=== PATIENT | female | born 1955 | race Caucasian/White ===

== ENCOUNTER → 2018-03-27 08:40 | Outpatient (CLI) | payer BC, SELFPAY ==
[2018-03-27 10:06] LABS: Erythrocyte Sedimentation Rate 22 mm/hr (0-30)
[2018-03-27 10:12] LABS: Hematocrit 39.1 % (37-47); Hemoglobin 12.9 g/dl (12.0-15.0); Mean Corpuscular Hgb 31.8 pg (27.0-32.0); Mean Corpuscular Volume 96.3 fL (81-99); Mean Platelet Vol. 11.4 fl (6.2-12.0); Platelet Count 240 K/mm3 (150-450); RBC Distribution Width CV 12.4 % (11.6-14.6); RBC Distribution Width SD 42.8 fl (35.1-43.9); Red Blood Count 4.06 M/mm3 (4.2-5.4)
[2018-03-27 10:17] LABS: Vitamin B12 330 pg/mL (211-911); Vitamin D,25 Hydroxy 52.4 ng/mL (29.95-100.01)
[2018-03-27 10:19] LABS: Scan Indicated on CBC? Y/N NO
[2018-03-27 10:23] LABS: ALB/GLOB Ratio 0.9 RATIO (0.9-2.4); AST(SGOT) 16 U/L (15-37); Alanine Aminotransfer ALT/SGPT 23 U/L (13-56); Albumin, Serum 3.5 g/dL (3.2-5.0); Alkaline Phosphatase 45 U/L (45-117); Anion Gap 10 (5-15); BUN 16 mg/dL (7-18); BUN/Creat Ratio 17.1 RATIO (10-20); Calcium,Total 8.9 mg/dL (8.5-10.1); Chloride 101 mmol/L (98-107); Cholesterol 179 mg/dL (200); Creatinine, Serum 0.94 mg/dL (0.55-1.02); EST Glomerular Filtration Rate 64 mL/min (>60); Est Glom Filt Rate - Afr Amer 77 mL/min (>60); Globulin 4.1 g/dL (2.2-4.2); Glucose 101 mg/dL (74-106); High Density Lipoprotein 42 mg/dL; Iron 99 ug/dL (50-170); Magnesium 1.7 mg/dL (1.6-2.6); Potassium 4.3 mmol/L (3.5-5.1); Protein, Total 7.6 g/dL (6.4-8.2); Sodium Level 139 mmol/L (136-145); Thyroid Stim Hormone (TSH) 2.46 uIU/mL (0.358-3.74); Triglycerides 232 mg/dL; Very Low Density Lipoprotein 46 mg/dL (5-40)
[2018-03-29 11:34] LABS: ANTINUCLEAR ANTIBODIES DIRECT Negative (Negative)
== END ==
PROVIDERS: Family Provider Family Medicine; PCP Family Medicine; Visit Provider Family Medicine
DX: I10 Essential (primary) hypertension (principal); G62.9 Polyneuropathy, unspecified
CPT/HCPCS: 80053; 80061; 82306; 82607; 82746; 83540; 83735; 84443; 85027; 85652; 86038; 86140

== ENCOUNTER → 2018-06-23 07:17 | Outpatient (CLI) | payer MEDICARE, SELFPAY ==
--- NOTE | 2018-06-23 08:30 | RAD_ITS ---
STUDY: X-RAY - LUMBAR SPINE REASON FOR EXAM: Female, 63 years old. Lumbar disc degeneration TECHNIQUE: 5 view(s) of the lumbar spine were obtained. COMPARISON: None FINDINGS: Normal lumbar lordosis. There is mild levoscoliosis. There is a normal alignment of the vertebrae. Postop change status post bilateral laminectomy and fusion at L5-S1 No evidence for acute fracture or subluxation.. Mild multilevel disc space narrowing The soft tissue structures are unremarkable. RAD/L/S Spine Min 4 Views IMPRESSION: Minor scoliosis and degenerative changes Postop change at L5-S1 No acute fracture or other significant bony pathology. Electronically Signed: Cristi mSith MD at 21:59 EDT , Service support ,
== END ==
PROVIDERS: Family Provider Family Medicine; PCP Family Medicine; Referring Provider Family Medicine; Visit Provider Family Medicine
DX: M51.36 Other intervertebral disc degeneration, lumbar region (principal)
CPT/HCPCS: 72110

== ENCOUNTER → 2018-07-24 09:14 | Outpatient (CLI) | payer MEDICARE, SELFPAY ==
[2016-12-10 17:01] VITALS: BMI 35.8
[2018-07-24 10:40] LABS: Vitamin B12 810 pg/mL (211-911)
== END ==
PROVIDERS: Family Provider Family Medicine; PCP Family Medicine; Visit Provider Family Medicine
DX: E53.8 Deficiency of other specified B group vitamins (principal)
CPT/HCPCS: 36415; 82607; 86140

== ENCOUNTER → 2018-08-29 | Outpatient (CLI) | payer MEDICARE, SELFPAY ==
[2016-12-10 17:01] VITALS: BMI 35.8
== END | disposition home or self-care (01) ==
LOC: LABSPEC 12:27
PROVIDERS: Referring Provider Family Medicine; Visit Provider Family Medicine
DX: R32 Unspecified urinary incontinence (principal)
CPT/HCPCS: 87086; 87088

== ENCOUNTER → 2018-09-04 15:59 | Outpatient (CLI) | payer MEDICARE, SELFPAY ==
--- NOTE | 2018-09-04 16:24 | MRI_ITS ---
HISTORY:NEUROPATHY L LEG, OVERALL PAIN AND GENERALIZED WEAKNESS MR Spine Lumbar W/O Contrast Technique:Sagittal T1-T2 and STIR and axial T1 and T2-weighted images # of images including paperwork:127 Comparison:Ready aggressive to June 23, 2018 Findings: The conus ends at the L1-L2 disc space and appears within normal limits. There is a hemangioma seen within the L2 vertebral body as well as the T12 and T11 vertebral bodies Postsurgical changes are seen at the level of L5-S1 T12-L1: Disc height and hydration are preserved. There is no evidence of the disc contour abnormality or canal stenosis. No significant neural foraminal narrowing or nerve root impingement. L1-2: Disc height and hydration are preserved. There is no evidence of the disc contour abnormality or canal stenosis. No significant neural foraminal narrowing or nerve root impingement. L2-3: Disc height and hydration are preserved. There is no evidence of the disc contour abnormality or canal stenosis. No significant neural foraminal narrowing or nerve root impingement. L3-4:Minimal annular bulge asymmetric to the left. Mild left neural foraminal narrowing but no significant nerve root impingement. No canal stenosis. There is a right facet effusion L4-5:There is a mild annular bulge asymmetric to the left. Mild bilateral neural foraminal narrowing but no significant nerve impingement L5-S1:Interbody fusion device at the level of L5-S1 with fusion of the L5 and S1 vertebral bodies. There is also anterior fusion device with screws extending into the L5 and S1 vertebral bodies. There is mild left-sided/down neural foraminal narrowing. There is minimal effacement of the left L5 nerve root laterally as it exits the foramen MRI/Spine Lumbar (Routine) IMPRESSION: Postsurgical changes L5-S1. Interbody fusion at this level. Minimal effacement of the left L5 nerve root as it exits the foramen at 1835 Reported and signed by: Florence Blanco DO Electronically Signed: Florence Blanco DO at 18:34 EDT Tel , Service support ,
== END ==
PROVIDERS: Family Provider Family Medicine; PCP Family Medicine; Referring Provider Family Medicine; Visit Provider Family Medicine
DX: G62.9 Polyneuropathy, unspecified (principal)
CPT/HCPCS: 72148

== ENCOUNTER → 2018-09-05 08:12 | Outpatient (CLI) | payer MEDICARE, SELFPAY ==
[2018-09-05 10:29] LABS: Color, Urine Yellow (Yellow); Glucose, Dipstick Normal (Normal); Ketone-Dipstick Negative (Negative); Leukocyte Esterase-Dipstick Negative /ul (Negative); Nitrite-Dipstick Negative (Negative); Occult Blood-Urine Negative /ul (Negative); Protein-Dipstick Negative (Negative); Urine Bilirubin Dipstick Negative (Negative); Urine Clarity Clear (Clear); Urine Urobilinogen Normal (Normal)
== END ==
PROVIDERS: Family Provider Family Medicine; PCP Family Medicine; Visit Provider Family Medicine
DX: R32 Unspecified urinary incontinence (principal)
CPT/HCPCS: 81002; 87086; 87088

== ENCOUNTER → 2018-09-21 09:04 | Outpatient (CLI) | payer MEDICARE, SELFPAY ==
--- NOTE | 2018-09-21 09:14 | MRI_ITS ---
STUDY: MRI BRAIN WITHOUT CONTRAST REASON FOR EXAM: Female, 63 years old. Gait instability, visual loss, neuropathy TECHNIQUE: Standardized multiplanar fat and water weighted pulse sequences were obtained. COMPARISON: CT 12/13/2016 FINDINGS: There is mild cerebral atrophy with widening of the extra-axial spaces and ventricular dilatation. There are a limited number of small white matter hyperintensities, distributed throughout the deep white matter tracts of the cerebral hemispheres, consistent with mild chronic white matter ischemic changes. There is no evidence for recent intracranial ischemia or other cause of cytotoxic edema on diffusion weighted imaging (DWI). Normal T2* images of the brain without demonstrated susceptibility artifact. There is no demonstrated hemosiderin stain. Normal bilateral basal ganglia. Normal thalami. There is no extra-axial fluid accumulation. Normal flow voids within the major intracranial circulation suggesting patency by spin echo criteria. Normal sella turcica, pituitary gland, infundibular stalk, optic chiasm and hypothalamus. Normal tectal plate and pineal gland. Normal midbrain, ochoa and medulla. Normal cerebellum. Normal basal cisterns. Normal bilateral temporal bones. Normal bilateral internal auditory canals. No demonstrated orbital abnormality, within the constraints of a routine brain study. Normal visualized paranasal sinuses. Normal calvarium and skull base. Normal visualized soft tissue structures. Normal visualized upper cervical spine. MRI/Brain without Contrast IMPRESSION: Involutional changes of the brain, as described above. Electronically Signed: Mc Winslow MD at 9:56 EDT Tel , Service support ,
== END ==
PROVIDERS: Family Provider Family Medicine; PCP Family Medicine; Referring Provider Family Medicine; Visit Provider Family Medicine
DX: R26.81 Unsteadiness on feet (principal)
CPT/HCPCS: 70551

== ENCOUNTER → 2019-01-16 08:45 | Outpatient (CLI) | payer MEDICARE, SELFPAY ==
--- NOTE | 2019-01-16 08:47 | US_ITS ---
PROCEDURES: ULTRASOUND AORTA REASON FOR EXAM: Female, 63 years old. Screening for abdominal aortic aneurysm. TECHNIQUE: Ultrasound evaluation of the aorta was performed with real-time and static bailon-scale imaging. COMPARISON: None. FINDINGS: There is no elongation or tortuosity of the abdominal aorta. Aorta measures: Proximal 1.6 cm. Middle 1.3 cm. Distal 1.2 cm. Aorta measure transversely: Proximal 1.7 cm. Middle 1.5 cm. Distal 1.3 cm. Right iliac artery measures: 1.1 cm. Right iliac artery measure transversely: 1.3 cm. Left iliac artery measures: 1.0 cm. Left iliac artery measure transversely: 1.3 cm. There is no demonstrated aneurysm.. US/Aorta IMPRESSION: Normal abdominal aorta. Electronically Signed: Kayden Sprague, at 15:52 EST , Service support ,
--- NOTE | 2019-01-16 09:55 | ECHOCS_ITS ---
Reason For Study: MV Annular Calcification Procedure This was a 2D Doppler, Color Flow transthoracic echocardiogram. The study was technically difficult. Contrast injection was performed. Exam performed in department. Left Ventricle Normal LV size. Mild concentric left ventricular hypertrophy. Left ventricular systolic function is normal. The estimated ejection fraction is 60 %. Diastolic function is indeterminate. No regional wall motion abnormalities noted. Right Ventricle Normal RV size. Normal systolic function. Atria The left atrium is mildly enlarged. Normal right atrium. No doppler evidence for ASD. Mitral Valve There is moderate mitral annular calcification. Extension of the mitral annular calcification onto the base of the posterior mitral valve leaflet. Mild diffuse mitral valve thickening. Mild mitral valve stenosis. Trivial mitral valve insufficiency. Tricuspid Valve Normal tricuspid valve. Trivial tricuspid valve insufficiency. Aortic Valve Trisinus/trileaflet aortic valve. Moderate diffuse aortic valve calcification. Moderate aortic stenosis. Trivial aortic valve insufficiency. Pulmonic Valve The pulmonic valve is not well visualized. Trivial pulmonic valve insufficiency. Great Vessels Normal sized aortic root. Pericardium/Pleural No pericardial effusion. Medication 22 gauge I.V. with prn adaptor inserted into right arm. Diluted definity 2ml given slow IV push to enhance endocardial definition. MMode/2D Measurements & Calculations LVIDd: 3.6 cm IVSd: 1.3 cm LVOT diam: 2.0 cm LVIDs: 2.8 cm LVPWd: 1.5 cm FS: 22.3 % LVOT area: 3.2 cm2 Ao root diam: 3.3 cm LAV(MOD-bp): 59.3 ml LA A4 area: 22.5 cm2 ACS: 0.94 cm LAV(MOD-bp) Indexed: 29.7 ml/m2 LA dimension: 4.1 cm LAV(MOD-sp2): 48.4 ml LAV(MOD-sp4): 68.4 ml RA A4 area: 15.6 cm2 Time Measurements MV dec time: 0.39 sec Doppler Measurements & Calculations MV E max edgardo: 91.3 cm/sec Lat Peak E' Edgardo: 9.4 cm/sec Med Peak E' Edgardo: 4.2 cm/sec MV A max edgardo: 142.5 cm/sec E/E' lat: 9.7 E/E' med: 21.8 MV E/A: 0.64 MV V2 max: 157.9 cm/sec MV P1/2t max edgardo: 108.8 cm/sec Ao V2 max: 352.3 cm/sec MV max P.0 mmHg MV P1/2t: 136.7 msec Ao max P.7 mmHg MV V2 mean: 83.4 cm/sec MV dec slope: 233.2 cm/sec2 Ao V2 mean: 230.0 cm/sec MV mean P.3 mmHg Ao mean P.5 mmHg MV V2 VTI: 49.2 cm MVA(P1/2t): 1.6 cm2 Ao V2 VTI: 83.1 cm MVA(VTI): 1.5 cm2 LUMA(I,D): 0.91 cm2 LUMA(V,D): 0.97 cm2 LV V1 max: 107.4 cm/sec SV(LVOT): 75.4 ml PA V2 max: 101.1 cm/sec LV V1 max P.6 mmHg LV V1 mean P.3 mmHg LV V1 mean: 69.9 cm/sec LV V1 VTI: 23.8 cm Interpretation Summary The study was technically difficult. Contrast injection was performed. Left ventricular systolic function is normal. The estimated ejection fraction is 60 %. Mild concentric left ventricular hypertrophy. The left atrium is mildly enlarged. There is moderate mitral annular calcification. Extension of the mitral annular calcification onto the base of the posterior mitral valve leaflet. Mild diffuse mitral valve thickening. Mild mitral valve stenosis. Trivial mitral valve insufficiency. Trivial tricuspid valve insufficiency. Moderate aortic stenosis. Trivial aortic valve insufficiency. Trivial pulmonic valve insufficiency. Diastolic function is indeterminate. Ordering Physician: Manuel Freeman Referring Physician: Manuel Freeman Performed By: Van Oconnell RCS
== END ==
PROVIDERS: Family Provider Family Medicine; PCP Family Medicine; Referring Provider Family Medicine; Visit Provider Family Medicine
DX: Z13.6 Encounter for screening for cardiovascular disorders (principal); I05.9 Rheumatic mitral valve disease, unspecified; I35.1 Nonrheumatic aortic (valve) insufficiency
CPT/HCPCS: 76775; 93306; Q9957; A4216; C8929

== ENCOUNTER → 2019-01-18 08:09 | Outpatient (CLI) | payer MEDICARE, SELFPAY ==
[2019-01-18 10:48] LABS: Erythrocyte Sedimentation Rate 49 mm/hr (0-30)
[2019-01-18 10:50] LABS: Absolute Lymphocyte Count 1.49 X10^3/uL (0.83-4.51); Absolute Neutrophil Count 3.2 X10^3/uL (2.0-7.7); Basophil# 0.03 X10^3/uL; Basophil% 0.5 % (0-1); Eosinophil# 0.22 X10^3/uL; Eosinophils% 3.9 % (0-5); Hematocrit 40.1 % (37-47); Hemoglobin 12.9 g/dL (12.0-15.0); Lymphocyte # 1.49 X10^3/ul (4.0); Lymphocyte % 26.4 % (19-41); Mean Corp Hgb Conc 32.2 g/dL (32-36); Mean Corpuscular Hgb 31.3 pg (27.0-32.0); Mean Corpuscular Volume 97.3 fL (81-99); Mean Platelet Vol. 11.5 fl (6.2-12.0); Monocyte# 0.69 X10^3/uL; Monocyte% 12.2 % (0-10); NRBC Flagged by Analyzer 0 % (0-5); Neutrophil % 56.6 % (47-70); Platelet Count 244 K/mm3 (150-450); RBC Distribution Width CV 12.3 % (11.6-14.6); RBC Distribution Width SD 43.8 fl (35.1-43.9); Red Blood Count 4.12 M/mm3 (4.2-5.4); White Blood Count 5.7 K/mm3 (4.4-11.0)
[2019-01-18 11:19] LABS: ALB/GLOB Ratio 0.8 RATIO (0.9-2.4); AST(SGOT) 14 U/L (15-37); Alanine Aminotransfer ALT/SGPT 22 U/L (13-56); Albumin, Serum 3.2 g/dL (3.2-5.0); Alkaline Phosphatase 42 U/L (45-117); Anion Gap 10 (5-15); BUN 17 mg/dL (7-18); BUN/Creat Ratio 17.8 RATIO (10-20); Calcium,Total 8.9 mg/dL (8.5-10.1); Chloride 101 mmol/L (98-107); Creatinine, Serum 0.95 mg/dL (0.55-1.02); EST Glomerular Filtration Rate 62 mL/min (>60); Est Glom Filt Rate - Afr Amer 76 mL/min (>60); Ferritin 65 ng/mL (8-252); Globulin 4.1 g/dL (2.2-4.2); Glucose 93 mg/dL (74-106); Iron 79 ug/dL (50-170); Potassium 3.9 mmol/L (3.5-5.1); Protein, Total 7.3 g/dL (6.4-8.2); Sodium Level 138 mmol/L (136-145); Thyroid Stim Hormone (TSH) 2.22 uIU/mL (0.358-3.74)
[2019-01-18 12:55] LABS: Vitamin B12 1307 pg/mL (211-911); Vitamin D,25 Hydroxy 51.3 ng/mL (29.95-100.01)
== END ==
PROVIDERS: Family Provider Family Medicine; PCP Family Medicine; Referring Provider Family Medicine; Visit Provider Family Medicine
DX: R53.83 Other fatigue (principal); E53.8 Deficiency of other specified B group vitamins
CPT/HCPCS: 36415; 80053; 82306; 82607; 82728; 83540; 84443; 85025; 85652; 86140

== ENCOUNTER → 2019-01-23 10:12 | Outpatient (CLI) | payer MEDICARE, SELFPAY ==
[2016-12-10 17:01] VITALS: BMI 35.8
--- NOTE | 2019-01-23 10:15 | BI_ITS ---
MAMMOGRAPHY - BILATERAL SCREENING REASON FOR EXAM: Female, 63 years old. Routine annual screening examination. PERTINENT HISTORY: Non-contributory. TECHNIQUE: Digital bilateral breast aliyah (3D mammographic acquisition) in the CC and MLO projections. 2-D mediolateral oblique (MLO) and craniocaudad (CC) views of both breasts were obtained. CAD: Full Field Digital Mammography with Computer Added Detection was performed. COMPARISON: Comparison is made with prior examination dated October 21, 2014 and September 23, 2011. FINDINGS: Breast Composition: The breasts are almost entirely fatty. There are no dominant masses or suspicious calcifications. Stable benign-appearing bilateral axillary lymph nodes. No other significant abnormalities are identified. There has been no significant change since the prior study. BI/SCREEN MAMM (CAD) W/ALIYAH BILAT IMPRESSION: Stable bilateral screening mammogram. Yearly follow-up mammogram recommended. (A) ASSESSMENT CATEGORY: BIRADS Category 2: Benign. A letter regarding these results will be sent to the patient by the facility within 30 days. Approximately 10% of breast cancers are not detected by mammography. A normal mammogram should not delay biopsy of a clinically suspicious abnormality. [id number] Electronically Signed: Kayden Sprague, at 11:31 EST , Service support ,
--- NOTE | 2019-01-23 10:17 | BD_ITS ---
STUDY: DUAL ENERGY X-RAY ABSORPTIOMETRY / DXA REASON FOR EXAM: Female, 63 years old. The patient is postmenopausal. Loss of height. TECHNIQUE: Bone Mineral Density (BMD) measurements of lumbar spine and bilateral hips were obtained. COMPARISON: Comparison is made with prior examination dated September 23, 2011. FINDINGS: Lumbar Spine (L1-L4): g/cm2 (1.095) / T-score (-0.7) / Z-score (0.9) Findings are suggestive of normal bone density with a low fracture risk. Left Femur Total: g/cm2 (0.849) / T-score (-1.3) / Z-score (0.0) Left Femoral Neck: g/cm2 (0.837) / T-score (-1.4) / Z-score (0.0) Right Femur Total: g/cm2 (0.865) / T-score (-1.1) / Z-score (0.1) Right Femoral Neck: g/cm2 (0.868) / T-score (-1.2) / Z-score (0.3) The T-Scores on the most recent prior examination were: Lumbar Spine (L1-L4): There has been worsening of bone density since the previous examination. Left Femur Total: which represents a worsening of 11.7%. Right Femur Total: which represents a worsening of 6.5%. BD/Dexa Bone Density Study IMPRESSION: The patient is considered osteopenic as outlined below according to World [place] Organization (WHO) criteria with a low fracture risk. There has been worsening of bone density since the previous examination. Reference Information: The T-score is the number of standard deviations above or below the standard which is normal for young adults at their peak bone mineral density. The World Health Organization (WHO) interprets the T-scores as follows: Above -1 Normal bone density Between -1 and -2.5 Osteopenia Equal to / or below -2.5 Osteoporosis As a practical clinical guideline, osteopenia may be graded as follows: Mild -1 through -1.5 Moderate -1.6 through -2.0 Severe -2.1 through -2.4 The Z-score is the number of standard deviations above or below age-matched controls. A Z-score of less than -1.5 would be considered abnormal. References: 1. NIH Osteoporosis and Related Bone Diseases http://www.osteo.org 2. International Society for Clinical Densitometry http://www.iscd.org 3. National Osteoporosis Foundation http://www.nof.org Electronically Signed: Kayden Sprague, at 11:02 EST , Service support ,
== END ==
PROVIDERS: Family Provider Family Medicine; PCP Family Medicine; Referring Provider Family Medicine; Visit Provider Family Medicine
DX: Z12.31 Encounter for screening mammogram for malignant neoplasm of breast (principal); Z78.0 Asymptomatic menopausal state
CPT/HCPCS: 77063; 77067; 77080

== ENCOUNTER → 2019-02-15 07:34 | Outpatient (CLI) | payer BC, SELFPAY ==
[2019-02-14 16:05] VITALS: BMI 35.1
--- NOTE | 2019-02-15 07:37 | RAD_ITS ---
STUDY: X-RAY CHEST REASON FOR EXAM: Female, 63 years old. Dyspnea. TECHNIQUE: 2 views COMPARISON: Prior chest radiograph from May 24, 2016 FINDINGS: The lungs are clear and expanded. There is no demonstrated pleural abnormality. Normal size heart. Normal mediastinum and carli. Normal visualized pulmonary arteries. Mild elongation of the thoracic aorta. Mild degenerative changes of the thoracic spine. Cervical fusion hardware is included in the zeish-ke-uame. Normal visualized ribs, clavicles, and shoulders. There is no demonstrated abnormality of the visualized soft tissue structures of the upper abdomen. RAD/Chest PA and Lateral IMPRESSION: No acute cardiopulmonary findings or changes. Negative for new consolidation, focal atelectasis, pleural effusion or cardiomegaly. Electronically Signed: Fe Vo MD at 22:31 EST , Service support ,
[2019-02-15 10:27] LABS: Absolute Lymphocyte Count 1.96 X10^3/uL (0.83-4.51); Absolute Neutrophil Count 4.3 X10^3/uL (2.0-7.7); Basophil# 0.05 X10^3/uL; Basophil% 0.7 % (0-1); Eosinophil# 0.12 X10^3/uL; Eosinophils% 1.7 % (0-5); Hematocrit 38.9 % (37-47); Hemoglobin 12.9 g/dL (12.0-15.0); Lymphocyte # 1.96 X10^3/ul (4.0); Lymphocyte % 27.6 % (19-41); Mean Corp Hgb Conc 33.2 g/dL (32-36); Mean Corpuscular Hgb 31.5 pg (27.0-32.0); Mean Corpuscular Volume 94.9 fL (81-99); Mean Platelet Vol. 11.4 fl (6.2-12.0); Monocyte# 0.66 X10^3/uL; Monocyte% 9.3 % (0-10); NRBC Flagged by Analyzer 0 % (0-5); Neutrophil # 4.28 X10^3/uL (2.7-7.7); Neutrophil % 60.4 % (47-70); Platelet Count 274 K/mm3 (150-450); RBC Distribution Width CV 12.4 % (11.6-14.6); RBC Distribution Width SD 42.9 fl (35.1-43.9); White Blood Count 7.1 K/mm3 (4.4-11.0)
[2019-02-15 10:51] LABS: Anion Gap 9 (5-15); BUN 15 mg/dL (7-18); BUN/Creat Ratio 14.7 RATIO (10-20); Chloride 103 mmol/L (98-107); Creatinine, Serum 1.02 mg/dL (0.55-1.02); EST Glomerular Filtration Rate 58 mL/min (>60); Est Glom Filt Rate - Afr Amer 70 mL/min (>60); Glucose 95 mg/dL (74-106); Sodium Level 137 mmol/L (136-145)
== END ==
PROVIDERS: Family Provider Family Medicine; PCP Family Medicine; Referring Provider Internal Medicine Cardiovascular Disease; Visit Provider Internal Medicine Cardiovascular Disease
DX: I05.9 Rheumatic mitral valve disease, unspecified (principal); I10 Essential (primary) hypertension; I35.0 Nonrheumatic aortic (valve) stenosis
CPT/HCPCS: 36415; 71046; 80048; 85025

== ENCOUNTER → 2019-02-19 08:15 | Outpatient (CLI) | payer MEDICARE, SELFPAY ==
[2019-02-14 16:05] VITALS: BMI 35.1
[2019-02-16 09:54] VITALS: BMI 35.1
--- NOTE | 2019-02-19 08:29 | ECHOTEE_ITS ---
Reason For Study: Nonrheumatic Aortic Stenosis, MAC Medication MAMTA probe 6VT-D (SN [id number]) passed with minimal difficulty. No complications were noted. Cetacaine Topical [place] given X3 orally. Versed 2 mg given slow IVP. Fentanyl 25 mcg given slow IVP. Performed a rapid injection of agitated mix of 9 cc saline and 1cc air to assess for atrial septal defect. Left Ventricle Normal LV size. Left ventricular systolic function is normal. The estimated ejection fraction is 60 %. No regional wall motion abnormalities noted. Right Ventricle Normal RV size. Normal systolic function. Atria Bubble contrast study negative for right to left interatrial shunt. Normal left atrium. Normal right atrium. Mitral Valve Mild diffuse mitral valve thickening. There is mild mitral annular calcification. Tricuspid Valve Normal tricuspid valve. Aortic Valve Bicuspid aortic valve. Moderate restriction of the aortic valve. Pulmonic Valve Normal pulmonic valve. Vessels Normal aortic root. Normal arch. The pulmonary artery is normal size. Pericardium No pericardial effusion. Interpretation Summary Normal LV size. Left ventricular systolic function is normal. The estimated ejection fraction is 60 %. Bicuspid aortic valve. Moderate restriction of the aortic valve. Ordering Physician: Christophe Jaimson Referring Physician: Gilberto Freeman MD Performed By: Van Oconnell RCS
== END ==
PROVIDERS: Family Provider Family Medicine; PCP Family Medicine; Referring Provider Internal Medicine Cardiovascular Disease; Visit Provider Internal Medicine Cardiovascular Disease
DX: I35.0 Nonrheumatic aortic (valve) stenosis (principal); I05.9 Rheumatic mitral valve disease, unspecified; R06.02 Shortness of breath
CPT/HCPCS: 93312; 93320; 93325; A4216

== ENCOUNTER 2019-03-05 06:47 | Day surgery (SDC) | payer MEDICARE, SELFPAY ==
[2019-02-16 09:54] VITALS: BMI 35.1
[2019-03-02 08:36] VITALS: BMI 35.1
--- NOTE | 2019-03-05 09:32 | CL.D_ITS ---
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 Depending on clinical symptoms further recommendations will be made. DESCRIPTION OF PROCEDURE The patient arrived to the procedure lab. The risks and benefits of the procedure as well as a full d escription of our services here and current unavailability of surgical backup were fully explained to the patient and/or their significant other prior to the catheterization. The Timeout was completed, verifying the correct patient and procedure. The patient's procedural site was prepped and draped in the usual fashion. Local anesthetic was given subcutaneously to right groin region with Lidocaine 2%. Using a modified Seldinger technique, arterial access was obtained via the right femoral artery, a 5 Fr sheath was inserted. Venous access was obtained via the right femoral vein, a 7Fr sheath was inser mitchell. A 7Fr thermal dilution catheter was inserted and right heart pressures were recorded, it was the n advanced to PA position for cardiac outputs. Thermal dilution cardiac outputs were then recorded. L eft Ventriculography was performed in CHOWDHURY projection using a 5 Fr. Pigtail catheter. O2 saturations were then obtained. The Thermal dilution catheter was then removed. Left Coronary Artery selective angiography was performed in multiple views using a 5 Fr. JL4 catheter. Right Coronary Layne ry and Anamalous Circumflex selective angiography was then performed in multiple views using a 5 Fr. 3DRC (Aaron) catheter. Anamalous Circumflex selective angiography was performed in multiple views using a 5 Fr. JL 5 catheter.The arterial sheath was pulled and manual compression applied until hemos tasis is achieved.. The venous sheath was then pulled and manual compression applied until hemostasis achieved CORONARY ANGIOGRAPHY DOMINANCE: Right Dominant LEFT HEART ASSESSMENT Left Ventricular Ejection Fraction: by LV Gram 75 % Normal LV wall motion Cardiomyopathy: Hypertrophic RIGHT HEART ASSESSMENT Thermal CO: 5.61 Thermal CI: 2.76 Sury CO: 8.1 Sury CI: 3.99 PW: 16/18 11 PA: 34/14 22 RV: 30/0 4 RA: 3/1 0 PVR: 157 Aortic Valve Area: 0.87 Aortic Valve Index: 0.43 Aortic Valve Mean Gradient: 32.6 Mitral Valve Area: 1.96 Mitral Valve index: 0.97 Mitral Valve Mean Gradient: 10 LEFT MAIN: Angiographically normal LEFT ANTERIOR DESCENDING ARTERY: Angiographically normal CIRCUMFLEX ARTERY: 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 RIGHT CORONARY ARTERY: Angiographically normal VALVE FINDINGS: Aortic Valve Stenosis - moderate Mitral Valve Calcification Moderate Mitral Valve Stenosis - mild COMPLICATIONS No Complications PROCEDURE MEDICATIONS Versed 1 mg IV Versed 1 mg IV Fentanyl 25 mcg IV SUMMARY OF HEMODYNAMIC DATA Time AIR REST ECG 07:12:29 RA 3/1 (0) 08:19:53 RV 30/0, 4 08:20:07 PA 34/14 (22) PA 08:20:29 PW 16/18 (11) PV 08:20:44 LV 171/1, 8 08:32:00 PW 18/19 (13) 08:32:00 LV 173/1, 7 08:32:07 PW 17/18 (13) 08:32:07 LV 177/2, 23 08:32:47 PW 24/24 (17) 08:32:47 LV 170/4, 10 08:34:07 LV 171/5, 11 08:34:14 LVp 174/5, 11 08:34:18 AOp 137/68 (98) 08:34:23 AO 136/70 (99) SA 08:37:19 Valve Area (c P-P/ms Time AIR REST Mitral 1.96 10.0 mn/304 ms6.0 pk/304 ms 08:32:07 Aortic 0.87 32.6 mn/314 ms37.0 pk/314 ms 08:34:18 Type SV CO (l/m) CI (l/m/ HR Time AIR REST Thermal 74.80 5.61 2.76 75 07:12:29 Sury 108.00 8.10 3.99 75 07:12:29 Label % O2 Pres/Loc Time AIR REST AO 94 PV 08:30:47 PA 70 PA 08:42:27 RA 75 SV 08:42:46 Signed By Christophe Jamison MD On 03/05/2019 09:31:06 Christophe Jamison MD
[2019-03-05 11:10] LABS: Blood Gas Specimen Type VEN; VBG BASE EXCESS 0 mmol/L (-1.0-3.5); VBG Bicarbonate 25 mmol/L (22-26); VBG Oxygen Content 27 mmol/L (23-33); VBG PO2 39 mmHg (25-40); VBG SO2 70 % (50-70); VBG pCO2 46.4 mmHg (41-51); VBG pH 7.35 (7.32-7.42)
[2019-03-05 11:10] LABS: Base Excess 2 mmol/L (-2 to +2); Bicarbonate 27.3 mmol/L (22-26); Blood Gas Specimen Type ART; PO2 72 mmHG (75-100); SO2 94 % (95-99); Total Carbon Dioxide 29 mmol/L; pCO2 45.6 mmHg (35-45); pH 7.39 (7.35-7.45)
[2019-03-05 11:11] LABS: Blood Gas Specimen Type VEN; VBG BASE EXCESS 1 mmol/L (-1.0-3.5); VBG Bicarbonate 26 mmol/L (22-26); VBG Oxygen Content 27 mmol/L (23-33); VBG PO2 41 mmHg (25-40); VBG SO2 75 % (50-70); VBG pCO2 44.9 mmHg (41-51); VBG pH 7.37 (7.32-7.42)
== END 2019-03-05 13:25 | disposition home or self-care (01) ==
LOC: CLSP 06:48
PROVIDERS: Family Provider Family Medicine; PCP Family Medicine; Referring Provider Internal Medicine Cardiovascular Disease; Visit Provider Internal Medicine Cardiovascular Disease
DX: I35.0 Nonrheumatic aortic (valve) stenosis (principal); I34.0 Nonrheumatic mitral (valve) insufficiency; I10 Essential (primary) hypertension; K21.9 Gastro-esophageal reflux disease without esophagitis; D50.9 Iron deficiency anemia, unspecified; M19.90 Unspecified osteoarthritis, unspecified site; Z79.899 Other long term (current) drug therapy
CPT/HCPCS: 82803; 93460; 99152; 99153; J7040; C1751; C1769; C1894; Q9967

== ENCOUNTER → 2019-03-20 14:21 | Outpatient (CLI) | payer MEDICARE, SELFPAY ==
[2019-03-20 11:43] VITALS: BMI 34.7
[2019-03-20 15:54] LABS: BNP,B-Type NATRIURETIC PEPTIDE 30.2 pg/mL (0-100)
== END ==
PROVIDERS: Family Provider Family Medicine; PCP Family Medicine; Referring Provider Internal Medicine Cardiovascular Disease; Visit Provider Internal Medicine Cardiovascular Disease
DX: R06.00 Dyspnea, unspecified (principal)
CPT/HCPCS: 36415; 83880

== ENCOUNTER → 2019-08-27 12:27 | Outpatient (CLI) | payer MEDICARE, SELFPAY ==
[2019-08-24 10:45] VITALS: BMI 33.3
[2019-08-27 15:47] LABS: Absolute Lymphocyte Count 2.07 X10^3/uL (0.83-4.51); Absolute Neutrophil Count 6.4 X10^3/uL (2.0-7.7); Basophil# 0.06 X10^3/uL; Basophil% 0.6 % (0-1); Eosinophils% 4.1 % (0-5); Hematocrit 37.4 % (37-47); Hemoglobin 11.5 g/dL (12.0-15.0); Lymphocyte # 2.07 X10^3/ul (4.0); Lymphocyte % 21.4 % (19-41); Mean Corp Hgb Conc 30.7 g/dL (32-36); Mean Corpuscular Hgb 29.6 pg (27.0-32.0); Mean Corpuscular Volume 96.4 fL (81-99); Mean Platelet Vol. 10.6 fl (6.2-12.0); Monocyte# 0.73 X10^3/uL; Monocyte% 7.6 % (0-10); NRBC Flagged by Analyzer 0 % (0-5); Neutrophil # 6.37 X10^3/uL (2.7-7.7); Platelet Count 437 K/mm3 (150-450); RBC Distribution Width CV 12.8 % (11.6-14.6); RBC Distribution Width SD 44.7 fl (35.1-43.9); Red Blood Count 3.88 M/mm3 (4.2-5.4); White Blood Count 9.7 K/mm3 (4.4-11.0)
[2019-08-27 16:00] LABS: ALB/GLOB Ratio 0.7 RATIO (0.9-2.4); AST(SGOT) 13 U/L (15-37); Alanine Aminotransfer ALT/SGPT 15 U/L (13-56); Albumin, Serum 3.2 g/dL (3.2-5.0); Alkaline Phosphatase 62 U/L (45-117); Anion Gap 9 (5-15); BUN 14 mg/dL (7-18); BUN/Creat Ratio 13.9 RATIO (10-20); Calcium,Total 9.4 mg/dL (8.5-10.1); Chloride 99 mmol/L (98-107); Creatinine, Serum 1.01 mg/dL (0.55-1.02); EST Glomerular Filtration Rate 58 mL/min (>60); Est Glom Filt Rate - Afr Amer 70 mL/min (>60); Globulin 4.9 g/dL (2.2-4.2); Glucose 116 mg/dL (74-106); Potassium 3.7 mmol/L (3.5-5.1); Protein, Total 8.1 g/dL (6.4-8.2); Sodium Level 136 mmol/L (136-145); Thyroid Stim Hormone (TSH) 2.53 uIU/mL (0.358-3.74)
== END ==
PROVIDERS: PCP Family Medicine; Referring Provider Family Medicine; Visit Provider Family Medicine
DX: R11.0 Nausea (principal); R42 Dizziness and giddiness
CPT/HCPCS: 36415; 80053; 83735; 84443; 85025

== ENCOUNTER → 2019-08-30 07:51 | Outpatient (CLI) | payer MEDICARE, SELFPAY ==
[2019-08-24 10:45] VITALS: BMI 33.3
--- NOTE | 2019-08-30 07:56 | CR.ITP_ITS ---
Diagnosis - General Information Admitting Diagnosis: S/P HEART VALVE REPLACEMENT SURGERY ON 07/30/2019 AT [facility]. 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, I05.9, I10 Personal Learning Style:: Written Barriers to Learning: Vision Impairment Stage of change r/t lifestyle modifications:: Action Gave educational material for:: Treating Heart Disease, Emotions & Heart Disease, Stress Management & Relaxation, Sleep Disorders & Heart Disease, How The Heart Works, What it means to have Heart Disease, How Coronary Artery Disease is Diagnosed, Heart Procedures, What Heart Medications Do, Risk Factors & Modifications, Living an Active Life, Nutrition - Education/Goals Individual Counseling: Initial Assessment: Abnormal Cholesterol Levels, High Blood Pressure, Overweight/Obesity Cardiac Rehabilitation Goals: 1. Maintain the individual as the primary focus of care. 2. To improve the patient's quality of life. 3. Identification of cardiac risk factors and provide cardiac risk factor management. 4. Enhance the psychosocial status of the patient. 5. Reconditioning enough to allow the patient to resume customary activities. 6. Control symptoms of cardiac disease Scale for measuring improvement of personal goals: Enter appropriate number in Comments. 2 = Unchanged. 3 = Slightly Better. 4 = Moderate Improvement. 5 = Met my Goal - Diagnosis & Disease Process Outcomes/Goals: Pt IDs own risk factors & lifestyle modifications by Session 10, Verbalizes symptoms of angina & response by session 3., Pt independently manages Plan/Interventions: Assist Pt to ID & engage in lifestyle modification to reduce CVD risk, Instruct on individual risk factors, Review symptoms of angina & emergency actions, Review secondary diagnosis & identify educational needs. - Safety Referral to Physical Therapy: No [facility]erral to [facility] Case Management: No Fall Risk Assessed:: Yes Assistive Devices:: Cane - KNEES H/O TOTAL LEFT KNEE REPLACEMENT Exercise - Initial Assessment - Visit Date of Eval: 08/30/19 Session #:: 0 - INITIAL EVALUATION Mets: Pre-: >5 METS for 30 minutes by discharge - Physician Prescribed Exercise Modalities: Treadmill - DEPENDING ON LIMITATIONS W/KNEE , Airdyne, NuStep, SciFit Frequency: 3x/week for 12 weeks [36 sessions] Intensity: 60-80% of age predicted maximum heart rate reserve Current METSs:: 3.0 Target Heart Rate:: 100-130 Resting Blood Pressure: 106/58 EKG Type: SINUS RHYTHM W/PVCs - Outcomes & Goals Goals:: Verbalizes understanding of THR, RPE & goal METS by session 6, Documents in home exercise log/reports 30 min aerobic 5 day/wk by DC, Demonstrates accurate pulse taking by DC - Intervention & Plan Exercise Program Goals: Instruct on personal THR & RPE, Instruct on MET level & personal MET goal, Instruct on home exercise - Physical Activity Home Exercise Physical Activity - Home Exercise: Safe Exercise, Warm-up, Self-monitoring, Cool-Down, Home Exercise > 30 min Daily, Sitting Time <3 hours/daily - Outcomes & Goals Outcomes/Goals: Demonstrates correct Warm-up/exercise Cool-Down (S3) if = 2.5 METs, Verbalizes symptoms of exercise intolerance by Session 3 (S3), Demonstrate safe equipment use (S3) & follows exercise prescrition (6) - Intervention & Plan Plan/Intervention: Instruct warm-up & cool-down if exercising at > 2 METs, Instruct on symptoms of exercise intolerance & actions to take, Assess intial functional capacity & safety risk
--- NOTE | 2019-08-30 07:57 | CR.HP_ITS ---
CR - History & Physical - General Arrival date:: 08/30/19 Arrival time:: 08:00 Date of Referral:: 08/24/19 Date of CR Evaluation:: 08/30/19 Referring Physician: DR. CHRISTOPHE DURHAM Primary Diagnosis: HEART VALVE REPLACEMENT - History of Present Cardiac Event Onset Date: Enter Onset Date of cardiac illnesses in Comment field below Heart valve replacement or repair:: Yes - 07/30/2019 @ [facility] - Medications Home Medications: Ambulatory Orders Medication Instructions Recorded Estradiol [Estrace (G)] 1 mg PO DAILY 08/12/14 Senna/Docusate Sodium [Senokot-S] 2 tab PO BID PRN PRN #20 tab 09/24/16 Meloxicam [Mobic] 15 mg PO DAILY 11/23/16 amitriptyline 25 mg tablet 25 mg PO QHS 02/14/19 calcium carbonate 600 mg calcium 600 mg PO DAILY 02/14/19 (1,500 mg) tablet cholecalciferol (vitamin D3) 25 1,000 unit PO DAILY 02/14/19 mcg (1,000 unit) capsule gabapentin 800 mg tablet 800 mg PO BID #60 tab 02/14/19 amoxicillin 500 mg tablet 2,000 mg PO ONCE PRN tab 08/24/19 aspirin 81 mg tablet,delayed 81 mg PO DAILY 08/24/19 release diltiazem HCl 120 mg 120 mg PO DAILY #90 cap 08/24/19 capsule,extended release 24 hr furosemide 40 mg tablet 40 mg PO DAILY tab 08/24/19 lisinopril 10 mg tablet 10 mg PO DAILY tab 08/24/19 oxycodone 10 mg tablet,crush 10 mg PO Q6H PRN tab 08/24/19 resistant,extended release 12 hr - Allergies Allergies/Adverse Reactions: Allergies No Known Allergies Allergy (Verified 08/24/19 10:45) - Sleep Disorder Evaluation Hx of Sleep Apnea: No Do you snore loudly (louder than talking or can be heard through closed doors)?: No - HAD A TEST DONE IN 2017 NOTHING INDICATED. Do you often feel tired/ fatigued/ sleepy during daytime?: Yes - HX OF INSOMNIA Has anyone observed you stop breathing during sleep?: No History of Hypertension (for STOP score): Yes STOP Results: Positive Advanced Directives - Advanced Directives Power of Surveillance System Monitor: Yes Living Will: Yes Advance Directives Information Provided: No Advance Directives on File: Yes - SCANNED IN 2017. DNR Order?:: No - MOLST See MOLST form: No Past Medical History - Past Medical Illness Medical History: Past Medical History (Last Reviewed 08/24/19 @ 11:[address] 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 Christophe Durham MD) History of aortic valve replacement (Resolved) Onset Date: 07/30/19 Z95.2 AVR # 23 Inspiris History of hysterectomy Z90.710 History of right and left heart catheterization Onset Date: 03/05/19 Z98.890 Nonobstructive coronary anatomy. 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 2 right knee revision replacements, the most recent in 2016. Left knee replacement in 2005., tonsillectomy, - - bilateral tendon surgery, lower extremity. carpal tunnel surgery - 2006. deQuervain's release. L5-S1 fusion - 2008. Anterior cervical fusion C5-C6 - 2008. - Family History Summary Family History: Family History (Last Reviewed 08/24/19 @ 11:[address] Christophe Durham MD) Father Hypertension age 45 from [facility] Mother Cancer, Onset Age: 56 ovarian cancer Social History - Smoking History Smoking Status: Never smoker Hx Tobacco Use: No Hx Smoking Exposure: No - Alcohol Use Alcohol Usage: No - Substance Abuse Hx Substance Use: No - Occupation Occupation (List type of work in comments):: Retired - Hobbies, Recreation, Social Activities Hobbies: Other - FRIENDS and DAY TRIP ACTIVITIES Recreational Activities: I am able to engage in most, but not all activities Social Environment - Status Marital Status: - Current Living Arrangements Living Environment:: Alone - Children How many children do you have?: 2 Do any of your children live nearby?: Yes - ONE IN [place] - Safety Do you feel safe in your surroundings?: Yes - Assistance Do you need any assistance at home?: NO Review of Systems - Review of Systems Hints: Right click = Denies (Slash). Left click = Reports ([place]) Review of Present Symptoms: Reports: Shortness of Breath with Exertion - HOPEFULLY TRYING TO FIGURE THAT OUT TODAY. HOPEFULLY GET ON THE CORERCT MEDICATIONS., Wound Healing, Dizziness/Lightheadedness, Heart Arrhythmia/Irregularities - INCREASED APICAL RATE H/O PVCs, Appetite - Normal, Appetite - Special Diet, Sleep - Normal. Denies: Shortness of Breath at Rest, Operative Discomfort, Angina, Fatigue, Sexual Changes - Pain Is Patient Pain Free?: No Pain Location: lower extremity - KNEES, Pain Level: 5/10 - ALL OVER PAIN Risk Factor Assessment - Chief Complaint Chief Complaint: PATIENT IS A 64 YR OLD FEMALE OF DR. DURHAM'S WHO PRESENTST O CARDIAC REHAB TODAY FOLLOWING A RECENT HEART VALVE REPLACEMENT AT THE [facility] ON 07/30/2019. PATIENT DOES NOT FEEL SHE IS AN APPROPIATE CONDIDATE FOR CARDIAC REHAB BASED ON HER PHYSICAL BODY LIMITATIONS. SHE IS MORE INTERESTED IN PARTICIPATING IN AN AQUATIC EXERCISE PROGRAM. LEOPOLDO GARCIA WAS CALLED IN DR. DURHAM'S OFFICE AND THE MATTER WAS DISCUSSED. [facility] WILL CONSULT WITH [facility] ABOUT HOW TO PROCEED GETTING THE PATIENT IN THE AQUATIC PROGRAM AT [facility]. THE PATIENT WAS VERY APPRECIATIVE, AND WAS ALSO ADVISED SHE HAS 12 MONTHS FROM HER SURGERY DATE TO COMPLETE CARDIAC REHAB IF SHE COOSES TO PARTICIPATE AT A LATER DATE. - Vital Signs Temperature: 98 F Respiratory Rate: 18 Pulse Ox: 97 Blood Pressure: 106/58 - Pulse Pulse Rate: 86 Pulse Rhythm: Regular - Hypertension Blood Pressure Sitting - Left Arm: 106/58 - Blood Cholesterol/Lipids Total Cholesterol (mg/dL) Goal = less than 200 mg/dL: 179 HDL Cholesterol (mg/dL) Goal = less than 40 mg/dL: 42 LDL Cholesterol (mg/dL) Goal = less than 70 mg/dL: 91 Triglycerides (mg/dL) Goal = less than 150 mg/dL: 232 - Diabetes Nutrition Referral for Diabetes: No - Obesity Height: 5 ft 5 in Weight:: 209 lb Weight in Pounds: 209.0 lbs Weight Source: Stated by Patient Body Mass Index (BMI): 34.7 Nutritional Referral for Obesity: Yes - Risk Stratification Risk Guidelines: Lowest Risk: Risk Factor for Smoking, Risk Factor for Diabetes, Risk Factor for Hypertension - CONTROLLED, Risk Factor for Sedentary Lifestyle, Risk Factor for Depression, Moderate Risk: Risk Factor for Dyslipidemia, Highest Risk: Risk Factor for Obesity - For Smoking Smoking Risk Guidelines: Smoking Low Risk: None or quit greater than 6 months ago. Smoking Moderate Risk: Smoker or quit 6 months or less ago. Smoking High Risk: Smoker - For Dyslipidemia Dyslipidemia Risk Guidelines: Low Risk: Moderate Risk: High Risk: 15-25% fat 25.1-29% fat >/= 30% fat. <7% sat fat 7-9% sat fat >9% sat fat. <150 mg chol 150-299 mg chol >/= 300 mg chol. LDL <100 LDL 100-129 LDL >/= 130. Chol/HDL ratio <5.0 Chol/HDL ratio 5.0-6.0 Chol/HDL ratio >6.0. Triglycerides <100 Triglycerides 100- 149 Triglycerides >/= 150 - For Diabetes Mellitus Diabetes Risk Guidelines: Diabetes Low Risk: HgA1c <6.5% and/or FBG <120. Diabetes Moderate Risk: HgA1c 6.6-7.9% and/or FBG 120-180. Diabetes High Risk: HgA1c >/= 8% and/or FBG >180 - For Obesity/Overweight Obesity/Overweight Risk Guidelines: Obesity Low Risk: BMI <25.0. Obesity Moderate Risk: BMI 25-29.9. Obesity High Risk: BMI >/= 30.0 - For Hypertension Hypertension Risk Guidelines: Hypertension Low Risk: Systolic <120 and Diastolic <80. Hypertension Moderate Risk: Systolic 120-139 and Diastolic 80-89. Hypertension High Risk: Systolic >/= 140 and Diastolic >/= 90 - For Sedentary Lifestyle Sedentary Lifestyle Risk Guidelines: Sedentary Lifestyle Low Risk: >/= 1,500 kcal/week. Sedentary Lifestyle Moderate Risk: 700-1,499 kcal/week. Sedentary Lifestyle High Risk: < 700 kcal/week - For Depression Depression Risk Guidelines: Depression Low Risk: Not clinically depressed. Depression Moderate Risk: Mildly depressed. Depression High Risk: Clinically depressed - Family History Family History: Family History (Last Reviewed 08/24/19 @ 11:[address] Christophe Durham MD) Father Hypertension Mother Cancer, Onset Age: 56 Motivation - Motivation to Participate On a scale of 1 to 10, how prepared are you to commit to attending program?: 7 What do you see as barriers to successfully being able to complete the program?: ENTIRE BODY PAIN; LIMIT Left shoulder, No treadmill d/t knees, lower back
[2019-08-30 08:20] VITALS: BP 106/58; PULSE 86; RESP 18; TEMP 36.6; O2SAT 97; BMI 34.7
== END ==
PROVIDERS: PCP Family Medicine; Referring Provider Internal Medicine Cardiovascular Disease; Visit Provider Internal Medicine Cardiovascular Disease
DX: Z95.2 Presence of prosthetic heart valve (principal)

== ENCOUNTER → 2019-09-17 11:12 | Outpatient (CLI) | payer MEDICARE, SELFPAY ==
[2019-08-30 08:20] VITALS: BMI 34.7
== END ==
PROVIDERS: PCP Family Medicine; Referring Provider Internal Medicine Cardiovascular Disease; Visit Provider Internal Medicine Cardiovascular Disease
DX: R00.2 Palpitations (principal); I05.9 Rheumatic mitral valve disease, unspecified; I10 Essential (primary) hypertension; Q23.1 Congenital insufficiency of aortic valve; Z95.2 Presence of prosthetic heart valve
CPT/HCPCS: 93225; 93226

== ENCOUNTER → 2019-10-08 08:14 | Outpatient (CLI) | payer MEDICARE, SELFPAY ==
[2019-08-30 08:20] VITALS: BMI 34.7
--- NOTE | 2019-10-08 08:15 | RAD_ITS ---
STUDY: X-RAY - ESOPHAGUS (BARIUM SWALLOW) WITH FLUOROSCOPY REASON FOR EXAM: Female, 64 years old. DIFFICULTY SWALLOWING SINCE HEART SURGERY IN JULY 2019, NEEDS TO DRINK FLUID TO GET FOOD TO PASS, HX GERD TECHNIQUE: Nineteen view(s) of the esophagus were obtained following swallowing of barium. FLUOROSCOPY TIME (if supplied): (0:41) minutes/seconds COMPARISON: None. FINDINGS: There is no demonstrated esophageal foreign body. There is no demonstrated stricture or mucosal abnormality. Normal gastroesophageal junction, without a demonstrated hiatal hernia. The patient ingested a 12 mm tablet of barium without difficulty. There is atherosclerotic calcification of the aortic arch with tortuosity of the descending aorta. Normal visualized pulmonary parenchyma. Normal visualized osseous structures of the thorax. RAD/Esophagus Dual Contrast IMPRESSION: Normal plain film x-ray examination (barium swallow) of the esophagus. Electronically Signed: Kayden Sprague, at 14:41 EDT , Service support ,
== END ==
LOC: RAD 08:14
PROVIDERS: PCP Family Medicine; Referring Provider Family Medicine; Visit Provider Family Medicine
DX: K21.9 Gastro-esophageal reflux disease without esophagitis (principal)
CPT/HCPCS: 74221

== ENCOUNTER → 2019-10-11 09:18 | Outpatient (CLI) | payer MEDICARE, SELFPAY ==
[2019-08-30 08:20] VITALS: BMI 34.7
--- NOTE | 2019-10-11 09:20 | RAD_ITS ---
STUDY: X-RAY CHEST REASON FOR EXAM: Female, 64 years old. SOB RECENT AORTIC VALVE REPLACEMENT THIS PAST JULY. TECHNIQUE: PA and lateral views of the chest. COMPARISON: Comparison is made with prior study dated 02/15/2019. FINDINGS: The lungs are clear and expanded. There is no demonstrated pleural abnormality. Sternal cerclage wires are present from a prior sternotomy. Prior aortic valve replacement. Normal mediastinum and carli. Normal visualized pulmonary arteries. There is atherosclerotic tortuosity of the aortic arch and descending thoracic aorta. There is demineralization of the osseous structures. Fusion of the lower cervical spine. There is no demonstrated abnormality of the visualized soft tissue structures of the upper abdomen. RAD/Chest PA and Lateral IMPRESSION: Status post midline sternotomy and aortic valve replacement. No acute abnormality is seen. Electronically Signed: Kayden Sprague, at 15:38 EDT , Service support ,
== END ==
LOC: MTRAD 09:18
PROVIDERS: PCP Family Medicine; Referring Provider Family Medicine; Visit Provider Family Medicine
DX: R06.02 Shortness of breath (principal)
CPT/HCPCS: 71046

== ENCOUNTER → 2019-11-22 09:00 | Outpatient (CLI) | payer MEDICARE, SELFPAY ==
[2019-08-30 08:20] VITALS: BMI 34.7
[2019-11-22 10:06] LABS: Erythrocyte Sedimentation Rate 98 mm/hr (0-30)
[2019-11-22 10:08] LABS: Absolute Lymphocyte Count 2.25 X10^3/uL (0.83-4.51); Absolute Neutrophil Count 5.9 X10^3/uL (2.0-7.7); Basophil# 0.03 X10^3/uL; Basophil% 0.3 % (0-1); Eosinophil# 0.19 X10^3/uL; Eosinophils% 2.1 % (0-5); Hematocrit 39.7 % (37-47); Hemoglobin 12.7 g/dL (12.0-15.0); Lymphocyte # 2.25 X10^3/ul (4.0); Lymphocyte % 24.8 % (19-41); Mean Corpuscular Hgb 28.2 pg (27.0-32.0); Mean Corpuscular Volume 88.2 fL (81-99); Mean Platelet Vol. 10.7 fl (6.2-12.0); Monocyte# 0.65 X10^3/uL; Monocyte% 7.2 % (0-10); NRBC Flagged by Analyzer 0 % (0-5); Neutrophil # 5.91 X10^3/uL (2.7-7.7); Neutrophil % 65.2 % (47-70); Platelet Count 349 K/mm3 (150-450); RBC Distribution Width CV 15.2 % (11.6-14.6); RBC Distribution Width SD 48.6 fl (35.1-43.9); White Blood Count 9.1 K/mm3 (4.4-11.0)
== END ==
PROVIDERS: PCP Family Medicine; Referring Provider Specialist; Visit Provider Specialist
DX: Z96.652 Presence of left artificial knee joint (principal)
CPT/HCPCS: 36415; 85025; 85652; 86140

== ENCOUNTER → 2019-11-27 06:44 | Outpatient (CLI) | payer MEDICARE, SELFPAY ==
[2019-08-30 08:20] VITALS: BMI 34.7
--- NOTE | 2019-11-27 14:37 | PFTCOMP ---
COMPLETE PULMONARY FUNCTION TEST INTERPRETATION Brief HPI: Patient is a 64 year old female, currently under the care of Dr. Freeman, who presents to [facility] for complete pulmonary function tests secondary to diagnosis of wheezing. Respiratory therapist reports good effort and reproducible results. Interpretation: Forced expiration spirometry shows no large airways obstructive ventilatory defect with an FEV1 of 74% predicted. There is no significant bronchodilator response by strict ATS criteria. Spirograms are of good quality and plateau slowly, indicating slowly emptying areas of the lungs. The respiratory flow volume loop shows decreased expiratory flow rates at high lung volumes consistent with small airways obstruction. Lung volumes by body plethysmography show a normal total lung capacity at 5.21 L, 103% predicted. FRC and RV are elevated out of proportion. Lung volume measurements are consistent with air-trapping. Diffusion capacity by carbon monoxide is decreased at 63% predicted. The airway resistance is normal. No previous pulmonary function tests were available for review. Impression: Isolated reduction in diffusion capacity with some stigmata of small airways disease.
== END ==
PROVIDERS: PCP Family Medicine; Referring Provider Family Medicine; Visit Provider Family Medicine
DX: R06.02 Shortness of breath (principal)
CPT/HCPCS: 94060; 94726; 94729

== ENCOUNTER 2019-11-28 09:43 | Day surgery (SDC) | payer MEDICARE, SELFPAY ==
[2019-08-30 08:20] VITALS: BMI 34.7
[2019-11-28] VITALS (8 sets, daily range): BP systolic 130–160; BP diastolic 70–101; PULSE 56–77; RESP 16; TEMP 36.1–36.7; O2SAT 95–100; BMI 33.3
[2019-11-28] MEDS: Lactated Ringers 1,000 ML 100 ML IV (10:31)
[2019-11-28] MEDS: Cefazolin 2 GM in 0.9% Normal Saline 100 ML IV (12:21)
[2019-11-28] MEDS: Ketorolac 30 MG/ML Syringe IV (13:00)
--- NOTE | 2019-11-28 13:01 | PCM.OPRPT ---
Report of Operation Date of Procedure: 11/28/19 Pre-Operative Diagnosis: Painful hardware left knee Post-Operative Diagnosis: Painful hardware left knee Surgery/Procedure Performed:: Removal of FiberWire sutures left knee Description of Surgical Findings:: All palpable FiberWire sutures were removed. There were no palpable wires from the tibial tubercle fixation. dry transfer man: Donte Grissom Type of Anesthesia:: General Anesthesiologist: Wes Johnson Estimated Blood Loss (mL): 2 Fluids Replaced: 100 mL crystalloid Description of Procedure: In the preoperative area patient's left leg was marked. Patient was brought back to the operating room where they were transferred the table in the supine position. Anesthesia assumed control C-spine airway and remained controlled throughout the remainder the procedure. Anesthetic was administered. Bump was placed under the left hip. All bony prominences identified well-padded. Left lower extremity was prepped in a sterile fashion after tourniquet had been placed in the upper thigh. Surgeon scrubbed and reentered the room. At this time the previous incision was marked out. Timeout was called and when agreed upon the side, site, surgery performed, patient identity and by skin. At this time the Esmarch bandage was used to exsanguinate the extremity tourniquet was placed up to 250 mmHg. Incision was taken through skin. Fully dissected subcutaneous layers which was very thin. We were able to identify the sources of painful lumps these were all FiberWire sutures from the extensive FiberWire repair of the extensor mechanism reconstruction. We carefully dissected out all knots that we could. They were sharply dissected and removed. After we removed several of these FiberWire knots we again took the knee through range of motion and palpated for any further knots. A couple more were found. These were removed further medially. Once this was completed we again took the knee through range of motion with the knee flexed we cannot palpate anymore prominent knots. At this time wound is closing out normal saline. 3-0 Vicryl suture was used to close the skin followed by 2-0 nylon interrupted mattress sutures. Silver dressing was placed. Patient was awakened by anesthesia and transferred back to recovery. Postop plan for this patient weightbearing as tolerated, range of motion as tolerated. Remove dressing in 7 days. Follow-up in the office in 2 weeks for wound check. - Complications No intraoperative complications - Admit VTE Documentation VTE Present on Admission: No VTE Mechan Device Prophylaxis: SCD's, Thigh High ELSA Hose VTE Pharm Prophylaxis ordered?: No Reason prophylaxis not ordered:: Treatment Not Indicated
[2019-11-28] MEDS: Bupivacaine Mpf 0.5% 30 ML VIAL (13:06)
== END 2019-11-28 15:24 | disposition home or self-care (01) ==
LOC: SDC 09:44 → AC 09:44
PROVIDERS: Anesthesiology; PCP Family Medicine; Referring Provider Specialist; Visit Provider Specialist
PROC: (CPT 27310; principal; 2019-11-28 11:45)
DX: T84.54XD Infection and 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, subsequent encounter (principal); Y83.1 Surgical operation with implant of artificial internal device as the cause of abnormal reaction of the patient, or of later complication, without mention of misadventure at the time of the procedure; I42.2 Other hypertrophic cardiomyopathy; Q23.1 Congenital insufficiency of aortic valve; Z96.652 Presence of left artificial knee joint
CPT/HCPCS: 27310; 87635; J2405; U0003

== ENCOUNTER → 2020-01-07 09:28 | Outpatient (CLI) | payer MEDICARE, SELFPAY ==
[2019-12-24 13:46] VITALS: BMI 33.3
--- NOTE | 2020-01-07 09:51 | EKG12_ITS ---
Test Reason : PRE OP Blood Pressure : / mmHG Vent. Rate : 084 BPM Atrial Rate : 084 BPM P-R Int : 150 ms QRS Dur : 076 ms QT Int : 366 ms P-R-T Axes : 044 -33 030 degrees QTc Int : 432 ms Normal sinus rhythm Left axis deviation Abnormal ECG Confirmed by HERMINIO CONNELLY, SUNSHINE ([id number]), senior editor LAZARUS VILLARREAL ([id number]) on 01/08/2020 10:19:00 AM Referred By: Krzysztof Clifford Confirmed By:SUNSHINE DURHAM MD
[2020-01-07 12:30] LABS: Hematocrit 39.9 % (37-47); Hemoglobin 12.4 g/dL (12.0-15.0); Mean Corp Hgb Conc 31.1 g/dL (32-36); Mean Corpuscular Hgb 28.6 pg (27.0-32.0); Mean Corpuscular Volume 91.9 fL (81-99); Mean Platelet Vol. 11.4 fl (6.2-12.0); Platelet Count 359 K/mm3 (150-450); RBC Distribution Width CV 16.7 % (11.6-14.6); RBC Distribution Width SD 56.5 fl (35.1-43.9); Red Blood Count 4.34 M/mm3 (4.2-5.4); White Blood Count 8.4 K/mm3 (4.4-11.0)
[2020-01-07 13:08] LABS: Anion Gap 7 (5-15); BUN 14 mg/dL (7-18); BUN/Creat Ratio 13.1 RATIO (10-20); Calcium,Total 9.5 mg/dL (8.5-10.1); Chloride 103 mmol/L (98-107); Creatinine, Serum 1.07 mg/dL (0.55-1.02); EST Glomerular Filtration Rate 54 mL/min (>60); Est Glom Filt Rate - Afr Amer 66 mL/min (>60); Glucose 117 mg/dL (74-106); Sodium Level 139 mmol/L (136-145)
== END ==
LOC: PSN 09:30
PROVIDERS: PCP Family Medicine; Referring Provider Physician Assistant; Visit Provider Physician Assistant
DX: Z01.818 Encounter for other preprocedural examination (principal); Z11.59 Encounter for screening for other viral diseases; Z01.810 Encounter for preprocedural cardiovascular examination
CPT/HCPCS: 36415; 80048; 85027; 87635; 93005; C9803; U0003

== ENCOUNTER 2020-01-09 05:24 | Day surgery (SDC) | payer MEDICARE, SELFPAY ==
[2019-12-24 13:46] VITALS: BMI 33.3
[2020-01-09] VITALS (7 sets, daily range): BP systolic 104–155; BP diastolic 61–79; PULSE 60–68; RESP 16–18; TEMP 35.8–36.4; O2SAT 95–100; BMI 34.2
--- NOTE | 2020-01-09 06:00 | PCM.HP.BLA ---
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 Is patient in pain?: No Allergies hydrochlorothiazide Adverse Reaction (Verified 12/24/19 13:44) dizziness metoprolol Adverse Reaction (Verified 12/24/19 13:44) dizziness Medications Estradiol [Estrace (G)] 1 mg PO DAILY 08/12/14 [History Confirmed 12/24/19] Meloxicam [Mobic] 15 mg PO DAILY 11/23/16 [History Confirmed 12/24/19] amitriptyline 25 mg tablet 25 mg PO QHS 02/14/19 [History Confirmed 12/24/19] calcium carbonate 600 mg calcium (1,500 mg) tablet 600 mg PO DAILY 02/14/19 [History Confirmed 12/24/19] cholecalciferol (vitamin D3) 25 mcg (1,000 unit) capsule 1,000 unit PO DAILY 02/14/19 [History Confirmed 12/24/19] gabapentin 800 mg tablet 800 mg PO BID #60 tab 02/14/19 [History Confirmed 12/24/19] amoxicillin 500 mg tablet 2,000 mg PO ONCE PRN tab 08/24/19 [History Confirmed 12/24/19] aspirin 81 mg tablet,delayed release 81 mg PO DAILY 08/24/19 [History Confirmed 12/24/19] furosemide 40 mg tablet 40 mg PO DAILY tab 08/24/19 [History Confirmed 12/24/19] atenolol 25 mg tablet 25 mg PO DAILY #30 tab 09/24/19 [Rx Confirmed 12/24/19] Senna/Docusate Sodium [Senokot-S] 2 tab PO BID 11/23/19 [History Confirmed 12/24/19] Hydrocodone Bitart/Apap 5-325 [[place] 5/325] 1 - 2 tab PO Q6H PRN PRN #60 tab 11/28/19 [Rx Confirmed 12/24/19] fluticasone propionate 50 mcg/actuation nasal spray,suspension 2 spray INTRANASAL DAILY PRN ml 12/06/19 [History Confirmed 12/24/19] PFSH Medical History Infection and 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, initial encounter (Resolved) Osteoarthritis (Chronic) GERD (gastroesophageal reflux disease) (Chronic) DVT (deep venous thrombosis) (Resolved) Iron deficiency anemia (Chronic) Insomnia (Chronic) Anomalous origin of coronary artery (Chronic) PND (paroxysmal nocturnal dyspnea) (Resolved) Benign paroxysmal positional vertigo (Chronic) Bicuspid aortic valve (Chronic) Nonrheumatic aortic (valve) stenosis (Chronic) Non-rheumatic mitral valve stenosis (Chronic) Mitral valve annular calcification (Chronic) Essential (primary) hypertension (Chronic) Hypertrophic cardiomyopathy (Ruled-out) Surgical History History of total left knee replacement (Resolved) History of hysterectomy (Resolved) History of right and left heart catheterization (Resolved 03/05/19) History of aortic valve replacement (Resolved 07/30/19) Family History (Updated 12/24/19 @ 13:39 by Valerie Lewis) Father Hypertension age 45 from [place] Myocardial infarction Mother Cancer, Onset Age: 56 ovarian cancer Ovarian cancer Social History (Updated 12/24/19 @ 14:[address] Derrell Woo MD) Smoking Status: Never smoker second hand exposure: No alcohol intake: current alcohol intake frequency: a few times a month substance use type: does not use caffeine: Yes what type of physical activity do you participate in: bicycling frequency: 1-2 times per week HPI HPI HPI: ARGENIS EAGLE, is a 64 F who presents to the office today for surgical consultation regarding solid food dysphagia. The patient is referred by Dr. Gilberto Muñiz and a written complement surgical consult recommendations will be returned to him. For over a year the patient has had problems with swallowing solid foods. This problem is increasingly difficult. She has never had an upper endoscopy. February 2019 she did have a MAMTA for bicuspid valve and then July 30, 2019 she had an aortic valve replacement done through a minimally invasive approach. She is only on aspirin therapy. No chest pain. She states that her swallowing problem preceded her surgery. Her problem progressively gets more difficult. She finds that she constantly has to drink liquids to help. She will occasionally take Tums but she is not on any acid reducing medication. October 08, [address] [facility] she had a barium swallow. There was no foreign body. No stricture or mucosal abnormality. The GE junction was normal without hiatal hernia. A 12 mm tablet passed without difficulty. It was felt to be a normal study. To make the patient's life more interesting she has had revisionary left knee surgery apparently 1 of multiple procedures. She has upcoming plans for right shoulder surgery. She does not have any fibromyalgia or rheumatoid arthritis. She did have a colonoscopy by Dr. Екатерина Fragoso on November 04, 2014. That was not remarkable other than a slightly tortuous colon. HPI HPI HPI: ARGENIS EAGLE, is a 64 F who presents to the office today for ROS General General: No weight change, appetite, fatigue, colon cancer, breast cancer or weakness HEENT HEENT: Yes difficulty swallowing; no eye injury, eye surgery, swollen glands or hoarseness Endo Endocrine: No thyroid disease, diabetes mellitus, thyroid cancer, Hair loss, heat intolerance or cold intolerance Skin Skin: No rash or changing moles Musc Musculoskeletal: Yes back problems and arthritis; no rheumatoid arthritis, gout or joint pain Cardio Cardiovascular: Yes heart disease; no murmur, pacemaker, atrial fibrillation, high blood pressure, heart attack, heart stent, palpitations, shortness of breat with exertion or chest pain Psych Psychiatric: No depression, anxiety or hearing voices Resp Respiratory: No shortness of breath, No sleep apnea, No cough, No COPD, No asthma, No emphysema, No wheezing Gastro Gastrointestinal: No abdominal pain, No nausea or vomiting, No diarrhea, No constipation, No blood in stool, No acid reflux, No hemorrhoids, No ulcers, No gallbladder problem, No black,tarry stools Shar Hematologic: No blood thinners, No blood disorders, No bleeding, No anemia, No blood clots Neuro Neurologic: No system reviewed and no additional complaints, except as docu, No as per HPI, No abnormal walking, No abnormal hearing, No abnormal movements, No abnormal speech, No behavioral changes, No burning sensations, No confusion, No seizure-like activity, No unsteadiness, No dizziness, No localized weakness, No frequent falls, No headache(s), No lack of coordination, No loss of vision, No memory loss, No numbness, No other visual disturbances, No radiating pain, No restless legs, No sensory deficit, No fainting, No tingling, No tremor(s), No weakness, No other Exam Const General: cooperative, comfortable, no acute distress Nutritional Appearance: obese Orientation: alert, awake, oriented x3 HENMT Head: normal to inspection Eyes General: appearance normal, both eyes and all related structures Resp Effort & Inspection: normal respiratory effort Auscultation: clear to auscultation bilaterally Cardio Rate: regular rate Rhythm: regular rhythm Heart Sounds: no murmurs Other: 2/6 systolic ejection murmur GI Inspection: normal to inspection Palpation: soft, no hepatosplenomegaly Neuro Cognition: normal cognition Extrem Other: Healing vertical left knee incision with moderate nonpitting swelling Assessment & Plan Problems 1. Dysphasia R47.02 Plan Esophageal dysphasia to solids. The patient states she is able to swallow liquids. Etiology not clear. I recommended the patient a esophagogastroduodenoscopy with possible biopsy or esophageal dilatation if indicated. We will prophylax her valve with ampicillin. She is aware of the technique, benefit, risk of alternatives. She is aware that if dilatation seems appropriate that I will pursue at the same setting. She is aware that if no clinical findings are identified then I would recommend a esophageal manometry procedure. She has had an opportunity to ask and have questions answered. We will schedule and proceed at her discretion. I appreciate the opportunity of assisting with her surgical care. Copy: Dr. Gilberto Woo M.D., F.A.C.S. I have re-examined the patient. There are no clinical changes since date of exam. Procedure Criteria Procedure Type: Elective COVID Risk Discussion: The surgeon/proceduralist and patient have discussed in detail the risk of exposure to and/or potential harm posed by the COVID-19 virus with having a surgery/procedure at this time versus the risk of delaying the surgery/procedure. It is not possible to know either the risk of delaying the surgery or procedure or chance of getting an infection with perfect accuracy, but a joint decision was made between the patient and the surgeon/proceduralist to proceed at this time with the scheduled surgery/procedure as indicated on the consent form.
[2020-01-09] MEDS: Lactated Ringers 1,000 ML 100 ML IV (06:02)
--- NOTE | 2020-01-09 06:30 | EGD_PTH ---
PATIENT: ARGENIS EAGLE LOC: EN U#:[id number] AGE/SX: 64/F ROOM: RE01/09/[address]: Dr. Derrell Woo MD : 1955 BED: DIS: 01/09/2020 SPEC #: [id number] RECD: 01/09/20 10:29 STATUS: ANGIE RODRIGO #: [id number] ALEKSANDR: 01/09/20 06:[address]: Derrell Woo DEPT: SURGICAL PATHOLOGY RECD BY: Natasha Newell ENTERED: 01/09/20 11:48 SP TYPE: EGD BIOPSY OTHR DR: Dr. Gilberto Freeman MD Tissues: A - Duodenum, NOS B - Gastric mucous membrane C - Esophagus, NOS D - Esophagus, NOS Procedures: Special Stain Group II Special Stain Group I Surgery Specimen Level IV GMS Stain (control) Alcian Blue/PAS (control) HEADER OPERATION: EGD (MAC) PRE-OP DIAGNOSIS: Dysphasia TISSUE SUBMITTED: A - Duodenum biopsy, B - Antrum biopsy for H. pylori and path, C - Distal esophagus biopsies, D - Mid esophagus biopsies MICROSCOPIC DIAGNOSIS A. Duodenum, biopsy: Fragments of duodenal mucosa, no pathologic diagnosis. B. Antrum, biopsy: Mild gastritis. See microscopic description and comment. C. Distal esophagus, biopsy: Fragments of gastroesophageal mucosa with focal ulceration, acute and chronic inflammation and reactive epithelial changes Negative for intestinal metaplasia (goblet cell metaplasia). See comment. Special stain for fungi is negative for organisms; matched control is appropriate. D. Mid esophagus, biopsy: Fragments of squamous epithelium, no pathologic diagnosis. SJ:stephan 01/10/20 COMMENT B. The results of immunohistochemistry for Helicobacter pylori will be reported separately ([id number]). C. Alcian blue/PAS stain with matched control is used in the evaluation of the specimen. MICROSCOPIC DESCRIPTION Slides are reviewed. B. The specimen shows fragments of gastric mucosa with chronic inflammatory cell infiltrates in the lamina propria consisting of lymphocytes and plasma cells, consistent with mild chronic gastritis. GROSS DESCRIPTION A - Received in fixative is one container labeled with the patient's name and designated duodenum biopsy. The specimen consists of multiple irregular fragments of light polanco soft tissue that in aggregate measure 0.4 x 0.3 x 0.1 cm. The specimen is totally submitted in one cassette. B - Received in fixative is one container labeled with the patient's name and designated antrum biopsy. The specimen consists of two irregular fragments of light polanco soft tissue that in aggregate measure 0.5 x 0.2 x 0.1 cm. The specimen is totally submitted in one cassette. C - Received in fixative is one container labeled with the patient's name and designated distal esophagus biopsy. The specimen consists of multiple irregular fragments of light polanco soft tissue that in aggregate measure 1.5 x 0.3 x 0.1 cm. The specimen is totally submitted in one cassette. D - Received in fixative is one container labeled with the patient's name and designated mid esophagus biopsy. The specimen consists of multiple irregular fragments of light polanco soft tissue that in aggregate measure 0.6 x 0.6 x 0.1 cm. The specimen is totally submitted in one cassette. / FLORIAN:stephan 01/09/20 TC:2 CPT: 58428 x4, 79306, 30720
--- NOTE | 2020-01-09 06:30 | IMM_PTH ---
PATIENT: ARGENIS EAGLE LOC: EN U#:[id number] AGE/SX: 64/F ROOM: RE01/09/[address]: Dr. Derrell Woo MD : 1955 BED: DIS: 01/09/2020 SPEC #: [id number] RECD: 01/09/20 13:23 STATUS: ANGIE REBita #: [id number] ALEKSANDR: 01/09/20 06:[address]: Derrell Woo DEPT: IMMUNOHISTOCHEMISTRY RECD BY: Haydee Herman ENTERED: 01/09/20 13:24 SP TYPE: IMMUNO OTHR DR: Dr. Gilberto Freeman MD Tissues: B - Stomach, NOS Procedures: H Pylori (initial) PHYSICIAN & INSTITUTION [place] [id number] SPECIMEN INFORMATION: Tissue Source: B - Antrum biopsy Clinical Info: Dysphasia Specimen Number: [id number] CPT code: 02559 METHODOLOGY: Deparaffinized sections of prefer/formalin-fixed tissue or PAP/DQ stained slides are incubated with monoclonal/polyclonal antibodies/oligonucleotide probes. Localization is made via biotin free immunoperoxidase method. Appropriate controls are performed and reacted as expected. Results on target cell population are indicated in the following table: RESULTS: ANTIBODY / CLONE RESULT Block B H Pylori (polyclonal) negative These tests were developed and their performance characteristics determined by [facility]. They may not have been cleared or approved by the U.S. Food and Drug Administration. The FDA has determined that such clearance or approval is not necessary. INTERPRETATION: B. Antrum biopsy: Negative for Helicobacter pylori organisms. SJ:stephan 01/11/20
--- NOTE | 2020-01-09 06:55 | OP.EGD_ITS ---
Patient Name: Aleyda Dalton Procedure Date: 01/09/2020 6:13 AM Date of : 1955 Age: 64 Procedure: Upper GI endoscopy Indications: Dysphagia Providers: Derrell Woo MD Referring MD: Manuel Freeman Medicines: See the Anesthesia note for documentation of the administered medications Complications: No immediate complications. Procedure: Pre-Anesthesia Assessment: - Prior to the procedure, a History and Physical was performed, and patient medications and allergies were reviewed. The patient's tolerance of previous anesthesia was also reviewed. The risks and benefits of the procedure and the sedation options and risks were discussed with the patient. All questions were answered, and informed consent was obtained. Prior Anticoagulants: The patient has taken aspirin, last dose was 2 days prior to procedure. ASA Grade Assessment: II - A patient with mild systemic disease. After reviewing the risks and benefits, the patient was deemed in satisfactory condition to undergo the procedure. After obtaining informed consent, the endoscope was passed under direct vision. Throughout the procedure, the patient's blood pressure, pulse, and oxygen saturations were monitored continuously. The gastroscope was introduced through the mouth, and advanced to the second part of duodenum. The upper GI endoscopy was accomplished without difficulty. The patient tolerated the procedure well. Scope In: 6:42:04 AM Scope Out: 6:49:17 AM Total Procedure Duration Time 0 hours 7 minutes 13 seconds Findings: A medium-sized hiatal hernia was present. LA Grade B (one or more mucosal breaks greater than 5 mm, not extending between the tops of two mucosal folds) esophagitis with no bleeding was found 35 cm from the incisors. Biopsies were taken with a cold forceps for histology. The mid esophagus was normal. Biopsies were taken with a cold forceps for histology. Diffuse moderate inflammation was found in the gastric antrum. Biopsies were taken with a cold forceps for histology. Diffuse mildly erythematous mucosa without active bleeding and with no stigmata of bleeding was found in the duodenal bulb. Biopsies were taken with a cold forceps for histology. Impression: - Medium-sized hiatal hernia. - LA Grade B reflux esophagitis. Biopsied. - Normal mid esophagus. Biopsied. - Chronic gastritis. Biopsied. - Erythematous duodenopathy. Biopsied. Recommendation: - Discharge patient to home. - Resume previous diet. - Continue present medications. - Use Prilosec (omeprazole) 40 mg PO daily. Discuss with your doctor your use of aspirin and mobic and these are likely source of upper gastrointestinal inflammation Procedure Code(s): --- Professional --- 52386, Esophagogastroduodenoscopy, flexible, transoral; with biopsy, single or multiple Diagnosis Code(s): --- Professional --- K44.9, Diaphragmatic hernia without obstruction or gangrene K21.0, Gastro-esophageal reflux disease with esophagitis K29.50, Unspecified chronic gastritis without bleeding K31.89, Other diseases of stomach and duodenum R13.10, Dysphagia, unspecified CPT copyright 2017 [employer]. All rights reserved. The codes documented in this report are preliminary and upon sales and business development manager review may be revised to meet current compliance requirements. Derrell Woo MD 01/09/2020 6:54:51 AM This report has been signed electronically. Number of Addenda: 0 Note Initiated On: 01/09/2020 6:13 AM
--- NOTE | 2020-01-09 06:55 | OP.CCLET_ITS ---
01/09/2020 Manuel Freeman [address] [place] [address] Re : Upper GI endoscopy procedure for Aleyda Dalton Dear Dr. Freeman This procedure was performed on Thursday, January 09, 2020. My impressions and recommendations are as follows: Impressions : - Medium-sized hiatal hernia. - LA Grade B reflux esophagitis. Biopsied. - Normal mid esophagus. Biopsied. - Chronic gastritis. Biopsied. - Erythematous duodenopathy. Biopsied. Recommendations : - Discharge patient to home. - Resume previous diet. - Continue present medications. - Use Prilosec (omeprazole) 40 mg PO daily. Discuss with your doctor your use of aspirin and mobic and these are likely source of upper gastrointestinal inflammation My findings are described in the full procedure note, which is enclosed. If I can be of further assistance, please feel free to contact me at Doctor phone number(s): Work: . Sincerely, Derrell Woo MD 01/09/2020 6:54:51 AM This report has been signed electronically.
== END 2020-01-09 07:50 | disposition home or self-care (01) ==
LOC: EN 05:25 → AC 05:25
PROVIDERS: Anesthesiology; PCP Family Medicine; Referring Provider Family Medicine; Visit Provider Surgery
PROC: 0DJ08ZZ Inspection of Upper Intestinal Tract, Via Natural or Artificial Opening Endoscopic (ICD-10-PCS; CPT 43235; principal; 2020-01-09 06:25)
DX: K29.50 Unspecified chronic gastritis without bleeding (principal); R13.10 Dysphagia, unspecified; K44.9 Diaphragmatic hernia without obstruction or gangrene; K21.00 Gastro-esophageal reflux disease with esophagitis, without bleeding; K31.89 Other diseases of stomach and duodenum; Z79.1 Long term (current) use of non-steroidal anti-inflammatories (NSAID); Z79.82 Long term (current) use of aspirin; Z95.2 Presence of prosthetic heart valve; D50.9 Iron deficiency anemia, unspecified; I10 Essential (primary) hypertension; I05.0 Rheumatic mitral stenosis; H81.10 Benign paroxysmal vertigo, unspecified ear; Q24.5 Malformation of coronary vessels
CPT/HCPCS: 43239; 87635; 88305; 88312; 88313; 88342; C9803; J7120; J0290; J2405; U0003

== ENCOUNTER → 2020-01-11 15:29 | Outpatient (CLI) | payer MEDICARE, SELFPAY ==
[2020-01-09 05:46] VITALS: BMI 34.2
[2020-01-11 15:32] LABS: Bacteria 0 SEEN /hpf (None Seen); Mucous, Urine 0 SEEN /hpf (<or=2+); Red Blood Cells-Urine 0 SEEN /hpf (0-5); Squamous Epithelial Cells - UA 0 SEEN /hpf (5-10); White Blood Cells 0 SEEN /hpf (0-5)
[2020-01-11 17:47] LABS: Color, Urine Yellow (Yellow); Glucose, Dipstick Normal (Normal); Ketone-Dipstick Negative (Negative); Leukocyte Esterase-Dipstick Negative /ul (Negative); Nitrite-Dipstick Negative (Negative); Occult Blood-Urine Negative /ul (Negative); Protein-Dipstick Negative (Negative); Specific Gravity, Urine 1.015 (1.002-1.030); Urine Bilirubin Dipstick Negative (Negative); Urine Clarity Clear (Clear); Urine Urobilinogen Normal (Normal); Urine pH 6.5 (5.0 - 8.0)
== END ==
PROVIDERS: PCP Family Medicine; Referring Provider Family Medicine; Visit Provider Family Medicine
DX: R32 Unspecified urinary incontinence (principal)
CPT/HCPCS: 81001; 87086; 87088

== ENCOUNTER → 2020-03-03 09:25 | Outpatient (CLI) | payer MEDICARE, SELFPAY ==
[2020-01-09 05:46] VITALS: BMI 34.2
--- NOTE | 2020-03-03 09:29 | RAD_ITS ---
STUDY: X-RAY - LUMBAR SPINE REASON FOR EXAM: Female, 64 years old. Pain and bilateral leg weakness. TECHNIQUE: 5 view(s) of the lumbar spine were obtained. COMPARISON: June 23, 2018. MRI lumbar spine September 04, 2018. FINDINGS: Normal lumbar lordosis. There is no substantial scoliosis. There is a normal alignment of the vertebrae. Normal vertebral bodies and endplates. Lumbar fusion L5-S1 with disc space narrowing. The soft tissue structures are unremarkable. Atherosclerotic calcification of the distal abdominal aorta without aneurysmal dilatation from the images provided. RAD/L/S Spine Min 4 Views IMPRESSION: Stable lumbar spine. L5-S1 fusion. Electronically Signed: Riley Presley MD at 23:52 EST , Service support ,
[2020-03-03 12:37] LABS: Erythrocyte Sedimentation Rate 28 mm/hr (0-30)
[2020-03-03 12:38] LABS: Absolute Lymphocyte Count 1.77 X10^3/uL (0.83-4.51); Absolute Neutrophil Count 5.4 X10^3/uL (2.0-7.7); Basophil# 0.03 X10^3/uL; Basophil% 0.4 % (0-1); Eosinophils% 2.5 % (0-5); Hematocrit 37.6 % (37-47); Hemoglobin 11.7 g/dL (12.0-15.0); Lymphocyte # 1.77 X10^3/ul (4.0); Lymphocyte % 22.3 % (19-41); Mean Corp Hgb Conc 31.1 g/dL (32-36); Mean Corpuscular Hgb 28.4 pg (27.0-32.0); Mean Corpuscular Volume 91.3 fL (81-99); Mean Platelet Vol. 10.9 fl (6.2-12.0); Monocyte# 0.48 X10^3/uL; Monocyte% 6.1 % (0-10); NRBC Flagged by Analyzer 0 % (0-5); Neutrophil # 5.42 X10^3/uL (2.7-7.7); Neutrophil % 68.4 % (47-70); Platelet Count 328 K/mm3 (150-450); RBC Distribution Width CV 13.2 % (11.6-14.6); RBC Distribution Width SD 43.6 fl (35.1-43.9); Red Blood Count 4.12 M/mm3 (4.2-5.4); White Blood Count 7.9 K/mm3 (4.4-11.0)
[2020-03-03 13:00] LABS: Anion Gap 5 (5-15); BUN 15 mg/dL (7-18); BUN/Creat Ratio 15.2 RATIO (10-20); Chloride 102 mmol/L (98-107); Creatinine, Serum 0.99 mg/dL (0.55-1.02); EST Glomerular Filtration Rate 60 mL/min (>60); Est Glom Filt Rate - Afr Amer 72 mL/min (>60); Glucose 95 mg/dL (74-106); Potassium 4.2 mmol/L (3.5-5.1); Sodium Level 138 mmol/L (136-145); Thyroid Stim Hormone (TSH) 2.28 uIU/mL (0.358-3.74)
[2020-03-03 13:41] LABS: Vitamin B12 > 2000 pg/mL (211-911)
== END ==
LOC: MTLAB 09:27
PROVIDERS: PCP Family Medicine; Referring Provider Family Medicine; Visit Provider Family Medicine
DX: R53.83 Other fatigue (principal); R29.898 Other symptoms and signs involving the musculoskeletal system
CPT/HCPCS: 36415; 72110; 80048; 82607; 84443; 85025; 85652

== ENCOUNTER → 2020-04-07 08:46 | Outpatient (CLI) | payer MEDICARE, SELFPAY ==
[2020-01-09 05:46] VITALS: BMI 34.2
[2020-04-07 09:57] LABS: Erythrocyte Sedimentation Rate 41 mm/hr (0-30)
[2020-04-07 09:59] LABS: Absolute Lymphocyte Count 1.81 X10^3/uL (0.83-4.51); Absolute Neutrophil Count 4.1 X10^3/uL (2.0-7.7); Basophil# 0.04 X10^3/uL; Basophil% 0.6 % (0-1); Eosinophil# 0.25 X10^3/uL; Eosinophils% 3.6 % (0-5); Hematocrit 36.7 % (37-47); Hemoglobin 11.7 g/dL (12.0-15.0); Lymphocyte # 1.81 X10^3/ul (4.0); Lymphocyte % 26.3 % (19-41); Mean Corp Hgb Conc 31.9 g/dL (32-36); Mean Corpuscular Hgb 29.3 pg (27.0-32.0); Mean Corpuscular Volume 91.8 fL (81-99); Mean Platelet Vol. 11.3 fl (6.2-12.0); Monocyte# 0.64 X10^3/uL; Monocyte% 9.3 % (0-10); NRBC Flagged by Analyzer 0 % (0-5); Neutrophil # 4.12 X10^3/uL (2.7-7.7); Neutrophil % 59.8 % (47-70); Platelet Count 327 K/mm3 (150-450); RBC Distribution Width CV 13.6 % (11.6-14.6); RBC Distribution Width SD 46.3 fl (35.1-43.9); White Blood Count 6.9 K/mm3 (4.4-11.0)
[2020-04-07 10:11] LABS: Vitamin B12 > 2000 pg/mL (211-911); Vitamin D,25 Hydroxy 32.2 ng/mL
[2020-04-07 10:16] LABS: Anion Gap 6 (5-15); BUN 21 mg/dL (7-18); BUN/Creat Ratio 17.8 RATIO (10-20); Calcium,Total 8.9 mg/dL (8.5-10.1); Chloride 102 mmol/L (98-107); Creatinine, Serum 1.18 mg/dL (0.55-1.02); EST Glomerular Filtration Rate 49 mL/min (>60); Est Glom Filt Rate - Afr Amer 59 mL/min (>60); Ferritin 14 ng/mL (8-252); Glucose 102 mg/dL (74-106); Iron 51 ug/dL (50-170); Potassium 4.3 mmol/L (3.5-5.1); Sodium Level 138 mmol/L (136-145); Thyroid Stim Hormone (TSH) 3.67 uIU/mL (0.358-3.74)
== END ==
PROVIDERS: PCP Family Medicine; Referring Provider Family Medicine; Visit Provider Family Medicine
DX: D64.9 Anemia, unspecified (principal); R53.83 Other fatigue; R29.898 Other symptoms and signs involving the musculoskeletal system
CPT/HCPCS: 36415; 80048; 82306; 82607; 82728; 83540; 84443; 85025; 85652

== ENCOUNTER → 2020-05-07 08:40 | Outpatient (CLI) | payer MEDICARE, SELFPAY ==
[2020-01-09 05:46] VITALS: BMI 34.2
--- NOTE | 2020-05-07 14:01 | NEURO ---
NCS and/or EMG Patient Report Ordering Doctor: Solitario Gary DATE OF SERVICE: 05/07/20 Aleyda Dalton is a 65-year-old female presents for electrodiagnostic testing of the lower limbs. She reports fatigue and difficulty walking. She has had bilateral knee replacements and also reports a history of neuropathy and lumbar fusion. Electrodiagnostic findings: Left peroneal motor nerve demonstrates normal distal latency, amplitude and conduction velocity. Right peroneal motor responses within normal limits. Tibial responses are normal. Normal peroneal tibial F waves. H reflex borderline prolonged. Absent left sural response. Prolonged right sural latency is noted. Normal superficial peroneal responses. Plantar responses are normal bilaterally. On needle EMG, all muscles tested in the lower limbs as well as the lumbar paraspinal showed no evidence of acute denervation. There are polyphasic motor units in the left gastrocnemius with a decreased recruitment pattern. Electrodiagnostic impression: This is an abnormal study in the lower limbs. 1. 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 2. Electrodiagnostic findings are suggestive of chronic denervation in the left S1 dermatome, suggestive of previous injury. 3. No electrodiagnostic evidence is noted for peripheral polyneuropathy. 4. No electrodiagnostic evidence is noted for acute lumbosacral radiculopathy. If there are any further questions, please do not hesitate to contact me.
== END ==
PROVIDERS: PCP Family Medicine; Referring Provider Orthopaedic Surgery; Visit Provider Orthopaedic Surgery
DX: M79.604 Pain in right leg (principal); M79.605 Pain in left leg
CPT/HCPCS: 95886; 95912

== ENCOUNTER → 2020-05-16 12:08 | Outpatient (CLI) | payer MEDICARE, SELFPAY ==
[2020-01-09 05:46] VITALS: BMI 34.2
[2020-05-16 15:16] LABS: CPK Total, Creatine Kinase 30 U/L (26-192)
[2020-05-17 09:53] LABS: Creatinine, Serum 1.17 mg/dL (0.55-1.02); EST Glomerular Filtration Rate 49 mL/min (>60); Est Glom Filt Rate - Afr Amer 59 mL/min (>60)
== END ==
PROVIDERS: PCP Family Medicine; Referring Provider Orthopaedic Surgery; Visit Provider Orthopaedic Surgery
DX: M19.012 Primary osteoarthritis, left shoulder (principal); N28.1 Cyst of kidney, acquired
CPT/HCPCS: 36415; 82550; 82565

== ENCOUNTER → 2020-08-04 07:38 | Outpatient (CLI) | payer MEDICARE, SELFPAY ==
[2020-07-01 14:14] VITALS: BMI 33.9
--- NOTE | 2020-08-04 07:40 | ECHOCS_ITS ---
Reason For Study: Dyspnea/SOB Procedure This was a 2D Doppler, Color Flow transthoracic echocardiogram. Contrast injection was performed. Exam performed in department. Left Ventricle Normal LV size. Mild concentric left ventricular hypertrophy. Left ventricular systolic function is normal. The estimated ejection fraction is 65 %. Stage 1 diastolic dysfunction. No regional wall motion abnormalities noted. Right Ventricle Normal RV size. Normal systolic function. Atria Normal left atrium. Normal right atrium. Mitral Valve There is mild to moderate mitral annular calcification. Tricuspid Valve Normal tricuspid valve. Mild (1+) tricuspid valve insufficiency. Pulmonary artery systolic pressure is 28 mmHg. Aortic Valve Peak aortic valve gradient 23 mmHg. Mean aortic valve gradient 13 mmHg. Mild aortic stenosis. Stable appearing bioprosthetic aortic valve apparatus. Great Vessels Normal aortic root. Pericardium/Pleural No pericardial effusion. Medication Diluted definity 2ml given slow IV push to enhance endocardial definition. MMode/2D Measurements & Calculations LVIDd: 3.8 cm IVSd: 1.3 cm LVOT diam: 2.0 cm LVIDs: 2.2 cm LVPWd: 1.3 cm LVOT area: 3.0 cm2 RVDd: 3.7 cm FS: 42.3 % Ao root diam: 3.6 cm LAV(MOD-bp): 52.4 ml LVAd ap4: 28.0 cm2 LAV(MOD-bp) Indexed: 26.5 ml/m2 LVLd ap4: 7.9 cm LAV(MOD-sp2): 47.4 ml EDV(MOD-sp4): 80.8 ml LAV(MOD-sp4): 57.7 ml EDV(sp4-el): 84.1 ml LVAs ap4: 14.7 cm2 LVLs ap4: 6.6 cm ESV(MOD-sp4): 28.2 ml ESV(sp4-el): 27.6 ml EF(MOD-sp4): 65.1 % EF(sp4-el): 67.1 % SV(MOD-sp4): 52.6 ml SV(sp4-el): 56.4 ml LA A4 area: 20.2 cm2 LA dimension(2D): 4.9 cm RA A4 area: 12.9 cm2 Time Measurements MV dec time: 0.40 sec Doppler Measurements & Calculations MV E max edgardo: 120.3 cm/sec Lat Peak E' Edgardo: 7.0 cm/sec Med Peak E' Edgardo: 4.8 cm/sec MV A max edgardo: 131.3 cm/sec E/E' lat: 17.1 E/E' med: 25.2 MV E/A: 0.92 MV V2 max: 137.5 cm/sec MV P1/2t max edgardo: 125.1 cm/sec Ao V2 max: 240.1 cm/sec MV max P.6 mmHg MV P1/2t: 118.0 msec Ao max P.1 mmHg MV V2 mean: 78.7 cm/sec Ao V2 mean: 168.7 cm/sec MV mean P.8 mmHg MV dec slope: 310.6 cm/sec2 Ao mean P.7 mmHg MV V2 VTI: 53.5 cm MVA(P1/2t): 1.9 cm2 Ao V2 VTI: 54.1 cm MVA(VTI): 2.0 cm2 LUMA(I,D): 2.0 cm2 LUMA(V,D): 1.9 cm2 LV V1 max: 147.2 cm/sec SV(LVOT): 106.2 ml PA V2 max: 84.7 cm/sec LV V1 max P.7 mmHg LV V1 mean P.1 mmHg LV V1 mean: 106.8 cm/sec LV V1 VTI: 35.2 cm PI end-d edgardo: 57.8 cm/sec TR max edgardo: 245.0 cm/sec TR max P.0 mmHg ECHO/Echo Complete W/ Contrast Interpretation Summary Normal LV size. Mild concentric left ventricular hypertrophy. Left ventricular systolic function is normal. The estimated ejection fraction is 65 %. Stage 1 diastolic dysfunction. Stable appearing bioprosthetic aortic valve apparatus. Mild aortic stenosis. Ordering Physician: Satnam Camp Referring Physician: Gilberto Freeman Performed By: Janett Camp, LYNDON, RVT
== END ==
PROVIDERS: PCP Family Medicine; Referring Provider Nurse Practitioner Family; Visit Provider Nurse Practitioner Family
DX: R06.00 Dyspnea, unspecified (principal); Z95.2 Presence of prosthetic heart valve; Q24.5 Malformation of coronary vessels
CPT/HCPCS: 93306; Q9957; A4216; C8929; J3490

== ENCOUNTER 2020-09-17 07:58 | Emergency (ER) | payer MEDICARE, SELFPAY ==
[2020-07-01 14:14] VITALS: BMI 33.9
[2020-09-17 07:59] VITALS: BP 146/67; PULSE 69; RESP 15; TEMP 36.6; O2SAT 99; BMI 34.2
--- NOTE | 2020-09-17 08:17 | EDS_ITS ---
HPI HPI - Fall History of Present Illness Chief Complaint: Fall Informant: patient Occured/Mechanism Occurred: Today Mechanism/Context: Yes same level fall and Yes slip Pain/Injury Location: Left lower leg Pain Location: lower extremity Quality of Pain: Sharp Current Severity: Severe Maximum Severity: Severe Worsened by: Movement Relieved by: Rest Associated Symptoms Associated Symptoms: Negative for Parasthesias, Weakness and Loss of consciousness Narrative Narrative: Patient presents after a fall that occurred this morning. Patient slipped in the tub and fell. Patient has pain in her left lower leg and ankle area. Patient states pain is worse with movement. Patient describes the pain as sharp. Patient denies any head injury or loss of consciousness. Patient denies any paresthesias or weakness. Patient denies any other injuries. [facility] Medical History (Updated 09/17/20 @ 11:[address] Naresh Engel, ) Anomalous origin of coronary artery Benign paroxysmal positional vertigo Bicuspid aortic valve DVT (deep venous thrombosis) Dysphasia Essential (primary) hypertension GERD (gastroesophageal reflux disease) Hypertrophic cardiomyopathy Infection and 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, initial encounter Insomnia Iron deficiency anemia Mitral valve annular calcification Non-rheumatic mitral valve stenosis Nonrheumatic aortic (valve) stenosis Osteoarthritis PND (paroxysmal nocturnal dyspnea) Home Medications estradiol 1 mg PO DAILY 08/12/14 [History Last Taken 04/20/16] meloxicam 15 mg PO DAILY 11/23/16 [History Last Taken Unknown] amitriptyline 25 mg tablet 25 mg PO QHS 02/14/19 [History Last Taken Unknown] calcium carbonate 600 mg calcium (1,500 mg) tablet 600 mg PO DAILY 02/14/19 [History Last Taken Unknown] cholecalciferol (vitamin D3) 25 mcg (1,000 unit) capsule 1,000 unit PO DAILY 02/14/19 [History Last Taken Unknown] gabapentin 800 mg tablet 800 mg PO BID #60 tab 02/14/19 [History Last Taken 01/09/20] aspirin 81 mg tablet,delayed release 81 mg PO DAILY 08/24/19 [History Last Taken 01/04/20] sennosides-docusate sodium 2 tab PO BID 11/23/19 [History Last Taken Unknown] fluticasone propionate 50 mcg/actuation nasal spray,suspension 2 spray INTRANASAL DAILY PRN ml 12/06/19 [History Last Taken Unknown] omeprazole 0 mg PO DAILY #90 capsule.dr 01/09/20 [Rx Last Taken Unknown] diltiazem HCl 120 mg capsule,24 hr,extended release 120 mg PO DAILY 07/01/20 [History Last Taken Unknown] furosemide 40 mg tablet See Rx Instructions .ROUTE .COMPLEX #90 tab 08/06/20 [Rx Last Taken Unknown] atenolol 25 mg tablet See Rx Instructions .ROUTE .COMPLEX #90 tab 08/29/20 [Rx Last Taken Unknown] Allergy/AdvReac Type Severity Reaction Status Date / Time hydrochlorothiazide AdvReac dizziness Verified 09/17/20 07:59 metoprolol AdvReac dizziness Verified 09/17/20 07:59 Family History (Updated 12/24/19 @ 13:39 by Valerie Lewis) Father Hypertension age 45 from [place] Myocardial infarction Mother Cancer, Onset Age: 56 ovarian cancer Ovarian cancer Surgical History History of aortic valve replacement (07/30/19) History of hysterectomy History of right and left heart catheterization (03/05/19) History of total left knee replacement Social History Smoking Status: Never smoker second hand exposure: No alcohol intake: current alcohol intake frequency: a few times a month substance use type: does not use caffeine: Yes what type of physical activity do you participate in: bicycling frequency: 1-2 times per week ROS ROS ED Constitutional Constitutional ED: Denies chills or fever(s) Eyes Eyes: Denies blurry vision or change in vision ENT ENT ED: Denies rhinorrhea or sore throat Cardiovascular Cardiovascular: Denies chest pain or palpitations Respiratory/Chest Respiratory/Chest: Denies cough or dyspnea Gastrointestinal Gastrointestinal: Denies nausea or vomiting Genitourinary Genitourinary ED: Denies dysuria or hematuria Musculoskeletal Musculoskeletal: Reports back pain and neck pain Integumentary Denies abscess or rash Neurologic Neurologic: Denies headache(s) or weakness Allergic/Immunologic Allergic/Immunologic ED: Denies mouth swelling or urticaria EXAM Physical Exam Const Vital Signs: 09/17/20 07:59 Temperature 98 F Temperature Source Oral Pulse Rate 69 Respiratory Rate 15 Respiratory Effort Normal Non-Labored Respiratory Depth Normal Respiratory Pattern Normal Blood Pressure 146/67 H Blood Pressure Mean 93 Pulse Ox 99 Oxygen Delivery Method Room Air Positive well nourished, well developed and obese General Appearance ED: well developed Nutritional Appearance: obese HEENT Reports normocephalic atraumatic Extremity Extremity Narrative: There is tenderness, edema, and ecchymosis over the left ankle and proximal leg. There is no bony crepitance or step-off. Range of motion was limited in all motions of the left knee and left ankle secondary to pain. Pedal pulses are equal bilaterally. Sensation was intact to light touch in all digits. Capillary refill was less than 2 seconds in all digits. Neuro oriented x3, CN's II-XII intact bilaterally, no focal motor deficits and no sensory deficits noted Sensorium / Orientation: alert Psych mental status grossly normal MDM MDM MDM Narrative Medical decision making narrative: X-rays of the left tib-fib were obtained. There are 5 views. On my interpretation, there are nondisplaced fractures of the proximal fibula and distal fibula. There is also a periprosthetic fracture of the proximal tibia that is nondisplaced but the distal fragment is angulated minimally anteriorly. Radiologist also interpreted the x-rays and agrees. X- rays of the left ankle were obtained. There are 2 views. On my interpretation, there is a nondisplaced fracture of the distal fibula. There is some soft tissue swelling. There is no dislocation. There is no widening of the medial ankle mortise. Radiologist also interpreted the x-ray and agrees. Case was discussed with Dr. Cooper. He states the patient was scheduled to get a second opinion on her left knee by Dr. Banerjee in the [place] area. He recommended that we contact him for possible transfer. Case was discussed with Dr. Kevyn rosa. He will accept the patient to be transferred. Patient was placed in a well-padded custom made posterior and sugar tong splint. Patient tolerated procedure well. Neurovascular exam was intact after the procedure. Patient understands and is agreeable with the plan. All questions were answered. Radiography Diagnostic Testing: Radiology Impression Ankle X-Ray 09/17/20 08:20 IMPRESSION: Nondisplaced oblique fracture of the distal fibular metaphysis. Soft tissue swelling. Electronically Signed: Kayden Sprague MD at 9:12 EDT , Service support , Tibia/Fibula X-Ray 09/17/20 08:20 IMPRESSION: Nondisplaced transverse fracture of the proximal tibial diaphysis just distal to the tibial component of the prosthetic knee joint. Nondisplaced oblique fracture of the distal fibular metaphysis. Soft tissue swelling. Electronically Signed: Kayden Sprague MD at 9:14 EDT , Service support , Procedures Lower Extremity Splints Lower Extremity Splint: Orthoglass and Long leg (Posterior splint and sugar tong splint) Splint Fabrication: Fabricated Location: Left Discharge Plan Triage Chief Complaint: Fall ED Provider: Naresh Engel Dx/Rx/DC Orders Clinical Impression: Periprosthetic fracture around internal prosthetic left knee joint, Fracture of distal end of left fibula, Closed fracture of proximal end of left fibula Instructions: ED Fracture, Lower Extremity Prescriptions: No Action gabapentin 800 mg tablet 800 mg PO BID Qty: 60 RF: 0 cholecalciferol (vitamin D3) 1,000 unit capsule 1,000 unit PO DAILY RF: 0 calcium carbonate [Calcium 600] 600 mg calcium (1,500 mg) tablet 600 mg PO DAILY RF: 0 amitriptyline 25 mg tablet 25 mg PO QHS RF: 0 aspirin [Adult Low Dose Aspirin] 81 mg tablet,delayed release (DR/EC) 81 mg PO DAILY RF: 0 fluticasone propionate 50 mcg/actuation spray,suspension 2 spray INTRANASAL DAILY PRN (Reason: allergy symptoms) RF: 0 diltiazem HCl 120 mg capsule,extended release 24 hr 120 mg PO DAILY RF: 0 estradiol 1 MG tablet 1 mg PO DAILY RF: 0 meloxicam 15 MG tablet 15 mg PO DAILY RF: 0 sennosides-docusate sodium 1 TABLET tablet 2 tab PO BID RF: 0 omeprazole 40 MG capsule,delayed release(DR/EC) 0 mg PO DAILY Qty: 90 RF: 0 furosemide 40 mg tablet See Rx Instructions .ROUTE .COMPLEX Qty: 90 RF: 3 atenolol 25 mg tablet See Rx Instructions .ROUTE .COMPLEX Qty: 90 RF: 3 Primary Care Provider: Manuel Freeman Referrals: Manuel Freeman MD [Primary Care Provider] - Disposition Disposition: Acute Care Hospital Discharge Location: Other Acute Care Hospital
--- NOTE | 2020-09-17 08:20 | RAD_ITS ---
STUDY: X-RAY - LEFT TIBIA AND FIBULA REASON FOR EXAM: Female, 65 years old. Injury/Pain TECHNIQUE: 2 view(s) of the tibia and fibula were obtained. COMPARISON: None. FINDINGS: There is evidence of a nondisplaced transverse fracture through the proximal diaphysis of the tibia just distal to the tibial component of the prosthetic knee joint. Nondisplaced oblique fracture of the distal fibular metastasis. There is non-specific soft tissue swelling. RAD/Tibia & Fibula 2 Views IMPRESSION: Nondisplaced transverse fracture of the proximal tibial diaphysis just distal to the tibial component of the prosthetic knee joint. Nondisplaced oblique fracture of the distal fibular metaphysis. Soft tissue swelling. Electronically Signed: Kayden Sprague MD at 9:14 EDT , Service support ,
--- NOTE | 2020-09-17 08:20 | RAD_ITS ---
STUDY: X-RAY - LEFT ANKLE REASON FOR EXAM: Female, 65 years old. Injury/Pain TECHNIQUE: 2 view(s) of the ankle. COMPARISON: None. FINDINGS: Nondisplaced oblique fracture of the distal fibular metaphysis. Normal medial and lateral malleoli. Normal tibiotalar articulation and ankle mortise. Plantar spur. Soft tissue swelling. RAD/Ankle min 3 Views IMPRESSION: Nondisplaced oblique fracture of the distal fibular metaphysis. Soft tissue swelling. Electronically Signed: Kayden Sprague MD at 9:12 EDT , Service support ,
[2020-09-17] MEDS: Morphine 4 MG/ML Syringe IV ×2 (08:23→10:39)
--- NOTE | 2020-09-17 09:41 | NURSING ---
[address] MADY CONWAY, [facility] [phone] SENT TO OFFICE [phone] NOT THERE IN [place] 0929 HE'S IN SURGERY. THE OFFICE WILL GIVE MESSAGE TO HIM
--- NOTE | 2020-09-17 09:43 | NURSING ---
DR CONWAY CALLED BACK
--- NOTE | 2020-09-17 10:41 | NURSING ---
[place] [id number] [phone]
--- NOTE | 2020-09-17 10:46 | ED.RN ---
REPORT GIVEN TO LEOPOLDO AYON.
--- NOTE | 2020-09-17 11:14 | NURSING ---
CALLED [facility], ETA IS 30 MIN
[2020-09-17 12:00] VITALS: BP 142/74; PULSE 87; RESP 18; O2SAT 95
== END 2020-09-17 12:07 | disposition short-term general hospital (02) ==
PROVIDERS: Emergency Provider Emergency Medicine; PCP Family Medicine
DX: S82.002A Unspecified fracture of left patella, initial encounter for closed fracture (principal); S82.402A Unspecified fracture of shaft of left fibula, initial encounter for closed fracture; W19.XXXA Unspecified fall, initial encounter
CPT/HCPCS: 29505; 73590; 73610; 96374; 96376; 99285; A4216

== ENCOUNTER → 2020-12-29 12:35 | Outpatient (CLI) | payer MEDICARE, SELFPAY ==
--- NOTE | 2020-12-29 12:40 | RAD_ITS ---
STUDY: X-RAY - LEFT TIBIA AND FIBULA REASON FOR EXAM: Female, 65 years old. PERIPROSTH FRACTURE TECHNIQUE: 4 view(s) of the tibia and fibula were obtained. COMPARISON: None. FINDINGS: Knee prosthetic components are present in addition to cerclage wires in the proximal one third aspect of the tibial shaft. A small acute to subacute appearing horizontal fracture is present in the anterior cortex of the proximal one third tibial shaft at the level of the most distal cerclage wire with minimal displacement as well as angulation of the proximal fragment. A healed fracture deformity of the fibular neck is also present. The remaining aspects of the bony structures are unremarkable. RAD/Tibia & Fibula 2 Views IMPRESSION: 1. A small acute to subacute appearing horizontal fracture is present in the anterior cortex of the proximal one third tibial shaft at the level of the most distal cerclage wire with minimal displacement as well as angulation of the proximal fragment. Electronically Signed: Chris Meza MD at 16:19 EDT , Service support ,
== END ==
PROVIDERS: PCP Family Medicine
DX: M97.12XA Periprosthetic fracture around internal prosthetic left knee joint, initial encounter (principal)
CPT/HCPCS: 73590

== ENCOUNTER → 2021-02-13 13:18 | Outpatient (CLI) | payer MEDICARE, SELFPAY ==
[2021-02-13 15:08] LABS: Erythrocyte Sedimentation Rate 87 mm/hr (0-30)
[2021-02-13 15:09] LABS: Hematocrit 33.7 % (37-47); Hemoglobin 10.7 g/dL (12.0-15.0); Mean Corp Hgb Conc 31.8 g/dL (32-36); Mean Corpuscular Hgb 28.8 pg (27.0-32.0); Mean Corpuscular Volume 90.6 fL (81-99); Mean Platelet Vol. 11.7 fl (6.2-12.0); Platelet Count 288 K/mm3 (150-450); RBC Distribution Width CV 14.3 % (11.6-14.6); RBC Distribution Width SD 47.3 fl (35.1-43.9); Red Blood Count 3.72 M/mm3 (4.2-5.4); White Blood Count 6.2 K/mm3 (4.4-11.0)
[2021-02-13 15:25] LABS: Vitamin B12 624 pg/mL (211-911); Vitamin D,25 Hydroxy 45.3 ng/mL
[2021-02-13 15:30] LABS: Anion Gap 6 (5-15); BUN 14 mg/dL (7-18); BUN/Creat Ratio 13.5 RATIO (10-20); Chloride 105 mmol/L (98-107); Cholesterol 206 mg/dL (200); Creatinine, Serum 1.04 mg/dL (0.55-1.02); EST Glomerular Filtration Rate 56 mL/min (>60); Est Glom Filt Rate - Afr Amer 68 mL/min (>60); Ferritin 25 ng/mL (8-252); Glucose 132 mg/dL (74-106); High Density Lipoprotein 41 mg/dL; Iron 29 ug/dL (50-170); Magnesium 1.9 mg/dL (1.6-2.6); Potassium 4.1 mmol/L (3.5-5.1); Sodium Level 138 mmol/L (136-145); Thyroid Stim Hormone (TSH) 2.05 uIU/mL (0.358-3.74); Triglycerides 160 mg/dL; Very Low Density Lipoprotein 32 mg/dL (5-40)
== END ==
LOC: MTLAB 13:20
PROVIDERS: PCP Family Medicine; Referring Provider Family Medicine; Visit Provider Family Medicine
DX: G62.9 Polyneuropathy, unspecified (principal); I10 Essential (primary) hypertension; D64.9 Anemia, unspecified
CPT/HCPCS: 36415; 80048; 80061; 82306; 82607; 82728; 83540; 83735; 84443; 85027; 85652

== ENCOUNTER 2021-04-24 10:52 | Outpatient (CLI) | payer MEDICARE, SELFPAY | END 2021-04-24 23:59 | disposition home or self-care (01) | LOC: MFPLAB 10:55 | PROVIDERS: PCP Family Medicine; Referring Provider Family Medicine; Visit Provider Family Medicine | DX: N39.0 Urinary tract infection, site not specified (principal) | CPT/HCPCS: 87086; 87088 ==

== ENCOUNTER 2021-07-12 06:56 | Emergency (ER) | payer MEDICARE, SELFPAY ==
[2021-07-12 06:57] VITALS: BP 165/74; PULSE 74; RESP 16; TEMP 36.6; O2SAT 99; BMI 39.3
--- NOTE | 2021-07-12 07:28 | EDS_ITS ---
HPI History of Present Illness Chief Complaint: Burn Informant: patient Onset/Context/Timing Onset: Days Narrative Narrative: Patient presents secondary to sunburn to the top of her feet with large blisters. She returned home from a vacation to [place] last evening. She started to notice the blisters last night. [facility] Medical History (Updated 07/12/21 @ 07:[address] Anastasia Escobar MD) Anomalous origin of coronary artery Benign paroxysmal positional vertigo Bicuspid aortic valve DVT (deep venous thrombosis) Dysphasia Essential (primary) hypertension GERD (gastroesophageal reflux disease) Hypertrophic cardiomyopathy Infection and 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, initial encounter Insomnia Iron deficiency anemia Mitral valve annular calcification Non-rheumatic mitral valve stenosis Nonrheumatic aortic (valve) stenosis Osteoarthritis PND (paroxysmal nocturnal dyspnea) Home Medications estradiol 1 mg PO DAILY 08/12/14 [History Last Taken 04/20/16] meloxicam 15 mg PO DAILY 11/23/16 [History Last Taken Unknown] amitriptyline 25 mg tablet 25 mg PO QHS 02/14/19 [History Last Taken Unknown] calcium carbonate 600 mg calcium (1,500 mg) tablet 600 mg PO DAILY 02/14/19 [History Last Taken Unknown] cholecalciferol (vitamin D3) 25 mcg (1,000 unit) capsule 1,000 unit PO DAILY 02/14/19 [History Last Taken Unknown] gabapentin 800 mg tablet 800 mg PO BID #60 tab 02/14/19 [History Last Taken 01/09/20] aspirin 81 mg tablet,delayed release 81 mg PO DAILY 08/24/19 [History Last Taken 01/04/20] sennosides-docusate sodium 2 tab PO BID 11/23/19 [History Last Taken Unknown] fluticasone propionate 50 mcg/actuation nasal spray,suspension 2 spray INTRANA NANDA DAILY PRN ml 12/06/19 [History Last Taken Unknown] omeprazole 0 mg PO DAILY #90 capsule. 01/09/20 [Rx Last Taken Unknown] diltiazem HCl 120 mg capsule,24 hr,extended release 120 mg PO DAILY 07/01/20 [History Last Taken Unknown] furosemide 40 mg tablet See Rx Instructions .ROUTE .COMPLEX #90 tab 08/06/20 [Rx Last Taken Unknown] atenolol 25 mg tablet See Rx Instructions .ROUTE .COMPLEX #90 tab 06/09/21 [Rx Last Taken Unknown] Allergy/AdvReac Type Severity Reaction Status Date / Time hydrochlorothiazide AdvReac dizziness Verified 07/12/21 06:59 metoprolol AdvReac dizziness Verified 07/12/21 06:59 Family History Father Hypertension age 45 from [place] Myocardial infarction Mother Cancer, Onset Age: 56 ovarian cancer Ovarian cancer Surgical History History of aortic valve replacement (07/30/19) History of hysterectomy History of right and left heart catheterization (03/05/19) History of total left knee replacement Social History Smoking Status: Never smoker second hand exposure: No alcohol intake: current alcohol intake frequency: a few times a month substance use type: does not use caffeine: Yes what type of physical activity do you participate in: bicycling frequency: 1-2 times per week ROS ROS ED Constitutional Constitutional ED: Denies chills or fever(s) Eyes Eyes: Denies change in vision ENT ENT ED: Denies sore throat Cardiovascular Cardiovascular: Denies chest pain Respiratory/Chest Respiratory/Chest: Denies cough or dyspnea Gastrointestinal Gastrointestinal: Denies abdominal pain, nausea or vomiting Musculoskeletal Musculoskeletal: Denies back pain Integumentary Reports other Details: Sunburn with blisters bilateral feet ; Denies rash Neurologic Neurologic: Denies headache(s) or weakness Allergic/Immunologic Allergic/Immunologic ED: Denies urticaria EXAM Physical Exam Const Vital Signs: 07/12/21 06:57 Temperature 97.8 F Temperature Source Temporal Pulse Rate 74 Respiratory Rate 16 Blood Pressure 165/74 H Blood Pressure Mean 104 Pulse Ox 99 Oxygen Delivery Method Room Air Positive well nourished and well developed General Appearance ED: well developed HEENT Reports moist mucous membranes Eyes PERRL and EOMs intact bilaterally Neck supple Chest Wall inspection of chest normal and palpation of chest normal Resp normal respiratory effort and clear to auscultation bilaterally Cardio regular rate and regular rhythm GI non-tender Palpation: soft Extremity Extremity Narrative: Mild erythema to the bilateral lower extremities. Large blisters noted over the tops of both feet. No sign of secondary infection. Neuro oriented x3 Sensorium / Orientation: alert Psych mental status grossly normal [facility] Treatment and Re-Evaluation Narrative: The blistered area to the bilateral feet are cleansed with Shur-Clens and saline. Because of the size and tenseness of the blisters I did choose to use a small gauge needle and drained the fluid so that the skin would collapse down onto the wound therefore protecting the skin. This was performed without difficulty. Nonstick dressing is placed. Patient will use anti-inflammatories and elevate her feet. I recommended Solarcaine spray topically if needed to help with pain. Wound care instructions discussed. Discharge Plan Triage Chief Complaint: Burn ED Provider: Anastasia Escobar Dx/Rx/DC Orders Clinical Impression: Sunburn Instructions: ED Sunburn, ED Wound Care Prescriptions: No Action gabapentin 800 mg tablet 800 mg PO BID Qty: 60 RF: 0 cholecalciferol (vitamin D3) 1,000 unit capsule 1,000 unit PO DAILY RF: 0 calcium carbonate [Calcium 600] 600 mg calcium (1,500 mg) tablet 600 mg PO DAILY RF: 0 amitriptyline 25 mg tablet 25 mg PO QHS RF: 0 aspirin [Adult Low Dose Aspirin] 81 mg tablet,delayed release (DR/EC) 81 mg PO DAILY RF: 0 fluticasone propionate 50 mcg/actuation spray,suspension 2 spray INTRANASAL DAILY PRN (Reason: allergy symptoms) RF: 0 diltiazem HCl 120 mg capsule,extended release 24 hr 120 mg PO DAILY RF: 0 estradiol 1 MG tablet 1 mg PO DAILY RF: 0 meloxicam 15 MG tablet 15 mg PO DAILY RF: 0 sennosides-docusate sodium 1 TABLET tablet 2 tab PO BID RF: 0 omeprazole 40 MG capsule,delayed release(DR/EC) 0 mg PO DAILY Qty: 90 RF: 0 furosemide 40 mg tablet See Rx Instructions .ROUTE .COMPLEX Qty: 90 RF: 3 atenolol 25 mg tablet See Rx Instructions .ROUTE .COMPLEX Qty: 90 RF: 3 Primary Care Provider: Manuel Freeman Referrals: Manuel Freeman MD [Primary Care Provider] - As Needed Disposition Disposition: Home, Self Care
== END 2021-07-12 07:50 | disposition home or self-care (01) ==
PROVIDERS: Emergency Provider Emergency Medicine; PCP Family Medicine; Visit Provider Emergency Medicine
DX: L55.9 Sunburn, unspecified (principal); I42.2 Other hypertrophic cardiomyopathy; I10 Essential (primary) hypertension; Z95.2 Presence of prosthetic heart valve; Z86.718 Personal history of other venous thrombosis and embolism; D50.9 Iron deficiency anemia, unspecified; Q23.1 Congenital insufficiency of aortic valve
CPT/HCPCS: 99282

== ENCOUNTER → 2021-07-22 | Outpatient (CLI) | payer MEDICARE, SELFPAY ==
[2021-07-22 12:34] LABS: Hematocrit 35.2 % (37-47); Hemoglobin 11.2 g/dL (12.0-15.0); Mean Corp Hgb Conc 31.8 g/dL (32-36); Mean Corpuscular Hgb 29.4 pg (27.0-32.0); Mean Corpuscular Volume 92.4 fL (81-99); Mean Platelet Vol. 11.4 fl (6.2-12.0); Platelet Count 358 K/mm3 (150-450); RBC Distribution Width CV 14.8 % (11.6-14.6); RBC Distribution Width SD 50.4 fl (35.1-43.9); Red Blood Count 3.81 M/mm3 (4.2-5.4); White Blood Count 7.5 K/mm3 (4.4-11.0)
[2021-07-22 12:52] LABS: ALB/GLOB Ratio 0.7 RATIO (0.9-2.4); AST(SGOT) 13 U/L (15-37); Alanine Aminotransfer ALT/SGPT 18 U/L (13-56); Albumin, Serum 3.1 g/dL (3.2-5.0); Alkaline Phosphatase 55 U/L (45-117); Anion Gap 6 (5-15); BUN 15 mg/dL (7-18); BUN/Creat Ratio 14.6 RATIO (10-20); Calcium,Total 8.7 mg/dL (8.5-10.1); Chloride 104 mmol/L (98-107); Creatinine, Serum 1.03 mg/dL (0.55-1.02); EST Glomerular Filtration Rate 57 mL/min (>60); Est Glom Filt Rate - Afr Amer 69 mL/min (>60); Globulin 4.3 g/dL (2.2-4.2); Glucose 117 mg/dL (74-106); Potassium 4.2 mmol/L (3.5-5.1); Protein, Total 7.4 g/dL (6.4-8.2); Sodium Level 137 mmol/L (136-145); Thyroid Stim Hormone (TSH) 2.11 uIU/mL (0.358-3.74)
== END | disposition home or self-care (01) ==
LOC: MFPLAB 10:11
PROVIDERS: PCP Family Medicine; Visit Provider Family Medicine
DX: F32.A Depression, unspecified (principal); D64.9 Anemia, unspecified; I10 Essential (primary) hypertension; Z95.2 Presence of prosthetic heart valve
CPT/HCPCS: 36415; 80053; 83880; 84443; 85027

== ENCOUNTER → 2021-08-28 | Outpatient (CLI) | payer MEDICARE, SELFPAY ==
--- NOTE | 2021-08-28 10:45 | RAD_ITS ---
STUDY: X-RAY - UNILATERAL RIBS ( RIGHT ) REASON FOR EXAM: Female, 66 years old. RIB PAIN TECHNIQUE: 5 view(s) of the ribs. COMPARISON: None. FINDINGS: Normal visualized ribs without a demonstrated fracture. The visualized lung is clear and expanded. RAD/Ribs Uni Min 3V w/PA Chest IMPRESSION: Normal x-ray examination of the ribs. Electronically Signed: Mahendra Haji MD at 13:30 EDT ,
== END | disposition home or self-care (01) ==
LOC: MTRAD 10:33
PROVIDERS: PCP Family Medicine; Referring Provider Family Medicine; Visit Provider Family Medicine
DX: R07.81 Pleurodynia (principal)
CPT/HCPCS: 71101

== ENCOUNTER → 2021-09-09 | Outpatient (CLI) | payer MEDICARE, SELFPAY ==
--- NOTE | 2021-09-09 15:51 | RAD_ITS ---
STUDY: X-RAY - LUMBOSACRAL SPINE REASON FOR EXAM: Female, 66 years old. LUMBAR DISC DEGENERATION TECHNIQUE: 7 view(s) of the lumbosacral spine were obtained. COMPARISON: 03/03/2020 FINDINGS: Normal lumbar lordosis. Mild levoscoliosis centered at L2. Status post anterior cervical discectomy and fusion at L5/S1 with anatomic alignment. No subluxation on the flexion extension views suggest instability. Normal vertebral bodies and endplates. Normal disc space heights. Normal bilateral sacral ala, sacroiliac joints, and visualized sacrum. Normal visualized soft tissue structures. RAD/L/S Spine w Bend Min 6 Vw IMPRESSION: 1. Status post anterior cervical discectomy and fusion at L5/S1 with anatomic alignment. No instability. 2. Mild levoscoliosis. Electronically Signed: Mc Winslow MD at 8:54 EDT ,
[2021-09-09 17:49] LABS: Absolute Lymphocyte Count 1.22 X10^3/uL (0.83-4.51); Absolute Neutrophil Count 6.7 X10^3/uL (2.0-7.7); Basophil# 0.03 X10^3/uL; Basophil% 0.3 % (0-1); Eosinophil# 0.07 X10^3/uL; Eosinophils% 0.8 % (0-5); Hematocrit 33.8 % (37-47); Hemoglobin 10.5 g/dL (12.0-15.0); Lymphocyte # 1.22 X10^3/ul (0.83-4.51); Lymphocyte % 14.2 % (19-41); Mean Corp Hgb Conc 31.1 g/dL (32-36); Mean Corpuscular Volume 93.4 fL (81-99); Mean Platelet Vol. 11.4 fl (6.2-12.0); Monocyte# 0.54 X10^3/uL; Monocyte% 6.3 % (0-10); NRBC Flagged by Analyzer 0 % (0-5); Neutrophil # 6.72 X10^3/uL (2.7-7.7); Neutrophil % 78.1 % (47-70); Platelet Count 260 K/mm3 (150-450); RBC Distribution Width SD 47.8 fl (35.1-43.9); Red Blood Count 3.62 M/mm3 (4.2-5.4); White Blood Count 8.6 K/mm3 (4.4-11.0)
[2021-09-09 18:01] LABS: Erythrocyte Sedimentation Rate 52 mm/hr (0-30)
[2021-09-09 18:26] LABS: Vitamin B12 665 pg/mL (211-911); Vitamin D,25 Hydroxy 55.4 ng/mL
[2021-09-09 18:46] LABS: ALB/GLOB Ratio 0.7 RATIO (0.9-2.4); AST(SGOT) 14 U/L (15-37); Alanine Aminotransfer ALT/SGPT 13 U/L (13-56); Albumin, Serum 2.9 g/dL (3.2-5.0); Alkaline Phosphatase 68 U/L (45-117); Anion Gap 9 (5-15); BUN 10 mg/dL (7-18); BUN/Creat Ratio 9.8 RATIO (10-20); Calcium,Total 8.6 mg/dL (8.5-10.1); Chloride 100 mmol/L (98-107); Creatinine, Serum 1.02 mg/dL (0.55-1.02); EST Glomerular Filtration Rate 57 mL/min (>60); Est Glom Filt Rate - Afr Amer 69 mL/min (>60); Globulin 4.4 g/dL (2.2-4.2); Glucose 138 mg/dL (74-106); Iron 19 ug/dL (50-170); Potassium 3.8 mmol/L (3.5-5.1); Protein, Total 7.3 g/dL (6.4-8.2); Sodium Level 134 mmol/L (136-145); Thyroid Stim Hormone (TSH) 1.41 uIU/mL (0.358-3.74)
== END | disposition home or self-care (01) ==
LOC: MTLAB 15:36
PROVIDERS: PCP Family Medicine; Referring Provider Family Medicine; Visit Provider Family Medicine
DX: M51.36 Other intervertebral disc degeneration, lumbar region (principal); R53.83 Other fatigue; E53.8 Deficiency of other specified B group vitamins
CPT/HCPCS: 36415; 72114; 80053; 82306; 82607; 83540; 84443; 85025; 85652; 86140

== ENCOUNTER → 2021-09-16 | Outpatient (CLI) | payer MEDICARE, SELFPAY ==
--- NOTE | 2021-09-16 08:56 | RAD_ITS ---
STUDY: X-RAY - LEFT KNEE REASON FOR EXAM: Female, 66 years old. pain. Hardware concern TECHNIQUE: 3 view(s) of the knee. COMPARISON: Comparison is made with prior study dated 12/08/2016. FINDINGS: The patient is status post left total knee replacement of the constrained type with a long segment and the femur and tibia. Questionable subtle cortical break along the distal femur. Soft tissue swelling. RAD/Knee 3 Views IMPRESSION: Status post total knee replacement. Question subtle fracture along the distal portion of the femur. Clinical correlation is recommended. Electronically Signed: Kayden Sprague MD at 15:23 EDT ,
[2021-09-16 10:25] LABS: Absolute Neutrophil Count 6.5 X10^3/uL (2.0-7.7); Basophil# 0.03 X10^3/uL; Basophil% 0.3 % (0-1); Eosinophil# 0.29 X10^3/uL; Eosinophils% 3.1 % (0-5); Erythrocyte Sedimentation Rate 83 mm/hr (0-30); Hematocrit 34.1 % (37-47); Hemoglobin 10.9 g/dL (12.0-15.0); Lymphocyte % 19.5 % (19-41); Mean Corpuscular Hgb 28.8 pg (27.0-32.0); Mean Corpuscular Volume 90.2 fL (81-99); Mean Platelet Vol. 11.1 fl (6.2-12.0); Monocyte# 0.59 X10^3/uL; Monocyte% 6.4 % (0-10); NRBC Flagged by Analyzer 0 % (0-5); Neutrophil # 6.45 X10^3/uL (2.7-7.7); Platelet Count 329 K/mm3 (150-450); RBC Distribution Width CV 13.9 % (11.6-14.6); RBC Distribution Width SD 45.3 fl (35.1-43.9); Red Blood Count 3.78 M/mm3 (4.2-5.4); White Blood Count 9.2 K/mm3 (4.4-11.0)
[2021-09-16 10:44] LABS: Rheumatoid Factor < 10.0 IU/mL (<15); Uric Acid 7.9 mg/dL (2.6-6.0)
[2021-09-17 15:01] LABS: ANTINUCLEAR ANTIBODIES DIRECT Negative (Negative)
== END | disposition home or self-care (01) ==
LOC: MTLAB 07:07
PROVIDERS: PCP Family Medicine; Referring Provider Family Medicine; Visit Provider Family Medicine
DX: M25.562 Pain in left knee (principal); R79.82 Elevated C-reactive protein (CRP)
CPT/HCPCS: 36415; 73562; 84550; 85025; 85652; 86038; 86140; 86141; 86431

== ENCOUNTER → 2021-09-18 | Outpatient (CLI) | payer MEDICARE, SELFPAY ==
--- NOTE | 2021-09-18 13:00 | MRI_ITS ---
STUDY: MR Knee W/O Contrast 09/18/2021 2:16 PM REASON FOR EXAM: Female, 66 years old. LEFT distal femur fracture TECHNIQUE: Standardized fat and water weighted pulse sequences were obtained in all 3 orthogonal planes. COMPARISON: xr Sep 16 2021 9:01am and xr Dec 29 2020 12:21pm FINDINGS: Status post total knee replacement. Femoral stem and tibial stem component causes significant artifact. Cannot evaluate due to artifact: medial meniscus, medial femorotibial compartment. and medial femoral condyle and tibial plateau. Cannot evaluate due to artifact: medial collateral ligamentous complex (MCL). Cannot evaluate due to artifact: lateral meniscus, lateral femorotibial compartment, and lateral femoral condyle and tibial plateau. Cannot evaluate due to artifact: anterior cruciate ligament (ACL) and posterior cruciate ligament (PCL). Cannot evaluate due to artifact: medial and lateral patellar retinaculum. Cannot evaluate due to artifact: quadriceps tendon. Cannot evaluate due to artifact: patellar tendon. Cannot evaluate due to artifact: Hoffa''s fat pad. There is a small volume joint effusion. MRI/Lower Ext Joint Only (Routine) IMPRESSION: There is a small volume joint effusion. No visible femoral fracture Electronically Signed: David Cárdenas MD at 14:39 EDT Reading Location ID and State: [facility] / [place] , Service support ,
== END | disposition home or self-care (01) ==
LOC: MRI 12:10
PROVIDERS: PCP Family Medicine; Referring Provider Family Medicine; Visit Provider Family Medicine
DX: S72.402A Unspecified fracture of lower end of left femur, initial encounter for closed fracture (principal); Z96.659 Presence of unspecified artificial knee joint; M25.469 Effusion, unspecified knee
CPT/HCPCS: 73721

== ENCOUNTER → 2021-10-02 | Outpatient (CLI) | payer MEDICARE, SELFPAY ==
[2021-10-02 10:09] LABS: Erythrocyte Sedimentation Rate 56 mm/hr (0-30)
== END | disposition home or self-care (01) ==
LOC: MFPLAB 09:29
PROVIDERS: PCP Family Medicine; Referring Provider Family Medicine; Visit Provider Family Medicine
DX: R29.898 Other symptoms and signs involving the musculoskeletal system (principal)
CPT/HCPCS: 36415; 85652; 86140

== ENCOUNTER → 2021-10-10 | Outpatient (CLI) | payer MEDICARE, SELFPAY ==
--- NOTE | 2021-10-10 08:02 | MRI_ITS ---
STUDY: MRI LUMBAR SPINE WITHOUT CONTRAST REASON FOR EXAM: Female, 66 years old. Low back pain and right leg numbness. TECHNIQUE: Standardized fat and water weighted pulse sequences were obtained in the sagittal and axial planes. COMPARISON: 09/04/2018 MRI lumbar spine. FINDINGS: Alignment anatomic. No fracture. No acute or concerning osseous signal changes. Benign vertebral body hemangiomas most prominent L2 vertebral body similar to previous. [place] terminates at the level of the L1 inferior endplate with normal contour and signal. Normal arborization of the cauda equina. The thecal sac terminates at the mid S2 level. Disc space height and signal are relatively preserved for a patient of this age except for at L5-S1 where the patient is status post anterior fusion and discectomy. Disc spacer in place. This is similar to prior. At L1-2 and L2-3, hilar facet degeneration causes only mild narrowing similar to prior. At L3-4, moderate bilateral facet degeneration with degenerative buckling the ligamentum flavum and small facet joint effusions causes only mild narrowing with no evidence of nerve root impingement, similar to prior. At L4-5, small diffuse disc bulge and moderate bilateral facet degeneration are similar to previous. As before, disc abuts but does not appreciably displace the traversing left L5 nerve root in the subarticular zone. Otherwise no nerve root impingement. At L5-S1, the patient is status post discectomy. The spinal canal and foramina are patent with no significant narrowing. Paraspinal soft tissues unremarkable. MRI/Spine Lumbar (Routine) IMPRESSION: No acute finding, no significant change. No etiology for right-sided radiculopathy identified. Anterior fusion and discectomy L5-S1 with no apparent complication. Electronically Signed: Pedro Foss MD at 5:15 EDT Reading Location ID and State: [facility] / [place] Tel , Service support ,
== END | disposition home or self-care (01) ==
PROVIDERS: PCP Family Medicine; Visit Provider Family Medicine
DX: M54.40 Lumbago with sciatica, unspecified side (principal)
CPT/HCPCS: 72148

== ENCOUNTER → 2021-12-02 | Outpatient (CLI) | payer MEDICARE, SELFPAY ==
--- NOTE | 2021-12-02 08:37 | BI_ITS ---
MAMMOGRAPHY - BILATERAL SCREENING 3-D TOMOSYNTHESIS REASON FOR EXAM: Female, 66 years old. SCREENING PERTINENT HISTORY: No significant family history. TECHNIQUE: 2-D mammograms and 3-D Tomosynthesis of the breast (s) were performed. CAD was performed. COMPARISON: 01/23/2019 FINDINGS: The breast composition is composed of scattered fibroglandular density. Scattered benign calcifications are seen. No dense spiculated masses or suspicious microcalcifications are identified. No architectural distortion is identified. There is no skin thickening or retraction. There has been no significant change since the prior study. BI/SCRN MAMM (CAD)W/ALIYAH BILAT IMPRESSION: No mammographic signs of malignancy. Routine yearly mammograms recommended. ASSESSMENT CATEGORY: BIRADS Category 1: Negative. A letter regarding these results will be sent to the patient by the facility within 30 days. FOLLOW UP RECOMMENDATION: Yearly follow up mammogram recommended. (A) Approximately 10% of breast cancers are not detected by mammography. A normal mammogram should not delay biopsy of a clinically suspicious abnormality. Electronically Signed: Mc Winslow MD at 9:18 EDT ,
== END | disposition home or self-care (01) ==
LOC: OPBI 08:35
PROVIDERS: PCP Family Medicine; Visit Provider Family Medicine
DX: Z12.31 Encounter for screening mammogram for malignant neoplasm of breast (principal)
CPT/HCPCS: 77063; 77067

== ENCOUNTER → 2021-12-15 | Outpatient (CLI) | payer MEDICARE, SELFPAY ==
[2021-12-15 10:17] LABS: Erythrocyte Sedimentation Rate 48 mm/hr (0-30)
[2021-12-15 10:24] LABS: Absolute Lymphocyte Count 1.61 X10^3/uL (0.83-4.51); Absolute Neutrophil Count 4.5 X10^3/uL (2.0-7.7); Basophil# 0.03 X10^3/uL; Basophil% 0.4 % (0-1); Eosinophil# 0.26 X10^3/uL; Eosinophils% 3.7 % (0-5); Hematocrit 34.5 % (37-47); Hemoglobin 10.9 g/dL (12.0-15.0); Lymphocyte # 1.61 X10^3/ul (0.83-4.51); Lymphocyte % 22.8 % (19-41); Mean Corp Hgb Conc 31.6 g/dL (32-36); Mean Corpuscular Hgb 28.9 pg (27.0-32.0); Mean Corpuscular Volume 91.5 fL (81-99); Mean Platelet Vol. 11.2 fl (6.2-12.0); Monocyte% 8.5 % (0-10); NRBC Flagged by Analyzer 0 % (0-5); Neutrophil # 4.52 X10^3/uL (2.7-7.7); Neutrophil % 64.2 % (47-70); Platelet Count 288 K/mm3 (150-450); RBC Distribution Width SD 50.3 fl (35.1-43.9); Red Blood Count 3.77 M/mm3 (4.2-5.4); White Blood Count 7.1 K/mm3 (4.4-11.0)
[2021-12-15 11:13] LABS: ALB/GLOB Ratio 0.7 RATIO (0.9-2.4); AST(SGOT) 13 U/L (15-37); Alanine Aminotransfer ALT/SGPT 18 U/L (13-56); Albumin, Serum 2.9 g/dL (3.2-5.0); Alkaline Phosphatase 49 U/L (45-117); Anion Gap 6 (5-15); BUN 15 mg/dL (7-18); BUN/Creat Ratio 13.6 RATIO (10-20); Calcium,Total 8.6 mg/dL (8.5-10.1); Chloride 104 mmol/L (98-107); EST Glomerular Filtration Rate 52 mL/min (>60); Est Glom Filt Rate - Afr Amer 63 mL/min (>60); Globulin 4.2 g/dL (2.2-4.2); Glucose 102 mg/dL (74-106); Potassium 4.3 mmol/L (3.5-5.1); Protein, Total 7.1 g/dL (6.4-8.2); Sodium Level 138 mmol/L (136-145); Uric Acid 8.6 mg/dL (2.6-6.0)
== END | disposition home or self-care (01) ==
LOC: MFPLAB 09:18
PROVIDERS: PCP Family Medicine; Visit Provider Family Medicine
DX: R29.898 Other symptoms and signs involving the musculoskeletal system (principal)
CPT/HCPCS: 36415; 80053; 84550; 85025; 85652; 86140

== ENCOUNTER → 2022-05-21 | Outpatient (CLI) | payer MEDICARE, SELFPAY ==
--- NOTE | 2022-05-21 15:15 | MRI_ITS ---
EXAM: MR CERVICAL SPINE WITHOUT AND WITH INTRAVENOUS CONTRAST CLINICAL INDICATION: CERVICAL DISC DISORDER TECHNIQUE: Multiplanar and multisequence MR images of the cervical spine without and with intravenous contrast were performed. Magnetic field strength 1.5 T. This report was created using [employer] report Stamped technology. CONTRAST: 19 cc of Clariscan IV. COMPARISON: None. FINDINGS: VERTEBRAE: Unremarkable. Normal vertebral bodies and posterior elements. Normal alignment. Normal craniocervical junction and cervicothoracic junction. No spondylolisthesis. There is preservation of the normal cervical lordosis. SPINAL CORD: Unremarkable in signal and morphology. SOFT TISSUES: Unremarkable. No prevertebral soft tissue swelling. LYMPH NODES: Unremarkable. There is no cervical adenopathy. DISCS/SPINAL CANAL/NEURAL FORAMINA: C2-C3: Unremarkable. Normal disc height and morphology. Normal spinal canal. Normal neuroforamina. C3-C4: Moderate disc space narrowing and slight generalized disc bulge. No spinal canal or foraminal stenosis. C4-C5: Moderate disc space narrowing. No spinal canal or foraminal stenosis. C5-C6: Anterior cervical plate and screw fixation C5-C6 and C6-C7. Fused disc space. Normal spinal canal. Normal neuroforamina. C6-C7: Fused disc space. C7-T1: Unremarkable. Normal disc height and morphology. Normal spinal canal. Normal neuroforamina. MRI/Spine Cervical W/WO Contrast IMPRESSION: 1. Anterior cervical plate and screw fixation C5-C6 and C6 and C7. No acute abnormality. No spinal stenosis. 2. Moderate spondylosis C3-C4. 3. Moderate spondylosis C4-C5. Electronically Signed: Solitario More MD at 12:35 [facility] ,
[2022-05-21 15:55] LABS: CREATININE FINGERSTICK 1.2 mg/dL (0.55-1.02)
== END | disposition home or self-care (01) ==
LOC: MRI 15:06
PROVIDERS: PCP Family Medicine; Visit Provider Orthopaedic Surgery Orthopaedic Surgery of the Spine
DX: M54.15 Radiculopathy, thoracolumbar region (principal); M50.020 Cervical disc disorder with myelopathy, mid-cervical region, unspecified level
CPT/HCPCS: 72156; A9575

== ENCOUNTER → 2022-05-24 | Outpatient (CLI) | payer MEDICARE, SELFPAY ==
[2022-05-24 15:23] LABS: Erythrocyte Sedimentation Rate 49 mm/hr (0-30)
[2022-05-24 15:24] LABS: Absolute Lymphocyte Count 1.89 X10^3/uL (0.83-4.51); Absolute Neutrophil Count 5.8 X10^3/uL (2.0-7.7); Basophil# 0.05 X10^3/uL; Basophil% 0.6 % (0-1); Eosinophil# 0.33 X10^3/uL; Eosinophils% 3.7 % (0-5); Hematocrit 35.5 % (37-47); Hemoglobin 11.3 g/dL (12.0-15.0); Lymphocyte # 1.89 X10^3/ul (0.83-4.51); Lymphocyte % 21.5 % (19-41); Mean Corp Hgb Conc 31.8 g/dL (32-36); Mean Corpuscular Hgb 29.8 pg (27.0-32.0); Mean Corpuscular Volume 93.7 fL (81-99); Mean Platelet Vol. 11.6 fl (6.2-12.0); Monocyte# 0.74 X10^3/uL; Monocyte% 8.4 % (0-10); NRBC Flagged by Analyzer 0 % (0-5); Neutrophil # 5.78 X10^3/uL (2.7-7.7); Neutrophil % 65.6 % (47-70); Platelet Count 287 K/mm3 (150-450); RBC Distribution Width CV 14.9 % (11.6-14.6); RBC Distribution Width SD 50.6 fl (35.1-43.9); Red Blood Count 3.79 M/mm3 (4.2-5.4); White Blood Count 8.8 K/mm3 (4.4-11.0)
[2022-05-24 15:35] LABS: Vitamin B12 493 pg/mL (211-911); Vitamin D,25 Hydroxy 47.6 ng/mL
[2022-05-24 15:45] LABS: ALB/GLOB Ratio 0.7 RATIO (0.9-2.4); AST(SGOT) 21 U/L (15-37); Alanine Aminotransfer ALT/SGPT 18 U/L (13-56); Albumin, Serum 3.2 g/dL (3.2-5.0); Alkaline Phosphatase 45 U/L (45-117); Anion Gap 7 (5-15); BUN 18 mg/dL (7-18); BUN/Creat Ratio 15.9 RATIO (10-20); Chloride 102 mmol/L (98-107); Creatinine, Serum 1.13 mg/dL (0.55-1.02); EST Glomerular Filtration Rate 51 mL/min (>60); Est Glom Filt Rate - Afr Amer 61 mL/min (>60); Ferritin 13 ng/mL (8-252); Globulin 4.3 g/dL (2.2-4.2); Glucose 101 mg/dL (74-106); Hemoglobin A1c 6.4 % (3.8-5.6); Iron 48 ug/dL (50-170); Potassium 4.4 mmol/L (3.5-5.1); Protein, Total 7.5 g/dL (6.4-8.2); Sodium Level 137 mmol/L (136-145); Thyroid Stim Hormone (TSH) 3.89 uIU/mL (0.358-3.74)
[2022-05-26 21:26] LABS: ANTINUCLEAR ANTIBODIES DIRECT Negative (Negative)
== END | disposition home or self-care (01) ==
LOC: MFPLAB 12:19
PROVIDERS: PCP Family Medicine; Visit Provider Family Medicine
DX: G62.9 Polyneuropathy, unspecified (principal); R79.89 Other specified abnormal findings of blood chemistry; I10 Essential (primary) hypertension; M10.9 Gout, unspecified; E53.8 Deficiency of other specified B group vitamins
CPT/HCPCS: 36415; 80053; 82306; 82607; 82728; 83036; 83540; 84439; 84443; 84550; 85025; 85652; 86038

== ENCOUNTER 2022-08-05 12:11 | Emergency (ER) | payer MEDICARE, SELFPAY ==
[2022-08-05 12:12] VITALS: BP 153/86; PULSE 66; RESP 18; TEMP 36.2; O2SAT 100
--- NOTE | 2022-08-05 12:42 | EKG12_ITS ---
Test Reason : Blood Pressure : / mmHG Vent. Rate : 066 BPM Atrial Rate : 066 BPM P-R Int : 162 ms QRS Dur : 082 ms QT Int : 432 ms P-R-T Axes : 039 -06 015 degrees QTc Int : 452 ms Normal sinus rhythm Normal ECG Confirmed by SUNSHINE DURHAM MD ([id number]), newspaper editor managing LAZARUS VILLARREAL ([id number]) on 08/06/2022 1:25:42 PM Referred By: DIRK Confirmed By:SUNSHINE DURHAM MD
--- NOTE | 2022-08-05 12:43 | EDS_ITS ---
HPI History of Present Illness Chief Complaint: Chest Pain Informant: patient Narrative Narrative: Patient has been having intermittent chest pain for weeks. Episodes last a minute or so at a time, 3 minutes when she is having a longer episode which has been more lately. Maybe once per day. Feels like squeezing substernal nonradiating, makes her feel little short of breath but no near syncope or palpitations or other acute symptoms with it. Overall she has been having leg edema chronically but significantly worse over the past several weeks, she was prescribed Lasix starting about 2 weeks ago, initially was making her urinate a lot but now not as much when she takes it. She has been having dyspnea with exertion for couple weeks as well, it is worse in the past week with the dyspnea at rest for the past couple days along with orthopnea as well. She has a history of a mitral valve repair/replacement, she thinks a porcine valve, she is on baby aspirin daily no anticoagulants, she had a remote DVT after knee surgery in the left leg, but that was a long time ago she states. No recent travel, hospitalization, or surgery. Denies any other cardiac history. [facility] Medical History Anomalous origin of coronary artery Benign paroxysmal positional vertigo Bicuspid aortic valve Closed fracture of proximal end of left fibula DVT (deep venous thrombosis) Dysphasia Essential (primary) hypertension Fracture of distal end of left fibula GERD (gastroesophageal reflux disease) Infection and 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, initial encounter Insomnia Iron deficiency anemia Mitral valve annular calcification Non-rheumatic mitral valve stenosis Nonrheumatic aortic (valve) stenosis Obesity Osteoarthritis Periprosthetic fracture around internal prosthetic left knee joint Home Medications estradiol 1 mg tablet 1 mg PO DAILY 08/12/14 [History Last Taken 04/20/16] meloxicam 15 mg tablet 15 mg PO DAILY 11/23/16 [History Last Taken Unknown] amitriptyline 25 mg tablet 25 mg PO QHS 02/14/19 [History Last Taken Unknown] calcium carbonate 600 mg calcium (1,500 mg) tablet (Calcium) 600 mg PO DAILY 02/14/19 [History Last Taken Unknown] cholecalciferol (vitamin D3) 25 mcg (1,000 unit) capsule 1,000 unit PO DAILY 02/14/19 [History Last Taken Unknown] gabapentin 800 mg tablet 800 mg PO BID #60 tabs 02/14/19 [History Last Taken 01/09/20] aspirin 81 mg tablet,delayed release (Adult Low Dose Aspirin) 81 mg PO DAILY 08/24/19 [History Last Taken 01/04/20] sennosides 8.6 mg-docusate sodium 50 mg tablet 2 tab PO BID 11/23/19 [History Last Taken Unknown] fluticasone propionate 50 mcg/actuation nasal spray,suspension 2 spray intranasal DAILY PRN allergy symptoms 12/06/19 [History Last Taken Unknown] omeprazole 40 mg capsule,delayed release 0 mg PO DAILY ##90 01/09/20 [Rx Last Taken Unknown] furosemide 40 mg tablet See Rx Instructions .Route .COMPLEX #90 tabs 08/06/20 [Rx Last Taken Unknown] atenolol 25 mg tablet 25 mg PO DAILY #90 tabs 09/01/21 [Rx Last Taken Unknown] diltiazem HCl 120 mg capsule,24 hr,extended release 120 mg PO DAILY #90 caps 09/01/21 [Rx Last Taken Unknown] duloxetine 30 mg capsule,delayed release 30 mg PO DAILY 09/01/21 [History Last Taken Unknown] oxybutynin chloride 5 mg tablet 5 mg PO DAILY 09/01/21 [History Last Taken Unknown] Allergy/AdvReac Type Severity Reaction Status Date / Time hydrochlorothiazide AdvReac dizziness Verified 09/01/21 10:51 metoprolol AdvReac dizziness Verified 09/01/21 10:51 Family History Father Hypertension age 45 from [place] Myocardial infarction Mother Cancer, Onset Age: 56 ovarian cancer Ovarian cancer Surgical History History of aortic valve replacement (07/30/19) History of hysterectomy History of right and left heart catheterization (03/05/19) History of total left knee replacement Social History Smoking Status: Never smoker second hand exposure: No alcohol intake: current alcohol intake frequency: a few times a month substance use type: does not use caffeine: Yes what type of physical activity do you participate in: bicycling frequency: 1-2 times per week ROS ROS ED Constitutional Constitutional ED: Denies chills or fever(s) Eyes Eyes: Denies change in vision or diplopia ENT ENT ED: Denies rhinorrhea or sore throat Cardiovascular Cardiovascular: Reports chest pain, leg edema, orthopnea and weight gain; Denies palpitations or syncope Respiratory/Chest Respiratory/Chest: Reports dyspnea, dyspnea on exertion and orthopnea; Denies cough Gastrointestinal Gastrointestinal: Denies abdominal pain, diarrhea, nausea or vomiting Genitourinary Genitourinary ED: Denies dysuria or hematuria Musculoskeletal Musculoskeletal: Denies back pain or neck pain Integumentary Denies abscess or rash Neurologic Neurologic: Denies headache(s), paresthesias or weakness Psychiatric Psychiatric: Denies anxiety or suicidal thoughts EXAM Physical Exam Const Vital Signs: 08/05/22 12:12 08/05/22 12:42 08/05/22 12:14 Temperature 97.1 F L Temperature Source Temporal Pulse Rate 66 Respiratory Rate 18 Respiratory Effort Normal Non-Labored Blood Pressure 153/86 H Blood Pressure Mean 108 Pulse Ox 100 Oxygen Delivery Method Room Air Room Air Positive well nourished, well developed and obese General Appearance ED: well developed and NAD Nutritional Appearance: obese HEENT Reports moist mucous membranes normocephalic and atraumatic Eyes PERRL and EOMs intact bilaterally Neck full ROM, no lymphadenopathy, supple and no JVD Neck Narrative: JVD evaluation limited due to obesity Resp normal respiratory effort and clear to auscultation bilaterally Cardio regular rate and regular rhythm Rate: Negative for tachycardic Heart Sounds: murmur systolic II/ soft left sternal border and LVOT Peripheral Pulses: pulses 2+ throughout GI non-tender and non-distended Auscultation: normoactive bowel sounds Palpation: soft Back/Spine no CVA tenderness General Back: other FROM Extremity normal to inspection General Extremety ED: Yes edema; Negative for pulses abnormal or tenderness General Extremity: edema bilateral lower extremity Details: moderate (Symmetric without signs of cellulitis, foreign body,); Negative for pulses abnormal Neuro oriented x3, CN's II-XII intact bilaterally and no sensory deficits noted Sensorium / Orientation: awake and alert Motor Exam: strength 5/5 throughout Skin no rashes or lesions noted and no wounds Heart Score History: Moderately Suspicious Age: >/= 65 years Risk Factors: 1 or 2 Risk Factors Score: 4 MDM MDM MDM Narrative Medical decision making narrative: Patient's intermittent discomfort sounds less likely to be cardiac, her EKG is normal, initial troponin is 5 and the 2-hour repeat is 4 for a delta that actually went negative, ruling out acute coronary syndrome at this time. With regards to her edema and dyspnea, her BNP was just slightly elevated, and her chest x-ray 2 views on my interpretation unremarkable except for maybe borderline cardiomegaly, radiology agrees that it is unremarkable, so I think this is much less likely to be acute decompensated congestive heart failure, although she does have a history of stage I diastolic failure. I consider PE work-up but I do not think that is what this patient has. She has symmetric bilateral lower extremity edema, no calf pain or palpable cords, no tachycardia and her pulse ox is 100% on room air. With her orthopnea no effusions I suspect this may also be related to fluid overload. She is on Lasix 40 mg daily, I would recommend doubling her Lasix and to twice daily for at least the next 5 days or so, returning if worse and following up with her doctor if she starts to have improvement with her dyspnea from this, and I will give her a dose of 40 mg here prior to discharge, she is comfortable with that overall plan we discussed reasons to return. History & Record Review Additional record(s) reviewed:: Prior outpatient record (Prior echo 2020 EF 65%, stage I diastolic dysfunction) and Prior labs Lab Data Attestation: I reviewed the patient's lab results. Labs: Laboratory Results - last 24 hr 08/05/22 08/05/22 08/05/22 13:06 13:06 13:06 WBC 7.8 RBC 3.66 L Hgb 11.1 L Hct 35.0 L MCV 95.6 MCH 30.3 MCHC 31.7 L RDW Std Deviation 51.4 H RDW Coeff of Robe 14.7 H Plt Count 268 MPV 10.6 Immature Gran % (Auto) 0.400 Neut % (Auto) 63.8 Lymph % (Auto) 22.6 Orange % (Auto) 9.7 Eos % (Auto) 3.0 Baso % (Auto) 0.5 Absolute Neuts (auto) 5.0 Absolute Lymphs (auto) 1.75 Nucleated RBC % 0 Sodium 138 Potassium 4.9 Chloride 105 Carbon Dioxide 29.0 Anion Gap 4 L BUN 14 Creatinine 1.05 H Est GFR (MDRD) Af Amer 67 Est GFR (MDRD) Non-Af 55 L BUN/Creatinine Ratio 13.3 Glucose 97 Calcium 8.9 Troponin I High Sens 5 B-Natriuretic Peptide 135.5 H Radiography Chest X-Ray - ED: 2 View, Read by ED Physician, No Acute Disease and No Infiltrates Diagnostic Testing: Clinical Impression(s) from Imaging Studies Chest X-Ray 08/05/22 15:30 IMPRESSION: No acute cardiopulmonary process identified. Electronically Signed: Romana Hernandez MD at 14:10 EDT Reading Location ID and State: [facility] / [place] Tel , Service support , Rhythm Strip Rhythm Strip: Sinus Rhythm Rate: 65 Ectopy: None EKG Initial EKG: Attestation: I personally reviewed and interpreted this EKG as follows: Interpretation: Sinus Rhythm and No Acute Injury Pattern Comments: normal EKG Prior EKG tracings: available for review Prior: Unchanged Discharge Plan Triage Chief Complaint: Chest Pain Other Complaint: Edema Shortness of Breath ED Provider: Zach George Dx/Rx/DC Orders Clinical Impression: Intermittent chest pain, Dyspnea, Diastolic CHF, acute on chronic Instructions: ED Peripheral Edema, Bilateral Prescriptions: No Action gabapentin 800 mg tablet 800 mg PO BID Qty: 60 Label Comments: TAKE 1 TABLET BY MOUTH TWICE A DAY cholecalciferol (vitamin D3) 1,000 unit capsule 1,000 unit PO DAILY calcium carbonate [Calcium 600] 600 mg calcium (1,500 mg) tablet 600 mg PO DAILY amitriptyline 25 mg tablet 25 mg PO QHS aspirin [Adult Low Dose Aspirin] 81 mg tablet,delayed release (DR/EC) 81 mg PO DAILY fluticasone propionate 50 mcg/actuation spray,suspension 2 spray INTRANASAL DAILY PRN (Reason: allergy symptoms) duloxetine 30 mg capsule,delayed release(DR/EC) 30 mg PO DAILY Label Comments: TAKE 1 CAPSULE BY MOUTH EVERY DAY oxybutynin chloride 5 mg tablet 5 mg PO DAILY atenolol 25 mg tablet 25 mg PO DAILY Qty: 90 3RF diltiazem HCl 120 mg capsule,extended release 24 hr 120 mg PO DAILY Qty: 90 3RF estradiol 1 MG tablet 1 mg PO DAILY Label Comments: hormone replacement meloxicam 15 MG tablet 15 mg PO DAILY Label Comments: inflammation sennosides-docusate sodium 1 TABLET tablet 2 tab PO BID Label Comments: constipation omeprazole 40 MG capsule,delayed release(DR/EC) 0 mg PO DAILY Qty: 90 0RF furosemide 40 mg tablet See Rx Instructions .ROUTE .COMPLEX Qty: 90 3RF Dose Instruction: TAKE 1 TABLET BY MOUTH EVERY DAY Rx Instructions: TAKE 1 TABLET BY MOUTH EVERY DAY Primary Care Provider: Manuel Freeman Referrals: Manuel Freeman MD [Primary Care Provider] - 3-5 Days Activity Restrictions/Additional Instructions: Double your Lasix, taking one 40 mg tablet in the morning and one 40 mg tablet in the afternoon. Disposition Disposition: Home, Self Care
[2022-08-05] MEDS: Aspirin 81 MG TAB.CHEW 324 MG PO (13:06)
[2022-08-05 13:12] VITALS: RESP 18
[2022-08-05 13:28] LABS: Absolute Lymphocyte Count 1.75 X10^3/uL (0.83-4.51); Basophil# 0.04 X10^3/uL; Basophil% 0.5 % (0-1); Eosinophil# 0.23 X10^3/uL; Hemoglobin 11.1 g/dL (12.0-15.0); Lymphocyte # 1.75 X10^3/ul (0.83-4.51); Lymphocyte % 22.6 % (19-41); Mean Corp Hgb Conc 31.7 g/dL (32-36); Mean Corpuscular Hgb 30.3 pg (27.0-32.0); Mean Corpuscular Volume 95.6 fL (81-99); Mean Platelet Vol. 10.6 fl (6.2-12.0); Monocyte# 0.75 X10^3/uL; Monocyte% 9.7 % (0-10); NRBC Flagged by Analyzer 0 % (0-5); Neutrophil # 4.95 X10^3/uL (2.7-7.7); Neutrophil % 63.8 % (47-70); Platelet Count 268 K/mm3 (150-450); RBC Distribution Width CV 14.7 % (11.6-14.6); RBC Distribution Width SD 51.4 fl (35.1-43.9); Red Blood Count 3.66 M/mm3 (4.2-5.4); White Blood Count 7.8 K/mm3 (4.4-11.0)
[2022-08-05 13:43] LABS: Anion Gap 4 (5-15); BUN 14 mg/dL (7-18); BUN/Creat Ratio 13.3 RATIO (10-20); Calcium,Total 8.9 mg/dL (8.5-10.1); Chloride 105 mmol/L (98-107); Creatinine, Serum 1.05 mg/dL (0.55-1.02); EST Glomerular Filtration Rate 55 mL/min (>60); Est Glom Filt Rate - Afr Amer 67 mL/min (>60); Glucose 97 mg/dL (74-106); Potassium 4.9 mmol/L (3.5-5.1); Sodium Level 138 mmol/L (136-145); Troponin-I HS (w/2H Reflex) 5 pg/mL (3.0-54.0)
[2022-08-05 13:49] LABS: BNP,B-Type NATRIURETIC PEPTIDE 135.5 pg/mL (0-100)
[2022-08-05 14:12] VITALS: RESP 18
[2022-08-05 15:12] VITALS: BP 133/84; PULSE 65; RESP 18; O2SAT 94
[2022-08-05 15:12] LABS: Reflex Troponin-HS? (from REC) Y
--- NOTE | 2022-08-05 15:30 | RAD_ITS ---
HISTORY: chest pain, sob/orthopnea. TECHNIQUE: XR Chest 2 Views. COMPARISON: 08/28/2021. FINDINGS: CARDIOMEDIASTINAL BORDERS: Cardiac silhouette within normal limits in size with valve prosthesis again seen. Mediastinal contour unremarkable with midline sternotomy. LUNGS: Radiographically clear. PLEURA: No pleural effusion or pneumothorax seen. OSSEOUS STRUCTURES: Cervical spinal fusion hardware. RAD/Chest PA and Lateral IMPRESSION: No acute cardiopulmonary process identified. Electronically Signed: Romana Hernandez MD at 14:10 EDT ,
[2022-08-05 15:52] LABS: Troponin-I HS 4 pg/mL (3.0-54.0)
[2022-08-05 16:12] VITALS: RESP 18
[2022-08-05] MEDS: Furosemide 40 MG Tablet PO (16:35)
== END 2022-08-05 16:39 | disposition home or self-care (01) ==
PROVIDERS: Emergency Provider Emergency Medicine; PCP Family Medicine; Visit Provider Emergency Medicine
DX: I11.0 Hypertensive heart disease with heart failure (principal); I50.33 Acute on chronic diastolic (congestive) heart failure; R07.9 Chest pain, unspecified; R06.09 Other forms of dyspnea; R47.02 Dysphasia; K21.9 Gastro-esophageal reflux disease without esophagitis; G47.00 Insomnia, unspecified; E66.9 Obesity, unspecified; M19.90 Unspecified osteoarthritis, unspecified site; Z79.899 Other long term (current) drug therapy; Z86.718 Personal history of other venous thrombosis and embolism; Z79.82 Long term (current) use of aspirin; Z95.3 Presence of xenogenic heart valve
CPT/HCPCS: 71046; 80048; 83880; 84484; 85025; 93005; 99284

== ENCOUNTER → 2022-08-20 | Outpatient (CLI) | payer MEDICARE, SELFPAY ==
[2022-08-20 18:22] LABS: Anion Gap 8 (5-15); BUN 16 mg/dL (7-18); BUN/Creat Ratio 15.2 RATIO (10-20); Calcium,Total 8.6 mg/dL (8.5-10.1); Chloride 100 mmol/L (98-107); Creatinine, Serum 1.05 mg/dL (0.55-1.02); EST Glomerular Filtration Rate 55 mL/min (>60); Est Glom Filt Rate - Afr Amer 67 mL/min (>60); Glucose 110 mg/dL (74-106); Potassium 3.6 mmol/L (3.5-5.1); Sodium Level 136 mmol/L (136-145)
== END | disposition home or self-care (01) ==
PROVIDERS: PCP Family Medicine; Visit Provider Family Medicine
DX: R60.9 Edema, unspecified (principal)
CPT/HCPCS: 36415; 80048

== ENCOUNTER → 2022-09-07 | Outpatient (CLI) | payer MEDICARE, SELFPAY ==
--- NOTE | 2022-09-07 13:52 | ECHOCS_ITS ---
Reason For Study: EDEMA Procedure This was a 2D Doppler, Color Flow transthoracic echocardiogram. The study was technically difficult. Contrast injection was performed. Exam performed in department. Left Ventricle Normal LV size. Left ventricular systolic function is normal. The estimated ejection fraction is 65 %. Stage 1 diastolic dysfunction. No regional wall motion abnormalities noted. Right Ventricle Normal RV size. Normal systolic function. Atria The left atrium is mildly enlarged. Normal right atrium. Mitral Valve There is mild mitral annular calcification. Aortic Valve Peak aortic valve gradient 30 mmHg. Mean aortic valve gradient 19 mmHg. Bioprosthetic aortic valve. Pulmonic Valve The pulmonic valve is not well visualized. Great Vessels Normal aortic root. Pericardium/Pleural No pericardial effusion. Medication 24 gauge I.V. with prn adaptor inserted into left arm. Diluted definity 2ml given slow IV push to enhance endocardial definition. MMode/2D Measurements & Calculations LVIDd: 3.8 cm IVSd: 1.1 cm LVOT diam: 2.0 cm LVIDs: 2.5 cm LVPWd: 1.1 cm LVOT area: 3.2 cm2 FS: 34.0 % Ao root diam: 3.6 cm LAV(MOD-bp): 74.0 ml LVAd ap4: 33.5 cm2 LAV(MOD-bp) Indexed: 35.9 ml/m2 LVLd ap4: 8.1 cm LAV(MOD-sp2): 62.6 ml EDV(MOD-sp4): 113.1 ml LAV(MOD-sp4): 76.5 ml EDV(sp4-el): 116.5 ml LVAs ap4: 20.1 cm2 LVLs ap4: 6.8 cm ESV(MOD-sp4): 49.5 ml ESV(sp4-el): 50.1 ml EF(MOD-sp4): 56.2 % EF(sp4-el): 57.0 % SV(MOD-sp4): 63.6 ml SV(sp4-el): 66.5 ml LA A4 area: 24.6 cm2 LA dimension(2D): 4.3 cm RA A4 area: 16.7 cm2 Time Measurements MV dec time: 0.35 sec Doppler Measurements & Calculations MV E max edgardo: 122.3 cm/sec Lat Peak E' Edgardo: 8.1 cm/sec Med Peak E' Edgardo: 5.4 cm/sec MV A max edgardo: 150.6 cm/sec E/E' lat: 15.1 E/E' med: 22.6 MV E/A: 0.81 MV V2 max: 159.9 cm/sec Ao V2 max: 273.7 cm/sec MV max P.2 mmHg MV dec slope: 363.2 cm/sec2 Ao max P.1 mmHg MV V2 mean: 95.1 cm/sec Ao V2 mean: 204.9 cm/sec MV mean P.1 mmHg Ao mean P.6 mmHg MV V2 VTI: 46.4 cm Ao V2 VTI: 62.2 cm AV (velocity ratio): 0.51 MVA(VTI): 2.2 cm2 LUMA(I,D): 1.6 cm2 LUMA(V,D): 1.5 cm2 LV V1 max: 127.7 cm/sec MR max edgardo: 575.4 cm/sec SV(LVOT): 101.4 ml LV V1 max P.5 mmHg MR max P.4 mmHg LV V1 mean P.5 mmHg LV V1 mean: 101.3 cm/sec LV V1 VTI: 31.4 cm PA V2 max: 97.2 cm/sec PA V2 mean: 71.7 cm/sec ECHO/Echo Complete W/ Contrast Interpretation Summary Normal LV size. Left ventricular systolic function is normal. The estimated ejection fraction is 65 %. Stage 1 diastolic dysfunction. Mean aortic valve gradient 19 mmHg. Bioprosthetic aortic valve. Contrast injection was performed. Ordering Physician: Satnam Camp Referring Physician: Hoang Hilario Performed By: Marcy Hemphill RCS
== END | disposition home or self-care (01) ==
LOC: CVS 13:49
PROVIDERS: PCP Family Medicine; Referring Provider Family Medicine; Visit Provider Family Medicine
DX: R60.9 Edema, unspecified (principal); I35.0 Nonrheumatic aortic (valve) stenosis
CPT/HCPCS: 93306; Q9957; A4216; C8929

== ENCOUNTER → 2022-09-08 | Outpatient (CLI) | payer MEDICARE, SELFPAY ==
--- NOTE | 2022-09-08 12:34 | US_ITS ---
STUDY: RENAL ULTRASOUND - COMPLETE REASON FOR EXAM: Female, 67 years old. UTI TECHNIQUE: Ultrasound evaluation of the kidneys was performed with real-time and static zarate-scale imaging. COMPARISON: None. FINDINGS: RIGHT KIDNEY: Normal location of the right kidney, which is normal in size. The right kidney measures 10.4 cm x 5.8 cm x 5.1 cm. There is a normal cortex of the right kidney. The renal cortex measures 1.2 cm. There is no right renal mass or cyst. There are no right renal calculi. There is no right hydronephrosis. DISTAL RIGHT URETER: There is non-visualization of the distal right ureter. There is no demonstrated right ureterovesical junction calculus. There is a visualized right ureteral jet. LEFT KIDNEY: Normal location of the left kidney, which is normal in size. The left kidney measures 10.8 cm x 5.7 cm x 4.3 cm. There is a normal cortex of the left kidney. The renal cortex measures 1.1 cm. There is no left renal mass or cyst. There are no left renal calculi. There is no left hydronephrosis. DISTAL LEFT URETER: There is non-visualization of the distal left ureter. There is no demonstrated left ureterovesical junction calculus. There is a visualized left ureteral jet. BLADDER: The distended urinary bladder has a volume of 142 ml. There is a normal wall thickness of the distended urinary bladder. There is a 1.6 cm x 1.6 x 1.5 cm soft tissue density at the base of the bladder. Correlation with cystoscopy is recommended. There are no demonstrated bladder calculi. US/Kidney and Bladder IMPRESSION: 1.6 cm x 1.6 cm x 1.5 cm soft tissue density at the base of the bladder. A neoplastic process should be ruled out. Electronically Signed: Kayden Sprague MD at 15:36 EDT ,
== END | disposition home or self-care (01) ==
LOC: US 12:32
PROVIDERS: PCP Family Medicine; Referring Provider Urology; Visit Provider Urology
DX: N39.0 Urinary tract infection, site not specified (principal)
CPT/HCPCS: 76770

== ENCOUNTER → 2022-09-30 | Outpatient (CLI) | payer MEDICARE, SELFPAY ==
--- NOTE | 2022-09-30 13:31 | RAD_ITS ---
EXAM: XR LUMBOSACRAL SPINE, 2 OR 3 VIEWS CLINICAL INDICATION: OTHER INTERVERTEBRAL DISC DISPLACEMENT, LUMBAR REGION -- OTHER INTERVERTEBRAL DISC DISPLACEMENT, LUMBROSACRAL REGION TECHNIQUE: Frontal and lateral views of the lumbar spine and sacrum. COMPARISON: 09/09/2021 FINDINGS: VERTEBRAE: Unremarkable. Preserved vertebral body height. No fracture. No spondylolisthesis. Preservation of the normal lumbar lordosis. No significant facet arthropathy. DISC SPACES: There are screws from an anterior fusion at L5-S1 which are in stable position. GASTROINTESTINAL TRACT: Unremarkable as visualized. Included bowel gas pattern is non-obstructive. RAD/Lumbar Spine 2 or 3 Views IMPRESSION: Fusion of L5-S1. There are no acute abnormalities. There has been no change from the reference exam. Electronically Signed: Lev Clemente MD at 22:21 EDT ,
== END | disposition home or self-care (01) ==
LOC: RAD 13:28
PROVIDERS: PCP Family Medicine; Referring Provider Anesthesiology Pain Medicine; Visit Provider Anesthesiology Pain Medicine
DX: M51.26 Other intervertebral disc displacement, lumbar region (principal); M51.27 Other intervertebral disc displacement, lumbosacral region
CPT/HCPCS: 72100

== ENCOUNTER 2022-10-18 12:46 | Outpatient (CLI) | payer MEDICARE, SELFPAY ==
--- NOTE | 2022-10-18 13:00 | RAD_ITS ---
EXAM: XR ABDOMEN, 2 VIEWS CLINICAL INDICATION: distention, weight gain distention, weight gain TECHNIQUE: Frontal view of the abdomen/pelvis with upright view of the abdomen. COMPARISON: X-ray L-spine 09/30/2022. FINDINGS: LOWER THORAX: The heart is mildly enlarged. There is an aortic valve prosthesis. INTRAPERITONEAL SPACE: No free air. GASTROINTESTINAL TRACT: Unremarkable. Non-obstructive. No bowel or stomach distention. ORGANS: Unremarkable as visualized. No organomegaly. No abnormal calcifications. BONES/JOINTS: There is mild levoscoliosis of the lumbar spine. There are metallic fixation screws at the L5-S1 level related to previous anterior spinal fusion. SOFT TISSUES: No acute pathology. RAD/Abd Inc Decub and/or Erect IMPRESSION: Nonspecific bowel gas pattern. Electronically Signed: Grover Saba MD at 5:01 EDT Reading Location ID and State: [facility] / [place] , Service support ,
[2022-10-18 15:15] LABS: Hematocrit 37.3 % (37-47); Hemoglobin 11.5 g/dL (12.0-15.0); Mean Corp Hgb Conc 30.8 g/dL (32-36); Mean Corpuscular Hgb 29.6 pg (27.0-32.0); Mean Corpuscular Volume 96.1 fL (81-99); Mean Platelet Vol. 11.7 fl (6.2-12.0); Platelet Count 262 K/mm3 (150-450); RBC Distribution Width CV 14.2 % (11.6-14.6); RBC Distribution Width SD 49.8 fl (35.1-43.9); Red Blood Count 3.88 M/mm3 (4.2-5.4); White Blood Count 11.4 K/mm3 (4.4-11.0)
[2022-10-18 16:09] LABS: AST(SGOT) 21 U/L (15-37); Alanine Aminotransfer ALT/SGPT 21 U/L (13-56); Albumin, Serum 3.1 g/dL (3.2-5.0); Alkaline Phosphatase 53 U/L (45-117); Anion Gap 6 (5-15); BUN 21 mg/dL (7-18); BUN/Creat Ratio 17.1 RATIO (10-20); Bilirubin, Direct 0.06 mg/dL (0.00-0.30); Calcium,Total 9.1 mg/dL (8.5-10.1); Chloride 100 mmol/L (98-107); Creatinine, Serum 1.23 mg/dL (0.55-1.02); EST Glomerular Filtration Rate 46 mL/min (>60); Est Glom Filt Rate - Afr Amer 56 mL/min (>60); Globulin 4.6 g/dL (2.2-4.2); Glucose 93 mg/dL (74-106); Potassium 4.6 mmol/L (3.5-5.1); Prealbumin 19.6 mg/dL (20.0-40.0); Protein, Total 7.7 g/dL (6.4-8.2); Sodium Level 135 mmol/L (136-145); T4 Free Direct 1.18 ng/dL (0.76-1.46); Thyroid Stim Hormone (TSH) 2.57 uIU/mL (0.358-3.74); Uric Acid 6.7 mg/dL (2.6-6.0)
[2022-10-18 18:10] LABS: BNP,B-Type NATRIURETIC PEPTIDE 68.3 pg/mL (0-100)
== END 2022-10-18 23:59 | disposition home or self-care (01) ==
PROVIDERS: PCP Family Medicine; Referring Provider Family Medicine; Visit Provider Family Medicine
DX: E79.0 Hyperuricemia without signs of inflammatory arthritis and tophaceous disease (principal); I11.0 Hypertensive heart disease with heart failure; N18.9 Chronic kidney disease, unspecified; R60.9 Edema, unspecified; R14.0 Abdominal distension (gaseous)
CPT/HCPCS: 36415; 74019; 80048; 80076; 83880; 84134; 84439; 84443; 84550; 85027; 86140

== ENCOUNTER → 2022-11-01 | Outpatient (CLI) | payer MEDICARE, SELFPAY ==
[2022-11-01 12:20] LABS: Absolute Lymphocyte Count 1.78 X10^3/uL (0.83-4.51); Absolute Neutrophil Count 5.3 X10^3/uL (2.0-7.7); Basophil# 0.05 X10^3/uL; Basophil% 0.6 % (0-1); Eosinophil# 0.32 X10^3/uL; Eosinophils% 3.9 % (0-5); Hematocrit 37.1 % (37-47); Hemoglobin 11.7 g/dL (12.0-15.0); Lymphocyte # 1.78 X10^3/ul (0.83-4.51); Lymphocyte % 21.5 % (19-41); Mean Corp Hgb Conc 31.5 g/dL (32-36); Mean Corpuscular Hgb 30.2 pg (27.0-32.0); Mean Corpuscular Volume 95.6 fL (81-99); Mean Platelet Vol. 10.8 fl (6.2-12.0); Monocyte# 0.82 X10^3/uL; Monocyte% 9.9 % (0-10); NRBC Flagged by Analyzer 0 % (0-5); Neutrophil # 5.26 X10^3/uL (2.7-7.7); Neutrophil % 63.6 % (47-70); Platelet Count 280 K/mm3 (150-450); RBC Distribution Width CV 14.2 % (11.6-14.6); RBC Distribution Width SD 49.4 fl (35.1-43.9); Red Blood Count 3.88 M/mm3 (4.2-5.4); White Blood Count 8.3 K/mm3 (4.4-11.0)
[2022-11-01 12:49] LABS: Amphetamine Urine VISTA NEGATIVE (<1000 ng/mL); Barbiturate Urine VISTA NEGATIVE (< 200 ng/mL); Benzodiazepine Urine VISTA NEGATIVE (< 200 ng/mL); Cocaine Urine VISTA NEGATIVE (< 300 ng/mL); Ecstacy Urine VISTA NEGATIVE (< 500 ng/mL); Methadone Urine VISTA NEGATIVE (< 300 ng/mL); PCP Urine VISTA NEGATIVE (< 25 ng/mL); THC Urine VISTA NEGATIVE (< 50 ng/mL); Vista UDS pH Range 5
[2022-11-01 14:01] LABS: Anion Gap 9 (5-15); BUN 18 mg/dL (7-18); BUN/Creat Ratio 15.4 RATIO (10-20); Calcium,Total 9.1 mg/dL (8.5-10.1); Chloride 99 mmol/L (98-107); Creatinine, Serum 1.17 mg/dL (0.55-1.02); EST Glomerular Filtration Rate 49 mL/min (>60); Est Glom Filt Rate - Afr Amer 59 mL/min (>60); Glucose 102 mg/dL (74-106); Potassium 3.8 mmol/L (3.5-5.1); Sodium Level 135 mmol/L (136-145)
== END | disposition home or self-care (01) ==
PROVIDERS: PCP Family Medicine; Referring Provider Anesthesiology Pain Medicine; Visit Provider Anesthesiology Pain Medicine
DX: F11.20 Opioid dependence, uncomplicated (principal)
CPT/HCPCS: 80048; 80307; 85025

== ENCOUNTER → 2022-12-06 | Outpatient (CLI) | payer MEDICARE, SELFPAY ==
[2022-12-06 10:36] LABS: Erythrocyte Sedimentation Rate 41 mm/hr (0-30)
[2022-12-06 10:55] LABS: Vitamin B12 873 pg/mL (211-911)
[2022-12-06 11:49] LABS: CPK Total, Creatine Kinase 41 U/L (26-192); Magnesium 2.2 mg/dL (1.6-2.6); Rheumatoid Factor < 10.0 IU/mL (<15)
[2022-12-09 03:07] LABS: Free Kappa Light Chains 53.2 mg/L (3.3-19.4); Free Lambda Light Chains 35.2 mg/L (5.7-26.3); Myoglobin, Serum 47 ng/mL (25-58); Vitamin B1, Thiamine 427.5 nmol/L (66.5-200.0)
[2022-12-09 12:09] LABS: ANTINUCLEAR ANTIBODIES DIRECT Negative (Negative); Vitamin D 1,25-Dihydroxy 39.6 pg/mL (24.8-81.5)
== END | disposition home or self-care (01) ==
PROVIDERS: PCP Family Medicine; Referring Provider Psychiatry & Neurology Neurology; Visit Provider Psychiatry & Neurology Neurology
DX: G62.9 Polyneuropathy, unspecified (principal); M79.10 Myalgia, unspecified site; M25.50 Pain in unspecified joint
CPT/HCPCS: 36415; 82085; 82550; 82607; 82652; 82746; 83735; 83874; 83883; 84425; 85652; 86038; 86140; 86225; 86235; 86431

== ENCOUNTER 2022-12-13 13:50 | Inpatient (IN) | payer MEDICARE, SELFPAY ==
[2022-12-13] VITALS (7 sets, daily range): BP systolic 110–174; BP diastolic 64–127; PULSE 60–118; RESP 14–20; TEMP 36.2–36.7; O2SAT 92–99; BMI 37.3; BMI 36.6
--- NOTE | 2022-12-13 13:58 | EKG12_ITS ---
Test Reason : Blood Pressure : / mmHG Vent. Rate : 063 BPM Atrial Rate : 063 BPM P-R Int : 158 ms QRS Dur : 080 ms QT Int : 442 ms P-R-T Axes : 052 -24 015 degrees QTc Int : 452 ms Normal sinus rhythm Inferior infarct , age undetermined Abnormal ECG Confirmed by HERMINIO CONNELLY, SUNSHINE ([id number]), greeting card editor CORAL PAIGE ([id number]) on 12/17/2022 2:33:45 PM Referred By: Confirmed By:SUNSHINE DURHAM MD
[2022-12-13 14:30] LABS: Absolute Lymphocyte Count 2.05 X10^3/uL (0.83-4.51); Absolute Neutrophil Count 7.2 X10^3/uL (2.0-7.7); Basophil# 0.05 X10^3/uL; Basophil% 0.5 % (0-1); Eosinophil# 0.27 X10^3/uL; Eosinophils% 2.6 % (0-5); Hematocrit 37.6 % (37-47); Lymphocyte # 2.05 X10^3/ul (0.83-4.51); Lymphocyte % 19.7 % (19-41); Mean Corp Hgb Conc 31.9 g/dL (32-36); Mean Corpuscular Hgb 30.5 pg (27.0-32.0); Mean Corpuscular Volume 95.7 fL (81-99); Mean Platelet Vol. 10.5 fl (6.2-12.0); Monocyte# 0.85 X10^3/uL; Monocyte% 8.1 % (0-10); NRBC Flagged by Analyzer 0 % (0-5); Neutrophil # 7.19 X10^3/uL (2.7-7.7); Neutrophil % 68.9 % (47-70); Platelet Count 304 K/mm3 (150-450); RBC Distribution Width CV 14.4 % (11.6-14.6); RBC Distribution Width SD 50.4 fl (35.1-43.9); Red Blood Count 3.93 M/mm3 (4.2-5.4); White Blood Count 10.4 K/mm3 (4.4-11.0)
[2022-12-13 14:38] LABS: International Normalized Ratio 1.1; Prothrombin Time (Protime)PT. 14.3 SECONDS (11.7-14.9)
[2022-12-13 14:39] LABS: Partial Thromboplast Time 27.6 Seconds (24.1-36.2)
--- NOTE | 2022-12-13 14:40 | RAD_ITS ---
STUDY: X-RAY CHEST REASON FOR EXAM: Female, 67 years old. Stroke . Confusion TECHNIQUE: Single AP portable view of the chest. COMPARISON: Comparison is made with prior study dated August 05, 2022. FINDINGS: The lungs are clear and expanded. There is no demonstrated pleural abnormality. Sternal cerclage wires and vascular clips are present from a prior sternotomy and coronary artery bypass graft procedure (CABG). Normal mediastinum and carli. Normal visualized pulmonary arteries. Normal visualized aortic arch and descending thoracic aorta. Normal visualized thoracic spine. Normal visualized ribs, clavicles, and shoulders. There is no demonstrated abnormality of the visualized soft tissue structures of the upper abdomen. RAD/Chest 1 View (Portable) IMPRESSION: No acute abnormality is seen. Electronically Signed: Kayden Sprague MD at 15:06 EDT ,
[2022-12-13 14:46] LABS: Anion Gap 8 (5-15); BUN 21 mg/dL (7-18); BUN/Creat Ratio 10.8 RATIO (10-20); Calcium,Total 9.3 mg/dL (8.5-10.1); Chloride 102 mmol/L (98-107); Creatinine, Serum 1.94 mg/dL (0.55-1.02); EST Glomerular Filtration Rate 27 mL/min (>60); Est Glom Filt Rate - Afr Amer 33 mL/min (>60); Glucose 75 mg/dL (74-106); Potassium 3.8 mmol/L (3.5-5.1); Sodium Level 138 mmol/L (136-145)
--- NOTE | 2022-12-13 16:06 | CT_ITS ---
INDICATION: Confusion, multiple falls EXAMINATION: CT BRAIN - CT Head or Brain W/O Contrast Injection TECHNIQUE: Multiple axial images were obtained of the head without intravenous contrast. A radiation dose optimization technique was used for this scan. IV Contrast dosage and agent: None. COMPARISON: 12/13/2016 FINDINGS: BRAIN PARENCHYMA: No intra- or extra-axial hemorrhage. No evidence of acute infarct. No intracranial mass or mass effect. Posterior fossa structures are unremarkable. CSF SPACES: Stable. No hydrocephalus. Basal cisterns are patent. CALVARIUM, SKULL BASE, PARANASAL SINUSES AND MASTOID AIR CELLS: Clear. No discrete lytic or blastic abnormalities. ORBITS: Both globes, extraocular muscles, optic nerves and retrobulbar fat appear unremarkable. CT/Brain/Head without Contrast IMPRESSION: No acute intracranial findings. Electronically Signed: Riley Garza MD at 17:26 EDT ,
--- NOTE | 2022-12-13 16:08 | EX.ED.DYSGE1 ---
HPI History of Present Illness Chief Complaint: Confusion Detail of Chief Complaint: Frequent falls. Unable to walk. Informant: patient and family Onset/Context/Timing Onset: Weeks Context: Gradual Onset Timing: Intermittent Current Severity: Moderate Maximum Severity: Moderate Narrative Narrative: 67-year-old female history of vertigo, DVT, neuropathy and prior valve replaced. She is not on any blood thinners. Per her and her daughter in the last several weeks she has fallen at least 5-6 times. No significant head injury. She has been confused over the last week. She has been seen in another facility had work-up there that other than showing a UTI there was not other significant findings according to the family. She is currently on Bactrim for the UTI. Prior similar symptoms: Yes Recent Illness/Hospitalization: No PFSH [facility] Medical History Anomalous origin of coronary artery Benign paroxysmal positional vertigo Bicuspid aortic valve Closed fracture of proximal end of left fibula DVT (deep venous thrombosis) Dysphasia Essential (primary) hypertension Fracture of distal end of left fibula GERD (gastroesophageal reflux disease) Infection and 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, initial encounter Insomnia Iron deficiency anemia Mitral valve annular calcification Non-rheumatic mitral valve stenosis Nonrheumatic aortic (valve) stenosis Obesity Osteoarthritis Periprosthetic fracture around internal prosthetic left knee joint Home Medications estradiol 1 mg tablet 1 mg PO DAILY 08/12/14 [History Last Taken 04/20/16] meloxicam 15 mg tablet 15 mg PO DAILY 11/23/16 [History Last Taken Unknown] amitriptyline 25 mg tablet 25 mg PO QHS 02/14/19 [History Last Taken Unknown] calcium carbonate 600 mg calcium (1,500 mg) tablet (Calcium) 600 mg PO DAILY 02/14/19 [History Last Taken Unknown] cholecalciferol (vitamin D3) 25 mcg (1,000 unit) capsule 1,000 unit PO DAILY 02/14/19 [History Last Taken Unknown] gabapentin 800 mg tablet 800 mg PO BID #60 tabs 02/14/19 [History Last Taken 01/09/20] aspirin 81 mg tablet,delayed release (Adult Low Dose Aspirin) 81 mg PO DAILY 08/24/19 [History Last Taken 01/04/20] sennosides 8.6 mg-docusate sodium 50 mg tablet 2 tab PO BID 11/23/19 [History Last Taken Unknown] fluticasone propionate 50 mcg/actuation nasal spray,suspension 2 spray intranasal DAILY PRN allergy symptoms 12/06/19 [History Last Taken Unknown] oxybutynin chloride 5 mg tablet 5 mg PO DAILY 09/01/21 [History Last Taken Unknown] omeprazole 40 mg capsule,delayed release 40 mg PO DAILY 08/25/22 [History Last Taken Unknown] furosemide 40 mg tablet 40 mg PO DAILY #90 tabs 09/23/22 [Rx Last Taken Unknown] spironolactone 25 mg tablet 25 mg PO DAILY #90 tabs 09/23/22 [Rx Last Taken Unknown] atenolol 25 mg tablet 25 mg PO DAILY #90 tabs 11/16/22 [Rx Last Taken Unknown] baclofen 10 mg tablet 10 mg PO TID PRN muscle spasm/muscle pain #90 tabs 12/02/22 [Rx Last Taken Unknown] duloxetine 60 mg capsule,delayed release 60 mg PO QHS #30 caps 12/02/22 [Rx Last Taken Unknown] Allergy/AdvReac Type Severity Reaction Status Date / Time hydrochlorothiazide AdvReac Severe dizziness Verified 12/13/22 13:51 metoprolol AdvReac Severe dizziness Verified 12/13/22 13:51 Family History Father Hypertension age 45 from [place] Myocardial infarction Mother Cancer, Onset Age: 56 ovarian cancer Ovarian cancer Surgical History History of aortic valve replacement (07/30/19) History of hysterectomy History of right and left heart catheterization (03/05/19) History of total left knee replacement Social History Smoking Status: Never smoker second hand exposure: No alcohol intake: current alcohol intake frequency: a few times a month substance use type: does not use caffeine: Yes what type of physical activity do you participate in: bicycling frequency: 1-2 times per week ROS ROS ED ROS Narrative Generalized weakness. Review of Systems ROS Unobtainable: Denies due to encephalopathy Constitutional Constitutional ED: Denies chills or fever(s) Eyes Eyes: Denies blurry vision ENT ENT ED: Denies ear pain, rhinorrhea or sore throat Cardiovascular Cardiovascular: Denies chest pain Respiratory/Chest Respiratory/Chest: Denies cough Gastrointestinal Gastrointestinal: Denies abdominal pain, constipation, diarrhea, melena, nausea or vomiting Genitourinary Genitourinary ED: Denies dysuria or hematuria Musculoskeletal Musculoskeletal: Denies arthralgias Integumentary Denies abscess Neurologic Neurologic: Denies headache(s) Psychiatric Psychiatric: Denies anxiety Endocrine Endocrinology: Denies cold intolerance Hematologic/Lymphatic Hematologic/Lymphatic: Reports none; Denies systems reviewed and no addt'l complaints, except as documented Allergic/Immunologic Allergic/Immunologic ED: Denies mouth swelling, tongue swelling or urticaria EXAM Physical Exam Narrative Exam Narrative: 67-year-old female no acute distress. Vital signs stable afebrile. Pulse ox 90% room air no signs hypoxia. HEENT exam unremarkable atraumatic. Moist membranes. Nontender. Neck nontender. Lungs clear to auscultation bilaterally. Heart regular rhythm no murmur. Abdomen soft nontender normal bowel sounds no peritoneal signs. Sternum and ribs nontender. Back nontender. Moving all 4 extremities. Multiple bruises along the left forearm and hand. Tenderness along the left hand. Mild swelling. No deformity. Right upper extremity and lower extremities are unremarkable except there is a contusion and abrasion along the left knee. She has had knee surgery on both knees. Neurologically she is awake and alert. No focal motor deficits. Answering questions and following commands. Const Vital Signs: 12/13/22 13:52 12/13/22 16:00 12/13/22 16:06 Temperature 97.1 F L Temperature Source Temporal Pulse Rate 67 75 Respiratory Rate 14 16 Blood Pressure 174/127 H 111/64 Blood Pressure Mean 142 79 Pulse Ox 97 92 94 Oxygen Delivery Method Room Air Room Air Positive well nourished and well developed; Negative for cachectic, contractures or unkempt General Appearance ED: well developed and NAD; Negative for unkempt, cachectic, contractures, cyanotic, diaphoretic or pallor Nutritional Appearance: Negative for cachectic HEENT Reports moist mucous membranes; Denies dry mucous membranes Negative for trauma or tenderness Mouth ED: No dry mucous membranes Mouth: No dry mucous membranes Eyes PERRL and EOMs intact bilaterally General Eye ED: Negative for pale conjunctiva or scleral icterus Neck no lymphadenopathy, supple and no JVD General: Negative for tenderness Lymph Lymphatic: Negative for other Chest Wall inspection of chest normal and palpation of chest normal Chest: Negative for other Resp normal respiratory effort and clear to auscultation bilaterally Effort and Inspection: Negative for retractions Auscultation: Negative for rales, rhonchi or wheezes Cardio regular rate, regular rhythm, S1 normal heart sound, S2 normal heart sound and no murmurs GI normal to inspection, nondistended, normoactive bowel sounds, non-tender, non-distended and no masses Inspection: Negative for abdominal distention Auscultation: normoactive bowel sounds Palpation: soft; Negative for tender, guarding or mass Bladder / Kidney Exam: No other Back/Spine no CVA tenderness General Back: Negative for CVA tenderness Cervical Spine: Negative for cervical spine tenderness Thoracic Spine / Upper Back: Negative for thoracic spinal tenderness or paraspinal muscle tenderness Lumbar Spine / Lower Back: Negative for lumbar spinal tenderness Extremity normal to inspection Extremity Narrative: Tenderness dorsum left hand. Swelling. Bruising along left forearm and hand. Abrasion left knee. Prior knee replacement surgeries. General Extremety ED: Yes edema and tenderness General Extremity: edema Neuro CN's II-XII intact bilaterally Sensorium / Orientation: alert; Negative for orientation impaired, lethargic or stuporous Motor Exam: strength 5/5 throughout Psych mental status grossly normal Appearance: Negative for unkempt Attitude: No agitated Mood & Affect: Negative for depressed, anxious or tearful Skin no rashes or lesions noted and no wounds General Skin Exam: Negative for jaundice or pallor Lesions: No lesion noted Rashes: No rashes noted Trauma: abrasion MDM MDM MDM Narrative Medical decision making narrative: 67-year-old female reported UTI with frequent falls and generalized weakness. She has had work-ups at other facilities [facility] that I am able to see others are not. I am going to CAT scan her brain. X-ray her left hand. Get screening labs. She will need to be admitted due to inability to ambulate. Repeat exam patient is doing well at 5:02 PM. MRI spoke to the hospitalist who was admitted to general medical floor. History & Record Review Additional record(s) reviewed:: Prior inpatient record, Prior outpatient record, Prior ED visit and Prior labs Lab Data Attestation: I reviewed the patient's lab results. Lab results narrative: CBC shows a white count of 10.4. H&H 12 and 37. Platelets 304. PT/INR 14 and 1. PTT of 27. Electrolytes show a gap of 8 BUN and creatinine 21 and 1.94 which is significant elevation of her creatinine which previously around 1.2. Glucose is 75. Urinalysis is normal. No nitrates. No white or red cells. No bacteria. She is currently on antibiotic for UTI. Labs: Laboratory Results - last 24 hr 12/13/22 12/13/22 14:15 16:20 WBC 10.4 RBC 3.93 L Hgb 12.0 Hct 37.6 MCV 95.7 MCH 30.5 MCHC 31.9 L RDW Std Deviation 50.4 H RDW Coeff of Robe 14.4 Plt Count 304 MPV 10.5 Immature Gran % (Auto) 0.200 Neut % (Auto) 68.9 Lymph % (Auto) 19.7 [place] % (Auto) 8.1 Eos % (Auto) 2.6 Baso % (Auto) 0.5 Absolute Neuts (auto) 7.2 Absolute Lymphs (auto) 2.05 Nucleated RBC % 0 PT 14.3 INR 1.1 APTT 27.6 Sodium 138 Potassium 3.8 Chloride 102 Carbon Dioxide 28.0 Anion Gap 8 BUN 21 H Creatinine 1.94 H Est GFR (MDRD) Af Amer 33 L Est GFR (MDRD) Non-Af 27 L BUN/Creatinine Ratio 10.8 Glucose 75 Calcium 9.3 Urine Color Yellow Urine Clarity Sl. Cloudy Urine pH 6.5 Ur Specific [place] 1.010 Urine Protein Negative Urine Glucose (UA) Normal Urine Ketones Negative Urine Occult Blood Negative Urine Nitrite Negative Urine Bilirubin Negative Urine Urobilinogen Normal Ur Leukocyte Esterase 25 H Urine RBC 0-5 SEEN Urine WBC 0-5 SEEN Ur Squamous Epith Cells 0-5 SEEN Amorphous Sediment 1+ URATE Urine Bacteria 0 SEEN Urine Mucus 0 SEEN Radiography Chest X-Ray - ED: 1 View, Read by ED Physician, Read by Radiologist, Heart, Lungs, Mediastinum, Bony Structures, No Acute Disease and Chronic Changes Diagnostic Testing: Clinical Impression(s) from Imaging Studies Chest X-Ray 12/13/22 14:40 IMPRESSION: No acute abnormality is seen. Electronically Signed: Kayden Sprague MD at 15:06 EDT , Chest x-ray, portable, single view, interpreted both by myself and the radiologist shows no acute abnormality. Prior sternotomy. Normal cardiac silhouette. No pneumonia. Left hand x-ray, 3 views, interpreted by myself shows no acute abnormality. No fracture or dislocation. Rhythm Strip Rhythm Strip: Sinus Rhythm Rate: 63 Ectopy: None EKG Initial EKG: Attestation: I personally reviewed and interpreted this EKG as follows: Interpretation: Sinus Rhythm and No Acute Injury Pattern Comments: Normal sinus rhythm rate of 63 no acute signs of IN or ischemia. No dysrhythmia. Discharge Plan Dx/Rx/DC Orders Clinical Impression: Frequent falls, Acute confusion, Unable to ambulate, Acute kidney injury Disposition Disposition: Acute Care [facility]
--- NOTE | 2022-12-13 16:20 | PCM.HP.STD ---
HPI - General General Date of Admission: 12/13/22 Date of Service: 12/13/22 Chief Complaint: Weakness, confusion HPI Narrative ARGENIS EAGLE, is a 67 F with history of chronic debility, bilateral knee replacements, chronic pain with peripheral neuropathy, hypertension and GERD who presented to [facility] ED on 12/13/2022 with frequent falls and worsening weakness. Patient seen at bedside in the ED, patient's friend and wheat and oats flake miller present. Patient has history of bilateral knee replacements and has had fairly poor mobility for the last few years, but over the last few weeks she has had noticeably worsened balance with multiple falls and has appeared more confused than normal. Patient admits that she feels generally off in comparison to her normal. Has been taking her home medications as prescribed. Has been eating and drinking a little bit less over the past few weeks. Patient's wheat and oats flake miller notes that at this point she is primarily bedbound, as she has severe unsteadiness on her feet anytime she gets up to move around. Prior to this, she was using a walker full-time to ambulate. Patient otherwise denies any fevers or chills. She was placed on Bactrim for UTI here recently but her symptoms did not improve. She denies any dysuria or abdominal pain at this time. Denies any chest pain or shortness of breath. No other acute concerns. Vitals in the ED notable for mild hypertension, otherwise unremarkable. Labs notable for WBC count 10, hemoglobin 12.0, platelets 304, sodium 138, potassium 3.8, BUN 21, creatinine 1.94. UA showed 25 leukocyte esterase, negative nitrites, no white blood cells, no bacteria. Chest x-ray was nonacute. CT brain was nonacute. [facility] Medical History (Updated 12/13/22 @ 18:10 by Corazon Jackson) Anomalous origin of coronary artery Benign paroxysmal positional vertigo Bicuspid aortic valve Closed fracture of proximal end of left fibula CPAP (continuous positive airway pressure) dependence Depression DVT (deep venous thrombosis) Dysphasia Essential (primary) hypertension Fracture of distal end of left fibula GERD (gastroesophageal reflux disease) Hypertension Infection and 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, initial encounter Insomnia Iron deficiency anemia Mitral valve annular calcification Non-rheumatic mitral valve stenosis Nonrheumatic aortic (valve) stenosis Obesity Osteoarthritis Periprosthetic fracture around internal prosthetic left knee joint Sleep apnea Home Medications estradiol 1 mg tablet 1 mg PO DAILY estrogen 08/12/14 [History Last Taken 04/20/16] meloxicam 15 mg tablet 15 mg PO DAILY pain 11/23/16 [History Last Taken Unknown] amitriptyline 25 mg tablet 25 mg PO QHS pain 02/14/19 [History Last Taken 12/12/22] calcium carbonate 600 mg calcium (1,500 mg) tablet (Calcium) 600 mg PO DAILY vitamin 02/14/19 [History Last Taken Unknown] cholecalciferol (vitamin D3) 25 mcg (1,000 unit) capsule 1,000 unit PO DAILY vitamin 02/14/19 [History Last Taken Unknown] gabapentin 800 mg tablet 800 mg PO BID pain #60 tabs 02/14/19 [History Last Taken 01/09/20] aspirin 81 mg tablet,delayed release (Adult Low Dose Aspirin) 81 mg PO DAILY heart 08/24/19 [History Last Taken 12/13/22] sennosides 8.6 mg-docusate sodium 50 mg tablet 2 tab PO BID constipatpion 11/23/19 [History Last Taken Unknown] fluticasone propionate 50 mcg/actuation nasal spray,suspension 2 spray intranasal DAILY PRN allergy symptoms 12/06/19 [History Last Taken 12/12/22] oxybutynin chloride 5 mg tablet 5 mg PO Q12H bladder 09/01/21 [History Last Taken Unknown] omeprazole 40 mg capsule,delayed release 40 mg PO DAILY gerd 08/25/22 [History Last Taken Unknown] atenolol 25 mg tablet 25 mg PO DAILY #90 tabs 11/16/22 [Rx Last Taken 12/13/22] baclofen 10 mg tablet 10 mg PO TID PRN muscle spasm/muscle pain #90 tabs 12/02/22 [Rx Last Taken Unknown] duloxetine 60 mg capsule,delayed release 60 mg PO QHS #30 caps 12/02/22 [Rx Last Taken 12/12/22] allopurinol 100 mg tablet 100 mg PO DAILY pain 12/13/22 [History Last Taken Unknown] furosemide 40 mg tablet 40 mg PO DAILY PRN swelling 12/13/22 [History Last Taken Unknown] Allergy/AdvReac Type Severity Reaction Status Date / Time hydrochlorothiazide AdvReac Severe dizziness Verified 12/13/22 13:51 metoprolol AdvReac Severe dizziness Verified 12/13/22 13:51 Family History Father Hypertension age 45 from [place] Myocardial infarction Mother Cancer, Onset Age: 56 ovarian cancer Ovarian cancer Surgical History History of aortic valve replacement (07/30/19) History of hysterectomy History of right and left heart catheterization (03/05/19) History of total left knee replacement Social History Smoking Status: Never smoker second hand exposure: No alcohol intake: current alcohol intake frequency: a few times a month substance use type: does not use caffeine: Yes what type of physical activity do you participate in: bicycling frequency: 1-2 times per week ROS Constitutional Constitutional: Reports fatigue and weakness; Denies change in weight, chills or fever(s) Eyes Eyes: Denies change in vision Cardiovascular Cardiovascular: Reports lightheadedness; Denies chest pain, dyspnea on exertion, orthopnea, palpitations or syncope Respiratory/Chest Respiratory/Chest: Denies cough or dyspnea Gastrointestinal Gastrointestinal: Denies abdominal pain Genitourinary Genitourinary: Denies burning urination, difficulty urinating, dysuria, urinary frequency, urinary hesitancy, urinary incontinence or urinary urgency Musculoskeletal Musculoskeletal: Denies back pain Neurologic Neurologic: Reports confusion and dizziness; Denies focal weakness, headache(s), numbness, syncope or tremor(s) Vital Signs Vital Signs Vital Signs: 12/13/22 13:52 12/13/22 16:00 12/13/22 16:06 Temperature 97.1 F L Temperature Source Temporal Pulse Rate 67 75 Respiratory Rate 14 16 Blood Pressure 174/127 H 111/64 Blood Pressure Mean 142 79 Pulse Ox 97 92 94 Oxygen Delivery Method Room Air Room Air Weight Weight: 101.8 kg Body Mass Index (BMI) 37.3 Physical Exam Const alert Constitutional Narrative: Elderly female, obese, laying comfortably in bed, no acute distress. Alert but appears fatigued, and her responses to questions are appropriate but fairly slow. General Appearance: cooperative and comfortable HEENT normocephalic, head/scalp atraumatic, hearing grossly normal bilaterally, nasal mucous membranes and turbinates normal and moist oral mucous membranes Eyes PERRL, EOMs intact bilaterally and conjunctivae normal Neck full ROM, no lymphadenopathy and supple Lymph Lymphatic: no lymphadenopathy noted Chest inspection of chest normal Resp normal respiratory effort, normal air movement, no use of accessory muscles and clear to auscultation bilaterally Cardio regular rate, regular rhythm, no murmurs and peripheral pulses 2+ throughout GI normal to inspection, nondistended, normoactive bowel sounds, soft to palpation, non-tender and non-distended Back/Spine normal ROM Extremity normal to inspection Extremity Narrative: Bilateral scars from knee replacements noted, small scabs noted specifically on left knee. Several scabs noted specifically on left forearm as well. Skin no rashes or lesions noted Psych mental status grossly normal Results Lab / Micro Data 12/13/22 14:15 12/13/22 14:15 Labs: Laboratory Results - last 24 hr 12/13/22 14:15: WBC 10.4, RBC 3.93 L, Hgb 12.0, Hct 37.6, MCV 95.7, MCH 30.5, MCHC 31.9 L, RDW Std Deviation 50.4 H, RDW Coeff of Robe 14.4, Plt Count 304, MPV 10.5, Immature Gran % (Auto) 0.200, Neut % (Auto) 68.9, Lymph % (Auto) 19.7, Delta % (Auto) 8.1, Eos % (Auto) 2.6, Baso % (Auto) 0.5, Absolute Neuts (auto) 7.2, Absolute Lymphs (auto) 2.05, Nucleated RBC % 0, PT 14.3, INR 1.1, APTT 27.6, Sodium 138, Potassium 3.8, Chloride 102, Carbon Dioxide 28.0, Anion Gap 8, BUN 21 H, Creatinine 1.94 H, Est GFR (MDRD) Af Amer 33 L, Est GFR (MDRD) Non-Af 27 L, BUN/Creatinine Ratio 10.8, Glucose 75, Calcium 9.3 Rhythm Strip Rhythm Strip: Sinus Rhythm Rate: 63 Ectopy: None Radiology Impression Chest X-Ray 12/13/22 14:40 IMPRESSION: No acute abnormality is seen. Electronically Signed: Kayden Sprague MD at 15:06 EDT , Assessment & Plan Assessment/Plan (1) Frequent falls: PLAN: Plan Patient is a 67-year-old female with history of chronic debility, bilateral knee replacements, chronic pain with peripheral neuropathy, hypertension and GERD who presented to [facility] ED on 12/13/2022 with frequent falls and worsening weakness. 1. Generalized weakness with falls in setting of chronic debility; worsening confusion with concern for polypharmacy Have concern that patient may be overmedicated at baseline causing a degree of sedation, especially in the context of her acute kidney injury as noted below. Extensive home medication list including amitriptyline 25 mg daily, baclofen 10 mg 3 times daily as needed, duloxetine 60 mg, gabapentin 800 mg twice daily, oxybutynin [address] brain without contrast in ED was nonacute. Lab work-up aside from SABAS has largely been benign. Patient notably is asking to have her medication doses decreased if possible. Patient lives with her friend, who is largely her wheat and oats flake miller at this point. ? Admit under inpatient [facility]. We will dose reduce patient's gabapentin to 400 mg BID given her SABAS. We will continue other home medications for now as it is, but would consider trying to titrate off of amitriptyline and possibly baclofen as able. PT/OT/case management consulted. Fall precautions in place. 2. SABAS Suspect prerenal etiology in setting of poor p.o. intake recently. Patient reports adequate urine output recently, low concern for obstructive etiology. Creatinine 1.94 on admit, baseline around 1-1.2. ? Continue LR 100 ml/hr overnight for maintenance IV fluids. Urine sodium and urine creatinine ordered to calculate FeNa. Follow-up a.m. BMP, monitor urine output. Hold home Lasix and spironolactone for now, restart as needed. 3. Chronic pain with peripheral neuropathy ? Decreased home dose of gabapentin, continued other home medications as above but with hopes of titrating down possibly amitriptyline or baclofen due to concern for polypharmacy. Chronic medical conditions: ? Hypertension: Holding home Lasix and spironolactone for now as above, restart as needed. ? GERD: Continue home PPI. DVT prophylaxis: Heparin subcu CODE STATUS: Full code, verified Expected disposition: Home with home health care versus SNF, 3 to 4 days Total clinical time spent by myself addressing the patient's medical issues, reviewing all the data, and collaborating with patient's care team: 55 minutes. Charges/Coding Visit Charges Inpatient E&M: 26776 Init Hosp L2
[2022-12-13 16:23] LABS: Bacteria 0 SEEN /hpf (None Seen); Mucous, Urine 0 SEEN /hpf (<or=2+)
--- NOTE | 2022-12-13 16:34 | NURSING ---
MED SURG MOSTELLER FALL, UNABLE TO WALK, UTI
[2022-12-13 16:38] LABS: Color, Urine Yellow (Yellow); Glucose, Dipstick Normal (Normal); Ketone-Dipstick Negative (Negative); Leukocyte Esterase-Dipstick 25 /ul (Negative); Nitrite-Dipstick Negative (Negative); Occult Blood-Urine Negative /ul (Negative); Protein-Dipstick Negative (Negative); Urine Bilirubin Dipstick Negative (Negative); Urine Clarity Sl. Cloudy (Clear); Urine Urobilinogen Normal (Normal); Urine pH 6.5 (5.0 - 8.0)
--- NOTE | 2022-12-13 16:40 | RAD_ITS ---
INDICATION: Trauma, falls, hand pain EXAMINATION/TECHNIQUE: X-RAY - LEFT XR Hand Min 3 Views 3 VIEWS COMPARISON: None. FINDINGS: SOFT TISSUES: No soft tissue swelling or gas. No radiopaque soft tissue foreign body. Metallic rings obscure small portions of the third and fourth proximal phalanges. BONES/JOINTS: No acute fracture. Joint spaces anatomically aligned. No sclerotic or destructive changes observed. RAD/Hand Min 3 Views IMPRESSION: No acute bony injury. Electronically Signed: Riley Garza MD at 17:53 EDT ,
[2022-12-13 16:49] LABS: Amorphous Sediment 1+ URATE; Red Blood Cells-Urine 0-5 SEEN /hpf (0-5); Squamous Epithelial Cells - UA 0-5 SEEN /hpf (5-10); White Blood Cells 0-5 SEEN /hpf (0-5)
[2022-12-13] MEDS: 0.9% Normal Saline (1000mL) 1,000 ML 50 ML IV (18:23)
[2022-12-13] MEDS: Lactated Ringers 1,000 ML 100 ML IV (21:34)
[2022-12-13] MEDS: Amitriptyline 25 MG Tablet PO (21:35)
[2022-12-13] MEDS: DULoxetine Hcl 60 MG Capsule PO (21:35)
[2022-12-13] MEDS: Gabapentin 400 MG Capsule PO (21:36)
[2022-12-13] MEDS: Heparin Injection (Vial) 5,000 UNIT/ML VIAL 5000 UNIT SC (21:36)
[2022-12-13] MEDS: Senna/Docusate Sodium 1 Tablet 2 TABLET PO (21:37)
[2022-12-13 22:07] LABS: Urine Sodium 74 mmol/L (Not Establ.)
[2022-12-14] VITALS (10 sets, daily range): BP systolic 118–135; BP diastolic 59–66; PULSE 59–73; RESP 14–18; TEMP 36.6–37; O2SAT 90–99
[2022-12-14 07:03] LABS: Hematocrit 34.3 % (37-47); Hemoglobin 10.7 g/dL (12.0-15.0); Mean Corp Hgb Conc 31.2 g/dL (32-36); Mean Corpuscular Hgb 29.6 pg (27.0-32.0); Mean Corpuscular Volume 94.8 fL (81-99); Mean Platelet Vol. 11.3 fl (6.2-12.0); Platelet Count 250 K/mm3 (150-450); RBC Distribution Width CV 14.3 % (11.6-14.6); RBC Distribution Width SD 49.1 fl (35.1-43.9); Red Blood Count 3.62 M/mm3 (4.2-5.4); White Blood Count 8.1 K/mm3 (4.4-11.0)
[2022-12-14 07:27] LABS: Anion Gap 5 (5-15); BUN 19 mg/dL (7-18); BUN/Creat Ratio 11.7 RATIO (10-20); Calcium,Total 9.1 mg/dL (8.5-10.1); Chloride 105 mmol/L (98-107); Creatinine, Serum 1.63 mg/dL (0.55-1.02); EST Glomerular Filtration Rate 33 mL/min (>60); Est Glom Filt Rate - Afr Amer 40 mL/min (>60); Estimated Creatinine Clearance 29.31 ml/min; Glucose 120 mg/dL (74-106); Sodium Level 139 mmol/L (136-145)
[2022-12-14] MEDS: Senna/Docusate Sodium 1 Tablet 2 TABLET PO (08:24)
[2022-12-14] MEDS: Atenolol 25 MG Tablet PO (08:25)
[2022-12-14] MEDS: Pantoprazole Sodium 40 MG Tablet PO (08:25)
[2022-12-14] MEDS: Oxybutynin 5 MG Tablet PO (08:25)
[2022-12-14] MEDS: Meloxicam 15 MG Tablet PO (08:25)
[2022-12-14] MEDS: Heparin Injection (Vial) 5,000 UNIT/ML VIAL 5000 UNIT SC ×2 (08:25→21:30)
[2022-12-14] MEDS: Aspirin E.C. 81 MG Tablet PO (08:25)
[2022-12-14] MEDS: Estradiol 1 MG Tablet PO (08:26)
[2022-12-14] MEDS: Gabapentin 400 MG Capsule PO ×2 (08:28→21:32)
[2022-12-14] MEDS: Ensure Plus High Protein 120 ML LIQUID PO ×2 (08:28→11:22)
--- NOTE | 2022-12-14 13:32 | PN_ITS ---
Subjective Subjective Patient seen and examined. She still feels quite tired and weak. She denies any dizziness, lightheadedness,nausea, vomiting or any other symptoms. Review of systems is otherwise negative. Objective Data Objective Data Vital Signs: Vital Signs Temp Pulse Resp BP Pulse Ox O2 Del Method 98.2 F 70 16 128/66 H 94 Room Air 12/14/22 11:25 12/14/22 11:25 12/14/22 11:25 12/14/22 11:25 12/14/22 11:25 12/14/22 11:25 Oxygen Delivery Method Room Air Weight: 220 lb Body Mass Index (BMI) 36.6 Intake & Output: Intake and Output for Last 24 Hours 12/12/22 12/13/22 12/14/22 23:59 23:59 23:59 Intake Total 365.83 / 365.83 1190.00 / 1190.00 Output Total 800 / 800 Balance 365.83 / -34.17 390.00 / 390.00 Lab / Micro Data 12/14/22 05:45 12/14/22 05:45 Labs: Laboratory Results - last 24 hr 12/13/22 14:15: WBC 10.4, RBC 3.93 L, Hgb 12.0, Hct 37.6, MCV 95.7, MCH 30.5, MCHC 31.9 L, RDW Std Deviation 50.4 H, RDW Coeff of Robe 14.4, Plt Count 304, MPV 10.5, Immature Gran % (Auto) 0.200, Neut % (Auto) 68.9, Lymph % (Auto) 19.7, [place] % (Auto) 8.1, Eos % (Auto) 2.6, Baso % (Auto) 0.5, Absolute Neuts (auto) 7.2, Absolute Lymphs (auto) 2.05, Nucleated RBC % 0, PT 14.3, INR 1.1, APTT 27.6, Sodium 138, Potassium 3.8, Chloride 102, Carbon Dioxide 28.0, Anion Gap 8, BUN 21 H, Creatinine 1.94 H, Est GFR (MDRD) Af Amer 33 L, Est GFR (MDRD) Non-Af 27 L, BUN/Creatinine Ratio 10.8, Glucose 75, Calcium 9.3 12/13/22 16:20: Urine Color Yellow, Urine Clarity Sl. Cloudy, Urine pH 6.5, Ur Specific [place] 1.010, Urine Protein Negative, Urine Glucose (UA) Normal, Urine Ketones Negative, Urine Occult Blood Negative, Urine Nitrite Negative, Urine Bilirubin Negative, Urine Urobilinogen Normal, Ur Leukocyte Esterase 25 H, Urine RBC 0-5 SEEN, Urine WBC 0-5 SEEN, Ur Squamous Epith Cells 0-5 SEEN, Amorphous Sediment 1+ URATE, Urine Bacteria 0 SEEN, Urine Mucus 0 SEEN, Ur Random Sodium 74, Urine Creatinine 71.90 12/14/22 05:45: WBC 8.1, RBC 3.62 L, Hgb 10.7 L, Hct 34.3 L, MCV 94.8, MCH 29.6, MCHC 31.2 L, RDW Std Deviation 49.1 H, RDW Coeff of Robe 14.3, Plt Count 250, MPV 11.3, Sodium 139, Potassium 4.0, Chloride 105, Carbon Dioxide 29.0, Anion Gap 5, BUN 19 H, Creatinine 1.63 H, Estim Creat Clear Calc 29.31, Est GFR (MDRD) Af Amer 40 L, Est GFR (MDRD) Non-Af 33 L, BUN/Creatinine Ratio 11.7, Glucose 120 H, Calcium 9.1 Radiography Diagnostic Testing: Radiology Impression Chest X-Ray 12/13/22 14:40 IMPRESSION: No acute abnormality is seen. Electronically Signed: Kayden Sprague MD at 15:06 EDT , Brain CT 12/13/22 16:06 IMPRESSION: No acute intracranial findings. Electronically Signed: Riley Garza MD at 17:26 EDT , Hand X-Ray 12/13/22 16:40 IMPRESSION: No acute bony injury. Electronically Signed: Riley Garza MD at 17:53 EDT , Rhythm Strip Rhythm Strip: Sinus Rhythm Rate: 63 Ectopy: None Physical Exam Const alert and no apparent distress General Appearance: cooperative Orientation / Consciousness: lethargic HEENT normocephalic and head/scalp atraumatic Mouth: dry mucous membranes Eyes PERRL and EOMs intact bilaterally Neck no lymphadenopathy and supple Lymph Lymphatic: no lymphadenopathy noted Resp normal respiratory effort, normal air movement and clear to auscultation bilaterally Cardio regular rate, regular rhythm, S1 normal heart sound, S2 normal heart sound and no murmurs GI normal to inspection, nondistended, normoactive bowel sounds, soft to palpation, non-tender and non-distended Extremity normal capillary refill, no clubbing, cyanosis or edema and no calf tenderness Skin General Skin Exam: no breakdown Neuro CN's II-XII intact bilaterally, no focal motor deficits, no sensory deficits noted and deep tendon reflexes 2+ bilaterally Motor Exam: strength 5/5 throughout and general weakness Psych thought process normal and cooperative Appearance: appropriate Assessment & Plan Assessment/Plan (1) Acute confusion: (2) Frequent falls: PLAN: Plan #Debility and weakness due to mechanical falls * thought to be due to polypharmacy * home meds are amitryptiline, baclofen, duloxetine, gabapentin and oxybutinin. * CT of the brain showed no acute intracranial pathology * gabapentin dose reduced to 400mg bid on admission * PT/OT on board. Fall precautions. * #SABAS on CKD 3B * Cr was 1.94 on admission. Cr today is down to 1.63. * Bseline Cr is ~ 1.1 * being gently hydrated with iVF. * will monitor * #Chronic pain with peripheral neuropathy * gabapentin dose reduced. also on baclofen and amitryptiline. * #Hypertension; lasix and spironolactone on hold due to SABAS. Will continue holding and will monitor. #GERD: on PPI DVT prophylaxis: heparin sq Disposition: will benefit from placement. Charges/Coding Visit Charges Inpatient E&M: 31994 Subs Hosp L2
--- NOTE | 2022-12-14 14:50 | CASEMGMT ---
LEOPOLDO MEDRANO Assessment: Face to Face with pt for initial transition planning/care coordination assessment. LEOPOLDO MEDRANO introduced self and role at [facility], pt voices understanding and consents to assessment. Pt is A&O x4 and answers all questions appropriately at this time. Pt sitting up in chair in no distress, takes time to answer questions. Care providers, pharmacy, and demographics verified/updated. Admitting Dx: falls, generalized weakness PCP:Pete Specialists:Russ uro; Rafaela neuro Preferred Pharmacy: [facility] Insurance: [facility] Prescription Benefit: yes LNOK: Brian Dalton, son; Sherrell Padilla, friend Living Arrangements: Pt lives in a mobile home with a ramp to enter with a friend and sig other. Pt reports she has been w/c bound for the last month. Pt is able to bathe and dress herself in her walk in shower. Pt friend and sig other provide trfs, meals, do laundry and get groceries. Transportation: Pt sig other or friend transports her to medical appts. DME:BSC, walk in shower, shower chair, FWW, rollator, CPAP, manual w/c, lift chair HHC/SNF: Pt has had a [facility] in [place] in the past, unsure of the name. Pt has been to [facility] and [facility]. Pt is interested in getting further therapy prior to returning home. Pt friend and sig other both work during the day although sig other is retired. Pt states no further concerns/needs. CM to follow. Advised pt to ask CM if any further question/concerns/needs arise, voices understanding. Pt Goal: SNF Plan: SNF, updated SW
--- NOTE | 2022-12-14 15:51 | CASEMGMT ---
Social Work SW informed by RN MARCELA Fisher patient is agreeable to SNF and previously went to [facility] and [facility]. SW met with patient and introduced self and role as [facility] SW. Patient seated in hospital chair and agreeable to speak with SW. SW engaged patient in conversation regarding discharge plan and recommendation for SNF. Patient agreeable. SW inquired about patient's preference for a SNF list for [facility] vs [facility]. Patient declined SNF list, explaining she is interested in [facility] or [place] again as she had good care at those facilities previously. SW reviewed referral process, patient voiced understanding. Referral sent via [facility]. Plan: referral pending at [facility] [place]
[2022-12-14] MEDS: DULoxetine Hcl 60 MG Capsule PO (21:28)
[2022-12-14] MEDS: Amitriptyline 25 MG Tablet PO (21:28)
[2022-12-14] MEDS: 0.9% Saline Lock 10 ML Syringe IV (21:32)
[2022-12-15] MEDS: MELATONIN 10 MG TABLET PO (00:34)
[2022-12-15 04:17] VITALS: BP 111/65; PULSE 58; RESP 16; TEMP 36.5; O2SAT 96
[2022-12-15 07:14] VITALS: O2SAT 95
[2022-12-15 08:46] VITALS: BP 129/66; PULSE 65; RESP 18; TEMP 36.7; O2SAT 98
[2022-12-15 09:06] LABS: Anion Gap 3 (5-15); BUN 18 mg/dL (7-18); BUN/Creat Ratio 11.7 RATIO (10-20); Calcium,Total 9.2 mg/dL (8.5-10.1); Chloride 106 mmol/L (98-107); Creatinine, Serum 1.54 mg/dL (0.55-1.02); EST Glomerular Filtration Rate 35 mL/min (>60); Est Glom Filt Rate - Afr Amer 43 mL/min (>60); Estimated Creatinine Clearance 31.02 ml/min; Glucose 123 mg/dL (74-106); Potassium 4.6 mmol/L (3.5-5.1); Sodium Level 138 mmol/L (136-145)
[2022-12-15] MEDS: Aspirin E.C. 81 MG Tablet PO (10:44)
[2022-12-15] MEDS: Meloxicam 15 MG Tablet PO (10:44)
[2022-12-15] MEDS: Heparin Injection (Vial) 5,000 UNIT/ML VIAL 5000 UNIT SC (10:44)
[2022-12-15] MEDS: Oxybutynin 5 MG Tablet PO (10:44)
[2022-12-15] MEDS: Estradiol 1 MG Tablet PO (10:44)
[2022-12-15] MEDS: Gabapentin 400 MG Capsule PO ×2 (10:44→20:38)
[2022-12-15] MEDS: Pantoprazole Sodium 40 MG Tablet PO (10:45)
[2022-12-15] MEDS: Senna/Docusate Sodium 1 Tablet 2 TABLET PO ×2 (10:49→20:35)
[2022-12-15] MEDS: Atenolol 25 MG Tablet PO (10:50)
--- NOTE | 2022-12-15 12:03 | PN_ITS ---
Subjective Subjective Patient seen and examined. She had no active complaints and felt much better today. Review of systems is otherwise negative. She has remained hemodynamically stable. Objective Data Objective Data Vital Signs: Vital Signs Temp Pulse Resp BP Pulse Ox O2 Del Method 98.1 F 65 18 129/66 H 98 Room Air 12/15/22 08:46 12/15/22 08:46 12/15/22 08:46 12/15/22 08:46 12/15/22 08:46 12/15/22 08:46 Oxygen Delivery Method Room Air Weight: 220 lb Body Mass Index (BMI) 36.6 Intake & Output: Intake and Output for Last 24 Hours 12/13/22 12/14/22 12/15/22 23:59 23:59 23:59 Intake Total 365.83 / 365.83 1190.00 / 1690.00 800 / 800 Output Total 800 / 800 Balance 365.83 / -34.17 390.00 / 890.00 800 / 800 Lab / Micro Data 12/14/22 05:45 12/15/22 08:28 Labs: Laboratory Results - last 24 hr 12/15/22 08:28: Sodium 138, Potassium 4.6, Chloride 106, Carbon Dioxide 29.0, Anion Gap 3 L, BUN 18, Creatinine 1.54 H, Estim Creat Clear Calc 31.02, Est GFR (MDRD) Af Amer 43 L, Est GFR (MDRD) Non-Af 35 L, BUN/Creatinine Ratio 11.7, Glucose 123 H, Calcium 9.2 Rhythm Strip Rhythm Strip: Sinus Rhythm Rate: 63 Ectopy: None Physical Exam Const alert, oriented x3 and no apparent distress General Appearance: cooperative and comfortable HEENT normocephalic, head/scalp atraumatic, hearing grossly normal bilaterally, nasal mucous membranes and turbinates normal and moist oral mucous membranes Eyes PERRL, EOMs intact bilaterally and conjunctivae normal Neck full ROM, no lymphadenopathy and supple Lymph Lymphatic: no lymphadenopathy noted Chest inspection of chest normal Resp normal respiratory effort, normal air movement, no use of accessory muscles and clear to auscultation bilaterally Cardio regular rate, regular rhythm, S1 normal heart sound, S2 normal heart sound, no murmurs and peripheral pulses 2+ throughout GI normal to inspection, nondistended, normoactive bowel sounds, soft to palpation, non-tender and non-distended Back/Spine normal ROM Extremity normal to inspection, normal capillary refill, no clubbing, cyanosis or edema and no calf tenderness Skin no rashes or lesions noted General Skin Exam: no breakdown Neuro CN's II-XII intact bilaterally, no focal motor deficits, no sensory deficits noted and deep tendon reflexes 2+ bilaterally Motor Exam: strength 5/5 throughout and general weakness Psych mental status grossly normal, thought process normal and cooperative Appearance: appropriate Assessment & Plan Assessment/Plan (1) Acute confusion: (2) Frequent falls: PLAN: Plan #Debility and weakness due to mechanical falls * thought to be due to polypharmacy * home meds are amitryptiline, baclofen, duloxetine, gabapentin and oxybutinin. * CT of the brain showed no acute intracranial pathology * gabapentin dose reduced to 400mg bid on admission * PT/OT on board. Fall precautions. * now much more alert and oriented. * #SABAS on CKD 3B * Cr was 1.94 on admission. Cr today is 1.54 * Bseline Cr is ~ 1.1 * being gently hydrated with iVF. * will monitor * encourage oral hydration * #Chronic pain with peripheral neuropathy * gabapentin dose reduced. also on baclofen and amitryptiline. * #Hypertension; lasix and spironolactone on hold due to SABAS. Will continue holding and will monitor. #GERD: on PPI DVT prophylaxis: heparin sq Disposition: * will benefit from placement. She tells me today she wants to go home but per the social workers, patient has stated that she wants to go to a rehab facility. * Case management to help facilitate discharge. Charges/Coding Visit Charges Inpatient E&M: 05435 Subs Hosp L2
--- NOTE | 2022-12-15 15:16 | CASEMGMT ---
Social Work SW met with pt to discuss discharge plan as TCU is able to accept pt. Pt states she is moving much better today and feels like she can discharge home and will not need to go to TCU. Pt is agreeable to home health services. RNCM updated. SW notified Dunia in TCU requesting referral be cancelled. Plan: home with home health services ROSALINDA Ramey
--- NOTE | 2022-12-15 15:50 | CASEMGMT ---
Addendum entered by Natalia Chapman 12/15/22 16:07: Pt is aware that should she be dc'd before [employer] confirmed, RN MARCELA will call her at home to make aware of who accepted. Original Note: RN MARCELA into pt room, patient was provided a list of [facility] providers including quality and resource use data and consistent with the patient?s preferred geographic region, medical needs, and insurance network were provided from the [employer] Guide. Pt was on the phone with her sig other who had [facility]. She states that she would like that agency first followed by [facility] and [facility]. TC to [facility], spoke with Azucena, she requested info to be faxed. Faxed at this time.
[2022-12-15 20:24] VITALS: BP 114/68; PULSE 74; RESP 16; TEMP 36.6; O2SAT 96
[2022-12-15] MEDS: Amitriptyline 25 MG Tablet PO (20:36)
[2022-12-15] MEDS: DULoxetine Hcl 60 MG Capsule PO (20:36)
[2022-12-16] MEDS: MELATONIN 10 MG TABLET PO (01:20)
[2022-12-16 05:00] VITALS: BP 123/68; PULSE 68; RESP 18; TEMP 36.6; O2SAT 95
[2022-12-16] MEDS: Pantoprazole Sodium 40 MG Tablet PO (07:54)
[2022-12-16] MEDS: Meloxicam 15 MG Tablet PO (07:54)
[2022-12-16] MEDS: Aspirin E.C. 81 MG Tablet PO (07:55)
[2022-12-16] MEDS: Atenolol 25 MG Tablet PO (07:55)
[2022-12-16] MEDS: Senna/Docusate Sodium 1 Tablet 2 TABLET PO (07:55)
[2022-12-16] MEDS: Estradiol 1 MG Tablet PO (07:55)
[2022-12-16] MEDS: Oxybutynin 5 MG Tablet PO (07:55)
--- NOTE | 2022-12-16 07:58 | DS.PCM_ITS ---
Providers Date of Admission: 12/13/22 Date of Discharge: 12/16/22 Primary Care Physician: Dr. Manuel Freeman MD Reason For Visit: FALLS, GENERALIZED WEAKNESS Diagnosis Discharge Diagnosis (1) Acute confusion: Status: Acute Code(s): R41.0 - Disorientation, unspecified (2) Frequent falls: Status: Acute Code(s): R29.6 - Repeated falls Plan #Debility and weakness due to mechanical falls * thought to be due to polypharmacy * home meds are amitryptiline, baclofen, duloxetine, gabapentin and oxybutinin. * CT of the brain showed no acute intracranial pathology * gabapentin dose reduced to 400mg bid on admission * PT/OT on board. Fall precautions. * now much more alert and oriented. * #SABAS on CKD 3B * Cr was 1.94 on admission. Cr today is 1.54 * Bseline Cr is ~ 1.1 * being gently hydrated with iVF. * will monitor * encourage oral hydration * #Chronic pain with peripheral neuropathy * gabapentin dose reduced. also on baclofen and amitryptiline. * #Hypertension; lasix and spironolactone on hold due to SABAS. Will continue holding and will monitor. #GERD: on PPI DVT prophylaxis: heparin sq Disposition: * will benefit from placement. She tells me today she wants to go home but per the social workers, patient has stated that she wants to go to a rehab facility. * Case management to help facilitate discharge. Medications at Discharge Home Medications estradiol 1 mg tablet 1 mg PO DAILY estrogen 08/12/14 meloxicam 15 mg tablet 15 mg PO DAILY pain 11/23/16 amitriptyline 25 mg tablet 25 mg PO QHS pain 02/14/19 calcium carbonate 600 mg calcium (1,500 mg) tablet (Calcium) 600 mg PO DAILY vitamin 02/14/19 cholecalciferol (vitamin D3) 25 mcg (1,000 unit) capsule 1,000 unit PO DAILY vitamin 02/14/19 aspirin 81 mg tablet,delayed release (Adult Low Dose Aspirin) 81 mg PO DAILY heart 08/24/19 sennosides 8.6 mg-docusate sodium 50 mg tablet 2 tab PO BID constipatpion 11/23/19 fluticasone propionate 50 mcg/actuation nasal spray,suspension 2 spray intranasal DAILY PRN allergy symptoms 12/06/19 oxybutynin chloride 5 mg tablet 5 mg PO Q12H bladder 09/01/21 omeprazole 40 mg capsule,delayed release 40 mg PO DAILY gerd 08/25/22 atenolol 25 mg tablet 25 mg PO DAILY #90 tabs 11/16/22 baclofen 10 mg tablet 10 mg PO TID PRN muscle spasm/muscle pain #90 tabs 12/02/22 duloxetine 60 mg capsule,delayed release 60 mg PO QHS #30 caps 12/02/22 allopurinol 100 mg tablet 100 mg PO DAILY pain 12/13/22 furosemide 40 mg tablet 40 mg PO DAILY PRN swelling 12/13/22 gabapentin 400 mg capsule 400 mg PO BID #60 caps 12/16/22 Hospital Course Operations None Procedures None Summary of Care Provided Minutes Spent on Discharge: 45 Hospital Course: Patient is a 67-year-old female with a past medical history as outlined was admitted through the ED on 12/13/2022 with complaint of frequent falls and worsening weakness. She had a history of bilateral knee replacements and had had poor mobility. She had however been getting worse recently and had had multiple falls at night. Confused than usual. She had not been eating and drinking well. Labs were essentially unremarkable and CT of the brain showed no acute intracranial pathology. Chest x-ray showed no acute cardiopulmonary pat hology to. Urinalysis showed no clear evidence of UTI. Patient was noted to be on gabapentin and multiple other sedative meds which could be the cause of her symptoms. Her gabapentin dose was decreased from 800 mg 3 times daily to 400 mg 3 times daily. Patient's altered mental status improved and she felt much better. She worked with physical therapy and did well. Was determined that patient could go home with home therapy. She was therefore discharged home on 12/16/2022. As mentioned gabapentin was decreased to 400 mg 3 times daily. She is follow-up with her primary care doctor within 1 to 2 weeks. Patient seen and examined prior to discharge. She felt much better and had no complaints. She had an uneventful night and review of systems otherwise negative. Labs and vitals reviewed. Medication reviewed and reconciled. Physical Exam Const alert, oriented x3 and no apparent distress General Appearance: cooperative, comfortable and well kempt Orientation / Consciousness: lethargic HEENT normocephalic, head/scalp atraumatic, hearing grossly normal bilaterally, nasal mucous membranes and turbinates normal and moist oral mucous membranes Eyes PERRL, EOMs intact bilaterally and conjunctivae normal Neck full ROM, no lymphadenopathy and supple Lymph Lymphatic: no lymphadenopathy noted Chest inspection of chest normal Resp normal respiratory effort, normal air movement, no use of accessory muscles and clear to auscultation bilaterally Cardio regular rate, regular rhythm, S1 normal heart sound, S2 normal heart sound, no murmurs and peripheral pulses 2+ throughout GI normal to inspection, nondistended, normoactive bowel sounds, soft to palpation, non-tender and non-distended Back/Spine normal ROM and normal to inspection Extremity normal to inspection, full ROM, normal capillary refill, no clubbing, cyanosis or edema and no calf tenderness Skin no rashes or lesions noted General Skin Exam: no breakdown Neuro oriented x3, CN's II-XII intact bilaterally, moves all extremities, no focal motor deficits, no sensory deficits noted and deep tendon reflexes 2+ bilaterally Sensorium / Orientation: awake and alert Motor Exam: strength 5/5 throughout and general weakness Psych mental status grossly normal, thought process normal and cooperative Appearance: appropriate Weight / BMI Weight Weight: 220 lb Body Mass Index (BMI) 36.6 ABG / Lab / Microbiology Data 12/14/22 05:45 12/15/22 08:28 Laboratory: Laboratory Results - last 24 hr 12/15/22 08:28: Sodium 138, Potassium 4.6, Chloride 106, Carbon Dioxide 29.0, Anion Gap 3 L, BUN 18, Creatinine 1.54 H, Estim Creat Clear Calc 31.02, Est GFR (MDRD) Af Amer 43 L, Est GFR (MDRD) Non-Af 35 L, BUN/Creatinine Ratio 11.7, Glucose 123 H, Calcium 9.2 D/C Instructions Discharge Diet: Low fat / Low cholesterol Weight Bearing Status: Weight bearing as tolerated Call your doctor if you observe: Fever of 101 or Higher, Shortness of breath, Dizziness, Swelling in the ankles and Chest pain Meaningful Use Info Meaningful Use Diagnoses (Choose all that apply): None applicable Discharge Plan Admission Admit Date/Time: 12/13/22 16:39 Primary Reason for Your Visit: debility, weakness, confusion Attending Provider: Kalee Hartman Primary Care Provider: Manuel Freeman Consulting Providers: Derrick Loera Discharge Orders/Prescriptions Prescriptions: New gabapentin 400 mg Capsule 400 mg PO BID Qty: 60 1RF Continued cholecalciferol (vitamin D3) 1,000 unit capsule 1,000 unit PO DAILY calcium carbonate [Calcium 600] 600 mg calcium (1,500 mg) tablet 600 mg PO DAILY amitriptyline 25 mg tablet 25 mg PO QHS aspirin [Adult Low Dose Aspirin] 81 mg tablet,delayed release (DR/EC) 81 mg PO DAILY fluticasone propionate 50 mcg/actuation spray,suspension 2 spray INTRANASAL DAILY PRN (Reason: allergy symptoms) oxybutynin chloride 5 mg tablet 5 mg PO Q12H duloxetine 60 mg capsule,delayed release(DR/EC) 60 mg PO QHS Qty: 30 5RF baclofen 10 mg tablet 10 mg PO TID PRN (Reason: muscle spasm/muscle pain) Qty: 90 5RF omeprazole 40 mg capsule,delayed release(DR/EC) 40 mg PO DAILY estradiol 1 MG tablet 1 mg PO DAILY Patient Comments: hormone replacement meloxicam 15 MG tablet 15 mg PO DAILY Patient Comments: inflammation sennosides-docusate sodium 1 TABLET tablet 2 tab PO BID Patient Comments: constipation allopurinol 100 mg tablet 100 mg PO DAILY Patient Comments: TAKE 1 TABLET BY MOUTH ONCE DAILY furosemide 40 mg tablet 40 mg PO DAILY PRN (Reason: swelling) atenolol 25 mg tablet 25 mg PO DAILY Qty: 90 3RF Discontinued gabapentin 800 mg tablet 800 mg PO BID Qty: 60 Patient Comments: TAKE 1 TABLET BY MOUTH TWICE A DAY Referrals / Follow Up: Manuel Freeman MD [Primary Care Provider] - Within 2 Weeks Disposition Disposition (needs filled in before D/C Order can be placed): Home Health Service Charges/Coding Visit Charges Inpatient E&M: 31033 Disch Hosp >30min
[2022-12-16 08:00] VITALS: BP 119/73; PULSE 66; RESP 18; TEMP 36.9; O2SAT 94
[2022-12-16] MEDS: Gabapentin 400 MG Capsule PO (09:52)
[2022-12-16 10:13] VITALS: O2SAT 95
--- NOTE | 2022-12-16 10:14 | PHA.DC_ITS ---
Pharmacy [facility] has performed discharge medication reconciliation and counseling for this patient. The patient was counseled on the following discharge medications and changes in medications for homegoing were reviewed. 1. GABAPENTIN --> DOSE CHANGE The Reason for Use, instructions for use, and potential side effects were revie wed for all new medications. The patient's questions regarding all of their medications were answered. The patient was able to verbally demonstrate an understanding of their discharge medications. The patient's discharge medication list was reviewed for discrepancies and discrepancies were resolved. Medications at Discharge Home Medications estradiol 1 mg tablet 1 mg PO DAILY estrogen 08/12/14 meloxicam 15 mg tablet 15 mg PO DAILY pain 11/23/16 amitriptyline 25 mg tablet 25 mg PO QHS pain 02/14/19 calcium carbonate 600 mg calcium (1,500 mg) tablet (Calcium) 600 mg PO DAILY vitamin 02/14/19 cholecalciferol (vitamin D3) 25 mcg (1,000 unit) capsule 1,000 unit PO DAILY vitamin 02/14/19 aspirin 81 mg tablet,delayed release (Adult Low Dose Aspirin) 81 mg PO DAILY heart 08/24/19 sennosides 8.6 mg-docusate sodium 50 mg tablet 2 tab PO BID constipatpion 11/23/19 fluticasone propionate 50 mcg/actuation nasal spray,suspension 2 spray intranasal DAILY PRN allergy symptoms 12/06/19 oxybutynin chloride 5 mg tablet 5 mg PO Q12H bladder 09/01/21 omeprazole 40 mg capsule,delayed release 40 mg PO DAILY gerd 08/25/22 atenolol 25 mg tablet 25 mg PO DAILY #90 tabs 11/16/22 baclofen 10 mg tablet 10 mg PO TID PRN muscle spasm/muscle pain #90 tabs 12/02/22 duloxetine 60 mg capsule,delayed release 60 mg PO QHS #30 caps 12/02/22 allopurinol 100 mg tablet 100 mg PO DAILY pain 12/13/22 furosemide 40 mg tablet 40 mg PO DAILY PRN swelling 12/13/22 gabapentin 400 mg capsule 400 mg PO BID #60 caps 12/16/22
[2022-12-16] MEDS: Acetaminophen 325 MG Tablet 650 MG PO (10:25)
--- NOTE | 2022-12-16 14:48 | CASEMGMT ---
Pt ready for dc. RN CM into pt room, pt aware that [facility] has not been secured for therapy but that RN CM and/or dc assistant farm operations manager will continue to work on this and call her at home to make aware. Pt verbalizes understanding and is appreciative. Pt denies any further needs.
[2022-12-16 15:00] VITALS: BP 109/65; PULSE 62; RESP 18; TEMP 36.9; O2SAT 100
--- NOTE | 2022-12-16 16:31 | CASEMGMT ---
Discharge Planning This race and sports book writer attempted several times throughout the day to fax HH referral to [facility]. Each attempt failed. Additionally, 2 phone messages were left. Awaiting response. LEOPOLDO CM updated. Damari Kiser, Discharge Planning Asst.
--- NOTE | 2022-12-17 09:39 | CASEMGMT ---
Discharge Planning Call received from [facility]. Referral emailed as requested. RN MARCELA updated Damari Kiser, Discharge Planning Asst.
--- NOTE | 2022-12-17 14:52 | CASEMGMT ---
Discharge Planning Patient has been accepted by [facility]. SOC Tuesday. RN CM updated. Damari Kiser, Discharge Planning Asst.
--- NOTE | 2022-12-17 15:34 | CASEMGMT ---
Received notification that pt was accepted by [facility]. TC to pt to make her aware, left vm with this information.
== END 2022-12-16 15:07 | disposition home health service (06) | DRG 684 ==
LOC: ED 16:17 → MS3 16:49
PROVIDERS: Admitting Provider Hospitalist; Emergency Provider Emergency Medicine; PCP Family Medicine; Visit Provider Student in an Organized Health Care Education/Training Program
DX: N17.9 Acute kidney failure, unspecified (principal); G62.9 Polyneuropathy, unspecified; N18.32 Chronic kidney disease, stage 3b; I12.9 Hypertensive chronic kidney disease with stage 1 through stage 4 chronic kidney disease, or unspecified chronic kidney disease; K21.9 Gastro-esophageal reflux disease without esophagitis; Z95.2 Presence of prosthetic heart valve; R41.0 Disorientation, unspecified; R53.81 Other malaise; Z86.718 Personal history of other venous thrombosis and embolism; R29.6 Repeated falls; G89.29 Other chronic pain
CPT/HCPCS: 36415; 70450; 71045; 73130; 80048; 81001; 82570; 84300; 85025; 85027; 85610; 85730; 93005; 97116; 97162; 97166; 97530; 97535; 97802; 99285; J7030; J7120; P9612; A4216

== ENCOUNTER → 2022-12-23 | Outpatient (CLI) | payer MEDICARE, SELFPAY ==
[2022-12-23 17:48] LABS: Anion Gap 4 (5-15); BUN 24 mg/dL (7-18); BUN/Creat Ratio 16.2 RATIO (10-20); Calcium,Total 9.6 mg/dL (8.5-10.1); Chloride 102 mmol/L (98-107); Creatinine, Serum 1.48 mg/dL (0.55-1.02); EST Glomerular Filtration Rate 37 mL/min (>60); Est Glom Filt Rate - Afr Amer 45 mL/min (>60); Glucose 131 mg/dL (74-106); Potassium 4.4 mmol/L (3.5-5.1); Sodium Level 138 mmol/L (136-145)
== END | disposition home or self-care (01) ==
LOC: MTLAB 16:47
PROVIDERS: PCP Family Medicine; Referring Provider Family Medicine; Visit Provider Family Medicine
DX: N18.9 Chronic kidney disease, unspecified (principal)
CPT/HCPCS: 36415; 80048

== ENCOUNTER → 2023-01-10 | Outpatient (CLI) | payer MEDICARE, SELFPAY ==
--- NOTE | 2023-01-10 10:54 | RAD_ITS ---
STUDY: X-RAY - LEFT WRIST REASON FOR EXAM: Female, 67 years old. pain TECHNIQUE: 3 view(s) of the wrist were obtained. COMPARISON: None. FINDINGS: Normal visualized distal radius and ulna. Normal radiocarpal articulation. Normal distal radioulnar articulation. Normal carpal bones. Normal carpal articulations. Normal carpometacarpal articulation of the thumb. Normal second through fifth carpometacarpal articulations. Normal visualized metacarpal bones. The soft tissue structures are unremarkable. RAD/Wrist min 3 Views IMPRESSION: Normal x-ray examination of the wrist. Electronically Signed: Mc Winslow MD at 17:37 EDT ,
--- NOTE | 2023-01-10 11:00 | RAD_ITS ---
STUDY: X-RAY - ABDOMEN/PELVIS REASON FOR EXAM: Female, 67 years old. PAIN TECHNIQUE: AP supine and upright views of the abdomen and pelvis. COMPARISON: None. FINDINGS: Normal visualized lung bases. There is an unremarkable bowel gas pattern. There is no demonstrated free abdominal air. The visualized liver, spleen and kidneys are grossly normal in size and morphology. Normal soft tissue structures. Status post discectomy and fusion at L5/S1. Mild levoscoliosis lumbar spine. RAD/Abd Inc Decub and/or Erect IMPRESSION: Normal x-ray examination of the abdomen and pelvis. Electronically Signed: Mc Winslow MD at 17:39 EDT ,
== END | disposition home or self-care (01) ==
LOC: MTRAD 10:53
PROVIDERS: PCP Family Medicine; Referring Provider Family Medicine; Visit Provider Family Medicine
DX: R10.9 Unspecified abdominal pain (principal); M25.532 Pain in left wrist
CPT/HCPCS: 73110; 74019

== ENCOUNTER 2023-04-08 10:00 | Observation (INO) | payer MEDICARE, SELFPAY ==
[2023-04-08] VITALS (8 sets, daily range): BP systolic 126–160; BP diastolic 67–87; PULSE 63–78; RESP 12–18; TEMP 36.3–37.1; O2SAT 94–99; BMI 36.8
--- NOTE | 2023-04-08 10:32 | EDS_ITS ---
HPI History of Present Illness Chief Complaint: Cold Sx Informant: patient Narrative Narrative: 68-year-old female presenting to the emergency room with viral-like illness. Patient states that she has neuropathy and fibromyalgia. She states that this has been severe pain over the past 4 days. On Tuesday she developed headache nonproductive cough. She denies fever. No sore throat. She does note rhinorrhea. She states that she has required at least 2 people to help get her around because of mobility issues that are made worse by what ever illness is set in. She notes generalized body ache worsening pain in legs. She states she has a Mooo valve . This she means that she had a bovine aortic valve replacement. This occurred 2019. She is not on blood thinners. [facility] Medical History Anomalous origin of coronary artery Benign paroxysmal positional vertigo Bicuspid aortic valve Closed fracture of proximal end of left fibula CPAP (continuous positive airway pressure) dependence Depression DVT (deep venous thrombosis) Dysphasia Essential (primary) hypertension Fracture of distal end of left fibula Frequent falls GERD (gastroesophageal reflux disease) Hypertension Infection and 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, initial encounter Insomnia Iron deficiency anemia Mitral valve annular calcification Non-rheumatic mitral valve stenosis Nonrheumatic aortic (valve) stenosis Obesity Osteoarthritis Periprosthetic fracture around internal prosthetic left knee joint Sleep apnea Home Medications estradiol 1 mg tablet 1 mg PO DAILY estrogen 08/12/14 [History Last Taken 04/20/16] meloxicam 15 mg tablet 15 mg PO DAILY pain 11/23/16 [History Last Taken Unknown] amitriptyline 25 mg tablet 25 mg PO QHS pain 02/14/19 [History Last Taken 12/12/22] calcium carbonate 600 mg calcium (1,500 mg) tablet (Calcium) 600 mg PO DAILY vitamin 02/14/19 [History Last Taken Unknown] cholecalciferol (vitamin D3) 25 mcg (1,000 unit) capsule 1,000 unit PO DAILY vitamin 02/14/19 [History Last Taken Unknown] aspirin 81 mg tablet,delayed release (Adult Low Dose Aspirin) 81 mg PO DAILY heart 08/24/19 [History Last Taken 12/13/22] sennosides 8.6 mg-docusate sodium 50 mg tablet 2 tab PO BID constipatpion 11/23/19 [History Last Taken Unknown] fluticasone propionate 50 mcg/actuation nasal spray,suspension 2 spray intranasal DAILY PRN allergy symptoms 12/06/19 [History Last Taken 12/12/22] oxybutynin chloride 5 mg tablet 5 mg PO Q12H bladder 09/01/21 [History Last Taken Unknown] omeprazole 40 mg capsule,delayed release 40 mg PO DAILY gerd 08/25/22 [History Last Taken Unknown] atenolol 25 mg tablet 25 mg PO DAILY #90 tabs 11/16/22 [Rx Last Taken 12/13/22] baclofen 10 mg tablet 10 mg PO TID PRN muscle spasm/muscle pain #90 tabs 12/02/22 [Rx Last Taken Unknown] duloxetine 60 mg capsule,delayed release 60 mg PO QHS #30 caps 12/02/22 [Rx Last Taken 12/12/22] allopurinol 100 mg tablet 100 mg PO DAILY pain 12/13/22 [History Last Taken Unknown] furosemide 40 mg tablet 40 mg PO DAILY PRN swelling 12/13/22 [History Last Taken Unknown] gabapentin 400 mg capsule 400 mg PO BID #60 caps 12/16/22 [Rx Last Taken Unknown] fesoterodine 4 mg tablet,extended release 24 hr 4 mg PO DAILY 04/08/23 [History Last Taken Unknown] spironolactone 25 mg tablet 25 mg PO DAILY 04/08/23 [History Last Taken Unknown] vibegron 75 mg tablet (Gemtesa) 75 mg PO DAILY 04/08/23 [History Last Taken Unknown] Allergy/AdvReac Type Severity Reaction Status Date / Time hydrochlorothiazide AdvReac Severe dizziness Verified 04/08/23 10:01 metoprolol AdvReac Severe dizziness Verified 04/08/23 10:01 Family History Father Hypertension age 45 from [place] Myocardial infarction Mother Cancer, Onset Age: 56 ovarian cancer Ovarian cancer Surgical History History of aortic valve replacement (07/30/19) History of hysterectomy History of right and left heart catheterization (03/05/19) History of total left knee replacement Social History Smoking Status: Never smoker second hand exposure: No alcohol intake: current alcohol intake frequency: a few times a month substance use type: does not use caffeine: Yes what type of physical activity do you participate in: bicycling frequency: 1-2 times per week ROS ROS ED ROS Narrative General weakness. Increase generalized pain x 4 days. Constitutional Constitutional ED: Denies chills, fever(s) or weight loss Eyes Eyes: Denies change in vision or diplopia ENT ENT ED: Reports rhinorrhea; Denies ear pain or sore throat Cardiovascular Cardiovascular: Denies chest pain, orthopnea, palpitations or racing heartbeat Respiratory/Chest Respiratory/Chest: Reports cough; Denies dyspnea or orthopnea Gastrointestinal Gastrointestinal: Denies abdominal pain, diarrhea, nausea or vomiting Genitourinary Genitourinary ED: Denies dysuria, hematuria or urinary frequency Musculoskeletal Musculoskeletal: Reports arthralgias, back pain, myalgias and neck pain Integumentary Denies abscess or rash Neurologic Neurologic: Denies headache(s), paresthesias or weakness Psychiatric Psychiatric: Denies anxiety, depression, suicidal ideation or suicidal thoughts Endocrine Endocrinology: Denies polydipsia, polyphagia or polyuria Allergic/Immunologic Allergic/Immunologic ED: Denies mouth swelling, tongue swelling or urticaria EXAM Physical Exam Const Vital Signs: 04/08/23 10:01 04/08/23 10:35 04/08/23 10:39 Temperature 97.4 F L 97.4 F L Temperature Source Temporal Oral Pulse Rate 76 70 Respiratory Rate 16 12 Respiratory Effort Normal Non-Labored Respiratory Pattern Normal Blood Pressure 127/70 H 126/71 H Blood Pressure Mean 89 89 Pulse Ox 94 95 Oxygen Delivery Method Room Air Room Air 04/08/23 11:05 Temperature 97.4 F L Temperature Source Temporal Pulse Rate 78 Respiratory Rate 18 Respiratory Effort Respiratory Pattern Blood Pressure 126/77 H Blood Pressure Mean 93 Pulse Ox 94 Oxygen Delivery Method Room Air Positive well nourished, well developed and obese General Appearance ED: well developed Nutritional Appearance: obese HEENT Reports normocephalic, head/scalp atraumatic and moist mucous membranes HEENT Narrative: Oral pharyngeal exam is normal. Eyes PERRL and EOMs intact bilaterally Neck no lymphadenopathy, supple and no JVD Neck Narrative: No meningeal signs Resp normal respiratory effort and clear to auscultation bilaterally Resp Narrative: Moist cough Cardio regular rate, regular rhythm and no murmurs GI normal to inspection, nondistended, normoactive bowel sounds and non-tender Palpation: soft Back/Spine no CVA tenderness and normal ROM Extremity normal to inspection General Extremety ED: Negative for edema General Extremity: Negative for edema Neuro oriented x3 and CN's II-XII intact bilaterally Sensorium / Orientation: alert Motor Exam: strength 5/5 throughout Psych mental status grossly normal Mood & Affect: Negative for depressed or tearful Skin no rashes or lesions noted and no wounds MDM MDM MDM Narrative Medical decision making narrative: Basic blood work shows a hemoglobin 11.9 stable for the patient. Creatinine 1.6 glucose 152. Anion gap of 4 CO2 of 29. My independent interpretation of the chest x-ray is an area of atelectatic change in the left lingula. Based on no dyspnea fever elevated white count I think it is less likely to be bacterial infiltrates. She is COVID-19 positive. Patient does not feel that she can maintain her ADLs at home and family who is with her states that is taking at least 2 people to get her up to the bathroom. I spoke with case management to see if the patient could get to a rehab facility. I do not believe at this point there is anything in the hospital that we would specifically be doing to treat the COVID-19 infection. History & Record Review Discussion w/independent historian: Patient and Family Additional record(s) reviewed:: Prior ED visit and Prior labs Lab Data Attestation: I reviewed the patient's lab results. Labs: Laboratory Results - last 24 hr 04/08/23 10:35 WBC 5.1 RBC 3.99 L Hgb 11.9 L Hct 36.5 L MCV 91.5 MCH 29.8 MCHC 32.6 RDW Std Deviation 50.2 H RDW Coeff of Robe 14.8 H Plt Count 243 MPV 10.4 Immature Gran % (Auto) 0.200 Neut % (Auto) 54.1 Lymph % (Auto) 27.7 Roane % (Auto) 11.7 H Eos % (Auto) 5.9 H Baso % (Auto) 0.4 Absolute Neuts (auto) 2.7 Absolute Lymphs (auto) 1.40 Nucleated RBC % 0 Sodium 136 Potassium 3.8 Chloride 103 Carbon Dioxide 29.0 Anion Gap 4 L BUN 16 Creatinine 1.16 H Est GFR (MDRD) Af Amer 59 L Est GFR (MDRD) Non-Af 49 L BUN/Creatinine Ratio 13.8 Glucose 152 H Calcium 9.3 Radiography Diagnostic Testing: Clinical Impression(s) from Imaging Studies Chest X-Ray 04/08/23 10:50 IMPRESSION: Findings suggestive of atelectasis and/or infiltrate in the lingular segment of the left upper lobe abutting the left cardiac border. Electronically Signed: Kayden Sprague MD at 11:15 EST , Management Discussion w/another healthcare provider: Hospitalist Discharge Plan Dx/Rx/DC Orders Clinical Impression: COVID-19, Polyneuropathy, Fibromyalgia, Adult failure to thrive Disposition Disposition: Acute Care [facility]
[2023-04-08] MEDS: 0.9% Normal Saline (1000mL) 1,000 ML 250 ML IV (10:41)
[2023-04-08 10:50] LABS: Absolute Neutrophil Count 2.7 X10^3/uL (2.0-7.7); Basophil# 0.02 X10^3/uL; Basophil% 0.4 % (0-1); Eosinophils% 5.9 % (0-5); Hematocrit 36.5 % (37-47); Hemoglobin 11.9 g/dL (12.0-15.0); Lymphocyte % 27.7 % (19-41); Mean Corp Hgb Conc 32.6 g/dL (32-36); Mean Corpuscular Hgb 29.8 pg (27.0-32.0); Mean Corpuscular Volume 91.5 fL (81-99); Mean Platelet Vol. 10.4 fl (6.2-12.0); Monocyte# 0.59 X10^3/uL; Monocyte% 11.7 % (0-10); NRBC Flagged by Analyzer 0 % (0-5); Neutrophil # 2.73 X10^3/uL (2.7-7.7); Neutrophil % 54.1 % (47-70); Platelet Count 243 K/mm3 (150-450); RBC Distribution Width CV 14.8 % (11.6-14.6); RBC Distribution Width SD 50.2 fl (35.1-43.9); Red Blood Count 3.99 M/mm3 (4.2-5.4); White Blood Count 5.1 K/mm3 (4.4-11.0)
--- NOTE | 2023-04-08 10:50 | RAD_ITS ---
STUDY: X-RAY CHEST REASON FOR EXAM: Female, 68 years old. Cough TECHNIQUE: Single AP portable view of the chest. COMPARISON: Comparison is made with prior study dated December 13, 2022. FINDINGS: EKG electrodes are seen. Findings suggestive of atelectasis and/or infiltrate in the lingular segment of the left upper lobe abutting the left cardiac border. This is new as compared to prior study. There is no demonstrated pleural abnormality. Sternal cerclage wires are present from a prior sternotomy. The patient is status post aortic valve replacement. Normal mediastinum and carli. Normal visualized pulmonary arteries. Normal visualized aortic arch and descending thoracic aorta. Normal visualized thoracic spine. Normal visualized ribs, clavicles, and shoulders. There is no demonstrated abnormality of the visualized soft tissue structures of the upper abdomen. RAD/Chest 1 View (Portable) IMPRESSION: Findings suggestive of atelectasis and/or infiltrate in the lingular segment of the left upper lobe abutting the left cardiac border. Electronically Signed: Kayden Sprague MD at 11:15 EST ,
[2023-04-08 10:56] LABS: Anion Gap 4 (5-15); BUN 16 mg/dL (7-18); BUN/Creat Ratio 13.8 RATIO (10-20); Calcium,Total 9.3 mg/dL (8.5-10.1); Chloride 103 mmol/L (98-107); Creatinine, Serum 1.16 mg/dL (0.55-1.02); EST Glomerular Filtration Rate 49 mL/min (>60); Est Glom Filt Rate - Afr Amer 59 mL/min (>60); Glucose 152 mg/dL (74-106); Potassium 3.8 mmol/L (3.5-5.1); Sodium Level 136 mmol/L (136-145)
--- OUTSIDE RECORDS SUMMARY | 2023-04-08 11:20 | XMS RPT_ITS | CCD ---
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 Start: 01-05-2021 Cement Bone Biom et R 1x40 Us - Sn/A - [id number])N/A, [id number] FDA Start: 01-05-2021 Restrictor Cmnt Fem [place] 18.5mm Canl Less Thn 15mm - Sn/A - [id number] Start: 01-05-2021 Restrictor Fem B uck Cmnt 25mm - Sn/A - [id number] Start: 01-05-2021 Knee Star Cntrng Endo Mod/Tot - Sn/A - [id number] Start: 01-05-2021 Knee Sys Endo To tl Fln Lt [facility] [id number] - [id number] Start: 01-05-2021 Knee Sys Endo To tl Fln Lt [facility] [id number] - [id number] Start: 01-05-2021 Rotational Knee Joint Prosthesis With Anti-Luxation Device [id number] Start: 01-05-2021 Valve Fuller In spiris Resilia 23mm Pericardial Aortic Bioprosthesis - [id number] Start: 07-30-2019 Clinical Notes 08-03-2019 to 12-11-2022 Anastasia Jarvis RN - 12/11/2022 11:24 AM Regulo Jarvis RN - 12/11/2022 11:24 AM Regulo Jarvis RN - 12/11/2022 11:16 AM Regulo Jarvis RN - 12/11/2022 7:24 AM EDTAttachments Note Date & Type Note Facility 12-11-2022 Emergency department Note Discharge instructions reviewed with patient who verbalizes clear understanding. They deny any further concern or question. Patient pharmacy verified with patient. Patient left unit pushed in wheelchair by medic who took patient out to private vehicle and in the care of her roommate. Patient declined any further need for care and stated she wanted to go home. [facility] 12-11-2022 Emergency department Note Discharge instructions reviewed with patient who verbalizes clear understanding. They deny any further concern or question. Patient pharmacy verified with patient. Patient left unit pushed in wheelchair by medic who took patient out to private vehicle and in the care of her roommate. Patient declined any further need for care and stated she wanted to go home. Patient given nonskid socks to wear and offered a hospital gown which patient declined. Dr Dalton at bedside for exam and care planning Emergency Department Report [facility] EMERGENCY DEPARTMENT Service Date:.12/11/22 PCP: Pancho Freeman Chief Complaint: Chief Complaint Patient presents with Fall Pt arrives [facility] states fell at home, unsure of activity at the time. PT has fallen 3x in past week. Denies pain, unsure if LOC, pt is not on blood thinners. MANISHA Aleyda Dalton is a 67 y.o. female presents to the ED today due to multiple falls. Patient fell again today she is been seen for several falls in the past few weeks. History is provided by the friend she lives with and also the patient. She is been seeing a neurologist she is had deteriorating weakness over the last months. Now she is basically confined to a wheelchair. She fell off her wheelchair she has some mild pain and swelling in her left hand. Denies any other injury. Review of Systems: Review of Systems Constitutional: Negative for fever. Past Medical History: Past Medical History: Diagnosis Date Abnormal cardiac valve Depression Essential hypertension, benign Migraine Past Surgical History: Past Surgical History: Procedure Laterality Date KNEE REPLACEMENT Bilateral Allergies: No Known Allergies Medications: Patient's Medications New Prescriptions No medications on file Previous Medications ALLOPURINOL 100 MG TABLET Take 1 tablet by mouth daily. ASPIRIN (ASPIRIN 81) 81 MG CHEW TAB CHEWABLE TABLET Chew 1 tablet daily. ATENOLOL 25 MG TABLET Take 1 tablet by mouth daily. FUROSEMIDE 20 MG TABLET Take 2 tablets by mouth. NAPROXEN (NAPROSYN) 500 MG TABLET Take 1 tablet by mouth 2 times daily with meals for 10 days. TRAMADOL 50 MG TABLET Take 1 tablet by mouth 3 times daily. Modified Medications No medications on file Discontinued Medications No medications on file Family History: History reviewed. No pertinent family history. Social History: Social History Socioeconomic History Marital status: Spouse name: Not on file Number of children: Not on file Years of education: Not on file Highest education level: Not on file Occupational History Not on file Tobacco Use Smoking status: Never Smokeless tobacco: Never Vaping Use Vaping Use: Never used Substance and Sexual Activity Alcohol use: Yes Alcohol/week: 3.0 standard drinks of alcohol Types: 3 Cans of beer per week Comment: rarely Drug use: Never Sexual activity: Not on file Other Topics Concern Not on file Social History Narrative Not on file Social Determinants of Health Financial Resource Strain: Not on file Food Insecurity: Not on file Transportation Needs: Not on file Physical Activity: Not on file Stress: Not on file Social Connections: Not on file Intimate Partner Violence: Not on file Housing Stability: Not on file Physical Exam: Physical Exam Vitals and nursing note reviewed. Constitutional: Appearance: Normal appearance. Cardiovascular: Rate and Rhythm: Normal rate and regular rhythm. Pulses: Normal pulses. Heart sounds: Normal heart sounds. Pulmonary: Effort: Pulmonary effort is normal. Breath sounds: Normal breath sounds. Musculoskeletal: Comments: Bruising and pain to the left hand on the dorsal surface and wrist Skin: Capillary Refill: Capillary refill takes less than 2 seconds. Neurological: Mental Status: She is alert and oriented to person, place, and time. Cranial Nerves: Dysarthria present. Sensory: Sensation is intact. Motor: Motor function is intact. Comments: Mild slurred speech Psychiatric: Mood and Affect: Mood normal. Behavior: Behavior normal. Vital Signs During ED Visit Patient Vitals for the past 24 hrs: BP Temp Temp src Pulse Resp SpO2 Height 12/11/22 0707 -- -- -- -- -- -- 1.651 m (5' 5 ) 12/11/22 0700 180/84 97.8 F (36.6 C) Oral 67 16 98 % -- Orders/Results: No orders of the defined types were placed in this encounter. Results for orders placed or performed during the hospital encounter of 11/18/22 URINE CULTURE Result Value Ref Range SPECIMEN DESCRIPTION URINE CLEAN CATCH UA Dipstick LEUKOCYTE POSITIVE RESULT-CULT ENTEROCOCCUS FAECALIS GROUP D Report Status 11/21/2022 ORGANISM IDENTIFIED ENTEROCOCCUS FAECALIS GROUP D Susceptibility Enterococcus Faecalis Group D - CASSIE (UG/ML/INTERP)* Ampicillin Sensitive Nitrofurantoin Sensitive PENICILLIN G Sensitive Tetracycline Resistant Vancomycin Sensitive Levofloxacin Sensitive Gentamicin High Level Susceptible Streptomycin High Level Susceptible * ENTEROCOCCUS FAECALIS GROUP D CBC, EDIF, PLATELET Result Value Ref Range WBC (WHITE BLOOD COUNT) 10.3 3.6 - 11.0 10*3/uL RBC 3.86 (L) 4.0 - 5.4 10*6/uL HEMOGLOBIN (HGB) 11.6 (L) 12.0 - 16.0 G/DL HEMATOCRIT (HCT) 35.5 (L) 36.0 - 48.0 % MEAN CELL VOLUME 92.0 80.0 - 100.0 FL Mean Cell HGB 30.0 26.0 - 35.0 PG MEAN CELL HGB CONCENTRATION 32.7 27.0 - 37.0 G/DL RBC DISTRIBUTION 15.3 (H) 11.5 - 14.5 % PLATELET COUNT 278 130 - 400 10*3/uL MEAN PLATELET VOLUME 8.4 7.4 - 11.0 FL DIFFERENTIAL TYPE AUTO DIFF % NEUTROPHILS 67.7 37.0 - 75.0 % LYMPHOCYTE 19.8 (L) 20.0 - 55.0 % MONOCYTE % 9.1 0.0 - 10.0 % EOSINOPHIL % 2.5 0.0 - 11.0 % BASOPHIL % 0.9 0.0 - 2.0 % Absolute Neutrophil Count 7.0 (H) 1.4 - 6.5 10*3/uL LYMPHOCYTES, ABSOLUTE 2.0 1.2 - 3.4 10*3/uL MONOCYTES, ABSOLUTE 0.9 (H) 0.0 - 0.7 10*3/uL ABSOLUTE EOSINOPHIL COUNT 0.3 0.0 - 0.7 10*3/uL ABSOLUTE BASOPHIL COUNT 0.1 0.0 - 0.2 10*3/uL COMPREHENSIVE METABOLIC PANEL Result Value Ref Range Glucose 121 (H) 70 - 100 MG/DL BUN 16 7 - 20 MG/DL CREATININE SERUM 1.19 0.70 - 1.20 MG/DL SODIUM 135 (L) 137 - 145 MMOL/L POTASSIUM 4.8 3.5 - 5.1 MMOL/L CHLORIDE 96 (L) 98 - 107 MMOL/L CALCIUM 9.1 8.4 - 10.2 MG/DL PROTEIN, TOTAL 7.6 6.3 - 8.2 GM/DL Albumin 4.0 3.5 - 5.0 G/dl BILIRUBIN, TOTAL 0.4 0.2 - 1.3 MG/DL AST 33 14 - 36 IU/L ALKALINE PHOSPHATASE 67 38 - 126 IU/L CARBON DIOXIDE (CO2) 31 (H) 22 - 30 MMOL/L A/G Ratio 1.1 RATIO ALT 23 <35 IU/L ESTIMATED GFR, NON AMER 48 ml/min/1.73sq.m ESTIMATED GFR, 58 ml/min/1.73sq.m GFR COMMENT Average GFR for 60-69 years old = 85. LIPASE Result Value Ref Range LIPASE 28 23 - 300 U/L URINALYSIS, MACRO Result Value Ref Range COLOR, URINE YELLOW YELLOW APPEARANCE, URINE CLEAR CLEAR Specific [place], Urine 1.010 1.010 - 1.025 PH URINE 6.0 5.0 - 7.0 Urine Protein NEGATIVE NEGATIVE mg/dl GLUCOSE, URINE NEGATIVE NEGATIVE mg/dl KETONES, URINE NEGATIVE NEGATIVE mg/dl BILIRUBIN, URINE NEGATIVE NEGATIVE BLOOD, URINE DIPSTICK NEGATIVE NEGATIVE NITRITES, URINE NEGATIVE NEGATIVE UROBILINOGEN, URINE 0.2 0.2 - 1.0 E.U./dL LEUKOCYTE ESTERASE, URINE TRACE (A) NEGATIVE URINE MICROSCOPIC Result Value Ref Range WBC, URINE 1 TO 5 NEGATIVE /HPF RBC, URINE NEGATIVE NEGATIVE /HPF Epithelial Cells UA 1 TO 5 /HPF Mucus NEGATIVE NEGATIVE BACTERIA, URINE TRACE (A) NEGATIVE CRYSTALS, URINE NONE NONE CASTS, URINE NONE NONE /LPF COMMENT, URINE REFLEX CULTURE PER ESTABLISHED CRITERIA. Radiographic Imaging No orders to display Procedures: Procedures Moderate Sedation Procedure: No ED Summary/MDM Medical Decision Making Amount and/or Complexity of Data Reviewed Labs: ordered. Radiology: ordered. ECG/medicine tests: ordered and independent interpretation performed. Details: EKG sinus rhythm inferior Q-waves rate 68 NC interval 152 QRS 78 QTC 421 Risk Prescription drug management. Clinical Impression: No diagnosis found. No follow-ups on file. New Prescriptions No medications on file Discontinued Medications No medications on file An After Visit Summary was printed and given to the patient with above information. . . Raúl Dalton MD 12/11/22 6391 Bed: E002 Expected date: Expected time: Means of arrival: Comments: [facility] [place] 7 min. documented in this encounter [facility] 12-11-2022 Emergency department Note Patient given nonskid socks to wear and offered a hospital gown which patient declined. [facility] 12-11-[address] Dalton at bedside for exam and care planning [facility] 12-11-2022 Physician Emergency department Note Emergency Department Report [facility] EM[facility]Y DEPART[facility] Service Date:.12/11/22 PCP: Pancho Freeman Chief Complaint: Chief Complaint Patient presents with Fall Pt arrives [facility] states fell at home, unsure of activity at the time. PT has fallen 3x in past week. Denies pain, unsure if LOC, pt is not on blood thinners. HPI Aleyda Dalton is a 67 y.o. female presents to the ED today due to multiple falls. Patient fell again today she is been seen for several falls in the past few weeks. History is provided by the friend she lives with and also the patient. She is been seeing a neurologist she is had deteriorating weakness over the last months. Now she is basically confined to a wheelchair. She fell off her wheelchair she has some mild pain and swelling in her left hand. Denies any other injury. Review of Systems: Review of Systems Constitutional: Negative for fever. Past Medical History: Past Medical History: Diagnosis Date Abnormal cardiac valve Depression Essential hypertension, benign Migraine Past Surgical History: Past Surgical History: Procedure Laterality Date KNEE REPLACEMENT Bilateral Allergies: No Known Allergies Medications: Patient's Medications New Prescriptions No medications on file Previous Medications ALLOPURINOL 100 MG TABLET Take 1 tablet by mouth daily. ASPIRIN (ASPIRIN 81) 81 MG CHEW TAB CHEWABLE TABLET Chew 1 tablet daily. ATENOLOL 25 MG TABLET Take 1 tablet by mouth daily. FUROSEMIDE 20 MG TABLET Take 2 tablets by mouth. NAPROXEN (NAPROSYN) 500 MG TABLET Take 1 tablet by mouth 2 times daily with meals for 10 days. TRAMADOL 50 MG TABLET Take 1 tablet by mouth 3 times daily. Modified Medications No medications on file Discontinued Medications No medications on file Family History: History reviewed. No pertinent family history. Social History: Social History Socioeconomic History Marital status: Spouse name: Not on file Number of children: Not on file Years of education: Not on file Highest education level: Not on file Occupational History Not on file Tobacco Use Smoking status: Never Smokeless tobacco: Never Vaping Use Vaping Use: Never used Substance and Sexual Activity Alcohol use: Yes Alcohol/week: 3.0 standard drinks of alcohol Types: 3 Cans of beer per week Comment: rarely Drug use: Never Sexual activity: Not on file Other Topics Concern Not on file Social History Narrative Not on file Social Determinants of Health Financial Resource Strain: Not on file Food Insecurity: Not on file Transportation Needs: Not on file Physical Activity: Not on file Stress: Not on file Social Connections: Not on file Intimate Partner Violence: Not on file Housing Stability: Not on file Physical Exam: Physical Exam Vitals and nursing note reviewed. Constitutional: Appearance: Normal appearance. Cardiovascular: Rate and Rhythm: Normal rate and regular rhythm. Pulses: Normal pulses. Heart sounds: Normal heart sounds. Pulmonary: Effort: Pulmonary effort is normal. Breath sounds: Normal breath sounds. Musculoskeletal: Comments: Bruising and pain to the left hand on the dorsal surface and wrist Skin: Capillary Refill: Capillary refill takes less than 2 seconds. Neurological: Mental Status: She is alert and oriented to person, place, and time. Cranial Nerves: Dysarthria present. Sensory: Sensation is intact. Motor: Motor function is intact. Comments: Mild slurred speech Psychiatric: Mood and Affect: Mood normal. Behavior: Behavior normal. Vital Signs During ED Visit Patient Vitals for the past 24 hrs: BP Temp Temp src Pulse Resp SpO2 Height 12/11/22 0707 -- -- -- -- -- -- 1.651 m (5' 5 ) 12/11/22 0700 180/84 97.8 F (36.6 C) Oral 67 16 98 % -- Orders/Results: No orders of the defined types were placed in this encounter. Results for orders placed or performed during the hospital encounter of 11/18/22 URINE CULTURE Result Value Ref Range SPECIMEN DESCRIPTION URINE CLEAN CATCH UA Dipstick LEUKOCYTE POSITIVE RESULT-CULT ENTEROCOCCUS FAECALIS GROUP D Report Status 11/21/2022 ORGANISM IDENTIFIED ENTEROCOCCUS FAECALIS GROUP D Susceptibility Enterococcus Faecalis Group D - CASSIE (UG/ML/INTERP)* Ampicillin Sensitive Nitrofurantoin Sensitive PENICILLIN G Sensitive Tetracycline Resistant Vancomycin Sensitive Levofloxacin Sensitive Gentamicin High Level Susceptible Streptomycin High Level Susceptible * ENTEROCOCCUS FAECALIS GROUP D CBC, EDIF, PLATELET Result Value Ref Range WBC (WHITE BLOOD COUNT) 10.3 3.6 - 11.0 10*3/uL RBC 3.86 (L) 4.0 - 5.4 10*6/uL HEMOGLOBIN (HGB) 11.6 (L) 12.0 - 16.0 G/DL HEMATOCRIT (HCT) 35.5 (L) 36.0 - 48.0 % MEAN CELL VOLUME 92.0 80.0 - 100.0 FL Mean Cell HGB 30.0 26.0 - 35.0 PG MEAN CELL HGB CONCENTRATION 32.7 27.0 - 37.0 G/DL RBC DISTRIBUTION 15.3 (H) 11.5 - 14.5 % PLATELET COUNT 278 130 - 400 10*3/uL MEAN PLATELET VOLUME 8.4 7.4 - 11.0 FL DIFFERENTIAL TYPE AUTO DIFF % NEUTROPHILS 67.7 37.0 - 75.0 % LYMPHOCYTE 19.8 (L) 20.0 - 55.0 % MONOCYTE % 9.1 0.0 - 10.0 % EOSINOPHIL % 2.5 0.0 - 11.0 % BASOPHIL % 0.9 0.0 - 2.0 % Absolute Neutrophil Count 7.0 (H) 1.4 - 6.5 10*3/uL LYMPHOCYTES, ABSOLUTE 2.0 1.2 - 3.4 10*3/uL MONOCYTES, ABSOLUTE 0.9 (H) 0.0 - 0.7 10*3/uL ABSOLUTE EOSINOPHIL COUNT 0.3 0.0 - 0.7 10*3/uL ABSOLUTE BASOPHIL COUNT 0.1 0.0 - 0.2 10*3/uL COMPREHENSIVE METABOLIC PANEL Result Value Ref Range Glucose 121 (H) 70 - 100 MG/DL BUN 16 7 - 20 MG/DL CREATININE SERUM 1.19 0.70 - 1.20 MG/DL SODIUM 135 (L) 137 - 145 MMOL/L POTASSIUM 4.8 3.5 - 5.1 MMOL/L CHLORIDE 96 (L) 98 - 107 MMOL/L CALCIUM 9.1 8.4 - 10.2 MG/DL PROTEIN, TOTAL 7.6 6.3 - 8.2 GM/DL Albumin 4.0 3.5 - 5.0 G/dl BILIRUBIN, TOTAL 0.4 0.2 - 1.3 MG/DL AST 33 14 - 36 IU/L ALKALINE PHOSPHATASE 67 38 - 126 IU/L CARBON DIOXIDE (CO2) 31 (H) 22 - 30 MMOL/L A/G Ratio 1.1 RATIO ALT 23 <35 IU/L ESTIMATED GFR, NON AMER 48 ml/min/1.73sq.m ESTIMATED GFR, 58 ml/min/1.73sq.m GFR COMMENT Average GFR for 60-69 years old = 85. LIPASE Result Value Ref Range LIPASE 28 23 - 300 U/L URINALYSIS, MACRO Result Value Ref Range COLOR, URINE YELLOW YELLOW APPEARANCE, URINE CLEAR CLEAR Specific [place], Urine 1.010 1.010 - 1.025 PH URINE 6.0 5.0 - 7.0 Urine Protein NEGATIVE NEGATIVE mg/dl GLUCOSE, URINE NEGATIVE NEGATIVE mg/dl KETONES, URINE NEGATIVE NEGATIVE mg/dl BILIRUBIN, URINE NEGATIVE NEGATIVE BLOOD, URINE DIPSTICK NEGATIVE NEGATIVE NITRITES, URINE NEGATIVE NEGATIVE UROBILINOGEN, URINE 0.2 0.2 - 1.0 E.U./dL LEUKOCYTE ESTERASE, URINE TRACE (A) NEGATIVE URINE MICROSCOPIC Result Value Ref Range WBC, URINE 1 TO 5 NEGATIVE /HPF RBC, URINE NEGATIVE NEGATIVE /HPF Epithelial Cells UA 1 TO 5 /HPF Mucus NEGATIVE NEGATIVE BACTERIA, URINE TRACE (A) NEGATIVE CRYSTALS, URINE NONE NONE CASTS, URINE NONE NONE /LPF COMMENT, URINE REFLEX CULTURE PER ESTABLISHED CRITERIA. Radiographic Imaging No orders to display Procedures: Procedures Moderate Sedation Procedure: No ED Summary/MDM Medical Decision Making Amount and/or Complexity of Data Reviewed Labs: ordered. Radiology: ordered. ECG/medicine tests: ordered and independent interpretation performed. Details: EKG sinus rhythm inferior Q-waves rate 68 NC interval 152 QRS 78 QTC 421 Risk Prescription drug management. Clinical Impression: No diagnosis found. No follow-ups on file. New Prescriptions No medications on file Discontinued Medications No medications on file An After Visit Summary was printed and given to the patient with above information. . . Raúl Dalton MD 12/11/22 0453 [facility] 12-11-2022 Emergency department Note Bed: E002 Expected date: Expected time: Means of arrival: Comments: EMS [place] 7 min. [facility] 11-18-2022 Emergency department Note Bed: EFT24 Expected date: Expected time: Means of arrival: Comments: EMS [facility] 11-18-2022 Emergency department Note Bed: EFT24 Expected date: Expected time: Means of arrival: Comments: EMS documented in this encounter [facility] 11-08-2022 Hospital Discharge instructions JEOVANNY Ordoñez - 11/08/2022 4:33 PM EDT You were seen and evaluated today for fatigue and frequent falls. As we discussed, you are stable for discharge home with follow-up with primary care. There are no immediate, life-threatening causes for your symptoms at this time. Symptoms can change and new problems may arise after your evaluation. Please do not hesitate to return for further care. Call primary care to discuss referrals for home health and physical therapy. Monitor for any worsening or more concerning symptoms. Take usual prescribed medications as prescribed. Alternate Tylenol and ibuprofen as needed for pain or fevers. Call primary care to schedule a follow-up appointment reevaluation. Return to the emergency room if you develop any of the following conditions: altered mental status, confusion, dizziness, passing out, severe sustained headache, inability to swallow, changes in vision, changes in hearing, difficulty or pain with swallowing, shortness of breath, high pitched wheezing, fevers above 102, elevated heart rate, chest pain, persistent vomiting, and inability to control urine or stool. The following attachments cannot be sent through Care Everywhere.Fatigue ([place])Fall Prevention at Home ([facility]) ([place])documented in this encounter [facility] 11-08-2022 Physician Emergency department Note EKG: Sinus rhythm at 64 beats per minute. [place] is leftward. NC interval is 144 milliseconds. QRS duration is 86 milliseconds. There is decreased QRS voltage cross tracing. Nonspecific ST T-wave changes present. Q-waves are present in leads 3 and AVF. Poor R-wave progression anteriorly. No acute ST elevation is seen in contiguous leads. It is similar to previous tracing done May 03, 2019. (05/03/2019 EKG done at [facility]) Eric Claros MD 11/08/22 1458 [facility] Work Phone: 11-08-2022 Emergency department Note EKG: Sinus rhythm at 64 beats per minute. [place] is leftward. NC interval is 144 milliseconds. QRS duration is 86 milliseconds. There is decreased QRS voltage cross tracing. Nonspecific ST T-wave changes present. Q-waves are present in leads 3 and AVF. Poor R-wave progression anteriorly. No acute ST elevation is seen in contiguous leads. It is similar to previous tracing done May 03, 2019. (05/03/2019 EKG done at [facility]) Eric Claros MD 11/08/22 1458 Bed: E012 Expected date: Expected time: Means of arrival: Comments: ems documented in this encounter [facility] 11-08-2022 Emergency department Note Bed: E012 Expected date: Expected time: Means of arrival: Comments: ems [facility] 12-11-2021 Miscellaneous Notes This was completed. Patient will come in on to pick them up. Sofia Montano Pss The patient is requesting a print out of her most recent labs from 10/28/21. 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 Please contact the patient once they are ready. documented in this encounter [facility] 11-18-2021 Note HNO ID: [id number] Author: RT Vicki(Ernesto) Service: ? Author Type: Technologist Type: Progress Notes Filed: 11/18/2021 1:24 PM Note Text: Radiology Service Progress Note DATE OF SERVICE: November 18, 2021 TIME: 1:24 PM PATIENT IDENTITY VERIFICATION COMPLETED USING TWO (2) STANDARD IDENTIFIERS: Name and Date of confirmed by patient verbally. FALL SCREENING: Has the patient had 2 falls in the last year or 1 fall with injury or currently using an Ambulatory Assistive Device (Walker, Cane, Wheelchair, Crutches, etc.)? No PATIENT GENDER DATA: Female. status: : No status: NO. PATIENT RELEVANT IMPLANT DATA REVIEWED: Yes ALLERGIES: Reviewed and unchanged CONTRAST ALLERGY: NO. EXAM: MRI - CONTRAST TYPE: GROUP II PERIPHERAL IV DATA: Ambulatory: A peripheral IV was started in the Right antecubital site with a Angio cath: 22 gauge. RADIOLOGY DEPARTMENT: MR; Exam(s) Completed: Head: Multiple Sclerosis Spine: Cervical spine SIGNATURE: RT Vicki(R) PATIENT NAME: Aleyda Dalton DATE: November 18, 2021 TIME: 1:24 PM [facility] 11-18-2021 History of Present illness Narrative Radiology Service Progress Note DATE OF SERVICE: November 18, 2021 TIME: 1:24 PM PATIENT IDENTITY VERIFICATION COMPLETED USING TWO (2) STANDARD IDENTIFIERS: Name and Date of confirmed by patient verbally. FALL SCREENING: Has the patient had 2 falls in the last year or 1 fall with injury or currently using an Ambulatory Assistive Device (Walker, Cane, Wheelchair, Crutches, etc.)? No PATIENT GENDER DATA: Female. status: : No status: NO. PATIENT RELEVANT IMPLANT DATA REVIEWED: Yes ALLERGIES: Reviewed and unchanged CONTRAST ALLERGY: NO. EXAM: MRI - CONTRAST TYPE: GROUP II PERIPHERAL IV DATA: Ambulatory: A peripheral IV was started in the Right antecubital site with a Angio cath: 22 gauge. RADIOLOGY DEPARTMENT: MR; Exam(s) Completed: Head: Multiple Sclerosis Spine: Cervical spine SIGNATURE: JOSÉ Cohen) PATIENT NAME: Aleyda Dalton DATE: November 18, 2021 TIME: 1:24 PM documented in this encounter [facility] 11-10-2021 Note HNO ID: [id number] Author: Nelson Padilla MD Service: ? Author Type: Physician Type: Progress Notes Filed: 11/10/2021 1:11 PM Note Text: Assessment and Plan 1. Multiple sclerosis (HCC) -presumptive diagnosis -OCT with nerve fiber layer thinning 2. Ocular migraine -flashes both eyes / auras 3. Posterior vitreous detachment of both eyes -stable floaters 4. Lamellar macular hole of both eyes -early changes on OCT 5. Combined form of age-related cataract, both eyes -with posterior polar component both eyes? Plan: -no active optic neuritis on exam today -changes on OCT can be old multiple sclerosis vs anatomical variant vs other optic neuropathies -Retina precautions reviewed. Return to clinic as soon as possible if increased floaters, flashes, or shadows. -will observe for now with return to clinic in 6 months with dilated fundus exam and OCT macula and nerve. If change, to consider visual field and possible referral to neuro-ophthalmology I have confirmed and edited as necessary the relevant ophthalmic history, ROS, and the neuro exam findings as obtained by others. I have seen and examined Aleyda Dalton. I have discussed the case and the management of this patient's care with the Resident/Fellow, if applicable. I also have reviewed and agree with the assessment and plan as stated above and agree with all of its relevant components. Nelson Padilla MD November 10, 2021 1:04 PM [facility] 11-10-2021 History of Present illness Narrative Assessment and Plan 1. Multiple sclerosis (HCC) -presumptive diagnosis -OCT with nerve fiber layer thinning 2. Ocular migraine -flashes both eyes / auras 3. Posterior vitreous detachment of both eyes -stable floaters 4. Lamellar macular hole of both eyes -early changes on OCT 5. Combined form of age-related cataract, both eyes -with posterior polar component both eyes? Plan: -no active optic neuritis on exam today -changes on OCT can be old multiple sclerosis vs anatomical variant vs other optic neuropathies -Retina precautions reviewed. Return to clinic as soon as possible if increased floaters, flashes, or shadows. -will observe for now with return to clinic in 6 months with dilated fundus exam and OCT macula and nerve. If change, to consider visual field and possible referral to neuro-ophthalmology I have confirmed and edited as necessary the relevant ophthalmic history, ROS, and the neuro exam findings as obtained by others. I have seen and examined Aleyda Dalton. I have discussed the case and the management of this patient's care with the Resident/Fellow, if applicable. I also have reviewed and agree with the assessment and plan as stated above and agree with all of its relevant components. Nelson Padilla MD November 10, 2021 1:04 PM documented in this encounter [facility] 11-10-2021 Instructions Nelson Padilla MD - 11/10/2021 12:56 PM EDT Images from the original note were not included. documented in this encounter [facility] 11-02-2021 Note HNO ID: [id number] Author: Gilmer Estrada MD Service: ? Author Type: Physician Type: Progress Notes Filed: 11/02/2021 5:03 PM Note Text: NEUROLOGY STAFF ADDENDUM Patient seen with the fellow. I agree with the fellow's history, examination, and the plan as noted above was formulated with my direct input. Gilmer Estrada MD Staff, Department of Neurology [facility] 11-02-2021 History of Present illness Narrative NEUROLOGY STAFF ADDENDUM Patient seen with the fellow. I agree with the fellow's history, examination, and the plan as noted above was formulated with my direct input. Gilmer Estrada MD Staff, Department of Neurology [facility] Multiple Sclerosis Images from the original note were not included. [facility] MULTIPLE SCLEROSIS NEW PATIENT EVALUATION/CONSULTATION Referral source: SELF Also followed by: Patient Care Team: Pancho Freeman MD as PCP - General (Family Practice) Rodney Cooper MD (Orthopedics) Christophe Jamison as Teaching Assistant (Cardiology) Osei Conway Jr. (Orthopedics) PRINCIPAL NEUROLOGIC DIAGNOSIS: Multiple neurological symptoms possibly compatible with myelopathy DISEASE SUMMARY Date of onset: ~2020 Date of diagnosis of MS: N/A Disease course at onset: Progressive without relapses Current disease course: Progressive without relapses Previous disease therapies: None Current disease therapy: None Most recent MRI brain: None Most recent MRI cervical spine: None CSF: None JCV serology result and date: None HISTORY OF ILLNESS: An opinion on this 66 year old ambidextrous female was requested by the patient for a second opinion on a diagnosis of MS. The patient was accompanied by two of her close friends. Previous records (physician notes, laboratory reports, and radiology reports) were reviewed and summarized. My recommendations will be communicated back to the patient's physician(s) via electronic medical record. Follow-up is expected to be with me or the referring physician based on results of planned workup. Patient is referred here at the request of her orthopedic surgeon (Dr. Conway) to evaluate for MS given her various neurological symptoms. She has had multiple prior orthopedic surgeries including anterior cervical discectomy and fusion at L5/S1 as well as several knee surgeries. Current Symptoms: For the past year she has been having intermittent falls due to knees buckling. She reports no loss of consciousness associated with these spells but they have possibly increased in frequency since the beginning of the year occurring approximately once a year. She was previously receiving physical therapy but has been unable to do so since 3-4 weeks ago she fell and injured her left knee and is currently not-weight bearing. She has required using a cane/walker over the past 6 months but over the past 3-4 weeks after the knee trauma she has been using a wheelchair. She also reports chronic urinary urgency and requiring use of oxybutynin for the past year but over the past 3-4 months she has had worsening of symptoms with 3-4 episodes of urinary incontinence. For the past 4-5 months she has had intermittent painless blurry vision in both eyes lasting about 3 minutes associated with a headache lasting an hour occurring 2-3 times a week. Her headaches are bilateral, without nausea or vomiting, but associated with photophobia and phonophobia. She reports she has a history of migraine headaches with vision auras although these episodes seem slightly different as headaches are more intense than her usual migraines and vision symptoms are different than her usual aura. She still experiences her typical migraine headaches approximately once a month. About 2 weeks ago she had an episode of painless complete loss of vision (altitudinal from the top) in bilateral eyes lasting about a minute. This has not recurred since then and has never happened in the past. Although she has had recent evaluation by torch straightener and heater in [place] (concern for cataracts) she has not had evaluation since this episode. She reports episodes of left arm and left leg paresthesia and pain intermittently for the past 6 months lasting minutes to hours. She also reports diffuse weakness and memory concerns for the past 6 months. Neuro-Qol Functions (higher = better functioning) Neuro-Qol Symptoms (higher = worse symptoms) *NeuroQoL is a multi-domain patient-reported quality of life questionnaire. *PHQ-9 is a questionnaire for depressive symptoms, with scores 0-4 indicating none, 5-9 mild, 10-14 moderate, 15-19 moderately severe, and 20-27 severe symptoms. *PROMIS-10 is a patient-reported quality of life measure, typically reported as physical and mental domains. Here scores are expressed as percentiles, where the lowest possible score is one, the highest possible score is 99, and 50 is average. 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 gabapentin (NEURONTIN) 800 mg tablet Take 1,200 mg by mouth twice daily. melatonin 5 mg tablet Take 10 mg by mouth once daily. iv contrast (will be provided with radiology test) MRI Brain Inject, intravenously, once for 1 dose.No IV access, insert saline lock prior to beginning of sedation, infusion, injection of imaging exam.Discontinue saline lock post exam. If Pt. has a central line or IVAD, may access for administration according to line specific nursing protocol.Once exam is complete flush line and de-access according to line specific nursing protocol in the MR contrast administration guidelines link iv contrast (will be provided with radiology test) MRI CSP Inject, intravenously, once for 1 dose. No IV access, insert saline lock prior to the beginning of sedation, infusion, injection of imaging exam. Discontinue saline lock post exam. If Pt. has a central line or IVAD, may access for administration according to line specific nursing protocol. Once exam is complete flush line and de-access according to line specific nursing protocol in the MR contrast administration guidelines link. oxybutynin XL (DITROPAN XL) 5 mg 24 hr tablet Take 5 mg by mouth once daily. estradiol (ESTRACE) 1 mg tablet Take 1 mg by mouth once daily. atenolol (TENORMIN) 25 mg tablet Take 1 tablet by mouth once daily. acetaminophen (TYLENOL) 325 mg tablet Take 1-2 tablets by mouth every 4 hours as needed for Pain or Fever. aspirin 81 mg chewable tablet Take 1 tablet by mouth once daily. magnesium hydroxide (MOM) 400 mg/5 mL suspension Take 30 mL by mouth once daily as needed for Constipation or GI Upset. Omeprazole Magnesium (PRILOSEC OTC) 20 mg tablet Take one tablet daily for 14 days therapeutic multivitamin (THERA VITAMIN) tablet Take 1 tablet by mouth daily with breakfast. furosemide (LASIX) 40 mg tablet Take one tablet daily for 7 days then as directed (Patient not taking: Reported on 10/28/2021) oxyCODONE IR (ROXICODONE) 10 mg tab Take 10 mg by mouth every 6 hours as needed (shoulder pain). (Patient not taking: Reported on 10/28/2021) meloxicam (MOBIC) 15 mg tablet Take 15 mg by mouth once daily. Cholecalciferol, Vitamin D3, 25 mcg (1,000 unit) cap Take 2,000 Units by mouth once daily. amitriptyline (ELAVIL) 25 mg tablet Take 25 mg by mouth once daily. SENNA-DOCUSATE SODIUM ORAL Take 1 tablet by mouth twice daily. No current facility-administered medications for this visit. ALLERGIES No Known Allergies Social History Tobacco Use Smoking status: Never Smokeless tobacco: Never Marital Status: FAMILY HISTORY Problem Relation Age of Onset Cancer Mother ovarian Heart Attack Father 47 Multiple Sclerosis No Family History REVIEW OF SYSTEMS: Comprehensive review of systems otherwise was negative, including constitutional, head and neck, cardiovascular, pulmonary, gastrointestinal, urologic, rheumatic, and dermatologic PHYSICAL EXAM: BP 131/79 Pulse 67 Ht 165.1 cm (5' 5 ) Wt 90.7 kg (200 lb) BMI 33.28 kg/m Hair, skin, nails, and joints were normal. Surgical scars from prior knee procedures. Wearing left knee brace. Neck was supple without Lhermitte's phenomenon. Breathing comfortably on room air. There was pitting edema to ankles bilaterally. The patient was alert and normal language, attention and concentration, recent and remote memory, praxis, and intellectual function. Affect was Normal. The patient did not appear depressed. Visual acuity to near card was as follows: OD= 20/20 (with PH correction) OS= 20/40 (with PH correction). Visual [place] were full to confrontation. Pupils were 3 mm and briskly reactive OU without a relative afferent pupillary defect. Funduscopic examination was normal without disc edema, erythema, or atrophy. Ocular ductions were full without nystagmus or ataxia. Facial sensation was normal. Muscles of mastication and facial expression were normal. Hearing was intact to finger rub bilaterally (reports louder on the right). Palatal movements were normal. Sternocleidomastoid and trapezius power were normal. Tongue movements were normal. There was no dysarthria. Motor Examination (limited by effort): Right Upper Extremity: Left Upper Extremity: Deltoid 5/5 Deltoid 5/5 Biceps 5/5 Biceps 5/5 Triceps 5/5 Triceps 5/5 Wrist extensors 5/5 Wrist extensors 5/5 Wrist flexors 5/5 Wrist flexors 5/5 Finger extension 5/5 Finger extension 5/5 Finger flexion 5/5 Finger flexion 5/5 Tone (Celine scale) 1 Tone (Celine scale) 1+ Right Lower Extremity: Left Lower Extremity: Hip flexors 4/5 Hip flexors 4-/5 Hip extensors 4+/5 Hip extensors 4/5 Knee flexors 4+/5 Knee flexors 4/5 Knee extensors 4/5 Knee extensors 4/5 Dorsiflexors 4+/5 Dorsiflexors 4/5 Plantarflexors 4+/5 Plantarflexors 4/5 Toe extensors 4+/5 Toe extensors 4/5 Toe flexors 4+/5 Toe flexors 4/5 Tone (Celine scale) 1 Tone (Celine scale) 1+ Reflexes: brachioradialis ++ (brisk) brachioradialis ++ (brisk) biceps ++ (brisk) biceps ++ (brisk) triceps ++ (brisk) triceps ++ (brisk) patellar +++ patellar Unable to assess Achilles tr Achilles tr Lynch's sign Present Lynch's sign Present clonus absent clonus absent plantar response down plantar response up Coordination testing in the arms and legs was performed including [id number], rapid-alternating, and fine movements. Rapid movements were smooth with normal tianna. There was no dysmetria or ataxia. There were not signs of cerebellar dysfunction. Sensory examination: Sensory exam including light touch, vibration, proprioception except reduced sensation to light touch in left leg, left body, and left arm (80% of normal). Patient unable to weight-bear due to recent knee trauma. REVIEW OF OUTSIDE RECORDS: MRI lumbar spine w/o 10/10/2021: No acute finding, no significant change. No etiology for right-sided radiculopathy identified. Anterior fusion and discectomy L5-S1 with no apparent complication. Serum: 09/2021 CRP 73.3 (normal <3.0), ESR 56, TEN negative, RF negative REVIEW OF IMAGING STUDIES: I personally reviewed the following images: N/A ASSESSMENT: 66 year old ambidextrous female with relevant past medical history of hypertension and bicuspid aortic valve c/b aortic stenosis s/p AVR 07/2019, right leg deep venous thrombosis, hypertrophic cardiomyopathy, and several orthopedic surgeries (knees as well as cervical and lumbar spine) who presents for evaluation several neurological symptoms occurring progressively over the past year including falls, knees buckling, intermittent vision symptoms, left sided sensory changes, urinary issues, diffuse weakness, and memory concerns. Her neurological examination is concerning for myelopathy (left > right). She has had limited evaluation including MRI lumbar spine which was non-contributory and blood tests checked by her PCP which was notable for elevated [facility] (? for joint infection given knee aspiration). Overall, given the history and exam, the constellation of symptoms are less likely to be due to a demyelinating process such as MS but raise possibility of myelopathy which needs to be further evaluated. Her vision symptoms seem to be atypical for optic neuritis and need to be further evaluated by torch straightener and heater for other etiologies (consider vascular or other inflammatory etiologies). PLAN: - MRI brain and cervical spine w/wo contrast. - Will check screen serum with TSH, HARSH, AMARA, ANCA, copper, B12, vitamin D, homocysteine, lyme, and MMA. - OCT evaluation today. - Asked patient to schedule ophthalmology visit in the meantime (offered visit at [facility] but patient prefers to follow up with local torch straightener and heater in [place]). Asked to send us the results of evaluation when available. - Asked patient to follow up with her PCP regarding other constitutional symptoms and elevated inflammatory markers as full records are not available for further testing. - Will discuss results and implications after the MRI results. Seen with Dr. Estrada. Carter Vásquez MD Neuroimmunology Fellow [facility] documented in this encounter [facility] 10-28-2021 Note HNO ID: [id number] Author: Erica Torres MA Service: ? Author Type: House Fellow Type: Progress Notes Filed: 11/08/2021 7:33 PM Note Text: Cirrus OCT OU was at best attempt Performed by Erica Torres MA on October 28, 2021 8:57 AM [facility] 10-28-2021 Note HNO ID: [id number] Author: Carter Vásquez MD Service: ? Author Type: Fellow Type: Progress Notes Filed: 11/02/2021 5:03 PM Note Text: [facility] MULTIPLE SCLEROSIS NEW PATIENT EVALUATION/CONSULTATION Referral source: SELF Also followed by: Patient Care Team: Pancho Freeman MD as PCP - General (Family Practice) Rodney Cooper MD (Orthopedics) Christophe Jamison as Teaching Assistant (Cardiology) Osei Conway Jr. (Orthopedics) PRINCIPAL NEUROLOGIC DIAGNOSIS: Multiple neurological symptoms possibly compatible with myelopathy DISEASE SUMMARY Date of onset: ~2020 Date of diagnosis of MS: N/A Disease course at onset: Progressive without relapses Current disease course: Progressive without relapses Previous disease therapies: None Current disease therapy: None Most recent MRI brain: None Most recent MRI cervical spine: None CSF: None JCV serology result and date: None HISTORY OF ILLNESS: An opinion on this 66 year old ambidextrous female was requested by the patient for a second opinion on a diagnosis of MS. The patient was accompanied by two of her close friends. Previous records (physician notes, laboratory reports, and radiology reports) were reviewed and summarized. My recommendations will be communicated back to the patient's physician(s) via electronic medical record. Follow-up is expected to be with me or the referring physician based on results of planned workup. Patient is referred here at the request of her orthopedic surgeon (Dr. Conway) to evaluate for MS given her various neurological symptoms. She has had multiple prior orthopedic surgeries including anterior cervical discectomy and fusion at L5/S1 as well as several knee surgeries. Current Symptoms: For the past year she has been having intermittent falls due to knees buckling. She reports no loss of consciousness associated with these spells but they have possibly increased in frequency since the beginning of the year occurring approximately once a year. She was previously receiving physical therapy but has been unable to do so since 3-4 weeks ago she fell and injured her left knee and is currently not-weight bearing. She has required using a cane/walker over the past 6 months but over the past 3-4 weeks after the knee trauma she has been using a wheelchair. She also reports chronic urinary urgency and requiring use of oxybutynin for the past year but over the past 3-4 months she has had worsening of symptoms with 3-4 episodes of urinary incontinence. For the past 4-5 months she has had intermittent painless blurry vision in both eyes lasting about 3 minutes associated with a headache lasting an hour occurring 2-3 times a week. Her headaches are bilateral, without nausea or vomiting, but associated with photophobia and phonophobia. She reports she has a history of migraine headaches with vision auras although these episodes seem slightly different as headaches are more intense than her usual migraines and vision symptoms are different than her usual aura. She still experiences her typical migraine headaches approximately once a month. About 2 weeks ago she had an episode of painless complete loss of vision (altitudinal from the top) in bilateral eyes lasting about a minute. This has not recurred since then and has never happened in the past. Although she has had recent evaluation by torch straightener and heater in [place] (concern for cataracts) she has not had evaluation since this episode. She reports episodes of left arm and left leg paresthesia and pain intermittently for the past 6 months lasting minutes to hours. She also reports diffuse weakness and memory concerns for the past 6 months. Neuro-Qol Functions (higher = better functioning) Neuro-Qol Symptoms (higher = worse symptoms) *NeuroQoL is a multi-domain patient-reported quality of life questionnaire. *PHQ-9 is a questionnaire for depressive symptoms, with scores 0-4 indicating none, 5-9 mild, 10-14 moderate, 15-19 moderately severe, and 20-27 severe symptoms. *PROMIS-10 is a patient-reported quality of life measure, typically reported as physical and mental domains. Here scores are expressed as percentiles, where the lowest possible score is one, the highest possible score is 99, and 50 is average. 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 [facility] 10-28-2021 History of Present illness Narrative Cirrus OCT OU was at best attempt Performed by Erica Torres MA on October 28, 2021 8:57 AM documented in this encounter [facility] 10-28-2021 Instructions Carter Vásquez MD - 10/28/2021 7:59 AM EDT We would like to evaluate your symptoms further with some blood tests and an eye scan today (OCT). You can have these done today. We are also ordering MRI scans of your brain and cervical spine (upper neck) which you can schedule today. In the meantime, please continue to follow up with your torch straightener and heater, your primary care physician, and computer system validation specialist. We will discuss your MRI results with you when available. In the meantime, please let us know if you have any other questions or concerns. documented in this encounter [facility] 01-06-2021 History of Present illness Narrative Problem: Sensory: Goal: Demonstrates/reports adequate pain control Outcome: Adequate for Discharge Problem: Coping: Goal: Verbalizations of alleviation of anxiety will increase Outcome: Adequate for Discharge Problem: Cognitive: Goal: Knowledge of disease or condition will improve Outcome: Adequate for Discharge Problem: Physical Regulation: Goal: Postoperative complications will be avoided or minimized Outcome: Adequate for Discharge Goal: Ability to maintain clinical measurements within normal limits will improve Outcome: Adequate for Discharge Problem: Skin Integrity: Goal: Patient will remain free of injury and skin integrity maintained Outcome: Adequate for Discharge Problem: Cognitive: Goal: Knowledge of Transition Instructions will improve Outcome: Adequate for Discharge Goals: Identify possible barriers to meeting goals/advancing plan of care: no barriers Stability of the patient: Moderately Stable - Low risk of patient condition declining or worsening End of Shift Summary: all goals met. Patient met all goals. Discharge instructions given to pt and family. All questions answered and they verbalized understanding. Copies of scripts in chart. Discharge folder completed, will place at [facility]. Patient to d/c home with OPPT. Surgical team has provided d/c instructions and RX for d/c. Patient has transportation home. No further CM needs. 01/06/21 1115 Referral Data Referral Reason Discharge Planning Patient Information Patient arrived from? Home Support System Immediate family Referral To Financial Resources Other (Comment) (no needs identified) Community Resources Other (Comment) (no needs identified) Services Requested DME potential needs No In to see patient and introduce myself and role as a CM. Patient whiteboard updated. S/P left total knee revision patient of Dr. Conway. Home assessment completed, home address and PCP verified. DME reviewed, patient denies need. Patient lives alone in a single level apartment, and plans on d/c home with OPPT. Discharge folder provided by surgeon with instructions and prescriptions of OPPT, keflex, celebrex, aspirin, tylenol, tramadol, oxycodone. All questions/concerns addressed. CM has sent a message to surgery team for an order to discontinue surgical drain for d/c. DME provider updated that patient has declined pumps for discharge due to cost. Dr. Burton notified- okay to discharge patient on 81 mg aspirin BID. Physical Therapy Orthopedic Evaluation PT Discharge Recommendations: Outpatient PT Goals Met To Safely D/C to Home: yes DME Reccommendations: none Distance ambulated with therapy: Distance Ambulated (ft): 100 RLE Assessment RLE Assessment: Impaired RLE Assessment Additional: Yes Strength RLE R Ankle Dorsiflexion: 5/5 R Ankle Plantar Flexion: 5/5 LLE Assessment LLE Assessment: Impaired LLE Assessment Additional: Yes Strength LLE L Ankle Dorsiflexion: 5/5 L Ankle Plantar Flexion: 5/5 Braces: Orthoses Applied: Other (Comment) (no ROM, in TROM) Subjective Hand Hygiene Completed: yes PT evaluation completed POD # 1 S/P: * left total knee revision arthroplasty By: * Osei Conway MD - Primary * Gilmer Burton MD - Fellow Patient agreeable to therapy and cleared for PT by RN. Pt transfers with [facility]. . At end of treatment Patient positioned for comfort with SCD pumps in use. Call light and phone in reach. All questions answered and needs met at this time. Patient is planning to discharge to home with Neighbor to assist. Continue as per PT POC until patient is discharged from hospital. Patient Active Problem List Diagnosis Osteoarthritis of right knee Past Medical History: Diagnosis Date Anxiety Arthritis GERD (gastroesophageal reflux disease) Hypertension Sleep apnea uses cpap Wears glasses Past Surgical History: Procedure Laterality Date AORTIC VALVE REPLACEMENT jul 30 2019 Vitals/Pain: Pain Assessment Pain Assessment: 0-10 Pain Score: 8 Pain Interventions: Repositioned Objective General Visit Information: Precautions: Precautions LLE Weight Bearing Status: As Tolerated Orthoses Applied: Other (Comment) (no ROM, in TROM) Cognition: Cognition Orientation Level: Oriented X4 Home Living: Home Living Type of Home: House Lives With: Alone Home Adaptive Equipment: Walker - rolling, Wheelchair-manual, Organic Chemistry Professor, Sock aid Home Layout: One level Home Access: Level entry Prior Level of Function: Prior Function Level of [place]: Independent with mobility and functional transfers Receives Help From: Friends, Neighbor Which is your dominant hand?: Right Prior Function Comments: using w/c prior to admit 2/2 nwb LLE, baseline pt is independent General Assessments: Activity Tolerance Endurance: Tolerates 10 - 20 min exercise with multiple rests Sensation Light Touch: No apparent deficits Static Sitting Balance Static Sitting-Level of Assistance: Contact guard Dynamic Sitting Balance Dynamic Sitting-Level of Assistance: Contact guard Static Standing Balance Static Standing-Level of Assistance: Contact guard Static Standing-Balance Support: Right upper extremity supported, Left upper extremity supported Dynamic Standing Balance Dynanic Standing-Level of Assistance: Contact guard Dynamic Standing-Balance Support: Right upper extremity supported, Left upper extremity supported Dynamic Standing-Comments: RW Functional Assessments: Bed Mobility Sitting to Lying Assistance: Contact guard, Minimal verbal cues (to/from supine ) Sitting to Lying Deficit: Steadying, Verbal cueing, Supervision/safety awareness Transfers Sit to Stand Assistance: Contact guard, Minimal verbal cues Sit to Stand Deficit: Steadying, Verbal cueing, Supervision/safety awareness Ambulation Walking Assistance: Contact guard Walking Deficit: Steadying, Verbal cueing, Supervision/safety awareness Device: Rolling walker Distance Ambulated (ft): 100 Extremity Assessments: RLE Assessment RLE Assessment: Impaired RLE Assessment Additional: Yes Strength RLE R Ankle Dorsiflexion: 5/5 R Ankle Plantar Flexion: 5/5 LLE Assessment LLE Assessment: Impaired LLE Assessment Additional: Yes Strength LLE L Ankle Dorsiflexion: /5 L Ankle Plantar Flexion: /5 Additional Assessments/Tests: Treatment performed during evaluation: yes If Yes: Gait Time Spent: 14 Assessment/Plan PT Assessment PT Assessment/ Barriers to discharge: Decreased strength, Decreased range of motion, Decreased endurance, Impaired balance, Impaired gait, Decreased mobility, Decreased safety awareness, Obesity, Decreased skin integrity, Orthopedic restrictions, Pain Prognosis: Good Evaluation/Treatment Tolerance: Patient tolerated treatment well Medical Staff Made Aware: Yes Plan Treatment/Interventions: ADL retraining, Functional transfer training, LE strengthening/ROM, Endurance training, Patient/family training, Equipment eval/education, Bed mobility, Gait training, Compensatory technique education, Continued evaluation, Balance training PT Plan: Skilled PT PT Frequency: 7 days per week PT Duration of Sessions: PRN PT Treatments per day: 1-2 times per day PT Discharge Recommendations: Outpatient PT PT - Next Appointment: 01/07/21 PT - Evaluation Status: Complete PT - OK to Discharge: Yes PT Goals: Encounter Problems Encounter Problems (Active) There are no active problems. Encounter Problems (Resolved) Template: Physical Therapy Problem: STG: Transition in/oob within precautions at [facility] Dates: Start: 01/06/21 Resolved: 01/06/21 Goal: STG: Transition in/oob within precautions at [facility] (Resolved) Dates: Start: 01/06/21 Expected End: 02/16/21 End: 01/06/21 Description: Outcomes Date/Time User Outcome 01/06/21 Shyla Nguyễn PT Completed Goal: STG: Pt with transition to/from surfaces with in precautions at [facility] (Resolved) Dates: Start: 01/06/21 Expected End: 02/16/21 End: 01/06/21 Outcomes Date/Time User Outcome 01/06/21 1025 Mariola Nguyễn PT Completed Goal: STG: Pt will ambulate 100' within precautions at [facility] using [facility]AD (Resolved) Dates: Start: 01/06/21 Expected End: 02/16/21 End: 01/06/21 Outcomes Date/Time User Outcome 01/06/21 1025 Mariola Nguyễn PT Completed [facility] - PROGRESS NOTE Patient Name : Aleyda Dalton Patient : 1955 Patient Admit Date : 01/05/2021 Admission Diagnosis : Postoperative Medical Comanagement Provider Name : Jose Alfredo Palm MD Date Of Service : 01/06/21 IMPRESSION AND PLAN : This 65 y.o. female, status post Procedure(s) (LRB): left total knee revision arthroplasty (Left), is currently recovering POD#1. I have seen the patient personally today and reviewed any available lab results on this patient. Admission medication reconciliation has been completed and in addition multimodal pain medications as well as as needed medications have been ordered. A medical consult has been ordered by the surgeon for perioperative management of the patient's chronic medical conditions including the following . . . Obstructive sleep apnea: Stable overnight. No reports of any difficulties. Continue CPAP and GIORGIO precautions. Hypertension: Stable. This morning blood pressure 118/74 prior to morning medication. Controlled. Depression: Stable and well managed on Cymbalta therapy. May continue. Overactive bladder: Urinary output has been established. Medication has been reordered for postop day 1. This patient will be considered acceptable for discharge from a medical perspective if the following criteria are met . . . 1. Oxygen Saturations > 90% on Room Air 2. Able to void without difficulty 3. Meets Physical Therapy goals for discharge 4. Passing Flatus without nausea vomiting or abdominal distention 5. Cleared for discharge by surgeon 6. Discharge medication reconciliation completed, defer post discharge management of anticoagulants, DVT prophylaxis, NSAIDs, opiates, and antibiotics to surgical service. Subjective Patient reports pain is currently tolerable on current pain regimen. Patient reports that she does have some pain but is being controlled with her oral medication. Much better since receiving a dose this morning. REVIEW OF SYSTEMS Cardiovascular: Denies chest pain Respiratory: Denies shortness of breath or cough Gastrointestinal: Denies abdominal pain or nausea/vomiting Genitourinary: Denies urinary retention or incomplete voiding VITALS : Visit Vitals BP 118/74 (BP Location: Right arm;Upper, Patient Position: Other (Comment)) Pulse 60 Temp 36.2 C (97.2 F) (Temporal) Resp 16 Ht 1.651 m (65 ) Wt 92 kg (202 lb 13.2 oz) SpO2 95% BMI 33.75 kg/m Smoking Status Never Smoker BSA 1.99 m PHYSICAL EXAM : General - No acute distress; Alert and conversational Cardiology - No tachycardia noted; No peripheral edema noted Respiratory - Clear to auscultate bilaterally; No accessory respiratory muscle use noted; No wheezing noted Abdominal - Non-tender to palpation; positive bowel sounds Musculoskeletal - No calf tenderness noted on palpation; left leg brace in place. Psychiatric - Appropriate affect, Alert and oriented to person, place, and situation RESULTS : INTAKE/OUTPUT Intake/Output Summary (Last 24 hours) at 01/06/2021 0705 Last data filed at 01/06/2021 0500 Gross per 24 hour Intake 2100 ml Output 675 ml Net 1425 ml LABS Admission on 01/05/2021 Component Date Value ABO Group 01/05/2021 A Rh Type 01/05/2021 Positive Antibody Screen 01/05/2021 Negative SARS-COV-2 Screen 01/05/2021 Not Detected Glucose POCT 01/05/2021 81 Gram Stain Result 01/05/2021 No Polymorphonuclear leukocytes Gram Stain Result 01/05/2021 No Epithelial cells Gram Stain Result 01/05/2021 No organisms seen Body Fluid Source 01/05/2021 Synovial Body Fluid Clarity 01/05/2021 Hazy Body Fluid Color 01/05/2021 [place] Body Fluid RBC 01/05/2021 20,000 Body Fluid WBC 01/05/2021 400 Culture AFB 01/05/2021 Culture in progress AFB Stain 01/05/2021 No acid fast bacilli seen Culture AFB 01/05/2021 Culture in progress AFB Stain 01/05/2021 No acid fast bacilli seen Culture AFB 01/05/2021 Culture in progress AFB Stain 01/05/2021 No acid fast bacilli seen Culture AFB 01/05/2021 Culture in progress AFB Stain 01/05/2021 No acid fast bacilli seen Culture AFB 01/05/2021 Culture in progress AFB Stain 01/05/2021 No acid fast bacilli seen Gram Stain Result 01/05/2021 No Polymorphonuclear leukocytes Gram Stain Result 01/05/2021 No Epithelial cells Gram Stain Result 01/05/2021 No organisms seen Gram Stain Result 01/05/2021 No Polymorphonuclear leukocytes Gram Stain Result 01/05/2021 No Epithelial cells Gram Stain Result 01/05/2021 No organisms seen Gram Stain Result 01/05/2021 Many Polymorphonuclear leukocytes Gram Stain Result 01/05/2021 No Epithelial cells Gram Stain Result 01/05/2021 No organisms seen Sodium 01/06/2021 135* Potassium 01/06/2021 4.4 Chloride 01/06/2021 99 CO2 01/06/2021 25 Anion Gap 01/06/2021 11 Glucose 01/06/2021 139* BUN 01/06/2021 14 Creatinine 01/06/2021 1.09 eGFR 01/06/2021 52 BUN/Creatinine Ratio 01/06/2021 12.8 Calcium 01/06/2021 8.7* WBC 01/06/2021 17.6* RBC 01/06/2021 3.90 Hemoglobin 01/06/2021 11.2* Hematocrit 01/06/2021 35.1 MCV 01/06/2021 90.1 MCH 01/06/2021 28.8 MCHC 01/06/2021 31.9* RDW 01/06/2021 14.8 Platelets 01/06/2021 263 MPV 01/06/2021 10.3 Neutrophils Relative 01/06/2021 91.5* Lymphocytes Relative 01/06/2021 5.4* Monocytes Relative 01/06/2021 3.0 Eosinophils Relative 01/06/2021 0.0 Basophils Relative 01/06/2021 0.1 Neutrophils Absolute 01/06/2021 16.10* Lymphocytes Absolute 01/06/2021 1.00 Monocytes Absolute 01/06/2021 0.50 Eosinophils Absolute 01/06/2021 0.00 Basophils Absolute 01/06/2021 0.00 IMAGING XR Knee 1-2 Views Left (Results Pending) XR Knee 1-2 Views Left (Results Pending) Rounded with Josephine Mejia Semaan, JONATHAN Torres. Pt is to wear immobilizer for 12 weks. Labs h/h 11.2/35.1 plt 263. Ok to discharge withn ok with gen med and goals met. [facility] Progress Note 1 Day Post-Op: * left total knee revision arthroplasty LOS: 0 days Subjective: Patient doing well. States that pain is tolerable with current regimen. Tolerating diet without nausea or vomiting. Objective: Last Recorded Vitals: Blood pressure 118/74, pulse 60, temperature 36.2 C (97.2 F), temperature source Temporal, resp. rate 16, height 1.651 m (65 ), weight 92 kg (202 lb 13.2 oz), SpO2 95 %. Gen: comfortable, NAD Focused Musculoskeletal Exam: Surgical incision clean, dry, and intact. Small, palpable fluid collection over medial thigh. No drainage or swelling. Neurovascularly intact in the operative extremity. LABS: Lab Results Component Value Date WBC 17.6 (H) 01/06/2021 HGB 11.2 (L) 01/06/2021 HCT 35.1 01/06/2021 MCV 90.1 01/06/2021 PLT 263 01/06/2021 Lab Results Component Value Date GLUCOSE 139 (H) 01/06/2021 CALCIUM 8.7 (L) 01/06/2021 NA 135 (L) 01/06/2021 K 4.4 01/06/2021 CO2 25 01/06/2021 CL 99 01/06/2021 BUN 14 01/06/2021 CREATININE 1.09 01/06/2021 No results found for: INR, PROTIME No results found for: PTT Assessment & Plan 65 y.o. female 1 Day Post-Op status post * left total knee revision arthroplasty. - WBAT on the operative extremity, T-ROM locked in extension x12 weeks - Aspirin 81mg BID x 6 weeks for DVT ppx - PT - Follow-up in clinic in 2-3 weeks - Plan for discharge to Home when cleared by PT and medically stable [facility] - PROGRESS NOTE Patient Name : Aleyda Dalton Patient : 1955 Patient Diagnosis : Perioperative Medical Management Provider Name : Cruz Enriquez MD Date Of Service : 01/05/21 IMPRESSION AND PLAN : Prophylaxis For Prevention of Deep Vein Thrombosis ( DVT ) Prophylaxis should be based on the ACCP Guidelines and will be per surgeon's service per protocol. Management of NSAIDS, Anticoagulants, and Antibiotics will be per surgeon's service according to protocol. Patient should be encouraged regarding venous return exercises and ambulation. This patient will be considered acceptable for discharge from a medical perspective if the following criteria are met . . . 1. Oxygen Saturations > 90% on Room Air 2. Able to void without difficulty 3. Meets Physical Therapy goals for discharge 4. Passing Flatus 5. Cleared for discharge by surgeon Patient currently recovering on DAY OF SURGERY. I have seen the patient personally today and reviewed the lab results section on this patient. This patient's medication list including their prescription drugs have been reviewed and specific recommendations as they relate to surgery and surgical recovery will be provided at discharge both verbally and in writing. A medical consult has been ordered by the surgeon for perioperative management of the patient's chronic medical conditions including the following . . . Obstructive Sleep Apnea ( GIORGIO ) ( G 47.33 ) Chronic pre-existing condition present on admission. This patient uses either CPAP or BiPAP at home. They have been instructed to bring the machine to the hospital for use during the perioperative time period. They will be instructed to continue prescribed regimen of CPAP or BIPAP with any sleep or sedation. This represents a high risk diagnosis and increases the risks for postoperative hypoxia and hypoventilation. This patient should be watched on continuous pulse oximetry and a sleep apnea protocol throughout their hospitalization. They will require close monitoring of respiratory status with frequent vitals and continuous pulse oximetry, especially if any sedatives or narcotic medications are given. Hypertension ( I 10 ) Chronic pre-existing condition present on admission. Currently being managed This patient's blood pressure will need to be monitored closely throughout their hospitalization since potential perioperative issues such as dehydration, pain level, and the use of anesthetics or pain medications can cause BP fluctuations. Additional BP control can be provided with the addition of PO or PRN Clonidine. Depression ( F 32.9 ) Chronic pre-existing condition present on admission. I have recommended the patient continue their prescribed depression related medications without interruption where applicable. Generally these medications are not necessary the morning of surgery unless they are anxiolytics or sedatives the patient takes regularly in the morning and has a presumed dependency. Sedative-type anxiolytics can be resumed postoperatively but should be used with precaution given the potential for side-effects such as sedation, hypoxia, and hypoventilation when used concurrently with pain medications including narcotics. Overactive bladder. May be impacted temporarily by anticholinergics use perioperatively. Will wait to resume her usual medications tomorrow Insomnia ( G 47.00 ). Chronic pre-existing condition present on admission. Will need to use any hypnotic agents carefully to avoid exacerbating her possible hypoventilation from her GIORGIO. Neuropathy ( G 62.9 ). Chronic pre-existing condition present on admission. Peripheral per records. Plan to continue previously prescribed medications for treatment and watch for recurrent or worsening symptoms. REVIEW OF SYSTEMS Constitutional: Denies shortness of breath nausea or chest pain Head/Neck: Denies headache Eye: Denies eye pain Ear/Nose/Mouth/Throat: Denies sore throat Neurologic: Denies focal weakness Cardiovascular: Denies chest pain or pressure Respiratory: Denies shortness of breath or dyspnea Gastrointestinal: Denies abdominal pain or cramping Genitourinary: Denies urinary retention or incomplete voiding Skin: Denies rash VITALS : Visit Vitals BP 117/62 Pulse 96 Temp 36.2 C (97.2 F) Resp 16 Ht 1.651 m (65 ) Wt 92 kg (202 lb 13.2 oz) SpO2 90% BMI 33.75 kg/m Smoking Status Never Smoker BSA 1.99 m PHYSICAL EXAM : General - Mild distress due to recent surgery; Sedation noted from anesthesia but conversational and lucid. Skin - Normal skin turgor and texture; No rashes or ulcerations noted Eyes - PERRLA; Anicteric Sclerae ENMT - Hearing intact; Oropharynx clear but dry Cardiology - No tachycardia noted; No peripheral edema noted Respiratory - Clear to auscultate bilaterally; No accessory muscle use noted; No wheezing noted Abdominal - Non-tender to palpation; Soft without obvious mass noted Musculoskeletal - No clubbing of digits noted; No cyanosis of digits noted Psychiatric - Appropriate affect given recent anesthesia, Alert and oriented to person, place, and situation RESULTS : LABS CBC CMP Results from last 7 days Lab Units 01/05/21 1405 POCT GLUCOSE mg/dL 81 No lab exists for component: LABALBU GLUCOSE No results found for: GLUART COAGULATION TESTS LIPID PANEL THYROID TESTS URINE ANALYSIS No results found for: URINE URINE CULTURE No results found for: URINECX BLOOD CULTURE No results found for: BLOODCX IMAGING STRESS TEST No results found for this or any previous visit. ECHOCARDIOGRAM No results found for this or any previous visit. CATHETERIZATION No results found for this or any previous visit. ELECTROPHYSIOLOGY RESULT No results found for this or any previous visit. VASCULAR RESULT No results found for this or any previous visit. CMP Lab Results Component Value Date GLUCOSE 81 01/05/2021 GLUCOSE @LABRCNT[HGBA1C:1@ No results found for: GLUART COAGULATION TESTS LIVER FUNCTION TESTS No results found for: AST No results found for: ALT No results found for: ALT, AST, GGT, ALKPHOS, BILITOT LIPID PANEL THYROID TESTS @LABCNT[TSH:5,T4:5,T3:5@ URINE ANALYSIS AND CULTURE @LABRCNT[URINE:1@ No results found for: URINECX ABG Admission on 01/05/2021 Component Date Value ABO Group 01/05/2021 A Rh Type 01/05/2021 Positive Antibody Screen 01/05/2021 Negative SARS-COV-2 Screen 01/05/2021 Not Detected Glucose POCT 01/05/2021 81 Body Fluid Source 01/05/2021 Synovial Body Fluid Clarity 01/05/2021 Hazy Body Fluid Color 01/05/2021 [place] Body Fluid RBC 01/05/2021 20,000 Body Fluid WBC 01/05/2021 400 IMAGING Recent Results (from the past 24 hour(s)) Type and screen Collection Time: 01/05/21 1:58 PM Result Value Ref Range ABO Group A Rh Type Positive Antibody Screen Negative POCT Glucose, blood Collection Time: 01/05/21 2:05 PM Result Value Ref Range Glucose POCT 81 70 - 99 mg/dL Rapid [id number], molecular Collection Time: 01/05/21 2:09 PM Specimen: Nasopharynx; Swab Result Value Ref Range SARS-COV-2 Screen Not Detected Not Detected Cell count with reflex differential, body fluid Collection Time: 01/05/21 3:11 PM Result Value Ref Range Body Fluid Source Synovial Body Fluid Clarity Hazy Body Fluid Color [place] Body Fluid RBC 20,000 /mm3 Body Fluid WBC 400 /mm3 STRESS TEST ECHOCARDIOGRAM EF 58% CATHETERIZATION Nonobstructive CAD CT SCAN RESULT MRI RESULT ULTRASOUND RESULT ELECTROPHYSIOLOGY RESULT No results found for this or any previous visit. VASCULAR RESULT No results found for this or any previous visit. documented in this encounter [facility] 01-06-2021 Hospital course Narrative Surgeon provided folder for discharge with post operative instructions and prescriptions. Please follow instructions! Prescriptions: OPPT, tramadol, aspirin, tylenol, celebrex, keflex, oxycodone. Please call Surgeon's office IR[facility] to schedule 2- 3 week follow up appointment. Reach out sooner for any questions/ concerns Pre-Surgery Instructions: Medication Instructions amitriptyline (ELAVIL) 25 mg tablet Continue to take as ordered/prescribed by your pcp ASPIRIN ORAL Continue to take as ordered/prescribed by your pcp cholecalciferol (VITAMIN D-3) 25 mcg (1,000 unit) capsule Continue to take as ordered/prescribed by your pcp docusate sodium (COLACE) 100 mg capsule Continue to take as ordered/prescribed by your pcp DULoxetine (CYMBALTA) [address] capsule Continue to take as ordered/prescribed by your pcp gabapentin (NEURONTIN) 800 mg tablet Continue to take as ordered/prescribed by your pcp ibuprofen (ADVIL,MOTRIN) 200 mg tablet Continue to take as ordered/prescribed by your pcp loratadine (CLARITIN) 10 mg tablet Continue to take as ordered/prescribed by your pcp meloxicam (MOBIC) 15 mg tablet Other (see Additional Instructions) omeprazole OTC (PriLOSEC OTC) 20 mg EC tablet Take morning of surgery with sip of water, no other fluids oxybutynin (DITROPAN) 5 mg tablet Continue to take as ordered/prescribed by your pcp traMADoL (Ultram) 50 mg tablet Continue to take as ordered/prescribed by your pcp atenolol (TENORMIN ORAL) Take morning of surgery with sip of water, no other fluids estradioL (ESTRACE) 1 mg tablet Other (see Additional Instructions) furosemide (LASIX ORAL) Continue to take as ordered/prescribed by your pcp melatonin 10 mg tablet Continue to take as ordered/prescribed by your pcp Additional Instructions: Instructions to prepare for surgery: Increase water intake day PRIOR to surgery. Eat light meals or follow surgeon specific food instructions day PRIOR to surgery. At Midnight, nothing is allowed in your mouth. NO food, water, gum, candy, coffee, mints, tobacco, NOTHING AFTER MIDNIGHT. When you wake up, brush your teeth and use mouthwash. Don't swallow. Take small sip of water with meds that are to be taken DOS. Shower night prior and morning of surgery with antibiotic cleanser OR Dial antibacterial soap (as designated by surgeon). No lotions, creams, powders on your skin. You may wear deodorant (unless surgery is on your shoulder or breast(s)). No shaving surgical site (within 48 hours of surgery). Remove all jewelry, piercings and leave that at home. Leave valuable at home. Wear loose fitting clothes. Bring photo ID, medical insurance card, and copay as needed when you check in for surgery. In addition, bring any of the following: CPAP, living will/ medical POA, glasses, case, hearing aid container, shoulder sling, back brace, walker, cervical collar. Bring your COVID vaccine card, if applicable. Leave walker &/or cane (unless needed prior to surgery) and overnight bag in the car until after your procedure when you are assigned a room. Only 1 designated adult is allowed to go back into Pre-Op area with you. Surgical times are subject to change up until 5:30pm the evening prior to your surgery. Check in at receptionist/telephone operator desk [id number] [facility], [place] [address]. Last meloxicam on 12-26-2020 Last estradiol on 12-23-2020 If Outpatient, these additional instructions apply: An adult must stay with you the whole time you are here and drive you home. An adult must stay with you at home for 24 hours due to Anesthesia. If you have GIORGIO, you are required to stay 3 hours after your surgery before we can discharge you. documented in this encounter [facility] 01-05-2021 History and physical note History and Physical Update ( H&P completed within the previous thirty days ) I personally reviewed the History and Physical, interviewed and examined the patient prior to surgery. No changes have occurred in the patient's condition since the History and Physical was completed. 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 PROCEDURE: Left total knee revision. The revision was performed utilizing the Link small Endo-Model prosthesis with Biomet bone cement fixation. SURGEON: Osei Conway MD MEDICAL STAFF DIRECTOR: Sha Diaz PA-C and Dr. Gilmer Burton. The assistance of Mr. Diaz and Dr. Burton were required to assist with the preoperative planning, the preoperative positioning, the perioperative manipulating of the extremity and the postoperative closing, etc. ANESTHESIA: General with adductor canal and iPACK block. ESTIMATED BLOOD LOSS: 100 mL FLUIDS: 2100 mL. LOCAL: 60 mL of 0.5% Naropin and 0.5 mL of epinephrine 1:1000. HISTORY OF OPERATIVE REPORT: The patient is a 65-year-old female who presents to us with severe pain and discomfort involving her left knee. She has undergone multiple procedures, most recent a cadaver reconstruction of her extensor mechanism, which is failing. The knee is giving way. We decided to proceed after workup with a revision reimplantation. The patient sustained a fall and fractured her proximal tibia, which we immobilized then in a long leg cast. We feel the fracture site has healed sufficiently and therefore, we suggest revision with removal of this implant and placement of a Link Endo-Model. DESCRIPTION OF PROCEDURE: We proceeded to perform an arthrotomy and perform a subtotal synovectomy to remove fluid. At this point, we then violated the prosthetic cement interface of the femur and the tibia to remove these components. We debrided the canals of polymethyl methacrylate. For the tibia, we used hand tools, Ultradrive. We then broached the canals and seated a small tibia and a small femur, it appeared to articulate satisfactorily. We removed these trial components. We placed cement restrictors in the femur and the tibia. We mixed the Biomet bone cement. We pressurized into the tibia and the femur to seat the small components. This is a Link small femur, Link small tibia, removal of extraneous cement and allowed the cement to cure. We now articulate these components together and placed antiluxation polyethylene to bring the knee to full extension. At this point, we now need to deal with the extensor mechanism, which appears to have a rupture in it at the juncture of the quad tendon, so we cut across the tendinous material right at the junction of the host and the allograft. We then sliced the remaining portion of the host tendon and quad and rectus and placed the distal portion into the proximal portion tightening this up very nicely with some interrupted Ethibond in a simple interrupted Nurolon. We then mobilized the vastus medialis obliquus up medially and distally in order to get a nice tight fit and closure, and we do some interrupted Vicryl and [id number] sutures. This was all secure. We have done a very extensive closure. We have closed over a drain. We then closed the subcutaneous tissue. We closed the skin with gideon. We placed bulky dressing over the incision. The patient was taken to the postanesthesia care unit in satisfactory condition. Roentgenographs show satisfactory position of all components. The assistance of Anil Diaz and Mr. Burton was certainly needed in the performance of this operation as well as closure of the wound, etc. OSEI CONWAY MD TT: 01/06/2021 04:37:00 AL/LAILA documented in this encounter [facility] 09-24-2020 Hospital Progress note Patient: ALEYDA DALTON MRN: [id number] Age: 65 years Sex: Female : 1955 Associated Diagnoses: None Author: Pa Baeza MD Assessment Assessment Diagnosis: Osteoarthritis ([id number] M19.90, Working, Medical). Plan Left Tibial and Fibular Fractures: Evaluated by Dr. Conway and underwent knee aspiration and left LE casting with bone stimulator placement. This patient will not be having surgery at this time per the Orthopedic service. -Patient reports significant heel pain, I increased her gabapentin from 800 twice daily to 800 3 times daily on 09/22 to assist with what sounds like a neuropathic complaint with burning needling pain of the heel. She appears much more comfortable today!! Home on this dose. She can be down titrated back to her original home dose postoperatively by her primary care doctor - nursing notes reviewed no significant abnormalities reported or noted except as detailed below - pain control with iv narcotics initially and converting to orals as able prior to discharge with with iv for btp only Medically acceptable for discharge once meets discharge criteria as detailed in orders. I have reviewed and reconciled medications except for antibiotics, pain medications and dvt prophylaxis which I defer to primary surgical service. This patient has no active cardiac conditions and would be considered at low risk for a major adverse cardiac event (MACE) based on revised cardiac risk index (RCRI) score of 1. This patient has an activity level greater than 4 METS, and thus would be considered at acceptable cardiac risk based on 2014 [place] [employer] [employer] (ACC/AHA) guideline on perioperative cardiovascular evaluation and management of patient undergoing noncardiac surgery. She does have a tissue aortic valve replacement from July 2019. She is seen on a yearly basis and had an echocardiogram several months ago. Deep venous thrombosis prophylaxis: DVT prophylaxis is deferred to the primary surgical service per protocol. The use of current ACCP guidelines is recommended. Encourage lower extremity venous return exercises. Pain control: Short acting oral narcotics, as well as IV Dilaudid, have been ordered, to be adjusted as indicated. Appeared comfortable on currently ordered pain medication on rounds 09/21. Aortic valve replacement - this was in July 2019. 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 She was seen a few months ago and had a stable echocardiogram. This was all done in the [place] area. She is on atenolol and Lasix. Aspirin should be resumed soon as possible for additional cardioprotection. -Denied cardiopulmonary symptoms on rounds 09/21. Continue to follow. Hypertension(I10) - Continue home medications, atenolol and will add as needed clonidine post-operatively for blood pressure elevations. -Continues to have labile blood pressure mostly controlled with intermittent elevations due to pain and activity. Follow-up with primary care doctor after discharge for surveillance and management GERD(K21.9) - restarted home regimen. This will help reduce any aspiration risk postoperatively. No symptoms of dyspepsia or nausea again today. Constipation - resolved. She had several large BMs 09/20/2020 and she feels much better. Continue current bowel regimen as ordered. Depression(F32.9) - restart home medications post-op. She was on duloxetine and amitriptyline preoperatively. She also uses for pain. This regimen was working well at home. GIORGIO(G47.33) - close monitoring post-op, continue CPAP/BIPAP at home settings. Chief Complaint Postoperative Medical Care Postoperative Information Postoperative Follow Up Postoperative Follow Up: Day 7. Health Status Allergies Allergic Reactions (Selected) Severity Not Documented HydroCHLOROthiazide- Dizziness. Metoprolol- Dizziness. Subjective No events overnight. Denies chest pain shortness of breath or other concerning symptoms. Tolerating diet spontaneously voiding urine and passing gas Objective Last Charted Vital Signs Temperature: 96.4 (09/24 05:52) Pulse: 70 (09/24 05:52) Respiration: 16 (09/24 05:52) BP: 146/84 (09/24 05:52) Pulse Ox: 95 (09/24 05:52) Oxygen Delivery: Room air (09/23 19:13) Pain Score: 0 (09/23 15:15) General - No Apparent Distress, conversant Skin - No Rash, Normal Turgor Cardiovascular - Regular Rate and Rhythm, No Murmurs, Gallops or Rubs, No Peripheral Edema Respiratory - CTA, Normal Resp. Effort, no increased work of breathing or accessory muscle use GI - Soft Nontender, Nondistended, Positive Bowel Sounds, No Hepatosplenomegaly, Neg RTRG Musculoskeletal - Dorsiflexion Intact, No Calf Tenderness, neg Cyanosis/Clubbing/Edema Neuro - neg FND, CNii-xii intact Psych - A and Ox3, Appropriate Mood and Affect HEENT - trachea midline, face symmetric Eyes - EOMI, sclera nonicteric and not injected Intake a (more content not included)... [facility] 09-24-2020 Physician Hospital Discharge summary CLINICAL SUMMARY Please take this summary document to your follow up appointments. [facility] 09/24/20 14:39 [address] [place]. [address] PATIENT INFORMATION Name: ALEYDA DALTON [address]: [address] [place] [id number] Age: 65 Years Phone: [phone] : 1955 12:00 MRN: [id number] Sex: Female Race: White Ethnicity: Unknown Admitted From: [facility] Other Hospital Medical Service: Orthopedic Surgery Nurse Unit/Bed: ([place]) 2N 0204-01 Admit Date: 09/17/2020 14:49 PCP: Physician, PCP Unknown PHYSICIANS INVOLVED WITH CARE Attending Physicians: Lavonne Nelson MD , Osei - Orthopaedic Surg Admitting Physician: None found Primary Care Physician:Physician, PCP Unknown,Family Practice,,, - Consults: Corrina CONNELLY , Colby Schuster - Internal Medicine Tai CONNELLY , Reyes Barriga - Internal Medicine Rico CONNELLY , Karime Angel - Internal Medicine Emm[place], DIAN - Internal Medicine Felisha CONNELLY , Pa Zarate - Internal Medicine Problems No Problems Documented Allergies hydroCHLOROthiazide (Dizziness) metoprolol (Dizziness) Procedures No Procedures Documented MEASUREMENTS: Last Charted: Weight: 88.60 kg /195 lbs 6 oz ( 09/17/20 15:57:00 ) VITAL SIGNS: Last Charted: Pulse Rate: 73 BPM (09/24 11:07) Blood Pressure: 131/70 mm Hg (09/24 11:07) Pain Score: 2(09/24 09:00) CODE STATUS: Full Resuscitation Comment: Provide all therapy to prevent/treat cardiac or respiratory arrest. Last Bowel Movement: Date/Time: 09/21 11:00 Formed Stool X: 1 MENTAL STATUS: Level of Conciousness: Alert (09/24 05:00) Orientation: Oriented x 4 (09/24 05:00) MEDICATIONS ORDERED / RECOMMENDED TO BE CONTINUED for: ALEYDA DALTON amitriptyline (amitriptyline 25 mg oral tablet) 1 Tab(s) By Mouth once a day. aspirin (aspirin 81 mg oral tablet) 1 Tab(s) By Mouth once a day. NOTES TO PATIENT: may resume in 6 weeks when twice a day aspirin finished atenolol (atenolol 25 mg oral tablet) 1 Tab(s) By Mouth once a day. cholecalciferol (Vitamin D3 2000 intl units oral capsule) 1 Capsule By Mouth once a day. DULoxetine (DULoxetine 30 mg oral delayed release capsule) 1 Capsule By Mouth once a day. estradiol (estradiol 1 mg oral tablet) 1 Tab(s) By Mouth once a day. NOTES TO PATIENT: Hold until after surgery and only then may resume 6 weeks after surgery to decrease the risk of blood clot fluticasone nasal (Flonase 50 mcg Nasal [place]) 50 Microgram Both Nostrils once a day as needed Sinus/Nasal Congestion. Freetext Medication (new prescriptions) NEW PRESCRIPTIONS TYLENOL ASPIRIN TRAMADOL OXYCODONE. furosemide (Lasix 40 mg oral tablet) 1 Tab(s) By Mouth Once Daily, Tuesday, , Tuesday. gabapentin (gabapentin 400 mg oral capsule) 2 Capsule By Mouth 3 Times a day. oxybutynin (oxybutynin 5 mg oral tablet) 1 Tab(s) By Mouth Twice a day. MEDICATION CHANGE DETAILS NEW MEDICATIONS Other Medications Freetext Medication (new prescriptions) NEW PRESCRIPTIONS TYLENOL ASPIRIN TRAMADOL OXYCODONE. Comment UPDATED MEDICATIONS Other Medications Start: aspirin (aspirin 81 mg oral tablet) 1 Tab(s) By Mouth once a day. NOTES TO PATIENT: may resume in 6 weeks when twice a day aspirin finished Comment Start: estradiol (estradiol 1 mg oral tablet) 1 Tab(s) By Mouth once a day. NOTES TO PATIENT: Hold until after surgery and only then may resume 6 weeks after surgery to decrease the risk of blood clot Comment Start: furosemide (Lasix 40 mg oral tablet) 1 Tab(s) By Mouth Once Daily, Tuesday, , Tuesday. Comment Start: gabapentin (gabapentin 400 mg oral capsule) 2 Capsule By Mouth 3 Times a day. Comment UNCHANGED MEDICATIONS Other Medications amitriptyline (amitriptyline 25 mg oral tablet) 1 Tab(s) By Mouth once a day. Comment atenolol (atenolol 25 mg oral tablet) 1 Tab(s) By Mouth once a day. Comment cholecalciferol (Vitamin D3 2000 intl units oral capsule) 1 Capsule By Mouth once a day. Comment DULoxetine (DULoxetine 30 mg oral delayed release capsule) 1 Capsule By Mouth once a day. Comment fluticasone nasal (Flonase 50 mcg Nasal [place]) 50 Microgram Both Nostrils once a day as needed Sinus/Nasal Congestion. Comment oxybutynin (oxybutynin 5 mg oral tablet) 1 Tab(s) By Mouth Twice a day. Comment STOP TAKING THESE MEDICATIONS casanthranol-docusate (Amanda-Colac (more content not included)... [facility] 09-24-2020 Note ID NOW COVID-19_[facility] [place]. [facility] 09-23-2020 Hospital Progress note Patient: ALEYDA DALTON MRN: [id number] Age: 65 years Sex: Female : 1955 Associated Diagnoses: None Author: Felisha CONNELLY , Pa Zarate Assessment Assessment Diagnosis: Osteoarthritis ([id number] M19.90, Working, Medical). Plan Left Tibial and Fibular Fractures: Evaluated by Dr. Conway and underwent knee aspiration and left LE casting with bone stimulator placement. This patient will not be having surgery at this time per the Orthopedic service. -Patient reports significant heel pain, I increased her gabapentin from 800 twice daily to 800 3 times daily on 09/22 to assist with what sounds like a neuropathic complaint with burning needling pain of the heel. She appears much more comfortable today!! Home on this dose - Labs reviewed nursing notes reviewed no significant abnormalities reported or noted except as detailed below - pain control with iv narcotics initially and converting to orals as able prior to discharge with with iv for btp only Medically acceptable for discharge once meets discharge criteria as detailed in orders. I have reviewed and reconciled medications except for antibiotics, pain medications and dvt prophylaxis which I defer to primary surgical service. This patient has no active cardiac conditions and would be considered at low risk for a major adverse cardiac event (MACE) based on revised cardiac risk index (RCRI) score of 1. This patient has an activity level greater than 4 METS, and thus would be considered at acceptable cardiac risk based on 2014 [place] [employer] [employer] (ACC/AHA) guideline on perioperative cardiovascular evaluation and management of patient undergoing noncardiac surgery. She does have a tissue aortic valve replacement from July 2019. She is seen on a yearly basis and had an echocardiogram several months ago. Deep venous thrombosis prophylaxis: DVT prophylaxis is deferred to the primary surgical service per protocol. The use of current ACCP guidelines is recommended. Encourage lower extremity venous return exercises. Pain control: Short acting oral narcotics, as well as IV Dilaudid, have been ordered, to be adjusted as indicated. Appeared comfortable on currently ordered pain medication on rounds 09/21. Aortic valve replacement - this was in July 2019. 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 She was seen a few months ago and had a stable echocardiogram. This was all done in the [place] area. She is on atenolol and Lasix. Aspirin should be resumed soon as possible for additional cardioprotection. -Denied cardiopulmonary symptoms on rounds 09/21. Continue to follow. Hypertension(I10) - Continue home medications, atenolol and will add as needed clonidine post-operatively for blood pressure elevations. -Continues to have labile blood pressure mostly controlled with intermittent elevations due to pain and activity. Follow-up with primary care doctor for surveillance and management GERD(K21.9) - restarted home regimen. This will help reduce any aspiration risk postoperatively. No symptoms of dyspepsia or nausea again today. Constipation - resolved. She had several large BMs 09/20/2020 and she feels much better. Continue current bowel regimen as ordered. Depression(F32.9) - restart home medications post-op. She was on duloxetine and amitriptyline preoperatively. She also uses for pain. This regimen was working well at home. GIORGIO(G47.33) - close monitoring post-op, continue CPAP/BIPAP at home settings. Chief Complaint Postoperative Medical Care Postoperative Information Postoperative Follow Up Postoperative Follow Up: Day 6. Health Status Allergies Allergic Reactions (Selected) Severity Not Documented HydroCHLOROthiazide- Dizziness. Metoprolol- Dizziness. Subjective Markedly improved overnight. Pain much better controlled. In a better mood. Denies chest pain shortness of breath nausea vomiting or other concerning symptoms. Anticipating discharge today Objective Last Charted Vital Signs Temperature: 97.2 (09/23 07:54) Pulse: 69 (09/23 07:54) Respiration: 14 (09/23 07:54) BP: 172/72 (09/23 07:54) Pulse Ox: 99 (09/23 08:20) Oxygen Delivery: Room air (09/23 08:20) Pain Score: 5 (09/23 03:53) General - No Apparent Distress, conversant Skin - No Rash, Normal Turgor Cardiovascular - Regular Rate and Rhythm, No Murmurs, Gallops or Rubs, No Peripheral Edema Respiratory - CTA, Normal Resp. Effort, no increased work of breathing or accessory muscle use GI - Soft Nontender, Nondistended, Positive Bowel Sounds, No Hepatosplenomegaly, Neg RTRG Musculoskeletal - Dorsiflexion Intact, No Calf Tenderness, neg Cyanosis/Clubbing/Edema Neuro - neg FND, CNii-xii intact Psych - A and Ox3, Appropriate Mood and Affect HEENT - trachea midline, face symmetric Eyes - EOMI, sclera nonicteric and not injected Intake and Output (Previous 24Hrs) I and O Summary Begin date: (more content not included)... [facility] 09-22-2020 Hospital Progress note Patient: ALEYDA DALTON MRN: [id number] Age: 65 years Sex: Female : 1955 Associated Diagnoses: None Author: Pa Baeza MD Assessment Assessment Diagnosis: Osteoarthritis (LHG15-HC M19.90, Working, Medical). Plan Left Tibial and Fibular Fractures: Evaluated by Dr. Conway and underwent knee aspiration and left LE casting with bone stimulator placement. This patient will not be having surgery at this time per the Orthopedic service. -Patient reports significant heel pain, I have increased her gabapentin from 800 twice daily to 800 3 times daily to assist with what sounds like a neuropathic complaint with burning needling pain of the heel. - Labs reviewed nursing notes reviewed no significant abnormalities reported or noted except as detailed below - pain control with iv narcotics initially and converting to orals as able prior to discharge with with iv for btp only Medically acceptable for discharge once meets discharge criteria as detailed in orders. I have reviewed and reconciled medications except for antibiotics, pain medications and dvt prophylaxis which I defer to primary surgical service. This patient has no active cardiac conditions and would be considered at low risk for a major adverse cardiac event (MACE) based on revised cardiac risk index (RCRI) score of 1. This patient has an activity level greater than 4 METS, and thus would be considered at acceptable cardiac risk based on 2014 [place] [employer] [employer] (ACC/AHA) guideline on perioperative cardiovascular evaluation and management of patient undergoing noncardiac surgery. She does have a tissue aortic valve replacement from July 2019. She is seen on a yearly basis and had an echocardiogram several months ago. Deep venous thrombosis prophylaxis: DVT prophylaxis is deferred to the primary surgical service per protocol. The use of current ACCP guidelines is recommended. Encourage lower extremity venous return exercises. Pain control: Short acting oral narcotics, as well as IV Dilaudid, have been ordered, to be adjusted as indicated. Appeared comfortable on currently ordered pain medication on rounds 09/21. Aortic valve replacement - this was in July 2019. 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 She was seen a few months ago and had a stable echocardiogram. This was all done in the [place] area. She is on atenolol and Lasix. Aspirin should be resumed soon as possible for additional cardioprotection. -Denied cardiopulmonary symptoms on rounds 09/21. Continue to follow. Hypertension(I10) - Continue home medications, atenolol and will add as needed clonidine post-operatively for blood pressure elevations. - Acceptable inpatient control, last reading noted at 121/72 on 09/21. Continue home prescription antihypertensive medicines and as needed clonidine. GERD(K21.9) - restarted home regimen. This will help reduce any aspiration risk postoperatively. No symptoms of dyspepsia or nausea today. Constipation - resolved. She had several large BMs 09/20/2020 and she feels much better. Continue current bowel regimen as ordered. Depression(F32.9) - restart home medications post-op. She was on duloxetine and amitriptyline preoperatively. She also uses for pain. This regimen was working well at home. GIORGIO(G47.33) - close monitoring post-op, continue CPAP/BIPAP at home settings. Chief Complaint Postoperative Medical Care Postoperative Information Postoperative Follow Up Postoperative Follow Up: Day 5. Health Status Allergies Allergic Reactions (Selected) Severity Not Documented HydroCHLOROthiazide- Dizziness. Metoprolol- Dizziness. Subjective No events overnight denies cp/sob/n/v, pain controlled except for a significant pain in the heel on the casted side, + flatus, weaned off o2, tolerating diet and spont void without retention Objective Last Charted Vital Signs Temperature: 97.8 (09/22 04:30) Pulse: 76 (09/22 04:30) Respiration: 16 (09/21 19:56) BP: 136/83 (09/22 04:30) Pulse Ox: 92 (09/22 04:30) Oxygen Delivery: Room air (09/22 04:30) Pain Score: 2 (09/22 05:36) General - No Apparent Distress Skin - No Rash, Normal Turgor Cardiovascular - Regular Rate and Rhythm, No Murmurs, Gallops or Rubs, No Peripheral Edema Respiratory - CTA, Normal Resp. Effort GI - Soft Nontender, Positive Bowel Sounds, No Hepatosplenomegaly Musculoskeletal - Dorsiflexion Intact, No Calf Tenderness Neuro/Psych - A and Ox3, Appropriate Mood and Affect Intake and Output (Previous 24Hrs) I and O Summary Begin date: 09/21 07:20 End date: 09/22 07:20 24 Hour Intake: 0.00 Output: 900.00 Balance: -900.00 Last BM: 09/21/20 11:00 Results Review Labs - Last 36 hours (Max 2 / lab test) CHEMISTRY ____ Sodium No result Potassium No result Chlo (more content not included)... [facility] 09-21-2020 Hospital Progress note Patient: ALEYDA DALTON MRN: [id number] Age: 65 years Sex: Female : 1955 Associated Diagnoses: None Author: Reyes Lujan MD Assessment Assessment Diagnosis: Osteoarthritis ([id number] M15.9, Working, Medical). Plan Left Tibial and Fibular Fractures: Evaluated by Dr. Conway and underwent knee aspiration and left LE casting with bone stimulator placement. This patient will not be having surgery at this time per the Orthopedic service. This patient has no active cardiac conditions and would be considered at low risk for a major adverse cardiac event (MACE) based on revised cardiac risk index (RCRI) score of 1. This patient has an activity level greater than 4 METS, and thus would be considered at acceptable cardiac risk based on 2014 [place] [employer] [employer] (ACC/AHA) guideline on perioperative cardiovascular evaluation and management of patient undergoing noncardiac surgery. She does have a tissue aortic valve replacement from July 2019. She is seen on a yearly basis and had an echocardiogram several months ago. Deep venous thrombosis prophylaxis: DVT prophylaxis is deferred to the primary surgical service per protocol. The use of current ACCP guidelines is recommended. Encourage lower extremity venous return exercises. Pain control: Short acting oral narcotics, as well as IV Dilaudid, have been ordered, to be adjusted as indicated. Appeared comfortable on currently ordered pain medication on rounds 09/21. Aortic valve replacement - this was in July 2019. 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 She was seen a few months ago and had a stable echocardiogram. This was all done in the [place] area. She is on atenolol and Lasix. -Denied cardiopulmonary symptoms on rounds 09/21. Continue to follow. Hypertension(I10) - Continue home medications, atenolol and will add as needed clonidine post-operatively for blood pressure elevations. - Acceptable inpatient control, last reading noted at 121/72 on 09/21. Continue home prescription antihypertensive medicines and as needed clonidine. GERD(K21.9) - restart home regimen. This will help reduce any aspiration risk postoperatively. No symptoms today. Constipation - resolved. She had several large BMs yesterday and feels much better. Continue current bowel regimen as ordered. Depression(F32.9) - restart home medications post-op. She was on duloxetine and amitriptyline preoperatively. She also uses for pain. This regimen was working well at home. GIORGIO(G47.33) - close monitoring post-op, continue CPAP/BIPAP at home settings. Okay for discharge medically if meets criteria. I reviewed the home medications and reconciled these on our discharge form. The DVT prophylaxis and pain medications will be done by the primary surgical team. She will be going to a snf facility at discharge. Supervising Physician Comments Chief Complaint Medical co-management. Postoperative Information Postoperative Follow Up Postoperative Follow Up: Day 0. Health Status Allergies Allergic Reactions (Selected) Severity Not Documented HydroCHLOROthiazide- Dizziness. Metoprolol- Dizziness. Subjective Pain control: Mild left LE pain, adequately controlled Cardiovascular: Denies chest pain or chest pressure Respiratory: Denies dyspnea or cough Gastrointestinal: Denies abdominal pain, denies nausea or vomiting, reports passing flatus and having several large BMs over the past 24 hours Genitourinary: Denies dysuria, urine output as noted Neurological: Denied neurological deficits, or changes in strength or sensation Musculoskeletal: Defer to primary service Objective Last Charted Vital Signs Temperature: 97.4 (09/21 04:02) Pulse: 58 (09/21 04:02) Respiration: 16 (09/21 04:02) BP: 121/72 (09/21 04:02) Activity: Awake (09/21 04:02) Pulse Ox: 96 (09/21 04:02) Oxygen Delivery: Room air (09/20 19:21) Pain Score: 9 (09/20 22:59) General: Responds appropriately; no apparent distress Cardiovascular: Regular rate and rhythm; 3/6 early systolic murmur loudest at LLSB, no rub or gallop Respiratory: Clear to auscultation; normal respiratory effort Abdomen: Soft; non-distended; non-tender; bowel sounds normoactive Musculoskeletal: Defer to primary service Skin: No rashes Neurological: Alert and oriented x 3; appropriate mood and affect; follows commands/requests appropriately. Intake and Output (Previous 24Hrs) I and O Summary Begin date: 09/20 07:57 End date: 09/21 07:57 24 Hour Intake: 0.00 Output: 1400.00 Balance: -1400.00 Last BM: 09/20/20 19:00 Results Review Labs - Last 36 hours (Max 2 / lab test) CHEMISTRY ____ Sodium No result Potassium No result Chloride No result CO2 No result Glucose No result Glucose POCT No result BUN No resul (more content not included)... [facility] 09-20-2020 Hospital Progress note Patient: ALEYDA DALTON MRN: [id number] Age: 65 years Sex: Female : 1955 Associated Diagnoses: None Author: Tai CONNELLY , [facility] Assessment Assessment Diagnosis: Osteoarthritis ([id number] M15.9, Working, Medical). Plan Left Tibial and Fibular Fractures: Evaluated by Dr. Conway and underwent knee aspiration and left LE casting with bone stimulator placement. This patient will not be having surgery at this time per the Orthopedic service. This patient has no active cardiac conditions and would be considered at low risk for a major adverse cardiac event (MACE) based on revised cardiac risk index (RCRI) score of 1. This patient has an activity level greater than 4 METS, and thus would be considered at acceptable cardiac risk based on 2014 [place] [employer] [employer] (ACC/AHA) guideline on perioperative cardiovascular evaluation and management of patient undergoing noncardiac surgery. She does have a tissue aortic valve replacement from July 2019. She is seen on a yearly basis and had an echocardiogram several months ago. Deep venous thrombosis prophylaxis: DVT prophylaxis is deferred to the primary surgical service per protocol. The use of current ACCP guidelines is recommended. Encourage lower extremity venous return exercises. Pain control: Short acting oral narcotics, as well as IV Dilaudid, have been ordered, to be adjusted as indicated. Appeared comfortable on currently ordered pain medication on rounds 09/20. Aortic valve replacement-this was in July 2019. 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 She was seen a few months ago and had a stable echocardiogram. This was all done in the [place] area. She is on atenolol and Lasix. Denied cardiopulmonary symptoms on rounds 09/20. Continue to follow. Hypertension(I10) - Continue home medications, atenolol and will add as needed clonidine post-operatively for blood pressure elevations. - Acceptable inpatient control, last reading noted at 145/82 on 09/20. Continue home prescription antihypertensive medicines and as needed clonidine. GERD(K21.9) - restart home regimen. This will help reduce any aspiration risk postoperatively. No symptoms today. Constipation-she is on senna S and I increased it yesterday. She did pass flatus and will use as needed medications today. She did not want any further adjustments today. - Abdominal exam benign on rounds 09/20, without distention or tenderness. She is passing flatus and tolerating POs. Continue to follow on her current bowel regimen. Depression(F32.9) - restart home medications post-op. She was on duloxetine and amitriptyline preoperatively. She also uses for pain. This regimen was working well at home. GIORGIO(G47.33) - close monitoring post-op, continue CPAP/BIPAP at home settings. Okay for discharge medically if meets criteria. I reviewed the home medications and reconciled these on our discharge form. The DVT prophylaxis and pain medications will be done by the primary surgical team. She will be going to a snf facility at discharge. Supervising Physician Comments Chief Complaint Medical co-management. Postoperative Information Postoperative Follow Up Postoperative Follow Up: Day 0. Health Status Allergies Allergic Reactions (Selected) Severity Not Documented HydroCHLOROthiazide- Dizziness. Metoprolol- Dizziness. Subjective Pain control: Mild left LE pain, adequately controlled Cardiovascular: Denies chest pain or chest pressure Respiratory: Denies dyspnea or cough Gastrointestinal: Denies abdominal pain, denies nausea or vomiting, reports passing flatus Genitourinary: Denies dysuria, urine output as noted Neurological: Denied neurological deficits, or changes in strength or sensation Musculoskeletal: Defer to primary service Objective Last Charted Vital Signs Temperature: 97.9 (09/20 07:56) Pulse: 71 (09/20 07:56) Respiration: 16 (09/20 07:56) BP: 145/82 (09/20 07:56) Pulse Ox: 94 (09/20 04:09) Oxygen Delivery: Room air (09/19 19:27) Pain Score: 6 (09/19 17:15) General: Responds appropriately; no apparent distress Cardiovascular: Regular rate and rhythm; soft 2/6 early systolic murmur loudest at LLSB, no rub or gallop Respiratory: Clear to auscultation; normal respiratory effort Abdomen: Soft; non-distended; non-tender; bowel sounds normoactive Musculoskeletal: Defer to primary service Skin: No rashes Neurological: Alert and oriented x 3; appropriate mood and affect; follows commands/requests appropriately. Intake and Output (Previous 24Hrs) I and O Summary Begin date: 09/19 08:04 End date: 09/20 08:04 24 Hour Intake: 0.00 Output: 1800.00 Balance: -1800.00 Last BM: No BM Charted Results Review Labs - Last 36 hours (Max 2 / lab test) CHEMISTRY ____ Sodium (more content not included)... [facility] 09-19-2020 Hospital Progress note Patient: ALEYDA DALTON MRN: [id number] Age: 65 years Sex: Female : 1955 Associated Diagnoses: None Author: Colby Houser MD Assessment Assessment Diagnosis: Osteoarthritis ([id number] M15.9, Working, Medical). Plan This patient will not be having surgery and she had a knee aspiration and was put in a cast yesterday. Management per surgical service. Dr. Conway saw the patient today and she will get a knee aspiration and will be put in a cast with a bone stimulator. He is currently holding off on surgery. This patient has no active cardiac conditions and would be considered at low risk for a major adverse cardiac event (MACE) based on revised cardiac risk index (RCRI) score of 1. This patient has an activity level greater than 4 METS, and thus would be considered at acceptable cardiac risk based on 2014 [place] [employer] [employer] (ACC/AHA) guideline on perioperative cardiovascular evaluation and management of patient undergoing noncardiac surgery. She does have a tissue aortic valve replacement from July 2019. She is seen on a yearly basis and had an echocardiogram several months ago. Deep Vein Thrombosis prophylaxis per surgery team. Please follow the most recent ACCP guidelines. I ordered all of the home medications for the floor. I also ordered the pain regimen which included IV Dilaudid. The regimen will also include as needed Percocet, Tylenol and flexeril. She was on meloxicam, tramadol and gabapentin preoperatively. Pain is still well controlled. No changes in the drug regimen today. Aortic valve replacement-this was in July 2019. 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 She was seen a few months ago and had a stable echocardiogram. This was all done in the [place] area. She is on atenolol and Lasix. No cardiac symptoms today. Hypertension(I10) - Continue home medications, atenolol and will add as needed clonidine post-operatively for blood pressure elevations. Blood pressures are stable and the last was 134/72. GERD(K21.9) - restart home regimen. This will help reduce any aspiration risk postoperatively. No symptoms today. Constipation-she is on senna S and I increased it yesterday. She did pass flatus and will use as needed medications today. She did not want any further adjustments today. Deppresion(F32.9) - restart home medications post-op. She was on duloxetine and amitriptyline preoperatively. She also uses for pain. This regimen was working well at home. GIORGIO(G47.33) - close monitoring post-op, continue CPAP/BIPAP at home settings. Okay for discharge medically if meets criteria. I reviewed the home medications and reconciled these on our discharge form. The DVT prophylaxis and pain medications will be done by the primary surgical team. She will be going to a snf facility at discharge. Supervising Physician Comments Chief Complaint Postoperative Medical Care Postoperative Information Postoperative Follow Up Postoperative Follow Up: Day 0. Health Status Allergies Allergic Reactions (Selected) Severity Not Documented HydroCHLOROthiazide- Dizziness. Metoprolol- Dizziness. Subjective Patient indicates that pain is controlled. Review of Systems Constitutional: denies fever. Head/Neck: denies headache. Eye: denies eye pain. Ear/Nose/Mouth/Throat: denies sore throat. Neurologic: no focal, denies weakness. Cardiovascular: denies chest pain. Respiratory: denies dyspnea. Gastrointestinal: denies abdominal pain. Genitourinary: denies incomplete voiding. Skin: denies rash. Objective Last Charted Vital Signs Temperature: 97 (09/19 08:05) Pulse: 74 (09/19 08:05) Respiration: 12 (09/19 08:05) BP: 134/72 (09/19 08:05) Pulse Ox: 95 (09/19 08:05) Oxygen Delivery: Room air (09/18 22:14) Pain Score: 5 (09/19 07:29) General - No Apparant Distress Skin - No Rash, Normal Turgor Cardiovascular - RRR, No MGR, No Peripheral Edema Respiratory - CTA, Normal Resp. Effort GI - Soft Nontender, + BS, No HSM Musculoskeletal - Dorsiflexion Intact, No Calf Tenderness Neuro/Psych - A and Ox3, Appropiate Mood and Affect Intake and Output (Previous 24Hrs) I and O Summary Begin date: 09/18 08:09 End date: 09/19 08:09 24 Hour Intake: 0.00 Output: 2425.00 Balance: -2425.00 Last BM: No BM Charted Results Review Labs - Last 36 hours (Max 2 / lab test) CHEMISTRY ____ Sodium No result Potassium No result Chloride No result CO2 No result Glucose No result Glucose POCT No result BUN No result Creatinine No result Calcium Total No result Magnesium No result HEMATOLOGY ____ WBC No result RBC No result Hb No result Hematocrit No result Platelets No result MC (more content not included)... [facility] 09-18-2020 Hospital Progress note Patient: ALEYDA DALTON MRN: [id number] Age: 65 years Sex: Female : 1955 Associated Diagnoses: None Author: Colby Houser MD Assessment Assessment Diagnosis: Osteoarthritis ([id number] M15.9, Working, Medical). Plan Preoperative medical risk stratification indicates the patient is at acceptable risk for this time sensitive surgery. Labs, ECG and urine studies are normal for surgery. Management per surgical service. Dr. Conway saw the patient today and she will get a knee aspiration and will be put in a cast with a bone stimulator. He is currently holding off on surgery. This patient has no active cardiac conditions and would be considered at low risk for a major adverse cardiac event (MACE) based on revised cardiac risk index (RCRI) score of 1. This patient has an activity level greater than 4 METS, and thus would be considered at acceptable cardiac risk based on 2014 [place] [employer] [employer] (ACC/AHA) guideline on perioperative cardiovascular evaluation and management of patient undergoing noncardiac surgery. She does have a tissue aortic valve replacement from July 2019. She is seen on a yearly basis and had an echocardiogram several months ago. Deep Vein Thrombosis prophylaxis per surgery team. Please follow the most recent ACCP guidelines. I ordered all of the home medications for the floor. I also ordered the pain regimen which included IV Dilaudid. The regimen will also include as needed Percocet, Tylenol and flexeril. She was on meloxicam, tramadol and gabapentin preoperatively. Pain is currently controlled. Aortic valve replacement-this was in July 2019. 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 She was seen a few months ago and had a stable echocardiogram. This was all done in the [place] area. She is on atenolol and Lasix. Hypertension(I10) - Continue home medications, atenolol and will add as needed clonidine post-operatively for blood pressure elevations. Blood pressures are stable and the last was 143/81. GERD(K21.9) - restart home regimen. This will help reduce any aspiration risk postoperatively. No symptoms today. Constipation-she is on senna S and I increased it to 2 twice a day today. Depression(F32.9) - restart home medications post-op. She was on duloxetine and amitriptyline preoperatively. She also uses for pain. This regimen was working well at home. GIORGIO(G47.33) - close monitoring post-op, continue CPAP/BIPAP at home settings. Supervising Physician Comments Chief Complaint Postoperative Medical Care Postoperative Information Postoperative Follow Up Postoperative Follow Up: Day 0. Health Status Allergies Allergic Reactions (Selected) Severity Not Documented HydroCHLOROthiazide- Dizziness. Metoprolol- Dizziness. Subjective Patient indicates that pain is controlled. Review of Systems Constitutional: denies fever. Head/Neck: denies headache. Eye: denies eye pain. Ear/Nose/Mouth/Throat: denies sore throat. Neurologic: no focal, denies weakness. Cardiovascular: denies chest pain. Respiratory: denies dyspnea. Gastrointestinal: denies abdominal pain. Genitourinary: denies incomplete voiding. Skin: denies rash. Objective Last Charted Vital Signs Temperature: 97.6 (09/18 07:51) Pulse: 82 (09/18 07:51) Respiration: 14 (09/18 07:51) BP: 143/81 (09/18 07:51) Pulse Ox: 99 (09/18 07:51) Oxygen Delivery: Room air (09/18 02:36) Pain Score: 10 (09/18 06:34) General - No Apparant Distress Skin - No Rash, Normal Turgor Cardiovascular - RRR, No MGR, No Peripheral Edema Respiratory - CTA, Normal Resp. Effort GI - Soft Nontender, + BS, No HSM Musculoskeletal - Dorsiflexion Intact, No Calf Tenderness Neuro/Psych - A and Ox3, Appropiate Mood and Affect Intake and Output (Previous 24Hrs) I and O Summary Begin date: 09/17 08:12 End date: 09/18 08:12 24 Hour Intake: 0.00 Output: 950.00 Balance: -950.00 Last BM: No BM Charted Results Review Labs - Last 36 hours (Max 2 / lab test) CHEMISTRY ____ Sodium 135 (09/17 18:10) Potassium 4.1 (09/17 18:10) Chloride 97 (09/17 18:10) CO2 29 (09/17 18:10) Glucose 155 (09/17 18:10) Glucose POCT No result BUN 15 (09/17 18:10) Creatinine 1.00 (09/17 18:10) Calcium Total 9.0 (09/17 18:10) Magnesium No result HEMATOLOGY ____ WBC 9.1 (09/17 18:10) RBC 3.78 (09/17 18:10) Hb 11.6 (09/17 18:10) Hematocrit 34.3 (09/17 18:10) Platelets 287 (09/17 18:10) MCV 90.7 (09/17 18:10) MCH 30.8 (09/17 18:10) RDW 15.6 (09/17 18:10) MCHC 33.9 (09/17 18:10) Neutrophil Ab 6.3 (09/17 18:10) Monocyte Ab 0.7 (09/17 18:10) Eosinophil Ab 0.2 (09/17 18:10) Basophil Ab 0.1 (09/17 18:10) Lymphocyte Ab 1.9 (09/17 18:10) (more content not included)... [facility] 09-18-2020 Bacteria identified Sterile body fluid culture Nom (Unsp spec) [facility] Microbiology PROCEDURE: Culture Body Fluid + Susceptibility + Smear Direct SOURCE: Joint Fl BODY SITE: COLLECTED DATE/TIME: 09/18/2020 06:40 EDT RECEIVED DATE/TIME: 09/18/2020 06:40 EDT START DATE/TIME: 09/18/2020 06:40 EDT FREE TEXT SOURCE: JOINT FLUID-LT KNEE INTERFACED REPORTS Final Report [] Verified Date/Time/Personnel: 09/21/2020 12:01 EDT CONTRIBUTOR_SYSTEM, CO_PN NO GROWTH AFTER 72 HOURS Preliminary Report [] Verified Date/Time/Personnel: 09/20/2020 11:07 EDT CONTRIBUTOR_SYSTEM, [employer]_PN NO GROWTH AFTER 48 HOURS FINAL TO FOLLOW Preliminary Report [] Verified Date/Time/Personnel: 09/19/2020 10:37 EDT CONTRIBUTOR_SYSTEM, [employer]_PN NO GROWTH AT 12-24 HOURS Gram Stain [] Verified Date/Time/Personnel: 09/18/2020 23:24 EDT CONTRIBUTOR_SYSTEM, CO_PN FEW POLYS No Epithelials NO ORGANISMS SEEN [facility] documented as of this encounter (statuses as of 11/02/2021) [facility]05-22-2020 History of Past illness Narrative* Problem Noted Date Resolved Date Transient alteration of awareness 08/03/2019 02/19/2021 Overview: History: s/p AVR 07/30/2019 . 2CLOT called for altered mental status and limited movements.sSeen and evaluated by Neuro Stroke team at 12:48 PM. Hx.of surgery on her LLE w/ residual weakness -Per note: equal and symmetric movements throughout (likely LLE weakness is in the setting of prior surgery), unlikely to be having an acute stroke. Negative myoclonus and AMS is more likely 2/2 to recent opioid use. - Check CT Head w/o contrast - If AMS continues, consider BEM - Recommend thiamine supplementation for slightly restricted EOM Assessment: no acute issues Plan: spoke to neurology she does not need to follow up unlesss symptoms reoccur Stress hyperglycemia 07/30/2019 08/02/2019 Overview: History: No prior Hx of DM. Postop. Assessment: Perioperative insulin resistance and exacerbation of hyperglycemia. Plan: Some elevated blood sugars on 07/30, monitor trends. Continue SSI. Endo consult if blood sugars remain elevated. Pre-op testing 07/27/2019 08/02/2019 Overview[facility] Surgeon: Colby Miles M.D. Informed Consent Completed: Yes STS Score: CAD: No Is intended procedure a CABG: No - is a beta rossi ordered? No - reason: not indicated H & P completed: Yes PA/LAT: Completed CT: Completed MRI: Completed LE US: N/A Cath: Yes - reviewed: Yes EKG: Completed Is patient on Amiodarone? No Echo:Completed EF %: 55 PI's: N/A Carotid: N/A Mapping: N/A Dental: Completed PFT's: Completed UA: neg nitrates HCG:N/A ABO/ABO Confirmed: Yes Blood ordered: No Willing to accept blood: SA Swab: Yes - results: Pending Last Dose of Anticoagulation: Mobic and OTC 07/24/2019 Op Note: N/A Pacemaker Check: N/A Implants: no Consults: none DM: No Cardiac Surgical prep: N/A SIGNATURE: Luanne Richards APRN.CNP DATE of SERVICE: 07/27/2019 TIME of SERVICE: 2:43 PM CHECKED BY: documented as of this encounter (statuses as of 11/08/2021) [facility]-2020 History of Past illness Narrative* Problem Noted Date Resolved Date Transient alteration of awareness 08/03/2019 02/19/2021 Overview: History: s/p AVR 07/30/2019 . 2CLOT called for altered mental status and limited movements.sSeen and evaluated by Neuro Stroke team at 12:48 PM. Hx.of surgery on her LLE w/ residual weakness -Per note: equal and symmetric movements throughout (likely LLE weakness is in the setting of prior surgery), unlikely to be having an acute stroke. Negative myoclonus and AMS is more likely 2/2 to recent opioid use. - Check CT Head w/o contrast - If AMS continues, consider BEM - Recommend thiamine supplementation for slightly restricted EOM Assessment: no acute issues Plan: spoke to neurology she does not need to follow up unlesss symptoms reoccur Stress hyperglycemia 07/30/2019 08/02/2019 Overview: History: No prior Hx of DM. Postop. Assessment: Perioperative insulin resistance and exacerbation of hyperglycemia. Plan: Some elevated blood sugars on 07/30, monitor trends. Continue SSI. Endo consult if blood sugars remain elevated. Pre-op testing 07/27/2019 08/02/2019 [facility] Surgeon: Colby Miles M.D. Informed Consent Completed: Yes STS Score: CAD: No Is intended procedure a CABG: No - is a beta rossi ordered? No - reason: not indicated H & P completed: Yes PA/LAT: Completed CT: Completed MRI: Completed LE US: N/A Cath: Yes - reviewed: Yes EKG: Completed Is patient on Amiodarone? No Echo:Completed EF %: 55 PI's: N/A Carotid: N/A Mapping: N/A Dental: Completed PFT's: Completed UA: neg nitrates HCG:N/A ABO/ABO Confirmed: Yes Blood ordered: No Willing to accept blood: SA Swab: Yes - results: Pending Last Dose of Anticoagulation: Mobic and OTC 07/24/2019 Op Note: N/A Pacemaker Check: N/A Implants: no Consults: none DM: No Cardiac Surgical prep: N/A SIGNATURE: Luanne Richards APRN.CNP DATE of SERVICE: 07/27/2019 TIME of SERVICE: 2:43 PM CHECKED BY: documented as of this encounter (statuses as of 11/10/2021) [facility]05-[facility]-2020 History of Past illness Narrative* Problem Noted Date Resolved Date Transient alteration of awareness 08/03/2019 02/19/2021 Overview: History: s/p AVR 07/30/2019 . 2CLOT called for altered mental status and limited movements.sSeen and evaluated by Neuro Stroke team at 12:48 PM. Hx.of surgery on her LLE w/ residual weakness -Per note: equal and symmetric movements throughout (likely LLE weakness is in the setting of prior surgery), unlikely to be having an acute stroke. Negative myoclonus and AMS is more likely 2/2 to recent opioid use. - Check CT Head w/o contrast - If AMS continues, consider BEM - Recommend thiamine supplementation for slightly restricted EOM Assessment: no acute issues Plan: spoke to neurology she does not need to follow up unlesss symptoms reoccur Stress hyperglycemia 07/30/2019 08/02/2019 Overview: History: No prior Hx of DM. Postop. Assessment: Perioperative insulin resistance and exacerbation of hyperglycemia. Plan: Some elevated blood sugars on 07/30, monitor trends. Continue SSI. Endo consult if blood sugars remain elevated. Pre-op testing 07/27/2019 08/02/2019 Overview: [facility] Surgeon: Colby Miles M.D. Informed Consent Completed: Yes STS Score: CAD: No Is intended procedure a CABG: No - is a beta rossi ordered? No - reason: not indicated H & P completed: Yes PA/LAT: Completed CT: Completed MRI: Completed LE US: N/A Cath: Yes - reviewed: Yes EKG: Completed Is patient on Amiodarone? No Echo:Completed EF %: 55 PI's: N/A Carotid: N/A Mapping: N/A Dental: Completed PFT's: Completed UA: neg nitrates HCG:N/A ABO/ABO Confirmed: Yes Blood ordered: No Willing to accept blood: SA Swab: Yes - results: Pending Last Dose of Anticoagulation: Mobic and OTC 07/24/2019 Op Note: N/A Pacemaker Check: N/A Implants: no Consults: none DM: No Cardiac Surgical prep: N/A SIGNATURE: Luanne Richards APRN.CNP DATE of SERVICE: 07/27/2019 TIME of SERVICE: 2:43 PM CHECKED BY: documented as of this encounter (statuses as of 11/19/2021) [facility] History of Past illness Narrative* Problem Noted Date Resolved Date Transient alteration of awareness 08/03/2019 02/19/2021 Overview: History: s/p AVR 07/30/2019 . 2CLOT called for altered mental status and limited movements.sSeen and evaluated by Neuro Stroke team at 12:48 PM. Hx.of surgery on her LLE w/ residual weakness -Per note: equal and symmetric movements throughout (likely LLE weakness is in the setting of prior surgery), unlikely to be having an acute stroke. Negative myoclonus and AMS is more likely 2/2 to recent opioid use. - Check CT Head w/o contrast - If AMS continues, consider BEM - Recommend thiamine supplementation for slightly restricted EOM Assessment: no acute issues Plan: spoke to neurology she does not need to follow up unlesss symptoms reoccur Stress hyperglycemia 07/30/2019 08/02/2019 Overview: History: No prior Hx of DM. Postop. Assessment: Perioperative insulin resistance and exacerbation of hyperglycemia. Plan: Some elevated blood sugars on 07/30, monitor trends. Continue SSI. Endo consult if blood sugars remain elevated. Pre-op testing 07/27/2019 08/02/2019 Overview: [facility] Surgeon: Colby Miles M.D. Informed Consent Completed: Yes STS Score: CAD: No Is intended procedure a CABG: No - is a beta rossi ordered? No - reason: not indicated H & P completed: Yes PA/LAT: Completed CT: Completed MRI: Completed LE US: N/A Cath: Yes - reviewed: Yes EKG: Completed Is patient on Amiodarone? No Echo:Completed EF %: 55 PI's: N/A Carotid: N/A Mapping: N/A Dental: Completed PFT's: Completed UA: neg nitrates HCG:N/A ABO/ABO Confirmed: Yes Blood ordered: No Willing to accept blood: SA Swab: Yes - results: Pending Last Dose of Anticoagulation: Mobic and OTC 07/24/2019 Op Note: N/A Pacemaker Check: N/A Implants: no Consults: none DM: No Cardiac Surgical prep: N/A SIGNATURE: Luanne Richards APRN.CNP DATE of SERVICE: 07/27/2019 TIME of SERVICE: 2:43 PM CHECKED BY: documented as of this encounter (statuses as of 12/11/2021) [facility] History of Past illness Narrative* Problem Noted Date Resolved Date Transient alteration of awareness 08/03/2019 02/19/2021 Overview: History: s/p AVR 07/30/2019 . 2CLOT called for altered mental status and limited movements.sSeen and evaluated by Neuro Stroke team at 12:48 PM. Hx.of surgery on her LLE w/ residual weakness -Per note: equal and symmetric movements throughout (likely LLE weakness is in the setting of prior surgery), unlikely to be having an acute stroke. Negative myoclonus and AMS is more likely 2/2 to recent opioid use. - Check CT Head w/o contrast - If AMS continues, consider BEM - Recommend thiamine supplementation for slightly restricted EOM Assessment: no acute issues Plan: spoke to neurology she does not need to follow up unlesss symptoms reoccur Stress hyperglycemia 07/30/2019 08/02/2019 Overview: History: No prior Hx of DM. Postop. Assessment: Perioperative insulin resistance and exacerbation of hyperglycemia. Plan: Some elevated blood sugars on 07/30, monitor trends. Continue SSI. Endo consult if blood sugars remain elevated. Pre-op testing 07/27/2019 08/02/2019 Overview: [facility] Surgeon: Colby Miles M.D. Informed Consent Completed: Yes STS Score: CAD: No Is intended procedure a CABG: No - is a beta rossi ordered? No - reason: not indicated H & P completed: Yes PA/LAT: Completed CT: Completed MRI: Completed LE US: N/A Cath: Yes - reviewed: Yes EKG: Completed Is patient on Amiodarone? No Echo:Completed EF %: 55 PI's: N/A Carotid: N/A Mapping: N/A Dental: Completed PFT's: Completed UA: neg nitrates HCG:N/A ABO/ABO Confirmed: Yes Blood ordered: No Willing to accept blood: SA Swab: Yes - results: Pending Last Dose of Anticoagulation: Mobic and OTC 07/24/2019 Op Note: N/A Pacemaker Check: N/A Implants: no Consults: none DM: No Cardiac Surgical prep: N/A SIGNATURE: Luanne Richards APRN.CNP DATE of SERVICE: 07/27/2019 TIME of SERVICE: 2:43 PM CHECKED BY: documented as of this encounter (statuses as of 03/01/2022) [facility] No data available for this section [facility] Evaluation note* Diagnosis Periprosthetic fracture around internal prosthetic left knee joint, subsequent encounter Presence of left artificial knee joint Unilateral primary osteoarthritis, left knee Osteoarthritis of right knee Osteoarthrosis, unspecified whether generalized or localized, lower leg documented in this encounter [facility] note* Diagnosis Periprosthetic fracture around internal prosthetic left knee joint, initial encounter documented in this encounter [facility] note* Diagnosis Demyelinating disease of central nervous system (HCC)- Primary Demyelinating disease of central nervous system, unspecified documented in this encounter [facility] note* Diagnosis 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 Unspecified disorder of optic nerve and visual pathways documented in this encounter [facility] note* Diagnosis Multiple sclerosis (HCC)- Primary Multiple sclerosis Ocular migraine Other forms of migraine, without mention of intractable migraine without mention of status migrainosus Posterior vitreous detachment of both eyes Vitreous degeneration Lamellar macular hole of both eyes Macular cyst, hole, or pseudohole of retina Combined form of age-related cataract, both eyes documented in this encounter [facility] note* Diagnosis Demyelinating disease of central nervous system (HCC) Demyelinating disease of central nervous system, unspecified documented in this encounter [facility] note* Diagnosis Demyelinating disease of central nervous system (HCC) Demyelinating disease of central nervous system, unspecified documented in this encounter [facility] note* Diagnosis Chronic fatigue- Primary Other malaise and fatigue Frequent falls Personal history of fall documented in this encounter [facility] note* Diagnosis Fall, initial encounter- Primary Left hip pain Pain in joint, pelvic region and thigh Injury of head, initial encounter Urinary tract infection without hematuria, site unspecified documented in this encounter [facility] note* Diagnosis Acute cystitis without hematuria- Primary Acute cystitis Sprain of left wrist, initial encounter Frequent falls Personal history of fall [facility]* Attachments The following attachments cannot be sent through Care Everywhere. * Pain Post-Surgery: Acute ([place]) * Fall Prevention ([place]) * DVT (Deep Vein Thrombosis): Prevention: General Info ([place]) * Constipation ([place]) * Incentive Spirometer: General Info ([place]) * Antibiotics: General Info ([place]) [facility] No data available for this section [facility] Discharge instructions* Attachments The following attachments cannot be sent through Care Everywhere. * Fall Prevention at Home ([facility]) ([place]) * Wrist Sprain ([place]) * RICE: General Info ([place]) * Urinary Tract Infection (UTI) in Women - Translations ([facility]) ([place]) [facility] No data available for this section [facility] reason for visit Narrative* Auth/Cert Specialty Diagnoses / Procedures Referred By Mindy t Referred To Contact Diagnoses Periprosthetic fracture around internal prosthetic left knee joint, subsequent encounter Presence of left artificial knee joint Unilateral primary osteoarthritis, left knee Procedures left total knee revision arthroplasty Osei Conway MD 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 Reason for Referral Specialty Diagnoses / Procedures Referred By Mindy t Referred To Contact Radiology Diagnoses Periprosthetic fracture around internal prosthetic left knee joint, initial encounter Procedures CT Lower Extremity wo Contrast Left Nita Saini NP [address] [place] [address] [facility] [place] Referral ID Status Reason Start Date Expiration Date V isits Requested Visits Authorized [id number] Authorized 09/25/2021 11/23/2021 1 1 Specialty Diagnoses / Procedures Referred By Gurvinderac t Referred To Contact MR IMAGING Diagnoses Demyelinating disease of central nervous system (HCC) Procedures MRI CERVICAL SPINE WO/W IVCON MRI SPINAL CANAL CERVICAL W/O & W/CONTR Gilmer Dubose MD [address] [place] [address] Mr Imaging Referral ID Status Reason Start Date Expiration Date Visits Requested Visits Authorized [id number] Authorized Auto-Generat ed Referral 10/28/2021 11/27/2022 1 1 Specialty Diagnoses / Procedures Referred By Mindy toribio Referred To Contact MR IMAGING Diagnoses Demyelinating disease of central nervous system (HCC) Procedures MRI BRAIN WO/W IVCON MRI BRAIN BRAIN STEM W/O W/CONTRAST MATERIAL Gilmer Estrada MD [address] [place] [address] Mr Imaging Referral ID Status Reason Start Date Expiration Date Visits Requested Visits Authorized [id number] Authorized Auto-Generat ed Referral 10/28/2021 11/27/2022 1 1 Referral ID Status Reason Start Date Expiration Date V isits Requested Visits Authorized [id number] Closed Auto-Generate d Referral 10/28/2021 11/27/2022 1 1 Referral ID Status Reason Start Date Expiration Date V isits Requested Visits Authorized [id number] Closed Auto-Generate d Referral 10/28/2021 11/27/2022 1 1 Specialty Diagnoses / Procedures Referred By Mindy toribio Referred To Contact Procedures ECG Zuleyka 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 In the event of a Fluress shortage, administer Isis-Fluor 1 drop into both eyes as directed for applanation tonometry Given 11/10/2021 12:30 PM EDT 1 Drop PHENYLephrine 2.5 % 1 Drop (AK-DILATE, JOSEPH-SYNEPHRINE) 1 Drop, BOTH EYES, DIRECTED, Starting on Tue11/10/21 at 1230, Until Tue11/11/21 at 0029, Administer for dilation PROTECT FROM LIGHT Given 11/10/2021 12:30 PM EDT 1 Drop proparacaine 0.5 % 1 Drop (ALCAINE) 1 Drop, BOTH EYES, DIRECTED, Starting on Tue11/10/21 at 1230, Until Tue11/11/21 at 0029, Administer for pneumo tonometry, tonopen tonometry, or pachymetry. In the event of a proparacaine shortage, administer tetracaine 0.5% ophthalmic drops 1 drop in the left eye as directed for pneumo tonometry, tonopen tonometry, or pachymetry Given 11/10/2021 12:30 PM EDT 1 Drop tropicamide 1 % 1 Drop (MYDRIACYL) 1 Drop, BOTH EYES, DIRECTED, Starting on Tue11/10/21 at 1230, Until Tue11/11/21 at 0029, Administer for dilation Given 11/10/2021 12:30 PM EDT 1 Drop Additional Source Comments INFORMATION SOURCE (unrecogn ized section and content) DATE CREATED AUTHOR AUTHOR'S ORGANIZ ATION 10/01/2021 [facility] DATE CREATED AUTHOR AUTHOR'S ORGANIZ ATION 11/21/2021 [facility] DATE CREATED AUTHOR AUTHOR'S ORGANIZ ATION 01/29/2022 [facility] DATE CREATED AUTHOR AUTHOR'S ORGANIZ ATION 02/03/2022 [facility] DATE CREATED AUTHOR AUTHOR'S ORGANIZ ATION 03/05/2022 [facility] DATE CREATED AUTHOR AUTHOR'S ORGANIZ ATION 12/06/2022 [facility] Ordered Prescriptions (unrec ognized section and content) Scheduled Active and Recently Administ ered Medications (unrecognized section and content) Continuous Medication Order 01/04/2021 01/05/2021 01/06/2021 lactated Ringer's infusion (CANCELED) 100 mL/hr, intravenous, at 100 mL/hr, Continuous, Starting on 01/05/21 at 1415, Preprocedure 1402 (New Bag - Provider: Rakel Rayo RN)1433 (Continued by Anesthesia - Provider: EDGARD Cote)1509 (Paused - Provider: EDGARD Cote - Comment: Switch to gravity)1510 (New Bag - Provider: EDGARD Cote)1704 (New Bag - Provider: EDGARD Cote)1759 (Anesthesia Volume Adjustment - Provider: EDGARD Cote) lactated Ringer's infusion 100 mL/hr, intravenous, at 100 mL/hr, Continuous, Starting on Tue01/05/21 at 2045 2044 (Canceled Entry - Provi erica: Automatic Discharge Provider - Comment: Automatically canceled at discontinue of medication order)2333 (Canceled Entry - Provider: Automatic Discharge Provider - Comment: Automatically canceled at discontinue of medication order) Oxygen Therapy, Adult inhalation, Continuous, Starting on Tue01/05/21 at 2044, Device: Nasal Cannula, Keep O2 Sat Above: 90% 2044 (Canceled Entry - Provi erica: Automatic Discharge Provider - Comment: Automatically canceled at discontinue of medication order) PRN Medication Order 01/04/2021 01/05/2021 01/06/2021 acetaminophen (TYLENOL) tablet 325 mg 325 mg, oral, Every 6 hours PRN, mild pain, headaches, fever, Starting on Tue01/05/21 at 2008 aluminum-magnesium hydroxide-simethicone (MAALOX) 200-200-20 mg/5 mL suspension 30 mL 30 mL, oral, 4 times daily PRN, indigestion, heartburn, Starting on Tue01/05/21 at 2008 bethanechol (URECHOLINE) tablet 25 mg 25 mg, oral, 3 times daily PRN, As needed for urinary retention or PVR greater than 400 cc, Starting on Tue01/05/212008 bisacodyL (DULCOLAX) suppository 10 mg 10 mg, rectal, Daily PRN, constipation, If magnesium hydroxide ineffective, Starting on Tue01/05/21 at 2025 cloNIDine (CATAPRES) tablet 0.1 mg 0.1 mg, oral, Every 8 hours PRN, high blood pressure, for SBP more than 170 or DBP more than 105, Starting on Tue01/05/21 at 2008 cyclobenzaprine (FLEXERIL) tablet 10 mg 10 mg, oral, 3 times daily PRN, muscle spasms, Starting on Tue01/05/21 at 2008 1223 (Given - Provid er: Gifty Briscoe RN) diphenhydrAMINE (BENADRYL) capsule 25 mg 25 mg, oral, Every 6 hours PRN, itching, Starting on Tue01/05/21 at 2008 EPINEPHrine (ADRENALIN) injection (CANCELED) As needed, Starting on Tue01/05/21 at 1518, Intraprocedure 1518 (Given - Provider: Osei Conway MD) fentaNYL (SUBLIMAZE) injection 25 mcg (CANCELED) 25 mcg, intravenous, Every 5 min PRN, severe pain, Starting on Tue01/05/21 at 1833, For 6 doses, Recovery (only) 1905 (Given - Provider: Stefany Stewart RN)1912 (Given - Provider: Stefany Stewart RN) HYDROmorphone (DILAUDID) injection 0.5 mg 0.5 mg, intravenous, Every 2 hour PRN, severe pain, For severe breakthrough pain not relieved with oral pain medication, Starting on Tue01/05/21 at 2008 magnesium hydroxide (MILK OF MAGNESIA) 400 mg/5 mL suspension 30 mL 30 mL, oral, 2 times daily PRN, constipation, Starting on Tue01/05/21 at 2008, Follow dose with 8 oz of water. naloxone (NARCAN) injection 0.4 mg 0.4 mg, intravenous, Once as needed, opioid reversal, respiratory depression, Starting on Tue01/05/21 at 2008, For 1 dose ondansetron (PF) (ZOFRAN) injection 4 mg 4 mg, intravenous, Every 6 hours PRN, nausea, vomiting, Starting on Tue01/05/21 at 2008 oxyCODONE (ROXICODONE) immediate release tablet 10 mg(Linked Group 2) 10 mg, oral, Every 4 hours PRN, severe pain, Starting on Tue01/05/21 at 2008 2030 (Given - Provider: Genny Cruz RN) 0030 (Given - Provider: Genny Cruz RN)0423 (Given - Provider: Genny Cruz RN)0942 (Given - Provider: Gifty Briscoe RN) oxyCODONE (ROXICODONE) immediate release tablet 5 mg(Linked Group 2) 5 mg, oral, Every 4 hours PRN, moderate pain, Starting on Tue01/05/21 at 2008 2030 (See Alternative - Provider: Genny Cruz RN) 0030 (See Alternative - Provider: Genny Cruz, RN)0423 (See Alternative - Provider: Genny Cruz, RN)0901 (See Alternative - Provider: Gifty Briscoe, RN) promethazine (PHENERGAN) suppository 25 mg 25 mg, rectal, Every 6 hours PRN, nausea, vomiting, Starting on Tue01/05/21 at 2008, For use if unable to tolerate p.o. Phenergan and IV Zofran ineffective promethazine (PHENERGAN) tablet 25 mg 25 mg, oral, Every 6 hours PRN, nausea, vomiting, Starting on Tue01/05/21 at 2008, For use if IV Zofran ineffective or no IV access ropivacaine (NAROPIN) 0.5 % injection (CANCELED) As needed, Starting on Tue01/05/21 at 1518, Intraprocedure 1518 (Given - Provider: Osei Conway MD) sodium chloride 0.9 % flush 10 mL(Linked Group 1) 10 mL, intravenous, As needed, line care, Starting on Tue01/05/21 at 2020, Recovery & On Unit sodium chloride 0.9 % irrigation solution (CANCELED) As needed, Starting on Tue01/05/21 at 1644, Intraprocedure 1644 (Given - Provider: Osei Conway MD) traZODone (DESYREL) tablet 50 mg 50 mg, oral, Nightly PRN, sleep, Starting on Tue01/05/21 at 2008 vancomycin (VANCOCIN) vial for injection (CANCELED) As needed, Starting on Tue01/05/21 at 1518, Intraprocedure 1518 (Given - Provider: Osei Conway MD - Comment: mixed with cement) Linked Groups Order Group 1: Insert peripheral IV (CANCELED) STAT, Once, On Tue01/05/21 at 2021, For 1 occurrence
Recovery & On Unit And Maintain IV access (CANCELED) Until discontinued, Starting on Tue01/05/21 at 2021, Until Specified
Recovery & On Unit And Saline lock IV (CANCELED) Routine, Once, On Tue01/05/21 at 2021, For 1 occurrence
When tolerating PO fluids, Recovery & On Unit And sodium chloride 0.9 % flush 10 mLJump to med 10 mL, intravenous, 2 times daily, First dose on Tue01/05/21 at 2100, Recovery & On Unit And sodium chloride 0.9 % flush 10 mLJump to med 10 mL, intravenous, As needed, line care, Starting on Tue01/05/21 at 202, Recovery & On Unit Group 2: oxyCODONE (ROXICODONE) immediate release tablet 5 mgJump to med 5 mg, oral, Every 4 hours PRN, moderate pain, Starting on Tue01/05/21 at 2008 Or oxyCODONE (ROXICODONE) immediate release tablet 10 mgJump to med 10 mg, oral, Every 4 hours PRN, severe pain, Starting on Tue01/05/21 at 2008 Scheduled Medication Order 11/06/2022 11/07/2022 11/08/2022 Meclizine (ANTIVERT) tablet 25 mg (COMPLETED) 25 mg, Oral, ONCE, 1 dose, On 11/08/22 at 1500 1501 (Given - Provid er: Bradley Reyes RN) Sodium chloride 0.9% IV solution 1,000 mL (COMPLETED) 1,000 mL, Intravenous, ONCE, 1 dose, On 11/08/22 at 1500 1518 ($$New Bag$$ - Provider: Bradley Reyes RN)1640 (Stopped - Provider: Bradley Reyes RN) Scheduled Medication Order 12/09/2022 12/10/2022 12/11/2022 Sulfamethoxazole-trimethoprim (BACTRIM DS) 800-160 MG per tablet 1 tablet (COMPLETED) 1 tablet, Oral, ONCE, 1 dose, On 12/11/22 at 1145 1109 (Given - Provid er: Anastasia Jarvis RN) Care Teams (unrecognized sec tion and content) Human Resource Consultant Relationship Specialty Start Date End Date Pancho Freeman MD [address] [facility] [address] [place] [address] PCP - General Family Medicine 01/05/21 Human Resource Consultant Relationship Specialty Start Date End Date Pancho Freeman MD [address] [place] [address] PCP - General Family Practice 01/21/16 Rodney Cooper MD [address] [place] [address] Orthopedics 01/21/16 [place], [place] [address] [place] [address] Teaching Assistant Cardiology 10/12/19 Osei Conway Jr. [address] [place] [address] Orthopedics 10/28/21 Human Resource Consultant Relationship Specialty Start Date End Date Pancho Freeman MD [address] [facility] [place] [address] PCP - General Family Practice 01/21/16 Rodney Cooper MD [address] [place] [address] Orthopedics 01/21/16 Y[place]elin, [place] [address] [place] [address] Teaching Assistant Cardiology 10/12/19 Osei Conway Jr. [address] [facility] [address] [place] [address] Orthopedics 10/28/21 Human Resource Consultant Relationship Specialty Start Date End Date Pancho Freeman MD [address] [facility] [place] [address] PCP - General Family Practice 01/21/16 Rodney Cooper MD [address] [place] [address] Orthopedics 01/21/16 [place], [place] [address] [place] [address] Teaching Assistant Cardiology 10/12/19 Osei Conway Jr. [address] [facility] [address] [place] [phone] Orthopedics 10/28/21 Human Resource Consultant Relationship Specialty Start Date End Date Pancho Freeman MD [address] [facility] [place] [address] PCP - General Family Practice 01/21/16 Rodney Cooper MD [address] [place] [address] Orthopedics 01/21/16 Yaquelin, [place] [address] [place] [address] Teaching Assistant Cardiology 10/12/19 Osei Conway Jr. [address] [facility] [address] [place] [phone] Orthopedics 10/28/21 Human Resource Consultant Relationship Specialty Start Date End Date Pancho Freeman MD [address] [facility] [place] [address] PCP - General Family Practice 01/21/16 Rodney Cooper MD [address] [place] [address] Orthopedics 01/21/16 Yaquelin, [place] [address] [place] [address] Teaching Assistant Cardiology 10/12/19 Osei Conway Jr. [address] [facility] [address] [place] [phone] Orthopedics 10/28/21 Human Resource Consultant Relationship Specialty Start Date End Date Pancho Freeman MD [address] [place] [address] PCP - General Family Medicine 01/21/16 Rodney Cooper MD [address] [place] [address] Orthopedics 01/21/16 Yaquelin, [place] [address] [place] [address] Teaching Assistant Cardiology 10/12/19 Osei Conway Jr. [address] [place] [phone] Orthopedics 10/28/21 Human Resource Consultant Relationship Specialty Start Date End Date Pancho Freeman MD [address] [place] [address] PCP - General Family Medicine 01/21/16 Rodney Cooper MD [address] [place] [address] Orthopedics 01/21/16 Yaquelin, [place] [address] [place] [address] Teaching Assistant Cardiology 10/12/19 Osei Conway Jr. [address] [place] [phone] Orthopedics 10/28/21 Human Resource Consultant Relationship Specialty Start Date End Date Pancho Freeman MD [address] [place] [address] PCP - General Family Medicine 11/08/22 Human Resource Consultant Relationship Specialty Start Date End Date Pancho Freeman MD [address] [place] [address] PCP - General Family Medicine 11/08/22 Human Resource Consultant Relationship Specialty Start Date End Date Pancho Freeman MD [address] [place] [address] PCP - General Family Medicine 11/08/22 Reason for Visit (unrecogniz ed section and content) Referral ID Status Reason Start Date Expiration Date V isits Requested Visits Authorized [id number] Authorized 09/25/2021 11/23/2021 1 1 Reason Comments New Patient Evaluation Reason Comments vision went dark Specialty Diagnoses / Procedures Referred By Contac t Referred To Contact MR IMAGING Diagnoses Demyelinating disease of central nervous system (HCC) Procedures MRI BRAIN WO/W IVCON MRI BRAIN BRAIN STEM W/O W/CONTRAST MATERIAL Gilmer Estrada MD [address] [place] [address] Mr Imaging Referral ID Status Reason Start Date Expiration Date V isits Requested Visits Authorized [id number] Closed Auto-Generate d Referral 10/28/2021 11/27/2022 1 1 Specialty Diagnoses / Procedures Referred By Contac t Referred To Contact MR IMAGING Diagnoses Demyelinating disease of central nervous system (HCC) Procedures MRI CERVICAL SPINE WO/W IVCON MRI SPINAL CANAL CERVICAL W/O & W/CONTR MATRL Gilmer Estrada MD [address] [facility] [place] [address] Mr Imaging Referral ID Status Reason Start Date Expiration Date V isits Requested Visits Authorized [id number] Closed Auto-Generate d Referral 10/28/2021 11/27/2022 1 1 Reason Comments Results, Lab Reason Comments Appointment Rescheduled Called patient t o reschedule 03/31 appointment(Provider Unavailable) Lvm with new appt details. MyChart reminder sent Reason Comments Fatigue Patient states she i s weak and walking is a little worse. Reason Comments Fall Pt has recent histor y of falls. Pt states she fell yesterday and last evening. Pt does report hitting head but main complaint left hip/buttock area. Pt has some intermittent confusion. Pt visitor states that confusion ongoing x 1 month. Pt reports what she is most concerned about is her lower abdomen . Pt states it's getting bigger and lump but nobody has been listening to me . Pt A+O x3 but can not remember things at times. + shortening to left leg. No obvious trauma to head or otherwise noted. Reason Comments Fall Pt arrives [place] [facility] states fell at home, unsure of activity at the time. PT has fallen 3x in past week. Denies pain, unsure if LOC, pt is not on blood thinners. Source Comments (unrecognize d section and content) In the event this informatio n is protected by the Federal Confidentiality of Alcohol and Drug Abuse Patient Records regulations: The Federal rules restrict any use of the information to criminally investigate or prosecute any alcohol or drug abuse patient.[facility] the event this information is protected by the Federal Confidentiality of Alcohol and Drug Abuse Patient Records regulations: The Federal rules restrict any use of the information to criminally investigate or prosecute any alcohol or drug abuse patient.[facility] the event this information is protected by the Federal Confidentiality of Alcohol and Drug Abuse Patient Records regulations: The Federal rules restrict any use of the information to criminally investigate or prosecute any alcohol or drug abuse patient.[facility] the event this information is protected by the Federal Confidentiality of Alcohol and Drug Abuse Patient Records regulations: The Federal rules restrict any use of the information to criminally investigate or prosecute any alcohol or drug abuse patient.[facility] the event this information is protected by the Federal Confidentiality of Alcohol and Drug Abuse Patient Records regulations: The Federal rules restrict any use of the information to criminally investigate or prosecute any alcohol or drug abuse patient.[facility] the event this information is protected by the Federal Confidentiality of Alcohol and Drug Abuse Patient Records regulations: The Federal rules restrict any use of the information to criminally investigate or prosecute any alcohol or drug abuse patient.[facility] the event this information is protected by the Federal Confidentiality of Alcohol and Drug Abuse Patient Records regulations: The Federal rules restrict any use of the information to criminally investigate or prosecute any alcohol or drug abuse patient.[facility] Care Team (unrecognized sect ion and content) Care Team Personnel Name: AMADO KWONG MD Member Role: Primary Care Physician Address: Address: [address] [place] [phone] US FOR RECORDS PERTAINING TO PATIENTS WHO ARE OR HAVE BEEN ENROLLED IN A CHEMICAL DEPENDENCY/SUBSTANCEABUSE PROGRAM, SOME INFORMATION MAY BE OMITTED. This clinical summary was aggregated from multiple sources. Caution should be exercised in using it in the provision of clinical care. This summary normalizes information from multiple sources, and as a consequence, information in this document may materially change the coding, format and clinical context of patient data. In addition, data may be omitted in some cases. CLINICAL DECISIONS SHOULD BE BASED ON THE PRIMARY CLINICAL RECORDS. [facility] [employer] provides no warranty or guarantee of the accuracy or completeness of information in this document.
--- NOTE | 2023-04-08 11:52 | PCM.HP.STD ---
HPI - General General Date of Admission: 04/08/23 Date of Service: 04/08/23 Chief Complaint: cold symptoms HPI Narrative ARGENIS EAGLE, is a 68 F with a PMH as outlined who presents via the ED on 04/08/2023 with a complaint of cold like symptoms. She had a nonproductive cough and headache which started about 4 days prior to admission, with associated generalised pain which worsened. She has associated neuropathy and fibromyalgia. She denied any fever, rhinorrhea, sore throat or any other symptoms. She had been needing at least 2 people to help her get around as she felt very weak and had severe generalised pain. REview of systems is otherwise negative. Vitals in the ED were BP of 126/77, AZ of 78, RR of 18 and temp of 97.4F. She was saturating at 94% on room air. CBC was largely unremarkable as well as BMP. Cr is 1.16. Respiratory panel was positive for COVID. CXR showed finding suggestive of atelectasis and/or infiltrat in the lingular segment of hte left upper lobe abutting the left cardiac border. Patient remained on room air but says she felt too weak to go home. She is therefore been admitted to manage with debility due to COVID 19 infection. [facility] Medical History (Updated 04/08/23 @ 15:37 by Pat Caal) Anomalous origin of coronary artery Benign paroxysmal positional vertigo Bicuspid aortic valve Chronic pain Closed fracture of proximal end of left fibula Coronary artery disease CPAP (continuous positive airway pressure) dependence Depression DVT (deep venous thrombosis) Dysphasia Essential (primary) hypertension Fracture of distal end of left fibula Frequent falls GERD (gastroesophageal reflux disease) GERD (gastroesophageal reflux disease) Hypertension Infection and 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, initial encounter Insomnia Iron deficiency anemia Irregular heart beat Mitral valve annular calcification Non-rheumatic mitral valve stenosis Nonrheumatic aortic (valve) stenosis Obesity Osteoarthritis Osteoporosis Periprosthetic fracture around internal prosthetic left knee joint Rheumatoid arthritis Sleep apnea Home Medications estradiol 1 mg tablet 1 mg PO DAILY estrogen 08/12/14 [History Last Taken 04/07/23] meloxicam 15 mg tablet 15 mg PO DAILY pain 11/23/16 [History Last Taken Unknown] amitriptyline 25 mg tablet 25 mg PO QHS pain 02/14/19 [History Last Taken 04/07/23] cholecalciferol (vitamin D3) 25 mcg (1,000 unit) capsule 1,000 unit PO DAILY vitamin 02/14/19 [History Last Taken 04/07/23] aspirin 81 mg tablet,delayed release (Adult Low Dose Aspirin) 81 mg PO DAILY heart 08/24/19 [History Last Taken 04/07/23] fluticasone propionate 50 mcg/actuation nasal spray,suspension 2 spray intranasal DAILY PRN allergy symptoms 12/06/19 [History Last Taken 04/07/23] omeprazole 40 mg capsule,delayed release 40 mg PO DAILY gerd 08/25/22 [History Last Taken 04/07/23] atenolol 25 mg tablet 25 mg PO DAILY #90 tabs 11/16/22 [Rx Last Taken 04/07/23] baclofen 10 mg tablet 10 mg PO TID PRN muscle spasm/muscle pain #90 tabs 12/02/22 [Rx Last Taken 04/07/23] duloxetine 60 mg capsule,delayed release 60 mg PO QHS #30 caps 12/02/22 [Rx Last Taken 04/07/23] allopurinol 100 mg tablet 100 mg PO DAILY pain 12/13/22 [History Last Taken 04/07/23] furosemide 40 mg tablet 40 mg PO DAILY PRN swelling 12/13/22 [History Last Taken 04/07/23] gabapentin 400 mg capsule 400 mg PO BID #60 caps 12/16/22 [Rx Last Taken Unknown] docusate sodium 100 mg capsule (Colace) 100 mg PO BID 04/08/23 [History Last Taken 04/07/23] fesoterodine 4 mg tablet,extended release 24 hr 4 mg PO DAILY 04/08/23 [History Last Taken 04/07/23] polyethylene glycol 3350 17 gram/dose oral powder (ClearLax) 17 g PO DAILY 04/08/23 [History Last Taken 04/07/23] spironolactone 25 mg tablet 25 mg PO DAILY 04/08/23 [History Last Taken 04/07/23] vibegron 75 mg tablet (Gemtesa) 75 mg PO DAILY 04/08/23 [History Last Taken 04/07/23] Allergy/AdvReac Type Severity Reaction Status Date / Time hydrochlorothiazide AdvReac Severe dizziness Verified 04/08/23 10:01 metoprolol AdvReac Severe dizziness Verified 04/08/23 10:01 Family History Father Hypertension age 45 from [place] Myocardial infarction Mother Cancer, Onset Age: 56 ovarian cancer Ovarian cancer Surgical History (Updated 04/08/23 @ 15:37 by Pat Caal) History of aortic valve replacement (07/30/19) History of appendectomy History of hysterectomy History of right and left heart catheterization (03/05/19) History of total left knee replacement Social History Smoking Status: Never smoker second hand exposure: No alcohol intake: current alcohol intake frequency: a few times a month substance use type: does not use caffeine: Yes what type of physical activity do you participate in: bicycling frequency: 1-2 times per week ROS Constitutional Constitutional: Reports anorexia, fatigue, malaise and weakness; Denies change in weight, chills or fever(s) Eyes Eyes: Denies change in vision ENT HEENT: Denies dysphagia or headache(s) Cardiovascular Cardiovascular: Denies chest pain, orthopnea, palpitations or paroxysmal nocturnal dyspnea Respiratory/Chest Respiratory/Chest: Reports cough; Denies shortness of breath at rest, shortness of breath with exertion or wheezing Gastrointestinal Gastrointestinal: Denies abdominal pain, constipation, nausea or vomiting Genitourinary Genitourinary: Denies dysuria or hematuria Integumentary Integumentary: Denies dry skin Neurologic Neurologic: Reports weakness; Denies confusion, dizziness, focal weakness, headache(s) or numbness Psychiatric Psychiatric: Denies anxiety Vital Signs Vital Signs Vital Signs: 04/08/23 10:01 04/08/23 10:35 04/08/23 10:39 Temperature 97.4 F L 97.4 F L Temperature Source Temporal Oral Pulse Rate 76 70 Respiratory Rate 16 12 Respiratory Effort Normal Non-Labored Respiratory Pattern Normal Blood Pressure 127/70 H 126/71 H Blood Pressure Mean 89 89 Pulse Ox 94 95 Oxygen Delivery Method Room Air Room Air 04/08/23 11:05 Temperature 97.4 F L Temperature Source Temporal Pulse Rate 78 Respiratory Rate 18 Respiratory Effort Respiratory Pattern Blood Pressure 126/77 H Blood Pressure Mean 93 Pulse Ox 94 Oxygen Delivery Method Room Air Physical Exam Const alert, oriented x3 and no apparent distress Constitutional Narrative: looks weak, frail. obese General Appearance: cooperative and well developed HEENT normocephalic and moist oral mucous membranes Eyes PERRL Neck no lymphadenopathy and supple Lymph Lymphatic: no lymphadenopathy noted and no lymphedema noted Resp Resp Narrative: mildly diminished breath sounds bibasally, no wheezes or crackles. On room air. Cardio regular rate, regular rhythm, S1 normal heart sound, S2 normal heart sound and no murmurs GI normal to inspection, nondistended, normoactive bowel sounds, soft to palpation and non-tender Extremity normal capillary refill, no clubbing, cyanosis or edema and no calf tenderness General Extremity: no tenderness to palpation of joints or extremities Skin General Skin Exam: no breakdown Neuro CN's II-XII intact bilaterally, no focal motor deficits, no sensory deficits noted and deep tendon reflexes 2+ bilaterally Motor Exam: strength 5/5 throughout and general weakness Psych thought process normal and cooperative Appearance: appropriate Results Lab / Micro Data 04/08/23 10:35 04/08/23 10:35 Labs: Laboratory Results - last 24 hr 04/08/23 10:35: WBC 5.1, RBC 3.99 L, Hgb 11.9 L, Hct 36.5 L, MCV 91.5, MCH 29.8, MCHC 32.6, RDW Std Deviation 50.2 H, RDW Coeff of Robe 14.8 H, Plt Count 243, MPV 10.4, Immature Gran % (Auto) 0.200, Neut % (Auto) 54.1, Lymph % (Auto) 27.7, [place] % (Auto) 11.7 H, Eos % (Auto) 5.9 H, Baso % (Auto) 0.4, Absolute Neuts (auto) 2.7, Absolute Lymphs (auto) 1.40, Nucleated RBC % 0, Sodium 136, Potassium 3.8, Chloride 103, Carbon Dioxide 29.0, Anion Gap 4 L, BUN 16, Creatinine 1.16 H, Est GFR (MDRD) Af Amer 59 L, Est GFR (MDRD) Non-Af 49 L, BUN/Creatinine Ratio 13.8, Glucose 152 H, Calcium 9.3 Micro: Microbiology 04/08/23 10:14 Mucosa - Nose SARS-CoV-2, Influenza & RSV (PCR) - Final SARS-CoV-2 (COVID 19 PCR) Imagaing Radiology Impression Chest X-Ray 04/08/23 10:50 IMPRESSION: Findings suggestive of atelectasis and/or infiltrate in the lingular segment of the left upper lobe abutting the left cardiac border. Electronically Signed: Kayden Sprague MD at 11:15 EST , Assessment & Plan Assessment/Plan (1) Adult failure to thrive: (2) COVID-19: (3) Fibromyalgia: PLAN: Plan #Debility and weakness due to covid 19 infection on room air CXR showed atelectasis and/or infiltrates in the lingular segment of the left upper lobe abutting the left cardiac border. admit to med surg hydrate gently with IVF PT/.OT consult fall precautions PO tylenol prn for pain #COVID 19 infection: as above #Fibromyalgia: On duloxetine and gabapentin #History of aortic valve replacement: Has a bovine aortic valve replaced due to bicuspid aortic valve on 07/30/2019. Stable #Benign Essential hypertension: Spironolactone and atenolol DVT prophylaxis: Lovenox CODE STATUS: Full code After counseling, patientPatient counseled about differences between full code, DNR CCA and DNR CCA. Elected to be full code and wants CPR and intubation if needed. Total qlkk-bm-fder time 16 minutes. Charges/Coding Visit Charges Inpatient E&M: 20653 Init Hosp L2 Procedures Hospitalists Procedures: 25669 Advncd Care Plan 30 Min
--- OUTSIDE RECORDS SUMMARY | 2023-04-08 16:03 | XMS RPT_ITS | CCD ---
Author Name Unknown Address [address] [place] [address] Organization [facility] Care Team Providers Care Transitional Care Manager Name Role Phone Pancho Freeman MD Primary Care Provide r NITA CUNHA [phone] Refe rring Unavailable PANCHO FREEMAN Primary Care Unavail Pancho Kumar MD Primary Care Provider Rodney Cooper MD Unavailable Yaquelin, Christophe S Unavailable Osei Conway Jr. Unavailable OSEI CONWAY Referring Unavailable OSEI CONWAY Admitting Unavailable OSEI CONWAY Attending Unavailable PANCHO FREEMAN Primary Care Unavail Pancho Kumar MD Primary Care Provider Rodney Cooper MD Unavailable Yaquelin, Cordova S Unavailable Osei Conway Jr. Unavailable DR [...] Translations: [HYDROCHLOROTHIAZ ALEXY] Drug Allergy 09-17-2020 Dizziness [facility] (5 sources) Metoprolol; Translations: [METOPROLOL] Drug Allergy 09-17-2020 Dizziness [facility] Medications Current Medications Medication Drug Class(es) Dates [...] 72 mm[Hg] Raúl Dalton MD Work Phone: 12-11-2022 11:00-0400 Heart rate 86 /min Raúl Dalton MD Work Phone: 12-11-2022 11:00-0400 Respiratory rate 18 /min Raúl Dalton MD Work Phone: 12-11-2022 11:00-0400 SaO2% (BldA) [Mass fraction] 97 % Raúl Dalton MD Work Phone: 12-11-2022 11:00-0400 Systolic blood pressure 152 mm[Hg] Raúl Dalton MD Work Phone: 12-11-2022 07:07-0400 Body height 165.1 cm Raúl Dalton MD Work Phone: 12-11-2022 07:00-0400 Body temperature 97.81 [degF] Raúl Dalton MD Work Phone: 11-18-2022 14:51-0400 Body height 154.9 cm Pancho Freeman MD Work Phone: 11-18-2022 14:51-0400 Body mass index (BMI) [Ratio] 42.14 kg/m2 Pancho Freeman MD Work Phone: 11-18-2022 14:51-0400 Body weight 101.15 kg Pancho Freeman MD Work Phone: 11-18-2022 14:50-0400 Body temperature 98.1 [degF] Pancho Freeman MD Work Phone: 11-18-2022 14:50-0400 Diastolic blood pressure 79 mm[Hg] Pancho Freeman MD Work Phone: 11-18-2022 14:50-0400 Heart rate 101 /min Pancho Freeman MD Work Phone: 11-18-2022 14:50-0400 Respiratory rate 16 /min Pancho Freeman MD Work Phone: 11-18-2022 14:50-0400 SaO2% (BldA) [Mass fraction] 96 % Pancho Freeman MD Work Phone: 11-18-2022 14:50-0400 Systolic blood pressure 145 mm[Hg] Pancho Freeman MD Work Phone: 11-08-2022 16:22-0400 Diastolic blood pressure 62 mm[Hg] Pancho Freeman MD Work Phone: 11-08-2022 16:22-0400 Heart rate 66 /min Pancho Freeman MD Work Phone: 11-08-2022 16:22-0400 SaO2% (BldA) [Mass fraction] 95 % Pancho Freeman MD Work Phone: 11-08-2022 16:22-0400 Systolic blood pressure 142 mm[Hg] Pancho Freeman MD Work Phone: 11-08-2022 16:00-0400 Respiratory rate 16 /min Pancho Freeman MD Work Phone: 11-08-2022 13:34-0400 Body height 165.1 cm Pancho Freeman MD Work Phone: 11-08-2022 13:34-0400 Body mass index (BMI) [Ratio] 37.11 kg/m2 Pancho Freeman MD Work Phone: 11-08-2022 13:34-0400 Body weight 101.15 kg Pancho Freeman MD Work Phone: 11-08-2022 13:33-0400 Body temperature 98.01 [degF] Pancho Freeman MD Work Phone: 10-28-2021 06:36-0400 Body height 165.1 cm [facility] Work Phone: [facility] 10-28-2021 06:36-0400 Body weight 90.72 kg [facility] Work Phone: [facility] 10-28-2021 06:36-0400 Diastolic blood pressure 79 mm[Hg] [facility] Work Phone: [facility] 10-28-2021 06:36-0400 Heart rate 67 /min [facility] Work Phone: [facility] 10-28-2021 06:36-0400 Systolic blood pressure 131 mm[Hg] [facility] Work Phone: [facility] 01-06-2021 11:45-0400 Body temperature 98.4 [degF] Osei Conway MD Work Phone: [place] [address]-26-2021 11:45-0400 Diastolic blood pressure 80 mm[Hg] Osei Conway MD Work Phone: [facility] 01-06-2021 11:45-0400 Heart rate 66 /min Osei Conway MD Work Phone: [facility] 01-06-2021 11:45-0400 Respiratory rate 15 /min Osei Conway MD Work Phone: [facility] 01-06-2021 11:45-0400 SaO2% (BldA) [Mass fraction] 97 % Osei Conway MD Work Phone: [facility] 01-06-2021 11:45-0400 Systolic blood pressure 120 mm[Hg] Osei Conway MD Work Phone: [facility] 01-05-2021 13:41-0400 Body height 165.1 cm Osei Conway MD Work Phone: [facility] 01-05-2021 13:41-0400 Body mass index (BMI) [Ratio] 33.75 kg/m2 Osei Conway MD Work Phone: [facility] 01-05-2021 13:41-0400 Body weight 92 kg Osei Conway MD Work Phone: [facility] [employer] [facility] [employer] Encounters Encounter Date Encounter Type Care Provider Facility Start: 12-11-2022 End: 12-11-2022 Emergency department patient visit Raúl Dalton MD Work Phone: [facility] Emergency Department Start: 11-18-2022 End: 11-18-2022 Emergency department patient visit PANCHO Rodriguez [facility] Start: 11-18-2022 End: 11-18-2022 Emergency department patient visit Pancho Freeman MD Work Phone: [facility] Emergency Department Start: 11-08-2022 End: 11-08-2022 [facility] Start: 11-08-2022 End: 11-08-2022 Emergency department patient visit Pancho Freeman MD Work Phone: [facility] Emergency Department Start: 03-01-2022 Telephone encounter Gilmer [...] Start: 11-18-2022 Urinalysis microscopic only Katiana Loaiza 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 Work Phone: Start: 11-18-2022 Urinalysis, reagent strip without microscopy Katiana Loaiza 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 Work Phone: Start: 11-18-2022 Complete blood count with white cell differential, automated Katiana Loaiza 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 Work Phone: Start: 11-18-2022 Comprehensive metabo lic panel Katiana Loaiza 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 Work Phone: Start: 11-18-2022 Ct abdomen & pelvis w/o contrast material Katiana Loaiza 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 Work Phone: Start: 11-18-2022 Ct head/brain w/o co ntrast material Katiana Loaiza 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 Work Phone: Start: 11-18-2022 Radex hip unilateral with pelvis 2-3 views Katiana Loaiza 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 Work Phone: Start: 11-08-2022 Ct head/brain w/o co ntrast material Zuleyka I Meftah 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 Work Phone: Start: 11-08-2022 Radiologic exam ches t single view Zuleyka I Meftah 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 Work Phone: Start: 11-08-2022 Ecg routine ecg w/le ast 12 lds trcg only w/o i&r Zuleyka I Meftah 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 Work Phone: Start: 11-08-2022 Complete blood count with white cell differential, automated Zuleyka I Meftah 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 Work Phone: Start: 11-08-2022 Comprehensive metabo lic panel Zuleyka I Meftah 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 Work Phone: Start: 11-18-2021 Mri brain brain stem w/o w/contrast material Carter Vásquez MD Work Phone: Start: 11-10-2021 End: 11-10-2021 Computerized ophthalmic imaging retina Nelson Padilla MD Work Phone: Start: 09-25-2021 Ct lower extremity w /o contrast material Nita Saini NET FRONT END DEVELOPER Work Phone: Start: 01-06-2021 Basic metabolic pane [...] Td Vaccines (2 - Td or Tdap) [facility] Start: 03-14-2030 Tetanus vaccination TETANUS Start: 10-10-2024 LIPID SCREEN LIPID SCREEN [facility] Start: 12-12-2023 Potassium [Moles/volume] in Serum or Plasma POTASSIUM Start: 11-19-2023 Potassium [Moles/volume] in Serum or Plasma POTASSIUM Start: 11-09-2023 Potassium [Moles/volume] in Serum or Plasma POTASSIUM Start: 11-12-2022 Influenza vaccination INFLUENZA VACCINE (#1) [facility] stem Start: 10-10-2022 DIABETES SCREEN DIABETES SCREEN [facility] Start: 01-06-2022 Hypertension/CHF/CAD Annual BMP Blood Test Hypertension/CHF/CAD Annual BMP Blood Test [facility] Start: 01-05-2022 Falls Risk Assessment Falls Risk Assessment [facility] Start: 11-12-2021 Influenza vaccination [facility] Start: 09-16-2021 COVID-19 VACCINE (5 - Booster for Pfizer series) COVID-19 VACCINE (5 - Booster for Pfizer series) [facility] Start: 09-16-2021 COVID-19 VACCINE (5 - Pfizer series) COVID-19 VACCINE (5 - Pfizer series) Start: 03-14-2021 ADVANCE DIRECTIVE DISCUSSION ADVANCE DIRECTIVE DISCUSSION [facility] Start: 03-14-2021 DEPRESSION ASSESSMENT DEPRESSION ASSESSMENT [facility] Start: 11-26-2020 Adolescent depression screening assessment Depression Screening [facility] Start: 11-26-2020 Depression Screening Depression Screening [facility] Start: 11-26-2020 Hepatitis C screening Hepatitis C Screening [facility] Start: 11-26-2020 Lipid panel Cholesterol Screening (Lipid Panel) [facility] Start: 11-26-2020 Medicare Annual Wellness Visit Medicare Annual Wellness Visit [facility] Start: 11-26-2020 Screening for malignant neoplasm of breast Breast Cancer Screening [facility] Start: 11-26-2020 Screening for malignant neoplasm of colon Colorectal Cancer Screening: Colonoscopy [facility] Start: 11-26-2020 Screening for osteoporosis Osteoporosis Screening (Bone Density Screening) [facility] Start: 11-26-2020 Social Influencers of Health Screening Social Influencers of Health Screening [facility] Start: 11-12-2020 Influenza vaccination Influenza Vaccine (#1) [facility] Start: 02-22-2019 Zoster vaccine hzv live for subcutaneous use ZOSTER (SHINGLES) VACCINE (2 of 2) Start: 02-22-2019 Zoster Vaccines (2 of 2) Zoster Vaccines (2 of 2) [facility] Start: 2018 BONE DENSITY BONE DENSITY [facility] Start: 2018 PNEUMOCOCCAL: 65+ (1 - PCV) PNEUMOCOCCAL: 65+ (1 - PCV) [facility] Start: 2003 SHINGRIX VACCINE (1 of 2) SHINGRIX VACCINE (1 of 2) [facility] Start: 1998 COLOGUARD (FIT-DNA) COLOGUARD (FIT-DNA) [facility] Start: 1998 Colonoscopy COLONOSCOPY [facility] Start: 1998 COLORECTAL CANCER SCREENING COLORECTAL CANCER SCREENING [facility] Start: [address] COLONOGRAPHY [facility] Start: 1998 FECAL OCCULT BLOOD FECAL OCCULT BLOOD [facility] Start: 1998 Screening for malignant neoplasm of colon COLORECTAL CANCER SCREENING DISCUSSION Start: 1998 SIGMOIDOSCOPY SIGMOIDOSCOPY [facility] Start: 1993 Lipid panel LIPID SCREENING Start: 1993 Mammography MAMMOGRAM [facility] Start: 1993 Screening for malignant neoplasm of breast MAMMOGRAM SCREENING DISCUSSION Start: 1974 Screening for malignant neoplasm of cervix CERVICAL CANCER SCREENING DISCUSSION Start: 1972 DTaP,Tdap,and Td Vaccines (1 - Tdap) DTaP,Tdap,and Td Vaccines (1 - Tdap) [facility] Start: 1972 Urine microalbumin profile DTAP,TDAP,TD (1 - Tdap) [facility] Start: 1971 ANNUAL PCP TEAM CHRONIC DISEASE VISIT ANNUAL PCP TEAM CHRONIC DISEASE VISIT [facility] Start: 1971 BP CONTROLLED (<130/80) BP CONTROLLED (<130/80) [facility] Start: 1971 HEPATITIS C SCREENING HEPATITIS C SCREENING [facility] Start: 1965 Adult depression screening assessment DEPRESSION SCREENING [facility] Start: 1953 Hepatitis C screening HEPATITIS C VIRUS SCREENING Start: 1953 Screening for osteoporosis DEXA SCAN DISCUSSION Bacteria identified in Tissue by Culture [facility] Bacteria identified in Unspecified specimen by Anaerobe culture [facility] Work Phone: Immunizations Immunization Date Immunization Notes Care Provider Rashad abraham 12-28-2018 zoster vaccine, unspecified formulation Pancho Freeman MD Work Phone: Payers Date Payer Category Payer Medicare BLUE [place] MEDICARE ADVANTAGE [place] [employer] [place] MEDIC[place] [id number] 2018-Present [phone] [address] [place] [address] [id number] 2018 Medicare [id number] 2018 Medicare [id number] 2018 Unknown [facility] S AND BLUE [facility] ANTH MEDIBLUE HMO [id number] 2018-Present [phone] [address] [place] [address] HMO [id number] 1953 Unknown [id number] 3 1953 Unknown [id number] 3 1953 Unknown [id number] 3 1953 Unknown [id number] 1953 Unknown [id number] 1953 Unknown [id number] 1953 Unknown [id number] Social History Date Type Detail Facility Start: 01-01-2021 End: 11-08-2022 Tobacco smoking status TXIS Never smoker [facility] Start: 01-01-2021 End: 11-08-2022 Tobacco use and exposure Never used [facility] Start: 01-05-2021 End: 12-11-2022 Alcohol intake Current drinker of alcohol (finding) [facility] Start: 01-05-2021 End: 12-11-2022 Alcohol intake [facility] Start: 1955 Sex Assigned At Not on file T [facility] Start: 09-15-2021 End: 11-08-2022 Exposure to SARS-CoV-2 (event) Not sure [facility] Start: 06-22-2019 History SDOH Alcohol Frequency [address] [facility] Start: 06-22-2019 History SDOH Alcohol Std Drinks [address] [facility] Start: 05-03-2019 History SDOH Alcohol Comment socially [facility] Start: 11-18-2022 End: 12-11-2022 Gender identity Not on file Start: 12-11-2022 Alcohol Comment rarely [facility] Medical Equipment Procedure Code Equipment Code Equipment Origin al Text Equipment Identifier Dates Cement Bone Biom et R 1x40 Us - Sn/A - [id number] Start: 01-05-2021 Cement Bone Biom et R 1x40 Us - Sn/A - [id number])N/A, [id number] FDA Start: 01-05-2021 Restrictor Cmnt Fem [place] 18.5mm Canl Less Thn 15mm - Sn/A - [id number] Start: 01-05-2021 Restrictor Fem B uck Cmnt 25mm - Sn/A - [id number] Start: 01-05-2021 Knee Star Cntrng Endo Mod/Tot - Sn/A - [id number] Start: 01-05-2021 Knee Sys Endo To tl Fln Lt [facility] [id number] - [id number] Start: 01-05-2021 Knee Sys Endo To tl Fln Lt [facility] [id number] - [id number] Start: 01-05-2021 Rotational Knee Joint Prosthesis With Anti-Luxation Device [id number] Start: 01-05-2021 Valve Fuller In spiris Resilia 23mm Pericardial Aortic Bioprosthesis - [id number] Start: 07-30-2019 Clinical Notes 08-03-2019 to [...] and stated she wanted to go home. [facility] 12-11-2022 Emergency department Note Discharge instructions [...] exam and care planning Emergency Department Report [facility] Service Date:.12/11/22 PCP: Pancho Freeman Chief Complaint: Chief Complaint Patient presents with Fall Pt arrives [facility] states fell at home, unsure of [...] YELLOW YELLOW APPEARANCE, URINE CLEAR CLEAR Specific [place], Urine 1.010 1.010 - 1.025 PH URINE [...] EKG sinus rhythm inferior Q-waves rate 68 SC interval 152 QRS 78 QTC 421 Risk Prescription drug management. Clinical Impression: No diagnosis found. No follow-ups on file. New Prescriptions No medications on file Discontinued Medications No medications on file An After Visit Summary was printed and given to the patient with above information. . . Raúl Dalton MD 12/11/22 7739 Bed: E002 Expected date: Expected time: Means of arrival: Comments: EMS [facility] 7 min. documented in this encounter 12-11-2022 Emergency department Note Patient given nonskid socks to wear and offered a hospital gown which patient declined. 12-11-[address] Dalton at bedside for exam and care planning 12-11-2022 Physician Emergency department Note Emergency Department Report [facility] Service Date:.12/11/22 PCP: Pancho Freeman Chief Complaint: Chief Complaint Patient presents with Fall Pt arrives [facility] states fell at home, unsure of [...] YELLOW YELLOW APPEARANCE, URINE CLEAR CLEAR Specific [place], Urine 1.010 1.010 - 1.025 PH URINE [...] EKG sinus rhythm inferior Q-waves rate 68 SC interval 152 QRS 78 QTC 421 Risk Prescription drug management. Clinical Impression: No diagnosis found. No follow-ups on file. New Prescriptions No medications on file Discontinued Medications No medications on file An After Visit Summary was printed and given to the patient with above information. . . Raúl Dalton MD 12/11/22 4134 12-11-2022 Emergency department Note Bed: E002 Expected date: Expected time: Means of arrival: Comments: EMS [place] 7 min. 11-18-2022 Emergency department Note Bed: EFT24 Expected date: Expected time: Means of arrival: Comments: EMS 11-18-2022 Emergency department Note Bed: EFT24 Expected date: Expected time: Means of arrival: Comments: EMS documented in this encounter 11-08-2022 Hospital Discharge instructions JEOVANNY Ordoñez - [...] attachments cannot be sent through Care Everywhere.Fatigue (Nigerian)Fall Prevention at Home ([facility]) (Nigerian)documented in this encounter 11-08-2022 Physician Emergency department Note EKG: Sinus rhythm at 64 beats per minute. [place] is leftward. SC interval is 144 milliseconds. QRS duration is 86 milliseconds. There is decreased QRS voltage cross tracing. Nonspecific ST T-wave changes present. Q-waves are present in leads 3 and AVF. Poor R-wave progression anteriorly. No acute ST elevation is seen in contiguous leads. It is similar to previous tracing done May 03, 2019. (05/03/2019 EKG done at [facility]) Eric Claros MD 11/08/22 1458 Work Phone: 11-08-2022 Emergency department Note EKG: Sinus rhythm at 64 beats per minute. [place] is leftward. SC interval is 144 milliseconds. QRS duration is 86 milliseconds. There is decreased QRS voltage cross tracing. Nonspecific ST T-wave changes present. Q-waves are present in leads 3 and AVF. Poor R-wave progression anteriorly. No acute ST elevation is seen in contiguous leads. It is similar to previous tracing done May 03, 2019. (05/03/2019 EKG done at [facility]) Eric Claros MD 11/08/22 1458 Bed: E012 Expected date: Expected time: Means of arrival: Comments: ems documented in this encounter 11-08-2022 Emergency department Note Bed: E012 Expected date: Expected time: Means of arrival: Comments: ems 12-11-2021 Miscellaneous Notes This was completed. Patient will come in on to pick them up. Sofia Montano Pss The patient is requesting a print out of her most recent labs from 10/28/21. The patient will grain picker records at the [facility] on [address] Please contact the patient once they are ready. documented in this encounter [facility] 11-18-2021 Note HNO ID: [id number] Author: RT Vicki(Ernesto) Service: ? Author Type: [...] November 18, 2021 TIME: 1:24 PM [facility] 11-18-2021 History of Present illness Narrative [...] TIME: 1:24 PM documented in this encounter [facility] 11-10-2021 Note HNO ID: [id number] Author: Nelson Padilla MD Service: ? Author [...] MD November 10, 2021 1:04 PM [facility] 11-10-2021 History of Present illness Narrative [...] 2021 1:04 PM documented in this encounter [facility] 11-10-2021 Instructions Nelson Padilla MD - 11/10/2021 12:56 PM EDT Images from the original note were not included. documented in this encounter [facility] 11-02-2021 Note HNO ID: [id number] Author: Gilmer Estrada MD Service: ? Author Type: Physician Type: Progress Notes Filed: 11/02/2021 5:03 PM Note Text: NEUROLOGY STAFF ADDENDUM Patient seen with the fellow. I agree with the fellow's history, examination, and the plan as noted above was formulated with my direct input. Gilmer Estrada MD Staff, Department of Neurology [facility] for Multiple Sclerosis [facility] 11-02-2021 History of Present illness Narrative NEUROLOGY STAFF ADDENDUM Patient seen with the fellow. I agree with the fellow's history, examination, and the plan as noted above was formulated with my direct input. Gilmer Estrada MD Staff, Department of Neurology [facility] Multiple Sclerosis Images from the original note were not included. [facility] MULTIPLE SCLEROSIS NEW PATIENT EVALUATION/CONSULTATION Referral source: SELF Also followed by: Patient Care Team: Pancho Freeman MD as PCP - General (Family Practice) Rodney Cooper MD (Orthopedics) Christophe Jamison as Child Care Specialist (Cardiology) Osei Conway Jr. (Orthopedics) PRINCIPAL NEUROLOGIC [...] Although she has had recent evaluation by mold sheet cleaner in [place] (concern for cataracts) she has not had [...] Bicuspid aortic valve DVT (deep venous thrombosis) ([facility]) 2001 right leg GERD (gastroesophageal reflux disease) [...] the arms and legs was performed including [id number], rapid-alternating, and fine movements. Rapid movements were [...] which was notable for elevated [facility] (? for joint infection given knee aspiration). Overall, given the history and exam, the constellation of symptoms are less likely to be due to a demyelinating process such as MS but raise possibility of myelopathy which needs to be further evaluated. Her vision symptoms seem to be atypical for optic neuritis and need to be further evaluated by mold sheet cleaner for other etiologies (consider vascular or other inflammatory etiologies). PLAN: - MRI brain and cervical spine w/wo contrast. - Will check screen serum with TSH, HARSH, AMARA, ANCA, copper, B12, vitamin D, homocysteine, lyme, and MMA. - OCT evaluation today. - Asked patient to schedule ophthalmology visit in the meantime (offered visit at [facility] but patient prefers to follow up with local mold sheet cleaner in [place]). Asked to send us the results of evaluation when available. - Asked patient to follow up with her PCP regarding other constitutional symptoms and elevated inflammatory markers as full records are not available for further testing. - Will discuss results and implications after the MRI results. Seen with Dr. Estrada. Carter Vásquez MD Neuroimmunology Fellow [facility] Multiple [facility]clerosis documented in this encounter [facility] 10-28-2021 Note HNO ID: [id number] Author: Erica Torres MA Service: ? Author Type: Portable Router Operator Type: Progress Notes Filed: 11/08/2021 7:33 PM Note Text: [facility] OCT OU was at best attempt Performed by Erica Torres MA on October 28, 2021 8:57 AM [facility] 10-28-2021 Note HNO ID: [id number] Author: Carter Vásquez MD Service: ? Author Type: Fellow Type: Progress Notes Filed: 11/02/2021 5:03 PM Note Text: [facility] MULTIPLE SCLEROSIS NEW PATIENT EVALUATION/CONSULTATION Referral source: SELF Also followed by: Patient Care Team: Pancho Freeman MD as PCP - General (Family Practice) Rodney Cooper MD (Orthopedics) Christophe Jamison as Child Care Specialist (Cardiology) Osei Conway Jr. (Orthopedics) PRINCIPAL NEUROLOGIC [...] Although she has had recent evaluation by mold sheet cleaner in [place] (concern for cataracts) she has not had [...] Bicuspid aortic valve DVT (deep venous thrombosis) ([facility]) 2001 right leg GERD (gastroesophageal reflux disease) HTN (hypertension) Hypertrophic cardiomyopathy (HCC) Mitral valve annular calcification Osteoarthritis PAST SURGICAL HISTORY Procedure Laterality Date ACHILLES TENDON SURGERY HX Bilateral BACK SURGERY HX cervical and lumbar CARPAL TUNNEL Bilateral HYSTERECTOMY HX KNEE SURGERY HX 3-right, 5-left WRIST SURGERY HX Transfusions: None Current (more content not included)... [facility] 10-28-2021 History of Present illness Narrative Cirrus OCT OU was at best attempt Performed by Erica Torres MA on October 28, 2021 8:57 AM documented in this encounter [facility] 10-28-2021 Instructions Carter Vásquez MD - 10/28/2021 7:59 AM EDT We would like to evaluate your symptoms further with some blood tests and an eye scan today (OCT). You can have these done today. We are also ordering MRI scans of your brain and cervical spine (upper neck) which you can schedule today. In the meantime, please continue to follow up with your mold sheet cleaner, your primary care physician, and youth career specialist. We will discuss your MRI results with you when available. In the meantime, please let us know if you have any other questions or concerns. documented in this encounter [facility] 01-06-2021 History of Present illness Narrative Problem: [...] * Osei Conway MD - Primary * Gilemr Burton MD - Fellow Patient agreeable to [...] Home Adaptive Equipment: Walker - rolling, Wheelchair-manual, Wildlife Conservationist, Sock aid Home Layout: One level Home Access: Level entry Prior Level of Function: Prior Function Level of [place]: Independent with mobility and functional transfers Receives [...] Goal: STG: Transition in/oob within precautions at [facility] (Resolved) Dates: Start: 01/06/21 Expected End: 02/16/21 End: 01/06/21 Description: Outcomes Date/Time User Outcome 01/06/21 Shyla Nguyễn PT Completed Goal: STG: Pt with transition to/from surfaces with in precautions at [facility] (Resolved) Dates: Start: 01/06/21 Expected End: 02/16/21 [...] Clarity 01/05/2021 Hazy Body Fluid Color 01/05/2021 Pengilly Body Fluid RBC 01/05/2021 20,000 Body Fluid [...] Clarity 01/05/2021 Hazy Body Fluid Color 01/05/2021 Pengilly Body Fluid RBC 01/05/2021 20,000 Body Fluid WBC 01/05/2021 400 IMAGING Recent Results (from the past 24 hour(s)) Type and screen Collection Time: 01/05/21 1:58 PM Result Value Ref Range ABO Group A Rh Type Positive Antibody Screen Negative POCT Glucose, blood Collection Time: 01/05/21 2:05 PM Result Value Ref Range Glucose POCT 81 70 - 99 mg/dL Rapid [id number], molecular Collection Time: 01/05/21 2:09 PM Specimen: Nasopharynx; Swab Result Value Ref Range SARS-COV-2 Screen Not Detected Not Detected Cell count with reflex differential, body fluid Collection Time: 01/05/21 3:11 PM Result Value Ref Range Body Fluid Source Synovial Body Fluid Clarity Hazy Body Fluid Color Pengilly Body Fluid RBC 20,000 /mm3 Body Fluid WBC 400 /mm3 STRESS TEST ECHOCARDIOGRAM EF 58% CATHETERIZATION Nonobstructive CAD CT SCAN RESULT MRI RESULT ULTRASOUND RESULT ELECTROPHYSIOLOGY RESULT No results found for this or any previous visit. VASCULAR RESULT No results found for this or any previous visit. documented in this encounter [facility] 01-06-2021 Hospital course Narrative Surgeon provided folder [...] prior to your surgery. Check in at medical receptionist medical assistant desk [address], [place] [address]. Last meloxicam on 12-26-2020 Last estradiol on [...] can discharge you. documented in this encounter [facility] 01-05-2021 History and physical note History and Physical Update ( H&P completed within the previous thirty days ) I personally reviewed the History and Physical, interviewed and examined the patient prior to surgery. No changes have occurred in the patient's condition since the History and Physical was completed. 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 PROCEDURE: Left total knee revision. The revision was performed utilizing the Link small Endo-Model prosthesis with Biomet bone cement fixation. SURGEON: Osei Conway MD GEAR TESTER: Sha Diaz PA-C and Dr. Gilmer Burton. [...] and we do some interrupted Vicryl and grpcem-gd-[id number] sutures. This was all secure. We have [...] 01/06/2021 04:37:00 AL/LAILA documented in this encounter [facility] 09-24-2020 Hospital Progress note Patient: ALEYDA DALTON MRN: [id number] Age: 65 years Sex: Female : 1955 Associated Diagnoses: None Author: Pa Baeza MD Assessment Assessment Diagnosis: Osteoarthritis (JJQ94-KR M19.90, Working, Medical). Plan Left Tibial and [...] at acceptable cardiac risk based on 2014 [place] [employer]/[place] [employer] (ACC/AHA) guideline on perioperative cardiovascular [...] tissue valve, bovine and she sees her seat cover installer now on a yearly basis. She was seen a few months ago and had a stable echocardiogram. This was all done in the [place] area. She is on atenolol and Lasix. [...] injected Intake a (more content not included)... [facility] 09-24-2020 Physician Hospital Discharge summary CLINICAL SUMMARY Please take this summary document to your follow up appointments. [facility] 09/24/20 14:39 [address] [place]. [address] PATIENT INFORMATION Name: ALEYDA DALTON Address: [address] [place] [id number] Age: 65 Years Phone: [phone] : 1955 12:00 MRN: ([id number] Sex: Female Race: White Ethnicity: Unknown Admitted From: [facility] Other Hospital Medical Service: Orthopedic Surgery Nurse Unit/Bed: (GA) 2N 0204-01 Admit Date: 09/17/2020 14:49 PCP: [...] clot fluticasone nasal (Flonase 50 mcg Nasal [place]) 50 Microgram Both Nostrils once a day [...] Comment fluticasone nasal (Flonase 50 mcg Nasal [place]) 50 Microgram Both Nostrils once a day as needed Sinus/Nasal Congestion. Comment oxybutynin (oxybutynin 5 mg oral tablet) 1 Tab(s) By Mouth Twice a day. Comment STOP TAKING THESE MEDICATIONS casanthranol-docusate (Amanda-Colac (more content not included)... [facility] 09-24-2020 Note ID NOW COVID-19_[place] [employer] [facility] 09-23-2020 Hospital Progress note Patient: ALEYDA DALTON MRN: [id number] Age: 65 years Sex: Female : 1955 Associated Diagnoses: None Author: Felisha CONNELLY , Pa Zarate Assessment Assessment Diagnosis: Osteoarthritis ([id number]-YJ M19.90, Working, Medical). Plan Left Tibial and [...] at acceptable cardiac risk based on 2014 [place] [employer]/[place] [employer] (ACC/AHA) guideline on perioperative cardiovascular [...] tissue valve, bovine and she sees her seat cover installer now on a yearly basis. She was seen a few months ago and had a stable echocardiogram. This was all done in the [place] area. She is on atenolol and Lasix. [...] Summary Begin date: (more content not included)... [facility] 09-22-2020 Hospital Progress note Patient: ALEYDA DALTON MRN: ([id number] Age: 65 years Sex: Female : 1955 Associated Diagnoses: None Author: Pa Baeza MD Assessment Assessment Diagnosis: Osteoarthritis (TOU63-ZN M19.90, Working, Medical). Plan Left Tibial and [...] at acceptable cardiac risk based on 2014 [place] [employer]/[place] [employer] (ACC/AHA) guideline on perioperative cardiovascular [...] tissue valve, bovine and she sees her seat cover installer now on a yearly basis. She was seen a few months ago and had a stable echocardiogram. This was all done in the [place] area. She is on atenolol and Lasix. [...] No result Chlo (more content not included)... [facility] 09-21-2020 Hospital Progress note Patient: ALEYDA DALTON MRN: [id number] Age: 65 years Sex: Female : 1955 Associated Diagnoses: None Author: Reyes Lujan MD Assessment Assessment Diagnosis: Osteoarthritis (UKH68-FB M15.9, Working, Medical). Plan Left Tibial and [...] at acceptable cardiac risk based on 2014 [place] [employer]/[place] [employer] (ACC/AHA) guideline on perioperative cardiovascular [...] tissue valve, bovine and she sees her seat cover installer now on a yearly basis. She was seen a few months ago and had a stable echocardiogram. This was all done in the [place] area. She is on atenolol and Lasix. [...] team. She will be going to a fdc facility at discharge. Supervising Physician Comments Chief [...] BUN No resul (more content not included)... [facility] 09-20-2020 Hospital Progress note Patient: ALEYDA DALTON MRN: [id number] Age: 65 years Sex: Female : 1955 Associated Diagnoses: None Author: Tai CONNELLY , [facility] Assessment Assessment Diagnosis: Osteoarthritis (RQB04-PQ M15.9, Working, Medical). Plan Left Tibial and [...] at acceptable cardiac risk based on 2014 [place] [employer]/[place] Heart Association (ACC/AHA) guideline on perioperative cardiovascular [...] tissue valve, bovine and she sees her seat cover installer now on a yearly basis. She was seen a few months ago and had a stable echocardiogram. This was all done in the [place] area. She is on atenolol and Lasix. [...] team. She will be going to a fdc facility at discharge. Supervising Physician Comments Chief [...] CHEMISTRY ____ Sodium (more content not included)... [facility] 09-19-2020 Hospital Progress note Patient: ALEYDA DALTON MRN: [id number] Age: 65 years Sex: Female : 1955 Associated Diagnoses: None Author: Colby Houser MD Assessment Assessment Diagnosis: Osteoarthritis (POY91-FA M15.9, Working, Medical). Plan This patient will [...] at acceptable cardiac risk based on 2014 [place] [employer]/[place] [employer] (ACC/AHA) guideline on perioperative cardiovascular [...] tissue valve, bovine and she sees her seat cover installer now on a yearly basis. She was seen a few months ago and had a stable echocardiogram. This was all done in the [place] area. She is on atenolol and Lasix. [...] team. She will be going to a fdc facility at discharge. Supervising Physician Comments Chief [...] No result MC (more content not included)... [facility] 09-18-2020 Hospital Progress note Patient: ALEYDA DALTON MRN: [id number] Age: 65 years Sex: Female : 1955 Associated Diagnoses: None Author: Colby Houser MD Assessment Assessment Diagnosis: Osteoarthritis (RKX78-SV M15.9, Working, Medical). Plan Preoperative medical risk [...] at acceptable cardiac risk based on 2014 [place] [employer]/[place] [employer] Association (ACC/AHA) guideline on perioperative cardiovascular [...] tissue valve, bovine and she sees her seat cover installer now on a yearly basis. She was seen a few months ago and had a stable echocardiogram. This was all done in the [place] area. She is on atenolol and Lasix. [...] 1.9 (09/17 18:10) (more content not included)... [facility] 09-18-2020 Bacteria identified Sterile body fluid culture Nom (Unsp spec) [facility] Microbiology PROCEDURE: Culture Body Fluid + Susceptibility [...] FEW POLYS No Epithelials NO ORGANISMS SEEN [facility] documented as of this encounter (statuses as of 11/02/2021) [facility] History of Past illness Narrative* Problem Noted [...] of this encounter (statuses as of 11/08/2021) [facility] History of Past illness Narrative* Problem Noted [...] of this encounter (statuses as of 11/10/2021) [facility] History of Past illness Narrative* Problem Noted [...] of this encounter (statuses as of 11/19/2021) [facility] History of Past illness Narrative* Problem Noted [...] of this encounter (statuses as of 12/11/2021) [facility] History of Past illness Narrative* Problem Noted [...] of this encounter (statuses as of 03/01/2022) [facility] No data available for this section [facility] note* Diagnosis Periprosthetic fracture around internal prosthetic left knee joint, subsequent encounter Presence of left artificial knee joint Unilateral primary osteoarthritis, left knee Osteoarthritis of right knee Osteoarthrosis, unspecified whether generalized or localized, lower leg documented in this encounter [facility] note* Diagnosis Periprosthetic fracture around internal prosthetic left knee joint, initial encounter documented in this encounter 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 Unspecified disorder of optic nerve and visual pathways documented in this encounter [facility] note* Diagnosis Multiple sclerosis (HCC)- Primary Multiple sclerosis Ocular migraine Other forms of migraine, without mention of intractable migraine without mention of status migrainosus Posterior vitreous detachment of both eyes Vitreous degeneration Lamellar macular hole of both eyes Macular cyst, hole, or pseudohole of retina Combined form of age-related cataract, both eyes documented in this encounter [facility] note* Diagnosis Demyelinating disease of central nervous system (HCC) Demyelinating disease of central nervous system, unspecified documented in this encounter [facility] note* Diagnosis Demyelinating disease of central nervous system (HCC) Demyelinating disease of central nervous system, unspecified documented in this encounter [facility] note* Diagnosis Chronic fatigue- Primary Other malaise and fatigue Frequent falls Personal history of fall documented in this encounter [facility] note* Diagnosis Fall, initial encounter- Primary Left hip pain Pain in joint, pelvic region and thigh Injury of head, initial encounter Urinary tract infection without hematuria, site unspecified documented in this encounter [facility] note* Diagnosis Acute cystitis without hematuria- Primary Acute cystitis Sprain of left wrist, initial encounter Frequent falls Personal history of fall [facility] Attachments The following attachments cannot be sent through Care Everywhere. * Pain Post-Surgery: Acute (Nigerian) * Fall Prevention (Nigerian) * DVT (Deep Vein Thrombosis): Prevention: General Info (Nigerian) * Constipation (Nigerian) * Incentive Spirometer: General Info (Nigerian) * Antibiotics: General Info (Nigerian) [facility] No data available for this section [facility] Discharge instructions* Attachments The following attachments cannot be sent through Care Everywhere. * Fall Prevention at Home ([facility]) (Nigerian) * Wrist Sprain (Nigerian) * RICE: General Info (Nigerian) * Urinary Tract Infection (UTI) in Women - Translations ([facility]) (Nigerian) documented in this [facility] No data available for this section [facility] reason for visit Narrative* Auth/Cert Specialty Diagnoses / Procedures Referred By Mindy t Referred To Contact Diagnoses Periprosthetic fracture around internal prosthetic left knee joint, subsequent encounter Presence of left artificial knee joint Unilateral primary osteoarthritis, left knee Procedures left total knee revision arthroplasty Osei Conway MD [address] [place] [address] [employer] [place] [address] [place] [address] Referral ID Status Reason Start Date Expiration Date Visits Re quested Visits Authorized [id number] 1 1 [facility] Summary Purpose Family History No Family History Records FoundNo Family History Records FoundNo Family History Records FoundNo Family History Records FoundNo Family History Records FoundNo Family History Records FoundNo Family History Records Found Advance Directives Documents on File Type Date Recorded 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 Reason for Referral Specialty Diagnoses / Procedures Referred By Mindy t Referred To Contact Radiology Diagnoses Periprosthetic fracture around internal prosthetic left knee joint, initial encounter Procedures CT Lower Extremity wo Contrast Left Nita Saini NP [address] [place] [address] [facility] [place] Referral ID Status Reason Start Date Expiration Date V isits Requested Visits Authorized [id number] Authorized 09/25/2021 11/23/2021 1 1 Specialty Diagnoses / Procedures Referred By Gurvinderac t Referred To Contact MR IMAGING Diagnoses Demyelinating disease of central nervous system (HCC) Procedures MRI CERVICAL SPINE WO/W IVCON MRI SPINAL CANAL CERVICAL W/O & W/CONTR Gilmer Dubose MD [address] [place] [address] Mr Imaging Referral ID Status Reason Start Date Expiration Date Visits Requested Visits Authorized [id number] Authorized Auto-Generat ed Referral 10/28/2021 11/27/2022 1 1 Specialty Diagnoses / Procedures Referred By Mindy toribio Referred To Contact MR IMAGING Diagnoses Demyelinating disease of central nervous system (HCC) Procedures MRI BRAIN WO/W IVCON MRI BRAIN BRAIN STEM W/O W/CONTRAST MATERIAL Gilmer Estrada MD [address] [place] [address] Mr Imaging Referral ID Status Reason Start Date Expiration Date Visits Requested Visits Authorized [id number] Authorized Auto-Generat ed Referral 10/28/2021 11/27/2022 1 1 Referral ID Status Reason Start Date Expiration Date V isits Requested Visits Authorized [id number] Closed Auto-Generate d Referral 10/28/2021 11/27/2022 1 1 Referral ID Status Reason Start Date Expiration Date V isits Requested Visits Authorized [id number] Closed Auto-Generate d Referral 10/28/2021 11/27/2022 1 1 Specialty Diagnoses / Procedures Referred By Mindy toribio Referred To Contact Procedures ECG Zuleyka Contreras I, STRIPPER [employer]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-[employer]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 [address] [place] [address] Referral ID Status Reason Start Date Expiration Date V isits Requested Visits Authorized [id number] New Request 11/08/2022 12/03/2023 1 1 Medications [...] Drop PHENYLephrine 2.5 % 1 Drop (AK-DILATE, JSOEPH-SYNEPHRINE) 1 Drop, BOTH EYES, DIRECTED, Starting on [...] DATE CREATED AUTHOR AUTHOR'S ORGANIZ ATION 10/01/2021 [facility] DATE CREATED AUTHOR AUTHOR'S ORGANIZ ATION 11/21/2021 [facility] DATE CREATED AUTHOR AUTHOR'S ORGANIZ ATION 01/29/2022 [facility] DATE CREATED AUTHOR AUTHOR'S ORGANIZ ATION 02/03/2022 [facility] DATE CREATED AUTHOR AUTHOR'S ORGANIZ ATION 03/05/2022 [facility] DATE CREATED AUTHOR AUTHOR'S ORGANIZ ATION 12/06/2022 [facility] Ordered Prescriptions (unrec ognized section and content) [...] RN)[phone] (See Alternative - Provider: Genny Cruz, RN)[phone] (See Alternative - Provider: Gifty Briscoe, RN) [...] Care Teams (unrecognized sec tion and content) Transitional Care Manager Relationship Specialty Start Date End Date Pancho Freeman MD [address] [facility] [address] [place] [address] PCP - General Family Medicine 01/05/21 Transitional Care Manager Relationship Specialty Start Date End Date Pancho Freeman MD [address] [place] [address] PCP - General Family Practice 01/21/16 Rodney Cooper MD [address] [place] [address] Orthopedics 01/21/16 Yaquelin, Cordova S [address] [place] [address] Child Care Specialist Cardiology 10/12/19 Osei Conway Jr. [address] [place] [address] Orthopedics 10/28/21 Transitional Care Manager Relationship Specialty Start Date End Date Pancho Freeman MD [address] [facility] [place] [address] PCP - General Family Practice 01/21/16 Rodney Cooper MD [address] [place] [address] Orthopedics 01/21/16 Yaquelin, Cordova S [address] [place] [address] Child Care Specialist Cardiology 10/12/19 Osei Conway Jr. [address] [facility] [address] [place] [address] Orthopedics 10/28/21 Transitional Care Manager Relationship Specialty Start Date End Date Pancho Freeman MD [address] [facility] [place] [address] PCP - General Family Practice 01/21/16 Rodney Cooper MD [address] [place] [address] Orthopedics 01/21/16 Yaquelin, Cordova S [address] [place] [address] Child Care Specialist Cardiology 10/12/19 Osei Conway Jr. [address] [facility] [address] [place] [address] Orthopedics 10/28/21 Transitional Care Manager Relationship Specialty Start Date End Date Pancho Freeman MD [address] [facility] [place] [address] PCP - General Family Practice 01/21/16 Rodney Cooper MD [address] [place] [address] Orthopedics 01/21/16 Yaquelin, Cordova S [address] [place] [address] Child Care Specialist Cardiology 10/12/19 Osei Conway Jr. [address] [facility] [address] [place] [phone] Orthopedics 10/28/21 Transitional Care Manager Relationship Specialty Start Date End Date Pancho Freeman MD [address] [facility] [place] [address] PCP - General Family Practice 01/21/16 Rodney Cooper MD [address] [place] [address] Orthopedics 01/21/16 Yaquelin, Cordova S [address] [place] [address] Child Care Specialist Cardiology 10/12/19 Osei Conway Jr. [address] [facility] [address] [place] [address] Orthopedics 10/28/21 Transitional Care Manager Relationship Specialty Start Date End Date Pancho Freeman MD [address] [address] PCP - General Family Medicine 01/21/16 Rodney Cooper MD [address] [place] [address] Orthopedics 01/21/16 Yaquelin, Cordova S [address] [place] [address] Child Care Specialist Cardiology 10/12/19 Osei Conway Jr. [address] [place] [phone] Orthopedics 10/28/21 Transitional Care Manager Relationship Specialty Start Date End Date Pancho Freeman MD [address] [place] [address] PCP - General Family Medicine 01/21/16 Rodney Cooper MD [address] [place] [address] Orthopedics 01/21/16 Yaquelin, Cordova S [address] [place] [address] Child Care Specialist Cardiology 10/12/19 Osei Conway Jr. [address] [place] [address] Orthopedics 10/28/21 Transitional Care Manager Relationship Specialty Start Date End Date Pancho Freeman MD [address] [place] [address] PCP - General Family Medicine 11/08/22 Transitional Care Manager Relationship Specialty Start Date End Date Pancho Freeman MD [address] [place] [address] PCP - General Family Medicine 11/08/22 Transitional Care Manager Relationship Specialty Start Date End Date Pancho Freeman MD [address] [place] [address] PCP - General Family Medicine 11/08/22 Reason for Visit (unrecogniz ed section and content) Referral ID Status Reason Start Date Expiration Date V isits Requested Visits Authorized [id number] Authorized 09/25/2021 11/23/2021 1 1 Reason Comments New Patient Evaluation Reason Comments vision went dark Specialty Diagnoses / Procedures Referred By Contac t Referred To Contact MR IMAGING Diagnoses Demyelinating disease of central nervous system (HCC) Procedures MRI BRAIN WO/W IVCON MRI BRAIN BRAIN STEM W/O W/CONTRAST MATERIAL Gilmer Estrdaa MD [address] [place] [address] Mr Imaging Referral ID Status Reason Start Date Expiration Date V isits Requested Visits Authorized [id number] Closed Auto-Generate d Referral 10/28/2021 11/27/2022 1 1 Specialty Diagnoses / Procedures Referred By Contac t Referred To Contact MR IMAGING Diagnoses Demyelinating disease of central nervous system (HCC) Procedures MRI CERVICAL SPINE WO/W IVCON MRI SPINAL CANAL CERVICAL W/O & W/CONTR MATRL Gilmer Estrada MD [address] [facility] [place] [address] Mr Imaging Referral ID Status Reason Start Date Expiration Date V isits Requested Visits Authorized [id number] Closed Auto-Generate d Referral 10/28/2021 11/27/2022 1 [...] or prosecute any alcohol or drug abuse patient.[facility] the event this information is protected by the Federal Confidentiality of Alcohol and Drug Abuse Patient Records regulations: The Federal rules restrict any use of the information to criminally investigate or prosecute any alcohol or drug abuse patient.[facility] Center[facility] the event this information is protected by the Federal Confidentiality of Alcohol and Drug Abuse Patient Records regulations: The Federal rules restrict any use of the information to criminally investigate or prosecute any alcohol or drug abuse patient.[facility] the event this information is protected by the Federal Confidentiality of Alcohol and Drug Abuse Patient Records regulations: The Federal rules restrict any use of the information to criminally investigate or prosecute any alcohol or drug abuse patient.[facility] CenterIn the event this information is protected by the Federal Confidentiality of Alcohol and Drug Abuse Patient Records regulations: The Federal rules restrict any use of the information to criminally investigate or prosecute any alcohol or drug abuse patient.[facility] CenterIn the event this information is protected by the Federal Confidentiality of Alcohol and Drug Abuse Patient Records regulations: The Federal rules restrict any use of the information to criminally investigate or prosecute any alcohol or drug abuse patient.[facility] CenterIn the event this information is protected by the Federal Confidentiality of Alcohol and Drug Abuse Patient Records regulations: The Federal rules restrict any use of the information to criminally investigate or prosecute any alcohol or drug abuse patient.[facility] Care Team (unrecognized sect ion and content) Care Team Personnel Name: AMADO KWONG MD Member Role: Primary Care Physician Address: Address: [address] [place] [id number]- [place] FOR RECORDS PERTAINING TO PATIENTS WHO [...] BE BASED ON THE PRIMARY CLINICAL RECORDS. [facility] [employer] provides no warranty or guarantee of the accuracy or completeness of information in this document.
[2023-04-08] MEDS: 0.9% Normal Saline (1000mL) 1,000 ML 125 ML IV ×2 (16:18→23:45)
[2023-04-08] MEDS: 0.9% Saline Lock 10 ML Syringe IV (16:29)
[2023-04-08] MEDS: Docusate Sodium 100 MG Capsule PO (16:33)
[2023-04-08] MEDS: Acetaminophen 325 MG Tablet 650 MG PO (16:41)
[2023-04-08] MEDS: Gabapentin 400 MG Capsule PO (21:08)
[2023-04-08] MEDS: Amitriptyline 25 MG Tablet PO (21:08)
[2023-04-08] MEDS: Fluticasone 0.05% 1 SPRAY NASAL.SRY 2 SPRAY NASAL (22:09)
[2023-04-09 03:47] VITALS: BP 148/80; PULSE 63; RESP 16; TEMP 36.5; O2SAT 99
[2023-04-09 03:52] VITALS: O2SAT 99
[2023-04-09] MEDS: Vibegron 75 MG TABLET PO (09:27)
[2023-04-09] MEDS: Enoxaparin 40 MG/0.4 ML Syringe SC (09:27)
[2023-04-09] MEDS: Atenolol 25 MG Tablet PO (09:27)
[2023-04-09] MEDS: Polyethylene Glycol 3350 17 GM PACKET PO (09:27)
[2023-04-09] MEDS: Meloxicam 15 MG Tablet PO (09:27)
[2023-04-09] MEDS: Pantoprazole Sodium 40 MG Tablet PO (09:27)
[2023-04-09] MEDS: Allopurinol 100 MG Tablet PO (09:27)
[2023-04-09] MEDS: Docusate Sodium 100 MG Capsule PO ×2 (09:28→21:49)
[2023-04-09] MEDS: Gabapentin 400 MG Capsule PO ×2 (09:28→21:49)
[2023-04-09] MEDS: Spironolactone 25 MG Tablet PO (09:28)
[2023-04-09] MEDS: Tolterodine Tartrate 2 MG CAP.SA PO (09:28)
[2023-04-09] MEDS: Aspirin E.C. 81 MG Tablet PO (09:28)
[2023-04-09] MEDS: Cholecalciferol (VIT D3) 25 MCG TABLET (1,000 UNITS) PO (09:29)
[2023-04-09] MEDS: Estradiol 1 MG Tablet PO (09:29)
[2023-04-09] MEDS: Acetaminophen 325 MG Tablet 650 MG PO ×2 (09:40→18:50)
[2023-04-09 09:53] VITALS: BP 152/83; PULSE 67; RESP 16; TEMP 36.7; O2SAT 100
--- NOTE | 2023-04-09 11:37 | PN_ITS ---
Subjective Subjective Patient seen and examined. She still felt weak. She denied any fever or chills. She did admit to still coughing, though it was nonproductive. Review of systems is otherwise negative. Objective Data Objective Data Vital Signs: Vital Signs Temp Pulse Resp BP Pulse Ox O2 Del Method 98.0 F 67 16 152/83 H 100 Room Air 04/09/23 09:53 04/09/23 09:53 04/09/23 09:53 04/09/23 09:53 04/09/23 09:53 04/09/23 09:56 Oxygen Delivery Method Room Air Weight: 221 lb 12.56 oz Body Mass Index (BMI) 36.8 Intake & Output: Intake and Output for Last 24 Hours 04/07/23 04/08/23 04/09/23 23:59 23:59 23:59 Intake Total 2291.25 / 2491.25 1300 / 1300 Balance 2291.25 / 2491.25 1300 / 1300 Lab / Micro Data 04/08/23 10:35 04/08/23 10:35 Micro: Microbiology 04/08/23 10:14 Mucosa - Nose SARS-CoV-2, Influenza & RSV (PCR) - Final SARS-CoV-2 (COVID 19 PCR) Physical Exam Const alert, oriented x3 and no apparent distress Constitutional Narrative: looks weak, frail. obese General Appearance: cooperative and well developed HEENT normocephalic and moist oral mucous membranes Eyes PERRL Neck no lymphadenopathy and supple Lymph Lymphatic: no lymphadenopathy noted and no lymphedema noted Resp Resp Narrative: mildly diminished breath sounds bibasally, no wheezes or crackles. On room air. Cardio regular rate, regular rhythm, S1 normal heart sound, S2 normal heart sound and no murmurs GI normal to inspection, nondistended, normoactive bowel sounds, soft to palpation and non-tender Extremity normal capillary refill, no clubbing, cyanosis or edema and no calf tenderness General Extremity: no tenderness to palpation of joints or extremities Skin General Skin Exam: no breakdown Neuro CN's II-XII intact bilaterally, no focal motor deficits, no sensory deficits noted and deep tendon reflexes 2+ bilaterally Motor Exam: strength 5/5 throughout and general weakness Psych thought process normal and cooperative Appearance: appropriate Assessment & Plan Assessment/Plan (1) Adult failure to thrive: (2) COVID-19: (3) Fibromyalgia: PLAN: Plan #Debility and weakness due to covid 19 infection * on room air * CXR showed atelectasis and/or infiltrates in the lingular segment of the left upper lobe abutting the left cardiac border. * still feels weak * hydrate gently with IVF * PT/.OT consult * fall precautions * PO tylenol prn for pain * #COVID 19 infection: as above #Fibromyalgia: On duloxetine and gabapentin #History of aortic valve replacement: Has a bovine aortic valve replaced due to bicuspid aortic valve on 07/30/2019. Stable #Benign Essential hypertension: Spironolactone and atenolol DVT prophylaxis: Lovenox Disposition; will benefit from placement. CODE STATUS: Full code * Charges/Coding Visit Charges Inpatient E&M: 27151 Subs Hosp L2
--- NOTE | 2023-04-09 14:15 | CASEMGMT ---
Addendum entered by Les Pagan 04/09/23 14:23: [facility] form explained re: Observation status for treatment of weakness and COVID.? Explained hospitalization will be paid per?her insurance policy for Outpatient billing?and condition will continue to be evaluated for Inpt necessity. Also let pt know that [facility] sends paper in the billing packet with their phone number if questions arise. Pt verbalizes understanding and does not have further questions. ?Form signed, copy made and placed in chart, and original given to pt. Original Note: RN MARCELA Assessment: RN CM to room to meet with pt for initial transition planning/care coordination assessment. Introduced role of LEOPOLDO MEDRANO. Pt voices understanding and consents to assessment. Pt is A&O x4 and answers all questions appropriately at this time. Pt resting in bed in no distress, takes time to answer questions. Care providers, pharmacy, and demographics verified/updated. PCP:Dr Freeman Specialists:Dr Solano, uro; Dr Russo, neuro, G/cardiology Preferred Pharmacy: [facility] Insurance: [facility] Prescription Benefit: yes LNOK: Brian Dalton, son; June, daughter, Sherrell Padilla, friend Living Arrangements: Pt lives in a mobile home with a ramp to enter with a friend and sig other. Pt is independent w/ADL's. Pt friend and sig other do most home mgnt tasks. Transportation: Sig other or friend DME:BSC, walk in shower, shower chair, grab bars, BSC, 2 FWW's, rollator, CPAP, manual w/c, lift chair HHC/SNF: Pt has had a [facility] in [place] in the past, unsure of the name and has had [facility]. Pt has been to [facility] and [facility]. Pt would like to go to a SNF @ discharge and would like a list of SNF's in network w/her insurance and in the [place] location. Leida MONDRAGON, made aware. Plan: SNF. Chencho BLANCHARD RN, CM
[2023-04-09 14:34] LABS: Absolute Neutrophil Count 2.2 X10^3/uL (2.0-7.7); Basophil# 0.02 X10^3/uL; Basophil% 0.4 % (0-1); Eosinophil# 0.36 X10^3/uL; Eosinophils% 7.5 % (0-5); Hematocrit 35.4 % (37-47); Hemoglobin 11.1 g/dL (12.0-15.0); Lymphocyte % 37.3 % (19-41); Mean Corp Hgb Conc 31.4 g/dL (32-36); Mean Corpuscular Hgb 29.1 pg (27.0-32.0); Mean Corpuscular Volume 92.9 fL (81-99); Mean Platelet Vol. 10.5 fl (6.2-12.0); Monocyte# 0.47 X10^3/uL; Monocyte% 9.8 % (0-10); NRBC Flagged by Analyzer 0 % (0-5); Neutrophil # 2.15 X10^3/uL (2.7-7.7); Neutrophil % 44.6 % (47-70); Platelet Count 237 K/mm3 (150-450); RBC Distribution Width CV 14.6 % (11.6-14.6); RBC Distribution Width SD 49.4 fl (35.1-43.9); Red Blood Count 3.81 M/mm3 (4.2-5.4); White Blood Count 4.8 K/mm3 (4.4-11.0)
[2023-04-09 14:45] LABS: Anion Gap 2 (5-15); BUN 15 mg/dL (7-18); Calcium,Total 9.3 mg/dL (8.5-10.1); Chloride 106 mmol/L (98-107); Creatinine, Serum 0.94 mg/dL (0.55-1.02); EST Glomerular Filtration Rate 63 mL/min (>60); Est Glom Filt Rate - Afr Amer 76 mL/min (>60); Estimated Creatinine Clearance 65.44 ml/min; Glucose 96 mg/dL (74-106); Potassium 4.2 mmol/L (3.5-5.1); Sodium Level 136 mmol/L (136-145)
[2023-04-09 15:08] VITALS: BP 123/65; PULSE 68; RESP 16; TEMP 36.6; O2SAT 100
--- NOTE | 2023-04-09 19:37 | CASEMGMT ---
Social Work Pt is requesting SNF placement. SW provided patient with a SNF list according to her insurance and geographic location. Pt called SW to discuss SNF options. Pt reports she prefers [facility] due to location near her home. Pt reports if they are unable she would consider [facility], [facility] and then possibly [facility]. Referral sent to [facility] via [employer]. Leida Siegel TOWBOAT OPERATOR, LEASING SALES CONSULTANT
[2023-04-09 21:41] VITALS: BP 121/71; PULSE 62; RESP 18; TEMP 36.6; O2SAT 96
[2023-04-09 21:42] VITALS: O2SAT 96
[2023-04-09] MEDS: Fluticasone 0.05% 1 SPRAY NASAL.SRY 2 SPRAY NASAL (21:49)
[2023-04-09] MEDS: Amitriptyline 25 MG Tablet PO (21:49)
[2023-04-10 03:25] VITALS: BP 127/65; PULSE 61; RESP 18; TEMP 36.6; O2SAT 98
[2023-04-10 06:13] LABS: Absolute Lymphocyte Count 2.33 X10^3/uL (0.83-4.51); Absolute Neutrophil Count 1.6 X10^3/uL (2.0-7.7); Basophil# 0.02 X10^3/uL; Basophil% 0.4 % (0-1); Eosinophil# 0.44 X10^3/uL; Eosinophils% 9.1 % (0-5); Hematocrit 35.5 % (37-47); Hemoglobin 11.1 g/dL (12.0-15.0); Lymphocyte # 2.33 X10^3/ul (0.83-4.51); Mean Corp Hgb Conc 31.3 g/dL (32-36); Mean Corpuscular Hgb 29.8 pg (27.0-32.0); Mean Corpuscular Volume 95.4 fL (81-99); Mean Platelet Vol. 10.2 fl (6.2-12.0); Monocyte# 0.49 X10^3/uL; Monocyte% 10.1 % (0-10); NRBC Flagged by Analyzer 0 % (0-5); Neutrophil # 1.57 X10^3/uL (2.7-7.7); Neutrophil % 32.4 % (47-70); Platelet Count 263 K/mm3 (150-450); RBC Distribution Width CV 14.5 % (11.6-14.6); RBC Distribution Width SD 50.6 fl (35.1-43.9); Red Blood Count 3.72 M/mm3 (4.2-5.4); White Blood Count 4.9 K/mm3 (4.4-11.0)
[2023-04-10 06:35] LABS: Anion Gap 3 (5-15); BUN 18 mg/dL (7-18); BUN/Creat Ratio 15.4 RATIO (10-20); Calcium,Total 9.7 mg/dL (8.5-10.1); Chloride 106 mmol/L (98-107); Creatinine, Serum 1.17 mg/dL (0.55-1.02); EST Glomerular Filtration Rate 49 mL/min (>60); Est Glom Filt Rate - Afr Amer 59 mL/min (>60); Estimated Creatinine Clearance 52.58 ml/min; Glucose 112 mg/dL (74-106); Potassium 3.8 mmol/L (3.5-5.1); Sodium Level 138 mmol/L (136-145)
[2023-04-10 09:35] VITALS: BP 153/82; PULSE 61; RESP 18; TEMP 36.6; O2SAT 97
[2023-04-10 11:00] VITALS: RESP 18
[2023-04-10] MEDS: Aspirin E.C. 81 MG Tablet PO (11:13)
[2023-04-10] MEDS: Spironolactone 25 MG Tablet PO (11:13)
[2023-04-10] MEDS: Docusate Sodium 100 MG Capsule PO ×2 (11:14→21:10)
[2023-04-10] MEDS: Tolterodine Tartrate 2 MG CAP.SA PO (11:15)
[2023-04-10] MEDS: Estradiol 1 MG Tablet PO (11:15)
[2023-04-10] MEDS: Polyethylene Glycol 3350 17 GM PACKET PO (11:16)
[2023-04-10] MEDS: Gabapentin 400 MG Capsule PO ×2 (11:16→21:10)
[2023-04-10] MEDS: Vibegron 75 MG TABLET PO (11:16)
[2023-04-10] MEDS: Pantoprazole Sodium 40 MG Tablet PO (11:16)
[2023-04-10] MEDS: Enoxaparin 40 MG/0.4 ML Syringe SC (11:16)
[2023-04-10] MEDS: Meloxicam 15 MG Tablet PO (11:16)
[2023-04-10] MEDS: Allopurinol 100 MG Tablet PO (11:17)
[2023-04-10] MEDS: Atenolol 25 MG Tablet PO (11:18)
[2023-04-10] MEDS: Cholecalciferol (VIT D3) 25 MCG TABLET (1,000 UNITS) PO (11:18)
--- NOTE | 2023-04-10 11:20 | PN_ITS ---
Subjective Subjective Patient seen and examined. She says she is feeling better today but still feels very weak. She is still coughing but denies feeling short of breath. She remains on room air. Review of systems otherwise negative. Objective Data Objective Data Vital Signs: Vital Signs Temp Pulse Resp BP Pulse Ox O2 Del Method 97.8 F 61 18 127/65 H 98 Room Air 04/10/23 03:25 04/10/23 03:25 04/10/23 03:25 04/10/23 03:25 04/10/23 03:25 04/10/23 07:43 Oxygen Delivery Method Room Air Weight: 221 lb 12.56 oz Body Mass Index (BMI) 36.8 Intake & Output: Intake and Output for Last 24 Hours 04/08/23 04/09/23 04/10/23 23:59 23:59 23:59 Intake Total 2291.25 / 2491.25 2150 / 2150 300 / 300 Balance 2291.25 / 2491.25 2150 / 2150 300 / 300 Lab / Micro Data 04/10/23 05:55 04/10/23 05:55 Labs: Laboratory Results - last 24 hr 04/09/23 14:20: WBC 4.8, RBC 3.81 L, Hgb 11.1 L, Hct 35.4 L, MCV 92.9, MCH 29.1, MCHC 31.4 L, RDW Std Deviation 49.4 H, RDW Coeff of Robe 14.6, Plt Count 237, MPV 10.5, Immature Gran % (Auto) 0.400, Neut % (Auto) 44.6 L, Lymph % (Auto) 37.3, Ramsey % (Auto) 9.8, Eos % (Auto) 7.5 H, Baso % (Auto) 0.4, Absolute Neuts (auto) 2.2, Absolute Lymphs (auto) 1.80, Nucleated RBC % 0, Sodium 136, Potassium 4.2, Chloride 106, Carbon Dioxide 28.0, Anion Gap 2 L, BUN 15, Creatinine 0.94, Estim Creat Clear Calc 65.44, Est GFR (MDRD) Af Amer 76, Est GFR (MDRD) Non-Af 63, BUN/Creatinine Ratio 16.0, Glucose 96, Calcium 9.3 04/10/23 05:55: WBC 4.9, RBC 3.72 L, Hgb 11.1 L, Hct 35.5 L, MCV 95.4, MCH 29.8, MCHC 31.3 L, RDW Std Deviation 50.6 H, RDW Coeff of Robe 14.5, Plt Count 263, MPV 10.2, Immature Gran % (Auto) 0.000, Neut % (Auto) 32.4 L, Lymph % (Auto) 48.0 H, Ramsey % (Auto) 10.1 H, Eos % (Auto) 9.1 H, Baso % (Auto) 0.4, Absolute Neuts (auto) 1.6 L, Absolute Lymphs (auto) 2.33, Nucleated RBC % 0, Sodium 138, Po tassium 3.8, Chloride 106, Carbon Dioxide 29.0, Anion Gap 3 L, BUN 18, Creatinine 1.17 H, Estim Creat Clear Calc 52.58, Est GFR (MDRD) Af Amer 59 L, Est GFR (MDRD) Non-Af 49 L, BUN/Creatinine Ratio 15.4, Glucose 112 H, Calcium 9.7 Micro: Microbiology 04/08/23 10:14 Mucosa - Nose SARS-CoV-2, Influenza & RSV (PCR) - Final SARS-CoV-2 (COVID 19 PCR) Physical Exam Const alert, oriented x3 and no apparent distress Constitutional Narrative: looks weak, frail. obese General Appearance: cooperative and well developed HEENT normocephalic and moist oral mucous membranes Eyes PERRL Neck no lymphadenopathy and supple Lymph Lymphatic: no lymphadenopathy noted and no lymphedema noted Resp Resp Narrative: mildly diminished breath sounds bibasally, no wheezes or crackles. On room air. Cardio regular rate, regular rhythm, S1 normal heart sound, S2 normal heart sound and no murmurs GI normal to inspection, nondistended, normoactive bowel sounds, soft to palpation and non-tender Extremity normal capillary refill, no clubbing, cyanosis or edema and no calf tenderness General Extremity: no tenderness to palpation of joints or extremities Skin General Skin Exam: no breakdown Neuro CN's II-XII intact bilaterally, no focal motor deficits, no sensory deficits noted and deep tendon reflexes 2+ bilaterally Motor Exam: strength 5/5 throughout and general weakness Psych thought process normal and cooperative Appearance: appropriate Assessment & Plan Assessment/Plan (1) Adult failure to thrive: (2) COVID-19: (3) Fibromyalgia: PLAN: Plan #Debility and weakness due to covid 19 infection * on room air * CXR showed atelectasis and/or infiltrates in the lingular segment of the left upper lobe abutting the left cardiac border. * still feels weak * PT/.OT consult * fall precautions * PO tylenol prn for pain * #COVID 19 infection: as above #Fibromyalgia: On duloxetine and gabapentin #History of aortic valve replacement: Has a bovine aortic valve replaced due to bicuspid aortic valve on 07/30/2019. Stable #Benign Essential hypertension: Spironolactone and atenolol DVT prophylaxis: Lovenox Disposition; will benefit from placement. CODE STATUS: Full code * * Disposition; awaiting placement. Charges/Coding Visit Charges Inpatient E&M: 91725 Subs Hosp L2
[2023-04-10 17:00] VITALS: BP 143/84; PULSE 59; RESP 18; TEMP 36.7; O2SAT 98
[2023-04-10 21:07] VITALS: BP 139/81; PULSE 67; RESP 18; TEMP 36.6; O2SAT 98; O2SAT 99
[2023-04-10] MEDS: Amitriptyline 25 MG Tablet PO (21:10)
[2023-04-10] MEDS: Fluticasone 0.05% 1 SPRAY NASAL.SRY 2 SPRAY NASAL (21:52)
[2023-04-11 03:27] VITALS: BP 150/68; PULSE 58; RESP 18; TEMP 36.6; O2SAT 97
[2023-04-11 05:36] LABS: Absolute Lymphocyte Count 2.18 X10^3/uL (0.83-4.51); Absolute Neutrophil Count 2.7 X10^3/uL (2.0-7.7); Basophil# 0.03 X10^3/uL; Basophil% 0.5 % (0-1); Eosinophil# 0.34 X10^3/uL; Eosinophils% 5.9 % (0-5); Hematocrit 36.1 % (37-47); Hemoglobin 11.4 g/dL (12.0-15.0); Lymphocyte # 2.18 X10^3/ul (0.83-4.51); Mean Corp Hgb Conc 31.6 g/dL (32-36); Mean Corpuscular Hgb 29.1 pg (27.0-32.0); Mean Corpuscular Volume 92.1 fL (81-99); Mean Platelet Vol. 10.4 fl (6.2-12.0); Monocyte# 0.47 X10^3/uL; Monocyte% 8.2 % (0-10); NRBC Flagged by Analyzer 0 % (0-5); Neutrophil % 47.1 % (47-70); Platelet Count 261 K/mm3 (150-450); RBC Distribution Width CV 14.2 % (11.6-14.6); RBC Distribution Width SD 47.5 fl (35.1-43.9); Red Blood Count 3.92 M/mm3 (4.2-5.4); White Blood Count 5.7 K/mm3 (4.4-11.0)
[2023-04-11 06:08] LABS: Anion Gap 3 (5-15); BUN 17 mg/dL (7-18); BUN/Creat Ratio 15.3 RATIO (10-20); Calcium,Total 9.6 mg/dL (8.5-10.1); Chloride 108 mmol/L (98-107); Creatinine, Serum 1.11 mg/dL (0.55-1.02); EST Glomerular Filtration Rate 52 mL/min (>60); Est Glom Filt Rate - Afr Amer 63 mL/min (>60); Estimated Creatinine Clearance 55.42 ml/min; Glucose 120 mg/dL (74-106); Potassium 4.1 mmol/L (3.5-5.1); Sodium Level 139 mmol/L (136-145)
[2023-04-11] MEDS: Meloxicam 15 MG Tablet PO (09:19)
[2023-04-11] MEDS: Spironolactone 25 MG Tablet PO (09:19)
[2023-04-11] MEDS: Vibegron 75 MG TABLET PO (09:19)
[2023-04-11] MEDS: Estradiol 1 MG Tablet PO (09:19)
[2023-04-11] MEDS: Allopurinol 100 MG Tablet PO (09:19)
[2023-04-11] MEDS: Aspirin E.C. 81 MG Tablet PO (09:19)
[2023-04-11] MEDS: Gabapentin 400 MG Capsule PO ×2 (09:19→21:52)
[2023-04-11] MEDS: Cholecalciferol (VIT D3) 25 MCG TABLET (1,000 UNITS) PO (09:19)
[2023-04-11] MEDS: Pantoprazole Sodium 40 MG Tablet PO (09:19)
[2023-04-11] MEDS: Enoxaparin 40 MG/0.4 ML Syringe SC (09:19)
[2023-04-11] MEDS: Tolterodine Tartrate 2 MG CAP.SA PO (09:19)
[2023-04-11] MEDS: Atenolol 25 MG Tablet PO (09:19)
[2023-04-11] MEDS: Docusate Sodium 100 MG Capsule PO (09:20)
[2023-04-11 09:23] VITALS: BP 149/85; PULSE 71; RESP 16; TEMP 36.8; O2SAT 96
--- NOTE | 2023-04-11 10:23 | CASEMGMT ---
Addendum entered by Damari Kiser 04/11/23 11:08: [facility] declined patient d/t covid + status. SW updated. Damari Kiser, Discharge Planning Asst. Original Note: Discharge Planning Updates sent to [facility] via [facility]. Asked for status of referral. Awaiting response. Damari Kiesr, Discharge Planning Asst.
--- NOTE | 2023-04-11 11:57 | CASEMGMT ---
Addendum entered by Damari Kiser 04/11/23 16:38: Both [facility] and [facility] declined referral. SW updated. Damari Kiser, Discharge Planning Asst. Original Note: Discharge Planning Referral sent to [facility] and [facility] via [facility]. Damari Kiser, Discharge Planning Asst.
[2023-04-11 12:14] VITALS: BP 125/75; PULSE 65; RESP 16; TEMP 36.9; O2SAT 99
[2023-04-11] MEDS: Acetaminophen 325 MG Tablet 650 MG PO ×2 (15:27→23:55)
[2023-04-11 15:28] VITALS: BP 149/76; PULSE 62; RESP 16; TEMP 36.6; O2SAT 98
--- NOTE | 2023-04-11 17:15 | CASEMGMT ---
Social Work Patient has been declined at [facility], and [facility] due to recent COVID, and not being 10 days out from diagnosis. [facility], but currently have no beds. Social work will follow up with patient/family to determine next steps and preferences. Options will be limited due to recent COVID-19 diagnosis. PASRR screen has been started in the [facility] system. Plan: Pending SNF placement and working on finding a facility to accept patient. -MELCHOR Bhandari
--- NOTE | 2023-04-11 18:25 | PCM.PN.HOSP ---
Reason for Visit Reason for Visit: Diagnoses Fibromyalgia (04/08/23) Adult failure to thrive (04/08/23) COVID-19 (04/08/23) Subjective Subjective Patient was seen and examined today, she is currently on room air and appears comfortable. We are awaiting approval for her to go to penitentiary facility for short-term rehab services. Patient's onset of COVID appears to be 6 days ago. Objective Data Objective Data Vital Signs: Vital Signs Temp Pulse Resp BP Pulse Ox O2 Del Method 98 F 62 16 149/76 H 98 Room Air 04/11/23 15:28 04/11/23 15:28 04/11/23 15:28 04/11/23 15:28 04/11/23 15:28 04/11/23 16:28 Oxygen Delivery Method Room Air Weight: 100.6 kg Body Mass Index (BMI) 36.8 Intake & Output: Intake and Output for Last 24 Hours 04/09/23 04/10/23 04/11/23 23:59 23:59 23:59 Intake Total 2150 / 2150 2260 / 2260 650 / 650 Balance 2150 / 2150 2260 / 2260 650 / 650 Lab / Micro Data 04/11/23 05:27 04/11/23 05:27 Labs: Laboratory Results - last 24 hr 04/11/23 05:27: WBC 5.7, RBC 3.92 L, Hgb 11.4 L, Hct 36.1 L, MCV 92.1, MCH 29.1, MCHC 31.6 L, RDW Std Deviation 47.5 H, RDW Coeff of Robe 14.2, Plt Count 261, MPV 10.4, Immature Gran % (Auto) 0.300, Neut % (Auto) 47.1, Lymph % (Auto) 38.0, [place] % (Auto) 8.2, Eos % (Auto) 5.9 H, Baso % (Auto) 0.5, Absolute Neuts (auto) 2.7, Absolute Lymphs (auto) 2.18, Nucleated RBC % 0, Sodium 139, Potassium 4.1, Chloride 108 H, Carbon Dioxide 28.0, Anion Gap 3 L, BUN 17, Creatinine 1.11 H, Estim Creat Clear Calc 55.42, Est GFR (MDRD) Af Amer 63, Est GFR (MDRD) Non-Af 52 L, BUN/Creatinine Ratio 15.3, Glucose 120 H, Calcium 9.6 Micro: Microbiology 04/08/23 10:14 Mucosa - Nose SARS-CoV-2, Influenza & RSV (PCR) - Final SARS-CoV-2 (COVID 19 PCR) Physical Exam Const alert, oriented x3, no apparent distress and healthy appearing General Appearance: cooperative, well kempt and well developed Orientation / Consciousness: awake, oriented to person, oriented to place and oriented to time HEENT normocephalic and moist oral mucous membranes Eyes PERRL, EOMs intact bilaterally and conjunctivae normal Neck supple, no JVD, thyroid normal and no carotid bruits General: trachea midline Resp normal respiratory effort and clear to auscultation bilaterally Auscultation: Negative for rales, rhonchi or wheezes Cardio regular rate, regular rhythm, no murmurs, no rub and no gallops GI normal to inspection, nondistended, normoactive bowel sounds, soft to palpation, non-tender and non-distended Extremity no clubbing, cyanosis or edema Skin no rashes or lesions noted General Skin Exam: no breakdown Neuro oriented x3, CN's II-XII intact bilaterally, no focal motor deficits and no sensory deficits noted Sensorium / Orientation: awake and alert Speech: speech normal Psych affect normal Assessment & Plan Assessment/Plan (1) COVID-19: PLAN: Plan 1. COVID-19 infection with resultant weakness and acute debility-PT and OT will continue to see the patient, she will need temporary placement in a penitentiary facility for short-term rehab services #2 aortic valvular heart disease-patient has a bioprosthetic aortic valve #3 essential hypertension-patient will remain on spironolactone and atenolol #4 fibromyalgia patient is on Cymbalta and gabapentin Total clinical time spent by myself addressing the patient's medical issues, reviewing all of her data, and collaborating with patient's care team: 25-minute Charges/Coding Visit Charges Inpatient E&M: 26867 [facility] [[email or web address]] Hosp L1
[2023-04-11] MEDS: Fluticasone 0.05% 1 SPRAY NASAL.SRY 2 SPRAY NASAL (21:52)
[2023-04-11] MEDS: Amitriptyline 25 MG Tablet PO (21:52)
[2023-04-11 21:54] VITALS: BP 151/78; PULSE 61; RESP 16; TEMP 36.6; O2SAT 97
[2023-04-12 03:54] VITALS: BP 152/77; PULSE 66; RESP 16; TEMP 36.6; O2SAT 98
[2023-04-12 09:16] VITALS: BP 127/69; PULSE 83; RESP 18; TEMP 36.6; O2SAT 97
[2023-04-12] MEDS: Pantoprazole Sodium 40 MG Tablet PO (09:25)
[2023-04-12] MEDS: Gabapentin 400 MG Capsule PO (09:25)
[2023-04-12] MEDS: Estradiol 1 MG Tablet PO (09:25)
[2023-04-12] MEDS: Enoxaparin 40 MG/0.4 ML Syringe SC (09:25)
[2023-04-12] MEDS: Vibegron 75 MG TABLET PO (09:25)
[2023-04-12] MEDS: Tolterodine Tartrate 2 MG CAP.SA PO (09:26)
[2023-04-12] MEDS: Meloxicam 15 MG Tablet PO (09:26)
[2023-04-12] MEDS: Allopurinol 100 MG Tablet PO (09:26)
[2023-04-12] MEDS: Spironolactone 25 MG Tablet PO (09:26)
[2023-04-12] MEDS: Aspirin E.C. 81 MG Tablet PO (09:26)
[2023-04-12] MEDS: Atenolol 25 MG Tablet PO (09:26)
[2023-04-12] MEDS: Cholecalciferol (VIT D3) 25 MCG TABLET (1,000 UNITS) PO (09:26)
[2023-04-12] MEDS: Docusate Sodium 100 MG Capsule PO (09:27)
--- NOTE | 2023-04-12 10:11 | CASEMGMT ---
Social Work As per therapy, pt is now standby assist and wants outpt therapy. CM following up. No further SNF referrals needed at this time. JILLIAN Suero
--- NOTE | 2023-04-12 12:23 | CASEMGMT ---
PT is recommending pt to go home with outpt therapy. Pt is agreeable to this plan and states she feels safe going home with the support of her friends. Rx given to pt at this time. Pt states she has been to outpt therapy before and she won't have any trouble setting this up. Denies further needs.
--- NOTE | 2023-04-12 14:41 | DCINST_ITS ---
Discharge Instructions Diet Discharge Diet: No restrictions Activity Discharge Activity: Return to Normal Activity Weight Bearing Status: Full weight bearing Follow Up Care Test Results: Test results from this visit will be discussed in further detail at your follow- up appointment, if applicable. Discharge Plan Admission Admit Date/Time: 04/08/23 14:42 Primary Reason for Your Visit: debility Attending Provider: Hermelindo Peace Primary Care Provider: Manuel Freeman Consulting Providers: Kalee Hartman Discharge Orders/Prescriptions Prescriptions: Continued cholecalciferol (vitamin D3) 1,000 unit capsule 1,000 unit PO DAILY amitriptyline 25 mg tablet 25 mg PO QHS aspirin [Adult Low Dose Aspirin] 81 mg tablet,delayed release (DR/EC) 81 mg PO DAILY fluticasone propionate 50 mcg/actuation spray,suspension 2 spray INTRANASAL DAILY PRN (Reason: allergy symptoms) duloxetine 60 mg capsule,delayed release(DR/EC) 60 mg PO QHS Qty: 30 5RF baclofen 10 mg tablet 10 mg PO TID PRN (Reason: muscle spasm/muscle pain) Qty: 90 5RF omeprazole 40 mg capsule,delayed release(DR/EC) 40 mg PO DAILY estradiol 1 MG tablet 1 mg PO DAILY Patient Comments: hormone replacement meloxicam 15 MG tablet 15 mg PO DAILY Patient Comments: inflammation fesoterodine 4 mg tablet extended release 24 hr 4 mg PO DAILY spironolactone 25 mg tablet 25 mg PO DAILY Gemtesa 75 mg tablet 75 mg PO DAILY polyethylene glycol 3350 [ClearLax] 17 gram/dose powder 17 g PO DAILY docusate sodium [Colace] 100 mg capsule 100 mg PO BID allopurinol 100 mg tablet 100 mg PO DAILY Patient Comments: TAKE 1 TABLET BY MOUTH ONCE DAILY furosemide 40 mg tablet 40 mg PO DAILY PRN (Reason: swelling) gabapentin 400 mg Capsule 400 mg PO BID Qty: 60 1RF atenolol 25 mg tablet 25 mg PO DAILY Qty: 90 3RF Referrals / Follow Up: Manuel Freeman MD [Primary Care Provider] - Within 1 Month Disposition Disposition (needs filled in before D/C Order can be placed): Home, Self Care
--- NOTE | 2023-04-12 14:44 | DS.PCM_ITS ---
Providers Date of Admission: 04/08/23 Date of Discharge: 04/12/23 Primary Care Physician: Dr. Manuel Freeman MD Reason For Visit: COVID 19 WEAKNESS Diagnosis Discharge Diagnosis (1) COVID-19: Status: Acute Code(s): U07.1 - COVID-19 Plan 1. COVID-19 infection with resultant weakness and acute debility-PT and OT will continue to see the patient, she will need temporary placement in a [facility] facility for short-term rehab services #2 aortic valvular heart disease-patient has a bioprosthetic aortic valve #3 essential hypertension-patient will remain on spironolactone and atenolol #4 fibromyalgia patient is on Cymbalta and gabapentin Total clinical time spent by myself addressing the patient's medical issues, reviewing all of her data, and collaborating with patient's care team: 25-minute Medications at Discharge Home Medications estradiol 1 mg tablet 1 mg PO DAILY estrogen 08/12/14 meloxicam 15 mg tablet 15 mg PO DAILY pain 11/23/16 amitriptyline 25 mg tablet 25 mg PO QHS pain 02/14/19 cholecalciferol (vitamin D3) 25 mcg (1,000 unit) capsule 1,000 unit PO DAILY vitamin 02/14/19 aspirin 81 mg tablet,delayed release (Adult Low Dose Aspirin) 81 mg PO DAILY heart 08/24/19 fluticasone propionate 50 mcg/actuation nasal spray,suspension 2 spray intranasal DAILY PRN allergy symptoms 12/06/19 omeprazole 40 mg capsule,delayed release 40 mg PO DAILY gerd 08/25/22 atenolol 25 mg tablet 25 mg PO DAILY #90 tabs 11/16/22 baclofen 10 mg tablet 10 mg PO TID PRN muscle spasm/muscle pain #90 tabs 12/02/22 duloxetine 60 mg capsule,delayed release 60 mg PO QHS #30 caps 12/02/22 allopurinol 100 mg tablet 100 mg PO DAILY pain 12/13/22 furosemide 40 mg tablet 40 mg PO DAILY PRN swelling 12/13/22 gabapentin 400 mg capsule 400 mg PO BID #60 caps 12/16/22 docusate sodium 100 mg capsule (Colace) 100 mg PO BID 04/08/23 fesoterodine 4 mg tablet,extended release 24 hr 4 mg PO DAILY 04/08/23 polyethylene glycol 3350 17 gram/dose oral powder (ClearLax) 17 g PO DAILY 04/08/23 spironolactone 25 mg tablet 25 mg PO DAILY 04/08/23 vibegron 75 mg tablet (Gemtesa) 75 mg PO DAILY 04/08/23 Hospital Course Operations None Procedures None Summary of Care Provided Minutes Spent on Discharge: 311 Hospital Course: This 68-year-old white female presented to the emergency room at [facility] complaining of URI type symptomology, she had a nonproductive cough and had a headache, she denied fever. She does state that she has a runny nose but no sore throat. Patient required people to get her around at home due to mobility issues made worse by her current illness. Workup in the emergency room showed a normal white blood cell count, hemoglobin was 11.9, creatinine was slightly elevated at 1.6, chest x-ray showed some atelectasis in the left lingula, her COVID-19 test was positive. Patient was not hypoxic patient was placed into observation status on [facility] 3, she was seen by PT and OT, initially arrangements were being made for her to go to a [facility] facility, patient however improved several days into her hospital stay and felt that she could go home and was able to perform ADLs. On 04/12/2023, patient was seen and examined: On examination she appeared in good health and spirits, she does not appear to be in any distress. Vital signs as documented. Skin warm and dry and without overt rashes. Neck without JVD, thyroid appears normal, trachea is midline, neck is supple. Lungs clear, normal air movement was noted. Heart exam notable for regular rhythm, normal sounds and absence of murmurs, rubs or gallops. Abdomen unremarkable and without evidence of organomegaly, masses, or abdominal aortic enlargement, bowel sounds are present in all 4 quadrants, no abdominal tenderness was noted. Extremities nonedematous, no cyanosis was noted, no clubbing was noted. Neuro: Cranial nerves II through XII are grossly intact, no focal motor deficits were noted, sensation to light touch and pinprick is intact, motor exam 5/5 throughout. Psych: Patient is alert and oriented x3, she does not appear anxious or depressed, she does not appear agitated. Patient appears stable for discharge home on 04/12/2023. Weight / BMI Weight Weight: 100.6 kg Body Mass Index (BMI) 36.8 ABG / Lab / Microbiology Data 04/11/23 05:27 04/11/23 05:27 Microbiology: Microbiology 04/08/23 10:14 Mucosa - Nose SARS-CoV-2, Influenza & RSV (PCR) - Final SARS-CoV-2 (COVID 19 PCR) D/C Instructions Discharge Diet: No restrictions Weight Bearing Status: Full weight bearing Meaningful Use Info Meaningful Use Diagnoses (Choose all that apply): None applicable Discharge Plan Admission Admit Date/Time: 04/08/23 14:42 Primary Reason for Your Visit: debility Attending Provider: Hermelindo Peace Primary Care Provider: Manuel Freeman Consulting Providers: Kalee Hartman Discharge Orders/Prescriptions Prescriptions: Continued cholecalciferol (vitamin D3) 1,000 unit capsule 1,000 unit PO DAILY amitriptyline 25 mg tablet 25 mg PO QHS aspirin [Adult Low Dose Aspirin] 81 mg tablet,delayed release (DR/EC) 81 mg PO DAILY fluticasone propionate 50 mcg/actuation spray,suspension 2 spray INTRANASAL DAILY PRN (Reason: allergy symptoms) duloxetine 60 mg capsule,delayed release(DR/EC) 60 mg PO QHS Qty: 30 5RF baclofen 10 mg tablet 10 mg PO TID PRN (Reason: muscle spasm/muscle pain) Qty: 90 5RF omeprazole 40 mg capsule,delayed release(DR/EC) 40 mg PO DAILY estradiol 1 MG tablet 1 mg PO DAILY Patient Comments: hormone replacement meloxicam 15 MG tablet 15 mg PO DAILY Patient Comments: inflammation fesoterodine 4 mg tablet extended release 24 hr 4 mg PO DAILY spironolactone 25 mg tablet 25 mg PO DAILY Gemtesa 75 mg tablet 75 mg PO DAILY polyethylene glycol 3350 [ClearLax] 17 gram/dose powder 17 g PO DAILY docusate sodium [Colace] 100 mg capsule 100 mg PO BID allopurinol 100 mg tablet 100 mg PO DAILY Patient Comments: TAKE 1 TABLET BY MOUTH ONCE DAILY furosemide 40 mg tablet 40 mg PO DAILY PRN (Reason: swelling) gabapentin 400 mg Capsule 400 mg PO BID Qty: 60 1RF atenolol 25 mg tablet 25 mg PO DAILY Qty: 90 3RF Referrals / Follow Up: Manuel Freeman MD [Primary Care Provider] - Within 1 Month Disposition Disposition (needs filled in before D/C Order can be placed): Home, Self Care Charges/Coding Visit Charges Inpatient E&M: 95642 Disch Hosp >30min
[2023-04-12 14:46] VITALS: BP 129/74; PULSE 70; RESP 18; TEMP 36.7; O2SAT 100
== END 2023-04-12 14:56 | disposition home or self-care (01) ==
LOC: ED 11:45 → MS3 14:41
PROVIDERS: Admitting Provider Student in an Organized Health Care Education/Training Program; Emergency Provider Emergency Medicine; PCP Family Medicine; Visit Provider Internal Medicine
DX: U07.1 COVID-19 (principal); I10 Essential (primary) hypertension; I25.10 Atherosclerotic heart disease of native coronary artery without angina pectoris; Z95.3 Presence of xenogenic heart valve; R62.7 Adult failure to thrive; G62.9 Polyneuropathy, unspecified; M79.7 Fibromyalgia; Z79.899 Other long term (current) drug therapy; Z79.82 Long term (current) use of aspirin
CPT/HCPCS: 36415; 71045; 80048; 85025; 87631; 96360; 96361; 96372; 97162; 97166; 97530; 97535; 99221; 99284; J7030; A4216; G0378